=== PATIENT | male | born 1960 | race Caucasian/White ===

== ENCOUNTER 2019-07-02 16:17 | Outpatient (CLI) | payer MEDICARE, SELFPAY ==
[2019-07-02 18:15] LABS: TSH 30.75 uIU/mL (0.36-3.74)
== END 2019-07-02 16:37 ==
PROVIDERS: PCP General Practice; Visit Provider Radiology Radiation Oncology
DX: C06.9 Malignant neoplasm of mouth, unspecified (principal); Z92.3 Personal history of irradiation
CPT/HCPCS: 36415; 84443

== ENCOUNTER 2019-09-21 02:07 | Outpatient (CLI) | payer MEDICARE, SELFPAY ==
[2019-09-21 11:12] LABS: FREE T4 0.81 ng/dL (0.76-1.46)
== END 2019-09-21 02:27 ==
PROVIDERS: PCP Nurse Practitioner; Visit Provider Nurse Practitioner
DX: R94.6 Abnormal results of thyroid function studies (principal); R79.89 Other specified abnormal findings of blood chemistry
CPT/HCPCS: 36415; 84439; 84443

== ENCOUNTER 2019-10-24 03:03 | Outpatient (CLI) | payer MEDICARE, SELFPAY ==
[2019-10-24 16:54] LABS: TSH (W/Ref FT4) 24.95 uIU/mL (0.36-3.74)
[2019-10-24 17:11] LABS: FREE T4 0.75 ng/dL (0.76-1.46)
== END 2019-10-24 03:23 ==
PROVIDERS: PCP Nurse Practitioner; Visit Provider Nurse Practitioner
DX: I10 Essential (primary) hypertension (principal); R79.89 Other specified abnormal findings of blood chemistry
CPT/HCPCS: 36415; 84439; 84443

== ENCOUNTER 2019-12-31 02:00 | Outpatient (CLI) | payer MEDICARE, SELFPAY ==
[2019-12-31 11:16] LABS: FREE T4 1.06 ng/dL (0.76-1.46)
== END 2019-12-31 02:20 ==
PROVIDERS: PCP Nurse Practitioner; Visit Provider Nurse Practitioner
DX: E03.9 Hypothyroidism, unspecified (principal); I10 Essential (primary) hypertension
CPT/HCPCS: 36415; 84439; 84443

== ENCOUNTER 2020-02-29 02:20 | Outpatient (CLI) | payer MEDICARE, SELFPAY ==
[2020-02-29 11:39] LABS: TSH (W/Ref FT4) 5.87 uIU/mL (0.36-3.74)
[2020-02-29 11:55] LABS: FREE T4 1.14 ng/dL (0.76-1.46)
== END 2020-02-29 02:40 ==
PROVIDERS: PCP Nurse Practitioner; Visit Provider Nurse Practitioner
DX: E03.9 Hypothyroidism, unspecified (principal)
CPT/HCPCS: 36415; 84439; 84443

== ENCOUNTER 2020-07-01 09:44 | Outpatient (REF) | payer MEDICARE, SELFPAY ==
[2020-07-01 15:19] LABS: Abs Immature Grans 0.03 10^3/uL (0.0-0.06); Absolute Basophil Count 0.05 10^3/uL (0.0-0.2); Absolute Eosinophil Count 0.08 10^3/uL (0.0-0.7); Absolute Lymphocyte Count 1.15 10^3/uL (1.2-3.4); Absolute Monocyte Count 0.78 10^3/uL (0.1-0.8); Absolute Neutrophil Count 6.44 10^3/uL (1.2-6.7); Basophils % 0.6; Eosinophils % 0.9; HCT 44.3 % (40.0-50.0); HGB 15.7 g/dL (13.5-17.5); Immature Grans % 0.4; Lymphocytes % 13.5; MCH 35.9 pg (27.0-33.0); MCHC 35.4 % (32.0-36.0); MCV 101.4 fL (80-95); MPV 9.8 fL (8.0-11.0); Monocytes % 9.1; Neutrophils % 75.5; Nucleated RBC 0 %; Platelet Count 227 10^3/uL (130-400); RBC 4.37 10^6/uL (4.36-5.78); RDW 11.7 % (11.8-14.1); RDW-SD 43.9 fL; WBC 8.53 10^3/uL (4.4-10.8)
[2020-07-01 15:40] LABS: ALT 42 U/L (16-63); AST 60 U/L (15-37); Albumin 3.7 g/dL (3.4-5.0); Alkaline Phosphatase 101 U/L (46-116); Anion Gap 13.8 mmol/L (3-11); BUN 4 mg/dL (7-18); Bilirubin, Total 0.5 mg/dL (0.2-1.0); CO2 22.2 mmol/L (21.0-32.0); CREATININE 0.7 mg/dL (0.70-1.30); Calcium 8.9 mg/dL (8.5-10.1); Chloride 94 mmol/L (98-107); Glucose 102 mg/dL (74-106); Potassium 3.9 mmol/L (3.5-5.1); Sodium 130 mmol/L (136-145)
[2020-07-01 16:19] LABS: FREE T4 1.14 ng/dL (0.76-1.46)
== END 2020-07-01 09:45 | disposition home or self-care (01) ==
LOC: LBN 09:44
PROVIDERS: PCP Nurse Practitioner; Visit Provider Nurse Practitioner
DX: I10 Essential (primary) hypertension (principal); E03.9 Hypothyroidism, unspecified; C04.9 Malignant neoplasm of floor of mouth, unspecified; F17.200 Nicotine dependence, unspecified, uncomplicated
CPT/HCPCS: 80053; 84439; 84443; 85025

== ENCOUNTER 2020-07-28 09:28 | Outpatient (CLI) | payer MEDICARE, SELFPAY ==
--- NOTE | 2020-07-28 09:15 | RT.EKG_ITS ---
APPROVED REPORT Exam: Resting ECG Patient Location: O HR:92 bpm ECG Measurements Heart Rate [address] 162 P 73 QRSd 88 QRS 45 QT 345 T 53 QTc 427 Conclusion Sinus rhythm...normal P axis, V-rate 60- 99
== END 2020-07-28 09:29 | disposition home or self-care (01) ==
LOC: DI.KIM 09:28
PROVIDERS: PCP Nurse Practitioner; Visit Provider Nurse Practitioner
DX: Z01.818 Encounter for other preprocedural examination (principal)
CPT/HCPCS: 93010

== ENCOUNTER 2020-10-20 11:19 | Emergency (ER) | payer MEDICARE, SELFPAY ==
[2020-10-20 11:23] VITALS: BP 121/104; PULSE 102; RESP 14; TEMP 36.9; O2SAT 96
[2020-10-20 11:25] VITALS: O2SAT 99
--- NOTE | 2020-10-20 11:45 | DI.RAD_ITS ---
Exam(s) XR CHEST 2V PA LATERAL EXAM: XR CHEST 2V PA LATERAL CLINICAL HISTORY: s/p fall, recent trach and G tube, r/o acute dz. TECHNIQUE: 2D digital imaging was performed. COMPARISON: CR CHEST 2 VIEWS PA,LAT from 03/22/2013 FINDINGS: Heart size is upper normal. The mediastinum is not widened. Lungs are clear. No obvious infiltrates nor pleural effusions. On the lateral view there is a nodular density seen posteriorly which is in the superior segment lowe r lobe region. However, this probably corresponds to osteophytes on the right side at midthoracic sp ine level. Less like large lung nodule at this level. There are no pleural effusions Tracheostomy tube noted. IMPRESSION: Findings as above which are probably prominent osteophytes. If clinically indicated follow-up chest CT scan can be performed. DATA REPOSITORY: RADIATION DOSE DELIVERED:
--- NOTE | 2020-10-20 11:45 | DI.CT_ITS ---
Exam(s) CT HEAD CERV SPINE FACIAL WO EXAM: CT HEAD CERV SPINE FACIAL WO CLINICAL HISTORY: s/p fall w/ head injury, L eyebrow laceration. TECHNIQUE: Imaging Protocol: Axial computed tomography images with coronal and sagittal reformatted images were created and reviewed COMPARISON: CT NECK WITH CONTRAST from 08/24/2016 FINDINGS: CT BRAIN: There are no skull fractures nor fluid in the visualized paranasal sinuses. There is no evidence of intracranial hemorrhage, mass effect, or shift of midline structures. There are no extra-axial fluid collections. The ventricles are not enlarged or shifted and there is no blo od within the ventricular system nor within the basal cisterns. There is some periventricular hypodensity consistent with chronic small vessel white matter ischemic changes. CT MAXILLOFACIAL BONES: There is no evidence of facial fractures nor fluid in the visualized paranasal sinuses. there is no evidence of orbital blowout fracture. There has been none resection of a large part of the left side of the mandible. There is a history o f apparent tongue cancer. Soft tissue density and streaking is most probably related to post surgica l reconstruction and radiation change. CT CERVICAL SPINE: There is no evidence of fracture nor listhesis. There is multilevel chronic degenerative disc diseas e. Partial fusions C6-7 levels. No prominent prevertebral soft tissue swelling. No significant pre vertebral soft tissue swelling. No facet malalignment evident. No significant osseous lesions evident. Tracheostomy tube in satisfactory position. Scarring noted in the visualized right lung apex. IMPRESSION: No acute intracranial findings on this noninfused CT scan of the brain. No evidence of facial nor orbital blowout fractures. No evidence of cervical spine fracture, malalignment, nor acute compromise of the cervical spinal can al. Post radical surgical findings including partial resection of the left side of the mandible and subj acent soft tissue postop of post radiation changes RADIATION DOSE DELIVERED: 1,924.75mGy.cm Total DLP DATA REPOSITORY: All CT scans at this facility are submitted to the National Radiology Data Registry (NRDR) Dose Index Registry (DIR) with the [employer] ([employer]). RADIATION OPTIMIZATION: All CT scans at this facility use at least one of these dose optimization te chniques: automated exposure control; mA and/or kV adjustment per patient size (includes targeted exa ms where dose is matched to clinical indication); or iterative reconstruction.
--- NOTE | 2020-10-20 11:45 | RT.EKG_ITS ---
APPROVED REPORT Exam: Resting ECG Reason for Exam: fatigue, dizziness Patient Location: E HR:100 bpm ECG Measurements Heart Rate 100 AXIS NC 194 P 64 QRSd 92 QRS 29 QT 348 T 55 QTc 448 Conclusion Sinus tachycardia...rate> 99 I have reviewed and interpreted ECG and agree with software generated interpretation.
[2020-10-20 11:49] VITALS: BP 119/82; PULSE 106; PULSE 98; RESP 26
[2020-10-20 11:50] VITALS: PULSE 99; RESP 14
--- NOTE | 2020-10-20 12:03 | W.ED.GENAD ---
Discharge Plan Disposition Patient Disposition: HOME Condition: Stable Discharge Details Clinical Impression: Closed head injury without loss of consciousness, Facial laceration, Alcohol intoxication, Gastrostomy tube in place Primary Care Provider: Maisha Deleon ED Provider: Alyssa Casey Home Meds and New Rx's Prescriptions: Continued oxycodone 5 mg/5 mL solution 5 mg PO BID MDD 10mg PRN (Reason: pain, mouth cancer) Qty: 140 RF: 0 famotidine 20 mg tablet 20 mg feeding tube BID Qty: 60 RF: 3 (DME) [place]te Swab See Rx Instructions .ROUTE .MEDSUPPLY Qty: 500 RF: 6 folic acid 400 mcg tablet 0.4 mg PO DAILY RF: 0 vitamin E 200 unit capsule 400 unit PO DAILY RF: 0 docusate sodium 50 mg/5 mL liquid 100 mg feeding tube BID PRN (Reason: constipation) Qty: 473 RF: 3 chlorhexidine gluconate [Peridex] 0.12 % mouthwash 15 ml mucous membrane TID RF: 0 ibuprofen 600 mg tablet 600 mg feeding tube Q6H PRNRF: 0 mirtazapine 7.5 mg tablet 7.5 mg feeding tube QHS RF: 0 levothyroxine 50 mcg tablet 50 mcg feeding tube DAILY RF: 0 food supplemt, lactose-reduced Liquid See Rx Instructions feeding tube .COMPLEX RF: 0 multivitamin Tablet 1 tab feeding tube DAILY RF: 0 thiamine HCl (vitamin B1) 100 mg tablet 100 mg feeding tube DAILY RF: 0 vitamin E (dl, acetate) 400 unit capsule 400 unit feeding tube DAILY RF: 0 gabapentin 300 mg/6 mL (6 mL) solution 400 mg feeding tube TID RF: 0 Discharge Instructions Instructions: Head Injury (ED), Alcohol Intoxication (ED), Facial Laceration (ED) Additional Instructions: Drink plenty of fluids and get plenty of rest. Alternate tylenol and motrin as needed and directed for pain. Return to the emergency department in 5 days for suture removal. It is not advised to use to your gastrostomy tube in your stomach for alcohol consumption. Follow-up with the ear, nose and throat and gastroenterology doctors at [facility] for re-evaluation in the next 1-2 weeks. 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 Patient appears nontoxic. There was large amount of blood noted to his face on arrival which was easily removed revealing only a left lateral eyebrow laceration. He has a large area of chronic left mandible and neck edema s/p oral squamous cell carcinoma resection and reconstruction. There is no pulsatile hematoma and he is hemodynamically stable. Tracheostomy and G-tube noted in place. He denies any history of syncope but does admit to alcohol use yesterday. Pt states he is using his G tube for alcohol consumption. Considering patient's history, will check screening labs including alcohol and urinalysis. Will obtain CT head, cervical spine and facial bones in addition to chest x-ray. History and presentation does not appear consistent with CVA or PE. Will give bolus IV fluids, IV Tylenol and close eyebrow laceration. EKG notes a rate of 100, sinus, no STEMI, nondiagnostic. Labs and imaging reviewed and unremarkable other than an alcohol level of 334. CT's reviewed and negative for acute findings. Discussed with [facility]NT who note that the left-sided neck swelling and soft tissue changes are chronic. They were advised that patient is using his G-tube for alcohol consumption. Patient advised to return to the ED in 5 to 7 days for suture removal. Has an appointment with [facility]NT next week. Medical Records Medical records reviewed: Yes I reviewed the patient's medical records. Imaging Data Radiologic Study: Radiologist's impression: ?CT HEAD CERV SPINE ? FACIAL WO CLINICAL HISTORY: ? s/p fall w/ head injury, L eyebrow laceration. ? TECHNIQUE:? Imaging Protocol: Axial computed tomography images with coronal and sagittal reformatted images were created and reviewed COMPARISON:? CT NECK WITH CONTRAST from 08/24/2016 FINDINGS: CT BRAIN: There are no skull fractures nor fluid in the visualized paranasal sinuses. There is no evidence of intracranial hemorrhage, mass effect, or shift of midline structures.? There are no extra-axial fluid collections.? The ventricles are not enlarged or shifted and there is no blood within the ventricular system nor within the basal cisterns. There is some periventricular hypodensity consistent with chronic small vessel white matter ischemic changes. CT MAXILLOFACIAL BONES: There is no evidence of facial fractures nor fluid in the visualized paranasal sinuses.? there is no evidence of orbital blowout fracture. There has been none resection of a large part of the left side of the mandible.? There is a history of apparent tongue cancer.? Soft tissue density and streaking is most probably related to post surgical reconstruction and radiation change. CT CERVICAL SPINE: There is no evidence of fracture nor listhesis.? There is multilevel chronic degenerative disc disease.? Partial fusions C6-7 levels.? No prominent prevertebral soft tissue swelling.? No significant prevertebral soft tissue swelling.? No facet malalignment evident. No significant osseous lesions evident. Tracheostomy tube in satisfactory position.? Scarring noted in the visualized right lung apex. IMPRESSION: No acute intracranial findings on this noninfused CT scan of the brain. No evidence of facial nor orbital blowout fractures. No evidence of cervical spine fracture, malalignment, nor acute compromise of the cervical spinal canal. Post radical surgical findings including partial resection of the? left side of the mandible and subjacent soft tissue postop of post radiation changes. XR CHEST 2V PA ? LATERAL CLINICAL HISTORY: ? s/p fall, recent trach and G tube, r/o acute dz. ? TECHNIQUE:? 2D digital imaging was performed. COMPARISON:? CR CHEST 2 VIEWS PA,LAT from 03/22/2013 FINDINGS: Heart size is upper normal.? The mediastinum is not widened. Lungs are clear.? No obvious infiltrates nor pleural effusions. On the lateral view there is a nodular density seen posteriorly which is in the superior segment lower lobe region.? However, this probably corresponds to osteophytes on the right side at midthoracic spine level.? Less like large lung nodule at this level.? There are no pleural effusions Tracheostomy tube noted. IMPRESSION: Findings as above which are probably prominent osteophytes. If clinically indicated follow-up chest CT scan can be performed. Lab Data Lab results reviewed: Yes I reviewed the patient's lab results. Labs: Laboratory Tests Range/Units 10/20/20 10/20/20 10/20/20 11:40 11:40 11:40 WBC (4.4-10.8) 10^3/uL 5.21 RBC (4.36-5.78) 10^6/uL 4.63 Hgb (13.5-17.5) g/dL 14.8 Hct (40.0-50.0) % 42.3 MCV (80-95) fL 91.4 MCH (27.0-33.0) pg 32.0 MCHC (32.0-36.0) % 35.0 RDW (11.8-14.1) % 13.2 Plt Count (130-400) 10^3/uL 208 MPV (8.0-11.0) fL 8.9 Immature Gran % 0.4 Neutrophils % 57.4 Lymphocytes % 31.7 Monocytes % 8.4 Eosinophils % 1.7 Basophils % 0.4 Nucleated RBC % % 0 Absolute Neutrophils (1.2-6.7) 10^3/uL 2.99 Absolute Lymphocytes (1.2-3.4) 10^3/uL 1.65 Absolute Monocytes (0.1-0.8) 10^3/uL 0.44 Absolute Eosinophils (0.0-0.7) 10^3/uL 0.09 Absolute Basophils (0.0-0.2) 10^3/uL 0.02 PT (9.3-11.0) sec 9.7 INR (0.9-1.1) 1.0 APTT (21.0-27.5) sec 25.6 Sodium (136-145) mmol/L 135 L Potassium (3.5-5.1) mmol/L 4.1 Chloride (98-107) mmol/L 94 L Carbon Dioxide (21.0-32.0) mmol/L 30.7 Anion Gap (3-11) mmol/L 10.3 BUN (7-18) mg/dL 5 L Creatinine (0.70-1.30) mg/dL 0.7 Estimated GFR/1.73 m2 (mL/min/1.73m2) >= 60.00 Glucose (74-106) mg/dL 106 Calcium (8.5-10.1) mg/dL 8.6 Magnesium (1.8-2.4) mg/dL 2.1 Total Bilirubin (0.2-1.0) mg/dL 0.2 AST (15-37) U/L 40 H ALT (16-63) U/L 29 Alkaline Phosphatase (46-116) U/L 97 Troponin I (<0.06) ng/mL < 0.05 Total Protein (6.4-8.2) g/dL 7.9 Albumin (3.4-5.0) g/dL 3.8 Urine Color (Yellow) Urine Clarity (Clear) Urine pH (5-8) Ur Specific [place] (1.005-1.025) Urine Protein (Negative) mg/dL Urine Ketones (Negative) mg/dL Urine Blood (Negative) Urine Nitrite (Negative) Urine Bilirubin (Negative) Urine Urobilinogen (Up TO 0.2) EU/dL Ur Leukocyte Esterase (Negative) Urine RBC (0-2) HPF Urine WBC (0-5) HPF Ur Epithelial Cells (Negative) HPF Urine Crystals (Negative) HPF Urine Bacteria (Negative) HPF Urine Mucus (Negative) Ur Culture Indicated? Urine Glucose (Negative) mg/dL Ethyl Alcohol (<3) mg/dL 334.1 Range/Units 10/20/20 13:25 WBC (4.4-10.8) 10^3/uL RBC (4.36-5.78) 10^6/uL Hgb (13.5-17.5) g/dL Hct (40.0-50.0) % MCV (80-95) fL MCH (27.0-33.0) pg MCHC (32.0-36.0) % RDW (11.8-14.1) % Plt Count (130-400) 10^3/uL MPV (8.0-11.0) fL Immature Gran % Neutrophils % Lymphocytes % Monocytes % Eosinophils % Basophils % Nucleated RBC % % Absolute Neutrophils (1.2-6.7) 10^3/uL Absolute Lymphocytes (1.2-3.4) 10^3/uL Absolute Monocytes (0.1-0.8) 10^3/uL Absolute Eosinophils (0.0-0.7) 10^3/uL Absolute Basophils (0.0-0.2) 10^3/uL PT (9.3-11.0) sec INR (0.9-1.1) APTT (21.0-27.5) sec Sodium (136-145) mmol/L Potassium (3.5-5.1) mmol/L Chloride (98-107) mmol/L Carbon Dioxide (21.0-32.0) mmol/L Anion Gap (3-11) mmol/L BUN (7-18) mg/dL Creatinine (0.70-1.30) mg/dL Estimated GFR/1.73 m2 (mL/min/1.73m2) Glucose (74-106) mg/dL Calcium (8.5-10.1) mg/dL Magnesium (1.8-2.4) mg/dL Total Bilirubin (0.2-1.0) mg/dL AST (15-37) U/L ALT (16-63) U/L Alkaline Phosphatase (46-116) U/L Troponin I (<0.06) ng/mL Total Protein (6.4-8.2) g/dL Albumin (3.4-5.0) g/dL Urine Color (Yellow) Yellow Urine Clarity (Clear) Clear Urine pH (5-8) 7.0 Ur Specific [place] (1.005-1.025) 1.010 Urine Protein (Negative) mg/dL Negative Urine Ketones (Negative) mg/dL Negative Urine Blood (Negative) Trace-intact H Urine Nitrite (Negative) Negative Urine Bilirubin (Negative) Negative Urine Urobilinogen (Up TO 0.2) EU/dL 0.2 Ur Leukocyte Esterase (Negative) Negative Urine RBC (0-2) HPF 0-2 Urine WBC (0-5) HPF 0-2 Ur Epithelial Cells (Negative) HPF Negative Urine Crystals (Negative) HPF Negative Urine Bacteria (Negative) HPF Negative Urine Mucus (Negative) Negative Ur Culture Indicated? No Urine Glucose (Negative) mg/dL Negative Ethyl Alcohol (<3) mg/dL ECG Data Attestation: I personally reviewed and interpreted this ECG (s) as follows: Interpretation: Rate of 100, sinus, no acute ST elevation or depression. MA 194. QTc 448. HPI General Mode of arrival: ambulatory. Date/Time Provider Initiated Documentation: 10/20/20 11:22. Limitations to Documentation: no limitations. Information obtained by: patient. 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 Patient states he was feeling tired at home today and fell striking the left side of his head on the ground. He denies any dizziness, chest pain, shortness of breath prior to the fall and denies any LOC, vomiting after the fall. He states he had 4 beers yesterday but denies any alcohol use today. Related Data Home Medications Medication Instructions Recorded Confirmed folic acid 400 mcg tablet 0.4 mg PO DAILY 08/06/19 10/20/20 vitamin E 200 unit capsule 400 unit PO DAILY cap 08/06/19 10/20/20 swab #500 ea 07/28/20 09/25/20 chlorhexidine gluconate 0.12 % 15 ml MUCOUS MEMBRANE TID ml 09/01/20 10/20/20 mouthwash docusate sodium 50 mg/5 mL oral 100 mg FEEDING TUBE BID PRN #473 ml 09/01/20 10/20/20 liquid food supplemt, lactose-reduced See Rx Instructions FEEDING TUBE 09/01/20 10/20/20 .COMPLEX ibuprofen 600 mg tablet 600 mg FEEDING TUBE Q6H PRN 09/01/20 10/20/20 levothyroxine 50 mcg tablet 50 mcg FEEDING TUBE DAILY 09/01/20 10/20/20 mirtazapine 7.5 mg tablet 7.5 mg FEEDING TUBE QHS 09/01/20 10/20/20 multivitamin 1 tab FEEDING TUBE DAILY 09/01/20 10/20/20 thiamine HCl (vitamin B1) 100 mg 100 mg FEEDING TUBE DAILY 09/01/20 10/20/20 tablet vitamin E (dl, acetate) 400 unit 400 unit FEEDING TUBE DAILY 09/01/20 10/20/20 capsule gabapentin 300 mg/6 mL (6 mL) oral 400 mg FEEDING TUBE TID ml 09/10/20 10/20/20 solution famotidine 20 mg tablet 20 mg FEEDING TUBE BID #60 tab 09/25/20 10/20/20 oxycodone 5 mg/5 mL oral solution 5 mg PO BID PRN #140 ml MDD 10mg 09/25/20 10/20/20 Previous Rx's Medication Instructions Recorded swab #500 ea 07/28/20 docusate sodium 50 mg/5 mL oral 100 mg FEEDING TUBE BID PRN #473 ml 09/01/20 liquid famotidine 20 mg tablet 20 mg FEEDING TUBE BID #60 tab 09/25/20 oxycodone 5 mg/5 mL oral solution 5 mg PO BID PRN #140 ml MDD 10mg 09/25/20 Allergies Allergy/AdvReac Type Severity Reaction Status Date / Time No Known Allergies Allergy Verified 10/20/20 11:36 General Stated Complaint: Laceration CHRIST: 3 Review of Systems All systems reviewed & are unremarkable except as noted in HPI and below Constitutional Constitutional: Reports as per HPI, Denies chills, Reports fatigue and Denies fever(s) Eyes Eyes: Denies blurry vision ENT Ears, Nose, Mouth, and Throat: Denies dizziness, Denies sore throat and Denies throat swelling Cardiovascular Cardiovascular: Denies chest pain and Denies dyspnea Respiratory Respiratory: Denies cough and Denies dyspnea Gastrointestinal Gastrointestinal: Denies abdominal pain, Denies diarrhea and Denies vomiting Genitourinary Genitourinary: Denies hematuria and Denies dysuria Musculoskeletal Musculoskeletal: Denies back pain and Denies numbness Integumentary/Breasts Skin/Breast: Denies lesions and Denies rash Neurologic Neurologic: Denies dizziness, Denies localized weakness and Denies numbness Endocrine Endocrine: Reports fatigue Allergic/Immunologic Allergic/Immunologic: Denies throat swelling [facility] Medical History (Updated 10/20/20 @ 14:11 by Alyssa Casey DO) Anxiety Aspiration pneumonia Caries COPD (chronic obstructive pulmonary disease) Cough with hemoptysis Dysphagia, oral phase Floor of mouth squamous cell carcinoma (06/26/20) Hypertension Hypothyroidism Mouth cancer Oral pain Recurrent squamous cell carcinoma Tobacco use disorder >25 pack years Surgical History (Updated 09/03/20 @ 16:41 by Flora Og RN) S/P glossectomy (10/24/13) w/ resection of floor of mouth, w/ suprahyoid neck dissection. cervical lymphadenectomy, tracheostomy, excision benign thyroid lesion, exploration carotid artery S/P reconstruction procedure (08/18/20) Pediculed pec flap, L hemiglossectomy and mandibulectomy ([facility]) S/P tooth extraction (~2013) Status post glossectomy (08/11/20) w/ multiple other procedures Family History (Updated 11/05/19 @ 16:13 by Flora Og RN) Mother Hypertension Hyperlipidemia Breast cancer Asthma Father Asthma Brother Hyperlipidemia Social History Smoking/Tobacco Use Status: Current every day Tobacco: How many years used: 29 Smoking risk assessment performed?: Yes Alcohol Intake: current Alcohol Intake frequency: 3 or more drinks per day Alcohol type: beer Details: 6 beer a day Drug use: Rarely Substance use type: marijuana Details: No IV Drug Use Adopted: No Caregiver/Support person: No Foster care: No Household members: none Housing: house Number of Children: 1 Communication Needs: Corrective Lenses Education Level: high school Do you need help understanding health information?: Often Sexually active: No Do you think of yourself as: straight/heterosexual Current gender identity: male What type of physical activity do you participate in: none Special leeroy needs: No Seatbelt use: always Do you feel safe at home: Yes Do you feel safe in your relationship?: Yes Exam Const General: cooperative and ill appearing chronically Orientation: alert, awake and oriented x3 HENMT Head: normal to inspection Ears: hearing grossly normal bilaterally, external ears normal and TM's normal bilaterally General nose exam: external nose normal Face images: 1. Large well-healed surgical scar and skin grafting noted to the left side of the jaw and neck. There is a question of erosion at the left corner of the mouth without signs of cellulitis or active bleeding. 2. 2 cm straight laceration noted to lateral aspect of eyebrow. Mild oozing. Teeth and gingiva: edentulous Eyes General: appearance normal, both eyes and all related structures Eyelids: eyelids normal Pupils: PERRL EOM: EOM intact bilaterally Neck Neck: tracheostomy present Lymphatic: no lymphadenopathy noted Neck images: 1. Chronic abrasion noted left and posterior to the tracheostomy, appears chronic due to irritation from tracheostomy. No signs of cellulitis. Chest Chest: normal inspection of the chest, normal palpation of entire chest wall, no crepitus and no tenderness Resp Effort & Inspection: normal respiratory effort and able to speak in complete sentences Auscultation: clear to auscultation bilaterally Cardio Rate: regular rate Rhythm: regular rhythm GI Inspection: normal to inspection Palpation: soft, not firm, no guarding, no hepatosplenomegaly, no masses and nontender Auscultation: normal bowel sounds Back/Spine/Pelvis Back: no CVA tenderness Cervical Spine: No cervical spinal tenderness Thoracic/Lumbar Spine: No thoracic spinal tenderness and No lumbar spinal tenderness Pelvis: no pain with anterior-posterior compression Skin General skin exam: no rashes or lesions noted Neuro General: patient alert, patient awake, moves all extremities, no meningeal signs and no focal motor deficits Cognition: normal cognition Speech: abnormal speech slurred (Due to oral cancer/surgery, edentulous, tracheostomy) Motor: muscle tone normal throughout Sensory Exam: no sensory deficits noted Extrem General: normal to inspection, full ROM and capillary refill normal Other: No evidence of trauma to bilateral upper or lower extremities. Normal range of motion of bilateral shoulders, elbows, wrists, hips, knees, ankles. No orthopedic deformities noted. Psych Appearance: grossly normal Mental Status: mental status grossly normal Affect: normal affect Thought Process: normal Course Vital Signs Vital signs: Vital Signs Temperature 98.4 F 10/20/20 11:23 Pulse 102 H 10/20/20 11:23 Respiratory Rate 14 10/20/20 11:23 Blood Pressure 121/104 H 10/20/20 11:23 Pulse Oximetry 96 10/20/20 11:23 Temperature 98.4 F 10/20/20 11:23 Temperature Source Skin 10/20/20 11:23 Pulse 102 H 10/20/20 11:23 Respiratory Rate 14 10/20/20 11:23 Respiratory Effort Non-Labored 10/20/20 11:38 Blood Pressure 121/104 H 10/20/20 11:23 Blood Pressure Position Supine 10/20/20 11:23 Pulse Oximetry 96 10/20/20 11:23 Oxygen Delivery Method Room Air 10/20/20 11:23 Oxygen Flow Rate 0 10/20/20 11:23 Pain Level 5 10/20/20 11:23 Procedures Laceration Laceration 1: Site: face Side (If applicable): left Size (cm): 2 Description: linear (w/ V shaped flap on medial aspect) Depth: simple, single layer Local Anesthetic: with Epi Amount of anesthesia used (mL): 5 Pre-repair: wound explored, irrigated extensively and deep structures intact Skin layer closed with: other (prolene) Size (cm): 6-0 Number of sutures: 5 Technique: simple, interrupted
[2020-10-20 12:06] LABS: Abs Immature Grans 0.02 10^3/uL (0.0-0.06); Absolute Basophil Count 0.02 10^3/uL (0.0-0.2); Absolute Eosinophil Count 0.09 10^3/uL (0.0-0.7); Absolute Lymphocyte Count 1.65 10^3/uL (1.2-3.4); Absolute Monocyte Count 0.44 10^3/uL (0.1-0.8); Absolute Neutrophil Count 2.99 10^3/uL (1.2-6.7); Basophils % 0.4; Eosinophils % 1.7; HCT 42.3 % (40.0-50.0); HGB 14.8 g/dL (13.5-17.5); Immature Grans % 0.4; Lymphocytes % 31.7; MCV 91.4 fL (80-95); MPV 8.9 fL (8.0-11.0); Monocytes % 8.4; Neutrophils % 57.4; Nucleated RBC 0 %; Platelet Count 208 10^3/uL (130-400); RBC 4.63 10^6/uL (4.36-5.78); RDW 13.2 % (11.8-14.1); RDW-SD 44.2 fL; WBC 5.21 10^3/uL (4.4-10.8)
[2020-10-20 12:12] LABS: PTT Activated 25.6 sec (21.0-27.5); Prothrombin Time 9.7 sec (9.3-11.0)
[2020-10-20 12:15] LABS: ALT 29 U/L (16-63); AST 40 U/L (15-37); Albumin 3.8 g/dL (3.4-5.0); Alkaline Phosphatase 97 U/L (46-116); Anion Gap 10.3 mmol/L (3-11); BUN 5 mg/dL (7-18); Bilirubin, Total 0.2 mg/dL (0.2-1.0); CO2 30.7 mmol/L (21.0-32.0); CREATININE 0.7 mg/dL (0.70-1.30); Calcium 8.6 mg/dL (8.5-10.1); Chloride 94 mmol/L (98-107); ETHANOL BLOOD 334.1 mg/dL (<3); Glucose 106 mg/dL (74-106); Magnesium 2.1 mg/dL (1.8-2.4); Potassium 4.1 mmol/L (3.5-5.1); Sodium 135 mmol/L (136-145); Total Protein 7.9 g/dL (6.4-8.2); Troponin I < 0.05 ng/mL (<0.06)
[2020-10-20] MEDS: Normal Saline 1,000 ML 1000 ML IV (13:18)
[2020-10-20] MEDS: ACETAMINOPHEN 1,000 MG/100 ML BTL 400 MG IVPB (13:19)
[2020-10-20 13:44] LABS: Bilirubin Negative (Negative); Blood Trace-intact (Negative); Clarity Clear (Clear); Glucose Negative (Negative); Ketones Negative (Negative); Leukocyte Esterase Negative (Negative); Nitrite Negative (Negative); Urobilinogen 0.2 EU/dL (Up TO 0.2)
[2020-10-20 14:01] VITALS: O2SAT 97
[2020-10-20 14:02] VITALS: BP 140/103; PULSE 99; O2SAT 97
[2020-10-20 14:04] LABS: Bacteria Negative HPF (Negative); Crystals Negative HPF (Negative); Epithelial Cells Negative HPF (Negative); Mucus Negative (Negative); RBC 0-2 HPF (0-2); WBC 0-2 HPF (0-5)
[2020-10-20 14:05] LABS: C & S Indicated? No
== END 2020-10-20 15:06 | disposition home or self-care (01) ==
PROVIDERS: Emergency Provider Physician Assistant; PCP Nurse Practitioner
DX: S01.112A Laceration without foreign body of left eyelid and periocular area, initial encounter (principal); W18.39XA Other fall on same level, initial encounter; Z93.1 Gastrostomy status; F10.129 Alcohol abuse with intoxication, unspecified
CPT/HCPCS: 12011; 36415; 80053; 93005; 96361; 96365; 99284; 70450; 70486; 71046; 72125; 80320; 81003; 81015; 83735; 84484; 85025; 85610; 85730; 93010; J0131

== ENCOUNTER 2020-11-02 08:20 | Inpatient (IN) | payer OTHER, SELFPAY ==
[2020-11-02] VITALS (122 sets, daily range): BP systolic 83–202; BP diastolic 58–173; PULSE 85–157; RESP 15–34; TEMP 36–36.7; O2SAT 89–98
--- NOTE | 2020-11-02 08:45 | DI.CT_ITS ---
Exam(s) CT HEAD CERVICAL SPINE WO EXAM: CT HEAD CERVICAL SPINE WO COMPARISON: CT CT HEAD CERV SPINE FACIAL WO from 10/20/2020 FINDINGS: CT examination of the cervical spine was performed without contrast administration. Severe degenerative changes of the cervical spine noted. Tracheostomy tube noted. Multiple vascular clips in the cervical region bilaterally consistent with reported prior surgical procedures. There is no evidence of acute cervical spine fracture or dislocation. Noncontrast cranial CT was performed. Ventricular system is normal in appearance. No evidence of acute intracranial hemorrhage, mass effect, or midline shift. No calvarial fracture. The orbital and temporal bone structures appear intact. Visualized mastoid air cells and paranasal sinuses appear clear. IMPRESSION: No evidence of acute cervical spine injury. No evidence of acute intracranial injury. RADIATION DOSE DELIVERED: 1,493.1mGy.cm Total DLP 1,493.1mGy.cm Total DLP DATA REPOSITORY: All CT scans at this facility are submitted to the National Radiology Data Registry (NRDR) Dose Index Registry (DIR) with the [employer] (ACR). RADIATION OPTIMIZATION: All CT scans at this facility use at least one of these dose optimization te chniques: automated exposure control; mA and/or kV adjustment per patient size (includes targeted exa ms where dose is matched to clinical indication); or iterative reconstruction.
--- NOTE | 2020-11-02 08:45 | RT.EKG_ITS ---
APPROVED REPORT Exam: Resting ECG Reason for Exam: fall, unclear mechanism Patient Location: E HR:117 bpm ECG Measurements Heart Rate 117 AXIS MN 160 P 67 QRSd 86 QRS 13 QT 334 T 59 QTc 467 Conclusion Sinus tachycardia...rate> 99. No STEMI. I have reviewed and interpreted ECG and agree with software generated interpretation.
--- NOTE | 2020-11-02 08:47 | ED.GENADUL_ITS ---
Discharge Plan Disposition Patient Disposition: [facility] INPATIENT Condition: Poor Discharge Details Chief Complaint: Trauma Clinical Impression: Scalp laceration, Gastrostomy tube in place, Hyponatremia, Acute hypokalemia, Alcohol abuse Admit Date/Time: 11/02/20 11:41 Admit Provider: Tanvir Griffith Attending Provider: Tanvir Griffith Primary Care Provider: Maisha Deleon ED Provider: Jerilyn Mooney Discharge Instructions Activity:: Activity as Tolerated Equipment/Supplies:: No Equipment Needed Diet:: enteral feedings w/ Nutren 1.5 one can 5x/day, along w/ 240 mL water 5x/d Discharge Orders Discharge Orders: Discharge Order (Routine); Ordered 11/05/20 Ordered By: Tanvir Griffith Discharge Data Discharge Date/Time-TO BE ENTERED AT DEPARTURE: 11/02/20 14:01 Medical Decision Making Patient is a 60-year-old male brought in via EMS after unwitnessed fall. Patient endorses having alcohol both last night as well as this morning. Fell while intoxicated striking the back of his head. EMS noted significant laceration to the posterior scalp. No other objective evidence of trauma was noted. Patient denies pain elsewhere. Past medical history significant for G-tube, oral carcinoma with tracheostomy, hypothyroidism, hypertension, COPD. On exam, patient is alert. Communication is difficult secondary to tracheostomy and limited verbal abilities. However, patient will write. He is able to answer yes no questions and is understandable and one-word answers. Unclear mechanism of fall. Unclear time of fall. Unclear if he lost consciousness. Patient has significant laceration to the posterior aspect of his head that is actively bleeding. Wound is approximately 6 cm in length. Does have hematoma under the. No palpable fracture or pain elsewhere with exam of the head. Patient has crackles noted in the right lung. I am concerned for potential aspiration, I do not know his complete anatomy. He denies any pain to palpation of the cervical, thoracic or lumbar spine. No pain with compression of his chest wall. Abdomen is benign, G-tube appears to be in place. No pain on palpation about his extremities, he is moving all extremities. Attention initially turned to laceration at this does appear to be significantly bleeding. I discussed this with the patient. We discussed risk/benefits as well as expected procedural steps. Patient nods in agreement to have this completed. Area was cleansed and anesthetized with lidocaine with epinephrine. Dominique then applied. Pressure dressing was applied as well but bleeding did s eem to be controlled with closure of the wound. Will nugent scan the patient is very unclear about his mechanisms of injury or potential other underlying injuries. Patient not endorsing any pain at this time. Spoke with patient's [id number]. She [place] and check on patient regularly. He also helps to bring patient to appointments. [place], home [phone], cell [phone]. She is concerned that the patient has started wanting to cancel all of his regular appointments. She states that he has been drinking regularly for approximately 30 years and has gone to rehab without success. No known seizures from withdrawal. States that he did have home health but that he kicked them out. Labs reviewed. No leukocytosis. Patient slightly anemic with hemoglobin of 12.9, this is down from 14.8 dated 10/20/2020. Patient sodium is critically low at 115. Is not exhibiting any symptoms of severe hyponatremia. Likely, this is all associated with the large amount of beer he has been consuming. Potassium low at 2.9, chloride 79. We will begin potassium supplementation. Mag is 1.7, will give 1 g of mag. Alcohol is 24. When he was here recently it was 334. Patient is beginning to appear more tremulous and tachycardic, concerned for withdrawal symptoms. No PMH of known DT or seizure. We will begin the patient on phenobarbital. Patient will require admission for hyponatremia. Discussed this plan with the patient who is in agreement. #5 simple interuppted stitches from previous visit were easily removed by myself. Wound appears to be healing well with no evidence of infection. Imaging reviewed by radiologist: FINDINGS: Limitations: None. Tubes, catheters and devices: Centered tracheostomy tube. Trachea: Normal. Bronchial tree: Normal. Lungs: Right apical pleuroparenchymal scarring, limited peribronchial thickening and volume loss. Minimal scarring in the anteroinferior right middle lobe. Pleural spaces: Normal. Heart: Normal. Coronary arteries: Multivessel calcification. Aorta: The aorta has normal caliber. Lymph nodes: No enlarged or otherwise suspicious lymph nodes. Bones/joints: Healed nondisplaced posterolateral left 8th and 9th rib fractures. No acute fracture. Soft tissues: Normal. No contusions. Other findings: Mild thoracic aortosclerosis. IMPRESSION: 1. No acute injury or other acute disease in the chest. 2. Incidental findings include coronary artery disease, right lung scarring and old healed left rib fractures. FINDINGS: Limitations: None. Tubes, catheters and devices: Balloon tip percutaneous gastrostomy tube. Liver: Probable diffuse fatty liver. Gallbladder and bile ducts: Multiple gallstones. Pancreas: Normal. Spleen: Normal. Adrenal glands: Normal. Kidneys and ureters: Normal. Stomach and bowel: Normal. Appendix: Normal. Intraperitoneal space: No ascites, pneumoperitoneum or peritoneal lesion. Vasculature: Mild atherosclerosis of the abdominal aorta and branch vessels. The vessels have normal caliber and there are no occlusions, dissection or suspicious stenosis. Lymph nodes: None enlarged or otherwise suspicious. Urinary bladder: Normal. Reproductive: Normal prostate and seminal vesicles. Bones/joints: No acute fracture or suspicious osseous lesion. Soft tissues: Similar small bilateral fat containing inguinal hernias. IMPRESSION: 1. No acute injury or other acute disease in the abdomen and pelvis. 2. Incidental findings include cholelithiasis and probable fatty liver. FINDINGS: Brain: As before, there is no evidence of acute intracranial hemorrhage or acute territorial infarct. Moderate diffuse involutional changes and mild to moderate white matter hypodensity suggest small vessel disease are again noted. Cerebral ventricles: No ventriculomegaly. Paranasal sinuses: Minimal paranasal sinus disease. Mastoid air cells: Mastoids are well aerated. Bones/joints: No acutely displaced fractured Soft tissues: Scalp hematoma posteriorly on the right is small in size with overlying skin dominique IMPRESSION: 1. No acute intracranial hemorrhage. 2. No acute fracture. 3. Small scalp hematoma on the right. FINDINGS: Tubes, catheters and devices: Tracheostomy tube in the field of view. Vertebrae: The the moderate to severe multilevel degenerative changes are present with minimal scoliosis but no evidence of acute fracture line, high-grade compression deformity, or worrisome malalignment. Epidural space: No epidural fluid. Disc spaces: Multilevel mild to moderate central stenosis and multilevel foraminal encroachment. Soft tissues: Unremarkable. Prevertebral Space: No prevertebral soft tissue swelling. Esophagus: Patulous esophagus. Lymph nodes: No confluent lymphadenopathy Vasculature: Carotid vascular calcifications can be followed with ultrasound. Lungs: Apical pleural thickening in the lungs. Other findings: Motion artifact. IMPRESSION: Degenerative changes without acute fracture. Consulted with Dr. Adamson who agrees to admission for hyponatremia, hyp okalemia, hypochloremia, hypomagnesemia and trauma. Reviewed notes from [facility]. Patient was last seen by the plastic surgery office on 10/16/2020. They note the patient had surgical intervention on 08/11/2020 at which time he underwent oral cancer resection reconstruction with pedicled pectoralis flap. Subsequently had surgical intervention again on 08/18/2020 for I&D of hematoma at donor site. HPI General Mode of arrival: EMS . Date/Time Provider Initiated Documentation: 11/02/20 08:34 . Limitations to Documentation: physical limitation (difficult to understand, will write answers) . Information obtained by: patient, family (sister in law), EMS and RN notes reviewed . History of Present Illness 60 year old M presents to the emergency department with the chief complaint of unwitnessed fall, scalp laceration, described as moderate, Quality is described as other (denies pain currently, still bleeding), and is localized to the head. Patient started experiencing this unknown and it has been constant. No relieving factors improve symptom(s), No exacerbating factors reported . Patient notes no other symptoms.. Patient did receive the following treatments prior to arrival, none Related Data Home Medications Medication Instructions Recorded Confirmed folic acid 400 mcg tablet 0.4 mg PO DAILY 08/06/19 11/02/20 vitamin E 200 unit capsule 400 unit PO DAILY cap 08/06/19 11/02/20 swab #500 ea 07/28/20 11/02/20 chlorhexidine gluconate 0.12 % 15 ml MUCOUS MEMBRANE TID ml 09/01/20 11/02/20 mouthwash docusate sodium 50 mg/5 mL oral 100 mg FEEDING TUBE BID PRN #473 ml 09/01/20 11/02/20 liquid food supplemt, lactose-reduced See Rx Instructions FEEDING TUBE 09/01/20 11/02/20 .COMPLEX ibuprofen 600 mg tablet 600 mg FEEDING TUBE Q6H PRN 09/01/20 11/02/20 levothyroxine 50 mcg tablet 50 mcg FEEDING TUBE DAILY 09/01/20 11/02/20 mirtazapine 7.5 mg tablet 7.5 mg FEEDING TUBE QHS 09/01/20 11/02/20 multivitamin 1 tab FEEDING TUBE DAILY 09/01/20 11/02/20 thiamine HCl (vitamin B1) 100 mg 100 mg FEEDING TUBE DAILY 09/01/20 11/02/20 tablet vitamin E (dl, acetate) 400 unit 400 unit FEEDING TUBE DAILY 09/01/20 11/02/20 capsule gabapentin 300 mg/6 mL (6 mL) oral 400 mg FEEDING TUBE TID ml 09/10/20 11/02/20 solution famotidine 20 mg tablet 20 mg FEEDING TUBE BID #60 tab 09/25/20 11/02/20 oxycodone 5 mg/5 mL oral solution 5 mg PO BID PRN #140 ml MDD 10mg 09/25/20 11/02/20 levofloxacin 750 mg PO Q24H 14 Days #420 ml 11/05/20 Previous Rx's Medication Instructions Recorded swab #500 ea 07/28/20 docusate sodium 50 mg/5 mL oral 100 mg FEEDING TUBE BID PRN #473 ml 09/01/20 liquid famotidine 20 mg tablet 20 mg FEEDING TUBE BID #60 tab 09/25/20 oxycodone 5 mg/5 mL oral solution 5 mg PO BID PRN #140 ml MDD 10mg 09/25/20 levofloxacin 750 mg PO Q24H 14 Days #420 ml 11/05/20 Allergies Allergy/AdvReac Type Severity Reaction Status Date / Time No Known Allergies Allergy Verified 11/02/20 08:32 General Stated Complaint: Trauma CHRIST: 3 Review of Systems Narrative: Limited secondary to communication barrier [facility] Medical History Anxiety Aspiration pneumonia Caries COPD (chronic obstructive pulmonary disease) Cough with hemoptysis Dysphagia, oral phase 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 cervical lymphadenectomy, tracheostomy, excision benign thyroid lesion, exploration carotid artery S/P reconstruction procedure (08/18/20) Pediculed pec flap, L hemiglossectomy and mandibulectomy ([facility]) S/P tooth extraction (~2013) Status post glossectomy (08/11/20) w/ multiple other procedures Family History Mother Hypertension Hyperlipidemia Breast cancer Asthma Father Asthma Brother Hyperlipidemia Social History Smoking/Tobacco Use Status: Current every day Tobacco: How many years used: 29 Smoking risk assessment performed?: Yes Alcohol Intake: current Alcohol Intake frequency: 3 or more drinks per day Alcohol type: beer Details: 6 beer a day Drug use: Rarely Substance use type: marijuana Details: No IV Drug Use Adopted: No Caregiver/Support person: No Foster care: No Household members: none Housing: house Number of Children: 1 Communication Needs: Corrective Lenses Education Level: high school Do you need help understanding health information?: Often Sexually active: No Do you think of yourself as: straight/heterosexual Current gender identity: male What type of physical activity do you participate in: none Special leeroy needs: No Seatbelt use: always Do you feel safe at home: Yes Do you feel safe in your relationship?: Yes Exam Const General: cooperative, comfortable, no acute distress, well developed, No well groomed, anxious and ill appearing chronically Nutritional Appearance: average body habitus and well nourished Orientation: alert, awake and oriented x3 HENMT Head: normal to inspection, no palpable skull fracture, normocephalic, signs of trauma, no Churchill's sign and laceration Head images: 1. Ears: hearing grossly normal bilaterally, external ears normal and TM's normal bilaterally General nose exam: external nose normal Eyes General: appearance normal, both eyes and all related structures Visual Mota: normal visual mota by confrontation Alignment and Position: alignment normal Periorbital: periorbital findings normal Eyelids: eyelids normal Conjunctivae: conjunctivae normal Pupils: PERRL EOM: EOM intact bilaterally Neck Neck: full ROM and no lymphadenopathy Neck images: 1. Area of mass, chronic. No evidence of trauma Chest Chest: normal inspection of the chest, normal palpation of entire chest wall, no crepitus and no localized rib tenderness Resp Effort & Inspection: normal respiratory effort, able to speak in complete sentences and no respiratory distress Auscultation: no rales, rhonchi right lower and no wheezes Cardio Rate: regular rate Rhythm: regular rhythm Heart Sounds: S1 normal and S2 normal GI Inspection: normal to inspection, no abdominal wall ecchymosis, no edema, non- distended and other (G-tube appears to be in place) Palpation: soft, no hepatosplenomegaly, not firm, no guarding, no pulsatile masses, not rigid and nontender Auscultation: normal bowel sounds Back/Spine/Pelvis Back: no CVA tenderness Cervical Spine: normal cervical lordosis and cervical ROM normal Thoracic/Lumbar Spine: thoracic and lumbar spine normal to inspection, thoraco- lumbar ROM normal, No thoraco-lumbar ROM limited, No thoraco-lumbar spasm and No thoracic spinal tenderness Pelvis: no pain with anterior-posterior compression and no pain with lateral compression Skin Trauma: laceration (scalp) Neuro General: patient alert, patient awake, patient oriented x3, gait normal, tone normal and moves all extremities Cranial Nerves: CN's II-XI intact bilaterally Cognition: normal cognition (writing answers) Speech: speech abnormal (unable to assess) Motor: muscle tone normal throughout and strength 5/5 throughout Sensory Exam: no sensory deficits noted (no saddle paresthesias) Extrem General: normal to inspection, full ROM, capillary refill normal, no pedal edema and no calf tenderness Psych Appearance: disheveled Mental Status: mental status grossly normal Speech and Movement: speech and movement normal Course Vital Signs Vital signs: Vital Signs Temperature 36.7 C 11/02/20 08:27 Pulse 108 H 11/02/20 08:27 Respiratory Rate 20 11/02/20 08:27 Blood Pressure 116/90 11/02/20 08:27 Pulse Oximetry 96 11/02/20 08:27 Temperature 36.7 C 11/02/20 08:27 Temperature Source Skin 11/02/20 08:27 Pulse 108 H 11/02/20 08:27 Respiratory Rate 20 11/02/20 08:27 Blood Pressure 116/90 11/02/20 08:27 Blood Pressure Position Sitting 11/02/20 08:27 Pulse Oximetry 96 11/02/20 08:27 Oxygen Delivery Method Room Air 11/02/20 08:27 Oxygen Flow Rate 0 11/02/20 08:27 Procedures Laceration Laceration 1: Site: scalp Size (cm): 6 Description: linear Depth: simple, single layer Local Anesthetic: Lidocaine 1% and with Epi Amount of anesthesia used (mL): 8 Pre-repair: wound explored, irrigated extensively and deep structures intact Skin layer closed with: other (dominique) Number of sutures: 6
--- NOTE | 2020-11-02 09:12 | RESPIRATORY ---
Area around trach cleaned and trach tie changed. Suctioning offered and declined by patient.
[2020-11-02 10:01] LABS: Bilirubin Negative (Negative); Blood Negative (Negative); Clarity Clear (Clear); Glucose Negative (Negative); Ketones 15 mg/dL (Negative); Leukocyte Esterase Trace (Negative); Nitrite Negative (Negative); Urobilinogen 0.2 EU/dL (Up TO 0.2)
[2020-11-02 10:02] LABS: Abs Immature Grans 0.07 10^3/uL (0.0-0.06); Absolute Basophil Count 0.02 10^3/uL (0.0-0.2); Absolute Eosinophil Count 0.01 10^3/uL (0.0-0.7); Absolute Lymphocyte Count 0.45 10^3/uL (1.2-3.4); Absolute Monocyte Count 0.55 10^3/uL (0.1-0.8); Absolute Neutrophil Count 7.11 10^3/uL (1.2-6.7); Basophils % 0.2; Eosinophils % 0.1; HCT 35.7 % (40.0-50.0); HGB 12.9 g/dL (13.5-17.5); Immature Grans % 0.9; Lymphocytes % 5.5; MCH 31.9 pg (27.0-33.0); MCHC 36.1 % (32.0-36.0); MCV 88.4 fL (80-95); MPV 9.6 fL (8.0-11.0); Monocytes % 6.7; Neutrophils % 86.6; Nucleated RBC 0 %; RBC 4.04 10^6/uL (4.36-5.78); RDW 13.3 % (11.8-14.1); RDW-SD 43.3 fL; WBC 8.21 10^3/uL (4.4-10.8)
[2020-11-02] MEDS: Normal Saline - Diluent 50 ML VIAL IV (10:02)
[2020-11-02] MEDS: Lactated Ringers 1,000 ML 1000 ML IV (10:07)
--- NOTE | 2020-11-02 10:07 | NUR.NOTE ---
Nursing Note: pt states he has been taking his medications but unsure what they are- medication reconciliation completed using PCP list at last visit note 09/25/20
[2020-11-02 10:11] LABS: Bacteria Few HPF (Negative); Casts Negative LPF (Negative); Crystals Negative HPF (Negative); Epithelial Cells Rare HPF (Negative); Mucus Negative (Negative); RBC 0-2 HPF (0-2)
[2020-11-02 10:12] LABS: C & S Indicated? Yes
[2020-11-02 10:15] LABS: ETHANOL BLOOD 24.4 mg/dL (<3)
[2020-11-02 10:16] LABS: Platelet Count 137 10^3/uL (130-400)
[2020-11-02 10:21] LABS: ALT 36 U/L (16-63); AST 58 U/L (15-37); Albumin 3.3 g/dL (3.4-5.0); Alkaline Phosphatase 117 U/L (46-116); Anion Gap 10.8 mmol/L (3-11); BUN 5 mg/dL (7-18); Bilirubin, Total 0.9 mg/dL (0.2-1.0); CO2 25.2 mmol/L (21.0-32.0); CREATININE 0.6 mg/dL (0.70-1.30); Calcium 8.4 mg/dL (8.5-10.1); Chloride 79 mmol/L (98-107); Glucose 123 mg/dL (74-106); Magnesium 1.7 mg/dL (1.8-2.4); Total Protein 7.1 g/dL (6.4-8.2)
[2020-11-02 10:23] LABS: *AMPHETAMINES SCREEN URINE Negative (Negative); *BARBITURATES SCREEN URINE Negative (Negative); *BENZODIAZEPINES SCREEN URINE Negative (Negative); Cannabinoids THC Negative (Negative); Cocaine Screen,Urine Negative (Negative); METHADONE URINE SCREEN Negative (Negative); OPIATES URINE SCREEN Negative (Negative); Tricyclic Antidepressants Negative (Negative)
[2020-11-02 10:24] LABS: Troponin I < 0.05 ng/mL (<0.06)
[2020-11-02 10:26] LABS: Potassium 2.9 mmol/L (3.5-5.1); Sodium 115 mmol/L (136-145)
--- NOTE | 2020-11-02 10:46 | DI.CT_ITS ---
Exam(s) CT CHEST/ABD/PEL W EXAM: CT CHEST/ABD/PEL W TECHNIQUE: CT examination of the chest, abdomen, and pelvis was performed with bolus infusion of 100 cc of Omnipaque 350. COMPARISON: No exams were available for comparison FINDINGS: Thoracotomy tube and PEG tube noted in position. There is no evidence of a thoracic vascular injury. The lungs are predominantly clear with presumed right apical pulmonary scarring.. Coronary artery calcification noted. No pneumothorax or pleural effusion. No mediastinal hematoma. N o adenopathy in the chest. Tracheobronchial tree appears intact. There is mild hepatic steatosis. No focal hepatic lesion seen. Cholelithiasis noted. No biliary di latation. Pancreas is unremarkable. Spleen appears normal. Adrenals and kidneys are unremarkable. No evidence of urinary tract injury or obstruction. No abdominal or pelvic vascular injury seen. No abdominal or pelvic adenopathy. No significant abdomi nal wall hernia or hematoma. No evidence of bowel injury. Appendix is normal. No fracture identified in the region surveyed. IMPRESSION: No evidence of acute injury of the chest, abdomen, or pelvis. Thoracotomy tube in PEG tube noted in position. Cholelithiasis and coronary artery calcification noted along with mild hepatic steatosis. RADIATION DOSE DELIVERED: 1,412.4mGy.cm Total DLP 1,412.4mGy.cm Total DLP DATA REPOSITORY: All CT scans at this facility are submitted to the National Radiology Data Registry (NRDR) Dose Index Registry (DIR) with the [employer] (ACR). RADIATION OPTIMIZATION: All CT scans at this facility use at least one of these dose optimization te chniques: automated exposure control; mA and/or kV adjustment per patient size (includes targeted exa ms where dose is matched to clinical indication); or iterative reconstruction.
[2020-11-02] MEDS: Omnipaque 350 MG/ML 100 ML BTL IJ (10:47)
[2020-11-02] MEDS: POTASSIUM CHLORIDE 20 MEQ/100 ML BAG 50 MEQ IVPB (10:52)
--- NOTE | 2020-11-02 11:25 | DI.VRAD_ITS ---
PROCEDURE INFORMATION: Exam: CT Head Without Contrast Exam date and time: 11/02/2020 8:47 AM Age: 60 years old Clinical indication: Injury or trauma; Blunt trauma (contusions or hematomas) and concussion/head injury; Consciousness not specified; Blunt trauma and concussion/head injury; Injury details: Unwitnessed fall/etoh; Patient HX: PT has uncontrollable shakes - unable to hold still TECHNIQUE: Imaging protocol: Computed tomography of the head without contrast. Radiation optimization: All CT scans at this facility use at least one of these dose optimization techniques: automated exposure control; mA and/or kV adjustment per patient size (includes targeted exams where dose is matched to clinical indication); or iterative reconstruction. COMPARISON: CT HEAD CERV SPINE FACIAL WO 10/20/2020 12:10 PM FINDINGS: Brain: As before, there is no evidence of acute intracranial hemorrhage or acute territorial infarct. Moderate diffuse involutional changes and mild to moderate white matter hypodensity suggest small vessel disease are again noted. Cerebral ventricles: No ventriculomegaly. Paranasal sinuses: Minimal paranasal sinus disease. Mastoid air cells: Mastoids are well aerated. Bones/joints: No acutely displaced fractured Soft tissues: Scalp hematoma posteriorly on the right is small in size with overlying skin sloane IMPRESSION: 1. No acute intracranial hemorrhage. 2. No acute fracture. 3. Small scalp hematoma on the right. PROCEDURE INFORMATION: Exam: CT Cervical Spine Without Contrast Exam date and time: 11/02/2020 8:47 AM Age: 60 years old Clinical indication: Injury or trauma; Blunt trauma (contusions or hematomas) and concussion/head injury; Consciousness not specified; Blunt trauma and concussion/head injury; Injury details: Unwitnessed fall/etoh; Patient HX: PT has uncontrollable shakes - unable to hold still TECHNIQUE: Imaging protocol: Computed tomography images of the cervical spine without contrast. Radiation optimization: All CT scans at this facility use at least one of these dose optimization techniques: automated exposure control; mA and/or kV adjustment per patient size (includes targeted exams where dose is matched to clinical indication); or iterative reconstruction. COMPARISON: CT HEAD CERV SPINE FACIAL WO 10/20/2020 12:10 PM FINDINGS: Tubes, catheters and devices: Tracheostomy tube in the field of view. Vertebrae: The the moderate to severe multilevel degenerative changes are present with minimal scoliosis but no evidence of acute fracture line, high-grade compression deformity, or worrisome malalignment. Epidural space: No epidural fluid. Disc spaces: Multilevel mild to moderate central stenosis and multilevel foraminal encroachment. Soft tissues: Unremarkable. Prevertebral Space: No prevertebral soft tissue swelling. Esophagus: Patulous esophagus. Lymph nodes: No confluent lymphadenopathy Vasculature: Carotid vascular calcifications can be followed with ultrasound. Lungs: Apical pleural thickening in the lungs. Other findings: Motion artifact. IMPRESSION: Degenerative changes without acute fracture. Dictated and Authenticated by: Alan Chou MD. Ordering:LUIS Jean-Baptiste MD
--- NOTE | 2020-11-02 11:32 | DI.VRAD_ITS ---
PROCEDURE INFORMATION: Exam: CT Chest With Contrast; Diagnostic Exam date and time: 11/02/2020 8:47 AM Age: 60 years old Clinical indication: Injury or trauma; Generalized; Blunt trauma (contusions or hematomas); Injury details: Unwitnessed fall/ ETOH TECHNIQUE: Imaging protocol: Diagnostic computed tomography of the chest with contrast. Radiation optimization: All CT scans at this facility use at least one of these dose optimization techniques: automated exposure control; mA and/or kV adjustment per patient size (includes targeted exams where dose is matched to clinical indication); or iterative reconstruction. Contrast material: OMNI 350; Contrast volume: 100 ml; Contrast route: INTRAVENOUS (IV); COMPARISON: No relevant prior studies available. FINDINGS: Limitations: None. Tubes, catheters and devices: Centered tracheostomy tube. Trachea: Normal. Bronchial tree: Normal. Lungs: Right apical pleuroparenchymal scarring, limited peribronchial thickening and volume loss. Minimal scarring in the anteroinferior right middle lobe. Pleural spaces: Normal. Heart: Normal. Coronary arteries: Multivessel calcification. Aorta: The aorta has normal caliber. Lymph nodes: No enlarged or otherwise suspicious lymph nodes. Bones/joints: Healed nondisplaced posterolateral left 8th and 9th rib fractures. No acute fracture. Soft tissues: Normal. No contusions. Other findings: Mild thoracic aortosclerosis. IMPRESSION: 1. No acute injury or other acute disease in the chest. 2. Incidental findings include coronary artery disease, right lung scarring and old healed left rib fractures. PROCEDURE INFORMATION: Exam: CT Abdomen And Pelvis With Contrast Exam date and time: 11/02/2020 8:47 AM Age: 60 years old Clinical indication: Injury or trauma; Generalized; Blunt trauma (contusions or hematomas); Injury details: Unwitnessed fall/ ETOH TECHNIQUE: Imaging protocol: Computed tomography of the abdomen and pelvis with contrast. Contrast material: OMNI 350; Contrast volume: 100 ml; Contrast route: INTRAVENOUS (IV); COMPARISON: No relevant prior studies available. FINDINGS: Limitations: None. Tubes, catheters and devices: Balloon tip percutaneous gastrostomy tube. Liver: Probable diffuse fatty liver. Gallbladder and bile ducts: Multiple gallstones. Pancreas: Normal. Spleen: Normal. Adrenal glands: Normal. Kidneys and ureters: Normal. Stomach and bowel: Normal. Appendix: Normal. Intraperitoneal space: No ascites, pneumoperitoneum or peritoneal lesion. Vasculature: Mild atherosclerosis of the abdominal aorta and branch vessels. The vessels have normal caliber and there are no occlusions, dissection or suspicious stenosis. Lymph nodes: None enlarged or otherwise suspicious. Urinary bladder: Normal. Reproductive: Normal prostate and seminal vesicles. Bones/joints: No acute fracture or suspicious osseous lesion. Soft tissues: Similar small bilateral fat containing inguinal hernias. IMPRESSION: 1. No acute injury or other acute disease in the abdomen and pelvis. 2. Incidental findings include cholelithiasis and probable fatty liver. Dictated and Authenticated by: Joaquin Lr MD. Ordering:LUIS Jean-Baptiste MD
[2020-11-02] MEDS: MAGNESIUM SULFATE 1 GM/100 ML BAG IVPB (11:35)
[2020-11-02 12:05] LABS: Source Nasal/Nares
[2020-11-02 12:24] LABS: Troponin I < 0.05 ng/mL (<0.06)
--- NOTE | 2020-11-02 13:09 | NUR.NOTE ---
contact numbers [facility] [phone], [phone].Nursing Note:
[2020-11-02] MEDS: Thiamine 100 MG TAB PO (13:52)
[2020-11-02] MEDS: Potassium Chloride Liquid 20 MEQ PKT 40 MEQ PO (13:52)
[2020-11-02 14:15] LABS: COVID-19 PCR Negative (Negative)
--- NOTE | 2020-11-02 15:33 | W.PM.HP.N ---
Date of service: 11/02/20 Time of Service: 15:33 Assessment and Plan Assessment and plan (1) Alcohol withdrawal seizure: Status: Acute Assessment and plan: begin CIWA scoring and medicate w/ phenobarbital as appropriate. goal is to keep him at a RASS of 0 to -1 or CIWA under 8. Limit his total phenobarbital to no more than 25 mg/kg or total of 2000 mg cumulative. he received 380 mg in the ER but this was given over a 3 hour duration. Phenobarbital should be given over a short time frame in order to get him to therapeutic levels more quickly. I will order banana bag and replace his magnesium and potassium level. He will receive iv fluids (LR) to correct his hyponatremia caused by his alcohol and lack of fluids. he will get a nutrition consult tomorrow to recommend his tube feedings (some of his hyponatremia and hypokalemia is also probably d/t poor enteral nutrition in addition to his chronic alcoholism. Qualifiers: Complication of substance-induced condition: uncomplicated Qualified Code(s): F10.230 - Alcohol dependence with withdrawal, uncomplicated; R56.9 - Unspecified convulsions (2) Gastrostomy tube in place: Status: Chronic Assessment and plan: I will ask for nutritional consult in the am to recommend enteral feedings. (3) Closed head injury with loss of consciousness of unknown duration: Status: Acute Assessment and plan: unclear as to whether or not this was an alcoholic black out spell or a seizure. CT of head was negative for any acute intracranial injury. He sustained a scalp laceration and hematoma. Wound was closed while in the ER. will get EEG tomorrow, but not begin any AED's but rather treat him for alcohol withdrawal w/ phenobarbital. CT of chest showed no pneumonia however, if he has a fever overnight I would be suspicious for aspiration pneumonia. I will put him on scheduled aerosolized bronchodilators and incentive spirometry and acapella. (4) Scalp laceration: Status: Acute Assessment and plan: wound closed in the ER w/ sloane. If he did not get a tetanus shot then he should get a TdaP. We reviewed his records and KIRSTEN documented he had his TdaP was given 11/06/2019. (5) Acute hyponatremia: Status: Acute Assessment and plan: secondary to chronic alcohol use (beer) and poor nutritional intake. Will give LR and repeat his BMP this evening. No need for hypertonic saline as he is cognitively intact and not showing any seizures although we can not exclude the possibility that he had a seizure at home leading to his closed head injury. (6) Hypokalemia: Status: Acute Assessment and plan: replace w/ enteral and iv potassium; repeat levels this evening. History of Present Illness History of Present Illness Chief Complaint: s/p unwitnessed fall @ home while drinking ETOH Narrative: 60 yr old male who lives alone and has PMH of oropharyngeal cancer status post glossectomy with resection floor of mouth with suprahyoid neck dissection and cervical lymphadenectomy and tracheostomy and PEG tube (Original surgery October 25, 2013 with recurrence of his squamous cell carcinoma requiring mandibulectomy and tracheostomy PEG tube August 18, 2020) who has alcoholism and had an unwitnessed fall at home sustaining a laceration to his posterior occiput. Patient's [id number] called EMS. SMITHA Dickinson called his ycbkqa-nj-eav, Alex Griffin, home [phone], cell [phone]. She is concerned that the patient has started wanting to cancel all of his regular appointments. She states that he has been drinking regularly for approximately 30 years and has gone to rehab without success. No known seizures from withdrawal. States that he did have home health but that he kicked him out. When EMS came to evaluate him they found 14 30 packs of empty beer strewn about his home. patient apparently has been drinking yesterday and this morning. IKER on arrival was only 24. On arrival he was found to have a 6 cm laceration over his posterior scalp which was closed in the ER. Patient states that his last drink was this morning and included 5 beers. Imaging included a noncontrast CT scan of his head and cervical spine noted no acute cervical spine injury and no acute intracranial injury. His severe DJD spine. CT of the head does show small scalp hematoma on the right. CT of the chest was performed with IV contrast and demonstrated pleural-parenchymal scarring in the right apex with limited peribronchial thickening and volume loss and minimal scarring in the anterior inferior right middle lobe. Heart was normal in size he has multivessel coronary calcification. No aortic aneurysm. He has a healed nondisplaced posterior lateral left eighth and ninth rib fracture. Laboratory studies include a CBC that showed normal white cell count 8200. Borderline anemia with a hemoglobin 12.9 g and hematocrit of 35.7% with a normal MCV of 88.4. Platelets are normal at 137,000. Chemistry panel was remarkable for hyponatremia serum sodium 115 a potassium of 2.9 and a chloride of 79. BUN was normal at 5 and creatinine is normal at 0.6. Magnesium is low at 1.7. Mild increase in his AST at 58 and alkaline phosphatase of 117. Troponin I levels were less than 0.05x2 sets. Patient is being admitted to the intensive care unit for treatment of alcohol induced hyponatremia and hypokalemia along with treatment for what is felt to be acute alcohol withdrawal and possible alcohol withdrawal seizure. Review of Systems Constitutional Constitutional: Reports chills, Reports fatigue, Denies fever(s), Reports frequent falls, Reports poor appetite and Reports weakness ENT Ears, Nose, Mouth, and Throat: Reports as per HPI Cardiovascular Cardiovascular: Denies chest pain and Reports dyspnea on exertion Respiratory Respiratory: Reports cough, Denies hemoptysis, Reports excessive phlegm production and Reports dyspnea on exertion Gastrointestinal Gastrointestinal: Denies abdominal pain, Reports diarrhea, Denies nausea and Denies vomiting Genitourinary Genitourinary: Reports system reviewed and no additional complaints, except as documented Musculoskeletal Musculoskeletal: Reports system reviewed and no additional complaints, except as documented Integumentary/Breasts Skin/Breast: Reports system reviewed and no additional complaints, except as documented Neurologic Neurologic: Reports system reviewed and no additional complaints, except as documented, Reports frequent falls and Reports weakness Endocrine Endocrine: Reports system reviewed and no additional complaints, except as documented and Reports fatigue Hematologic/Lymphatic Hematologic/Lymphatic: Reports system reviewed and no additional complaints, except as documented [facility] Medical History Anxiety Aspiration pneumonia Caries COPD (chronic obstructive pulmonary disease) Cough with hemoptysis Dysphagia, oral phase 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 cervical lymphadenectomy, tracheostomy, excision benign thyroid lesion, exploration carotid artery S/P reconstruction procedure (08/18/20) Pediculed pec flap, L hemiglossectomy and mandibulectomy ([facility]) S/P tooth extraction (~2013) Status post glossectomy (08/11/20) w/ multiple other procedures Family History Mother Hypertension Hyperlipidemia Breast cancer Asthma Father Asthma Brother Hyperlipidemia Social History Smoking/Tobacco Use Status: Current every day Tobacco: How many years used: 29 Smoking risk assessment performed?: Yes Alcohol Intake: current Alcohol Intake frequency: 3 or more drinks per day Alcohol type: beer Details: 6 beer a day Drug use: Rarely Substance use type: marijuana Details: No IV Drug Use Adopted: No Caregiver/Support person: No Foster care: No Household members: none Housing: house Number of Children: 1 Communication Needs: Corrective Lenses Education Level: high school Do you need help understanding health information?: Often Sexually active: No Do you think of yourself as: straight/heterosexual Current gender identity: male What type of physical activity do you participate in: none Special leeroy needs: No Seatbelt use: always Do you feel safe at home: Yes Do you feel safe in your relationship?: Yes Meds Allergies and Home Medications Allergies Allergy/AdvReac Type Severity Reaction Status Date / Time No Known Allergies Allergy Verified 11/02/20 08:32 Home Medications Medication Instructions Recorded Confirmed Type folic acid 400 mcg tablet 0.4 mg PO DAILY 08/06/19 11/02/20 History vitamin E 200 unit capsule 400 unit PO DAILY cap 08/06/19 11/02/20 History swab #500 ea 07/28/20 11/02/20 Rx chlorhexidine gluconate 0.12 % 15 ml MUCOUS MEMBRANE TID ml 09/01/20 11/02/20 History mouthwash docusate sodium 50 mg/5 mL oral 100 mg FEEDING TUBE BID PRN #473 ml 09/01/20 11/02/20 Rx liquid food supplemt, lactose-reduced See Rx Instructions FEEDING TUBE 09/01/20 11/02/20 History .COMPLEX ibuprofen 600 mg tablet 600 mg FEEDING TUBE Q6H PRN 09/01/20 11/02/20 History levothyroxine 50 mcg tablet 50 mcg FEEDING TUBE DAILY 09/01/20 11/02/20 History mirtazapine 7.5 mg tablet 7.5 mg FEEDING TUBE QHS 09/01/20 11/02/20 History multivitamin 1 tab FEEDING TUBE DAILY 09/01/20 11/02/20 History thiamine HCl (vitamin B1) 100 mg 100 mg FEEDING TUBE DAILY 09/01/20 11/02/20 History tablet vitamin E (dl, acetate) 400 unit 400 unit FEEDING TUBE DAILY 09/01/20 11/02/20 History capsule gabapentin 300 mg/6 mL (6 mL) oral 400 mg FEEDING TUBE TID ml 09/10/20 11/02/20 History solution famotidine 20 mg tablet 20 mg FEEDING TUBE BID #60 tab 09/25/20 11/02/20 Rx oxycodone 5 mg/5 mL oral solution 5 mg PO BID PRN #140 ml MDD 10mg 09/25/20 11/02/20 Rx Exam Narrative Exam Narrative: Middle-age white male who appears to be disheveled seems to be tremulous and is moderately tachycardic. He is alert and responsive and able to mouth words and communicate through whiteboard. Insert tremulous skin is mildly diaphoretic he is not lethargic appearance to his face. HEENT is remarkable for edentulous oropharynx with evidence of a hemiglossectomy tongue is no exudate palate and tongue. He has soft tissue swelling along the left side of his neck feels like fluid-filled cavity possibly postoperative hygroma. Scalp w/ semicircular laceration over right occipital scalp w/ closure w/ sloane. no longer bleeding. Lungs with coarse rhonchi at the left lung base with some scattered diffuse bilateral expiratory wheezes Heart is tachycardic but regular with no appreciable murmur rub Abdomen soft nondistended normal bowel sounds he has a PEG tube in place in the left upper quadrant Lower extremities without peripheral cyanosis or edema. He has normal pedal pulses. He has a bruise on his left buttock. No pain w/ internal or external rotation of his hips. Results Imaging Abdomen CT scan report/results: report reviewed CT scan - chest: report reviewed CT scan - pelvis: report reviewed Labs Result diagrams: 11/02/20 09:49 11/02/20 16:07 Labs: Laboratory Results - last 24 hr 11/02/20 11/02/20 11/02/20 09:48 09:48 09:49 WBC RBC Hgb Hct MCV MCH MCHC RDW Plt Count MPV Immature Gran % Neutrophils % Lymphocytes % Monocytes % Eosinophils % Basophils % Nucleated RBC % Absolute Neutrophils Absolute Lymphocytes Absolute Monocytes Absolute Eosinophils Absolute Basophils Sodium 115 L* Potassium 2.9 L Chloride 79 L Carbon Dioxide 25.2 Anion Gap 10.8 BUN 5 L Creatinine 0.6 L Estimated GFR/1.73 m2 >= 60.00 Glucose 123 H Calcium 8.4 L Magnesium 1.7 L Total Bilirubin 0.9 AST 58 H ALT 36 Alkaline Phosphatase 117 H Troponin I < 0.05 Total Protein 7.1 Albumin 3.3 L Urine Color Yellow Urine Clarity Clear Urine pH 7.0 Ur Specific [place] 1.020 Urine Protein 100 H Urine Ketones 15 H Urine Blood Negative Urine Nitrite Negative Urine Bilirubin Negative Urine Urobilinogen 0.2 Ur Leukocyte Esterase Trace H Urine RBC 0-2 Urine WBC 3-5 Ur Epithelial Cells Rare Urine Crystals Negative Urine Bacteria Few Urine Casts Negative Urine Mucus Negative Ur Culture Indicated? Yes Urine Glucose Negative Urine Opiates Screen Negative Urine Methadone Screen Negative Ur Barbiturates Screen Negative Ur Tricyclics Screen Negative Ur Amphetamines Screen Negative U Benzodiazepines Scrn Negative Urine Cocaine Screen Negative Ur THC Screen Negative Ethyl Alcohol COVID-19 Source SARS-CoV-2 (PCR) 11/02/20 11/02/20 11/02/20 09:49 09:49 11:50 WBC 8.21 RBC 4.04 L Hgb 12.9 L Hct 35.7 L MCV 88.4 MCH 31.9 MCHC 36.1 H RDW 13.3 Plt Count 137 MPV 9.6 Immature Gran % 0.9 Neutrophils % 86.6 Lymphocytes % 5.5 Monocytes % 6.7 Eosinophils % 0.1 Basophils % 0.2 Nucleated RBC % 0 Absolute Neutrophils 7.11 H Absolute Lymphocytes 0.45 L Absolute Monocytes 0.55 Absolute Eosinophils 0.01 Absolute Basophils 0.02 Sodium Potassium Chloride Carbon Dioxide Anion Gap BUN Creatinine Estimated GFR/1.73 m2 Glucose Calcium Magnesium Total Bilirubin AST ALT Alkaline Phosphatase Troponin I < 0.05 Total Protein Albumin Urine Color Urine Clarity Urine pH Ur Specific [place] Urine Protein Urine Ketones Urine Blood Urine Nitrite Urine Bilirubin Urine Urobilinogen Ur Leukocyte Esterase Urine RBC Urine WBC Ur Epithelial Cells Urine Crystals Urine Bacteria Urine Casts Urine Mucus Ur Culture Indicated? Urine Glucose Urine Opiates Screen Urine Methadone Screen Ur Barbiturates Screen Ur Tricyclics Screen Ur Amphetamines Screen U Benzodiazepines Scrn Urine Cocaine Screen Ur THC Screen Ethyl Alcohol 24.4 COVID-19 Source SARS-CoV-2 (PCR) 11/02/20 11:53 WBC RBC Hgb Hct MCV MCH MCHC RDW Plt Count MPV Immature Gran % Neutrophils % Lymphocytes % Monocytes % Eosinophils % Basophils % Nucleated RBC % Absolute Neutrophils Absolute Lymphocytes Absolute Monocytes Absolute Eosinophils Absolute Basophils Sodium Potassium Chloride Carbon Dioxide Anion Gap BUN Creatinine Estimated GFR/1.73 m2 Glucose Calcium Magnesium Total Bilirubin AST ALT Alkaline Phosphatase Troponin I Total Protein Albumin Urine Color Urine Clarity Urine pH Ur Specific [place] Urine Protein Urine Ketones Urine Blood Urine Nitrite Urine Bilirubin Urine Urobilinogen Ur Leukocyte Esterase Urine RBC Urine WBC Ur Epithelial Cells Urine Crystals Urine Bacteria Urine Casts Urine Mucus Ur Culture Indicated? Urine Glucose Urine Opiates Screen Urine Methadone Screen Ur Barbiturates Screen Ur Tricyclics Screen Ur Amphetamines Screen U Benzodiazepines Scrn Urine Cocaine Screen Ur THC Screen Ethyl Alcohol COVID-19 Source Nasal/nares SARS-CoV-2 (PCR) Negative Last Vital Signs Temp 36.7 C 11/02/20 08:27 Pulse 117 H 11/02/20 13:45 Resp 27 H 11/02/20 13:50 BP 125/80 11/02/20 13:45 Pulse Ox 94 11/02/20 13:50 COVID-19 Screening Have you, or household traveled for leisure in last 14 days?: No Had IN PERSON contact w/suspected or confirmed C-19 person: No
[2020-11-02 16:32] LABS: Anion Gap 6.2 mmol/L (3-11); BUN 5 mg/dL (7-18); CO2 26.8 mmol/L (21.0-32.0); CREATININE 0.6 mg/dL (0.70-1.30); Calcium 8.2 mg/dL (8.5-10.1); Chloride 85 mmol/L (98-107); Glucose 113 mg/dL (74-106); Magnesium 2.1 mg/dL (1.8-2.4)
[2020-11-02] MEDS: PHENobarbital 130 MG/ML VIAL 260 MG IVP (16:38)
[2020-11-02] MEDS: Normal Saline Flush 10 ML SYR IVP ×2 (16:38→17:09)
[2020-11-02 16:43] LABS: Sodium 118 mmol/L (136-145)
[2020-11-02 16:44] LABS: PHOSPHORUS 2.5 mg/dL (2.6-4.7)
[2020-11-02] MEDS: Pantoprazole 40 MG VIAL IVP (17:08)
[2020-11-02] MEDS: MAGNESIUM SULFATE 8.12 MEQ, MULTIVITAMIN 10 ML, THIAMINE 100 MG, FOLIC ACID 1 MG in Nor... 168.867 MG IV (17:35)
--- NOTE | 2020-11-02 19:45 | RESPIRATORY ---
Rt called to Pt's room for trach care. Pt trach tie appeared to be saturated in blood as well as dried blood around trach site, however noticeably minimal secretions in trach. Trach tie was replaced and area around cleaned with sterile water. Pt initially denied suctioning, but later requested it. Small amount of thick yellow secretions suctioned. Pt's [id number]-[id number] requested, by RT, to bring Pt's trach supplies as well as spare trach. Pt later admitted to ICU where Pt was once again cleaned and suctioned. Yellow secretions no longer observed, instead clear sputum was suctioned. Airway alert sign placed at [facility] and spare trach supplies placed in clear plastic bag in Pt's room.
[2020-11-02 20:48] LABS: Anion Gap 5.9 mmol/L (3-11); BUN 5 mg/dL (7-18); CO2 28.1 mmol/L (21.0-32.0); CREATININE 0.6 mg/dL (0.70-1.30); Chloride 88 mmol/L (98-107); Glucose 105 mg/dL (74-106); Potassium 3.3 mmol/L (3.5-5.1)
[2020-11-02 20:53] LABS: Sodium 122 mmol/L (136-145)
[2020-11-02] MEDS: Enoxaparin 40 MG/0.4 ML SYR SC (21:42)
[2020-11-02] MEDS: PHENobarbital 130 MG/ML VIAL IVP (21:57)
[2020-11-02] MEDS: ACETAMINOPHEN 1,000 MG/100 ML BTL 400 MG IVPB (23:38)
[2020-11-03] VITALS (37 sets, daily range): BP systolic 92–158; BP diastolic 74–126; PULSE 82–117; RESP 14–27; TEMP 36.3–36.8; O2SAT 93–98
[2020-11-03] MEDS: PHENobarbital 130 MG/ML VIAL IVP ×8 (01:54→15:21)
[2020-11-03] MEDS: Normal Saline Flush 10 ML SYR IVP ×3 (04:18→08:07)
[2020-11-03 07:11] LABS: Abs Immature Grans 0.02 10^3/uL (0.0-0.06); Absolute Basophil Count 0.02 10^3/uL (0.0-0.2); Absolute Eosinophil Count 0.05 10^3/uL (0.0-0.7); Absolute Lymphocyte Count 0.48 10^3/uL (1.2-3.4); Absolute Neutrophil Count 3.75 10^3/uL (1.2-6.7); Basophils % 0.4; Eosinophils % 1.1; HCT 30.6 % (40.0-50.0); HGB 10.8 g/dL (13.5-17.5); Immature Grans % 0.4; Lymphocytes % 10.2; MCH 32.4 pg (27.0-33.0); MCHC 35.3 % (32.0-36.0); MCV 91.9 fL (80-95); MPV 10.4 fL (8.0-11.0); Monocytes % 8.5; Neutrophils % 79.4; Nucleated RBC 0 %; RBC 3.33 10^6/uL (4.36-5.78); RDW 13.8 % (11.8-14.1); RDW-SD 46.7 fL; WBC 4.72 10^3/uL (4.4-10.8)
[2020-11-03 07:16] LABS: PHOSPHORUS 2.8 mg/dL (2.6-4.7)
[2020-11-03 07:18] LABS: ALT 29 U/L (16-63); AST 42 U/L (15-37); Albumin 2.8 g/dL (3.4-5.0); Alkaline Phosphatase 85 U/L (46-116); Anion Gap 4.8 mmol/L (3-11); BUN 4 mg/dL (7-18); Bilirubin, Total 0.9 mg/dL (0.2-1.0); CO2 31.2 mmol/L (21.0-32.0); CREATININE 0.6 mg/dL (0.70-1.30); Chloride 92 mmol/L (98-107); Glucose 110 mg/dL (74-106); Magnesium 2.4 mg/dL (1.8-2.4); Potassium 3.3 mmol/L (3.5-5.1); Sodium 128 mmol/L (136-145)
[2020-11-03 07:24] LABS: Diff Comment Diff Reviewed; Platelet Count 121 10^3/uL (130-400)
[2020-11-03 07:25] LABS: Hypochromasia 2+; Polychromasia Present
[2020-11-03] MEDS: ACETAMINOPHEN 1,000 MG/100 ML BTL 400 MG IVPB ×2 (08:07→17:16)
[2020-11-03] MEDS: Potassium Chloride Liquid 20 MEQ PKT UD ×4 (09:22→20:12)
--- NOTE | 2020-11-03 10:39 | INITIAL_ITS ---
- If Service Date Differs Date of service: 11/03/20 Time of Service: 10:39 Care Management Initial Assess REASON FOR HOSPITALIZATION:: alcohol withdrawal seizures PAST MEDICAL HISTORY/PAST SURGICAL HISTORY:: Medical History . Anxiety. Aspiration pneumonia. Caries. COPD (chronic obstructive pulmonary disease). Cough with hemoptysis. Dysphagia, oral phase. 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 Hypertension. Hypothyroidism. Mouth cancer. Oral pain. Recurrent squamous cell carcinoma. Tobacco use disorder. >25 pack years. Surgical History . S/P glossectomy (10/24/13). w/ resection of floor of mouth, w/ suprahyoid neck dissection. cervical lymphadenectomy, tracheostomy, excision benign thyroid lesion, exploration carotid artery. S/P reconstruction procedure (08/18/20). Pediculed pec flap, L hemiglossectomy and mandibulectomy ([facility]). S/P tooth extraction (~2013). Status post glossectomy (08/11/20). w/ multiple other procedures PREVIOUS FUNCTIONAL STATUS/SOCIAL/FAMILY SUPPORTS:: Chito lives alone in an apartment in [facility]. He has a brother Peewee who lives locally and he and his are very supportive. Chito also names a childhood friend, Juvenal, as a strong support. 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 He communicated by writing on a whiteboard. he denies having any services at home. CURRENT FUNCTIONAL STATUS:: Chito was sitting up in bed when CM met with him. He was agreeable to meeting with CM and answered questions the best he could. Chito indicated that he has friends and family for support but was unable to give many life details. He did say that he does not have any children then indicated that he had one, so it is unclear.When asked if he wanted help to stop drinking, he evaded the question. ADVANCE DIRECTIVES:: On file. Alan KENNEDY Has patient been provided with info about the portal/API?: Yes Did the patient sign up for the portal?: No CODE STATUS:: Full Code INSURANCE COVERAGE / FINANCIAL ISSUES:: Medicare. [facility] PRIMARY CARE PHYSICIAN:: Maisha Adrienne POTENTIAL DISCHARGE NEEDS:: Substance abuse treatment, follow up with PCP and plan of care PATIENT/FAMILY EDUCATION NEEDS:: Review of discharge instructions, medications, follow up plan, limitations, Ask Me Three TRANSPORTATION:: via private vehicle with friend/family PLAN:: Chito would likely benefit from rehab prior to returning home but may not be agreeable. If he does go home, then a horse riding coach or instructor and home health referral might be appropriate. He will follow up with his community providers and plan of care. Cm will continue to support Chito and his discharge planning needs.
--- NOTE | 2020-11-03 12:01 | PDOC.EEG ---
Neurology EEG EEG: [facility] Department of Neurology INPATIENT EEG REPORT Date of Recordin11/03/20 Interpreting Physician: Dr. Monserrat Hogan Reason for study: Mr. Santiago is a 60 year-old man with known ETOH abuse admitted s/p unwitnessed fall with laceration found to have significant hyponatremia. ?ETOH withdrawal seizure. He was given phenobarbital prior to EEG. Current Medications: Current Medications Albuterol/Ipratropium (Albuterol/Ipratropium 3 Ml Upd Vial) 3 ml UPD Q4H PRN PRN Enoxaparin Sodium (Enoxaparin 40 Mg/0.4 Ml Syr) 40 mg SC Q24H [facility] Last Admin: 11/02/20 21:42 Dose: 40 mg Documented by: Sodium Chloride (Saline 500ml Bag) 500 mls @ 0 mls/hr IV PRN PRN Potassium Cl/Dextrose/Lact Ringer's (Kcl 20meq/D5lr) 1,000 mls @ 125 mls/hr IV INFUSION [facility] Last Admin: 11/03/20 06:07 Dose: 125 mls/hr Documented by: Acetaminophen (Ofirmev) 1,000 mg in 100 mls @ 400 mls/hr IVPB Q8H PRN PRN Last Infusion: 11/03/20 09:22 Dose: Infused Documented by: IV Miscellaneous Supplies (Iv Access) 1 each IV DIRECTED [facility] Pantoprazole Sodium (Pantoprazole 40 Mg Vial) 40 mg IVP Q24H [facility] Last Admin: 11/02/20 17:08 Dose: 40 mg Documented by: Phenobarbital Sodium (Phenobarbital 130 Mg/Ml Vial) 130 - 260 mg IVP Q30 MIN PRN PRN PRN Reason: Alcohol Withdrawal Last Admin: 11/03/20 10:13 Dose: 260 mg Documented by: Potassium Chloride (Potassium Chloride Liquid 20 Meq Pkt) 20 meq UD QID [facility] Last Admin: 11/03/20 09:22 Dose: 20 meq Documented by: Sodium Chloride (Normal Saline Flush 10 Ml Syr) 0 ml IVP PRN PRN Last Admin: 11/03/20 08:07 Dose: 60 ml Documented by: METHODS: A 21 channel digitized electroencephalogram was performed in the [facility] Med/Surg Floor or ICU. The 10/20 international system of electrode placement was used and bipolar and referential electrode montages were recorded. In addition to EEG the patient was monitored for EKG and lateral/vertical eye movements. Activation procedures of photic stimulation and hyperventilation were performed if applicable. Video was used during activation procedures and during events where applicable. The duration of the recording was 30 minutes. DESCRIPTION OF EEG: The patient's EEG was a fairly continuos pattern of low-voltage generalized delta slowing with noted intermittent alpha activity at the vertex (patient noted to have stitches at Cz). With stimulation, there was addition of muscle activity, but no obvious change to the background rhythm. Activating Procedures: Photic stimulation was performed which produced no posterior driving response. Hyperventilation was not performed. EKG: EKG revealed normal sinus rhythm. INTERPRETATION: This EEG is abnormal due to continuous, low-amplitude, generalized slowing with minimal variation. PRIOR EEG: none CLINICAL CORRELATION: The background slowing is suggestive of a moderate to severe diffuse cerebral encephalopathy of broad differential including toxic-metabolic etiology. This may be due to the phenobarbital that patient received prior to EEG study. No focal regions of cerebral dysfunction or epileptiform activity was present. Clinical correlation is advised. Monserrat Hogan MD
--- NOTE | 2020-11-03 12:39 | RESPIRATORY ---
RT spoke with patient today about possibly using heated high flow system for humidification to help thin and clear secretions. Pt stated that he is not interested in that at this time. Will continue to offer periodically and monitor secretion thickness and patient's ability to adequately clear secretions himself.
--- NOTE | 2020-11-03 12:42 | NS.NUTBLAN_ITS ---
Date of service: 11/03/20 Time of Service: 12:43 Nutritional Consult ASSESSMENT: 60 year old male s/p oropharyngeal cancer, s/p glossectomy. PMH: dyphagia with PEG TUBE, trachetomy. Admitted with ETOH withdrawl, hyponatremia, s/p fall at home with closed head injury, was pouring beer into G tube with long standing hx of ETOH abuse. BMI stable and appropriate. Attempted to met with Chito today to find out what tube feeding he was using at home, frequency of tube feeding. Chito unable to answer questions at this time. Appears well nourished. Estimated Needs: 1596-7562 kcal, 80-95 g protein, 5723-5405 ml fluid. NUTRITIONAL DIAGNOSIS: Dysphagia, reliant on enteral feeding for 100% nutrient/fluid needs INTERVENTION: Recommend Jevity 1.5 41 cc/hour + flush 200 ml q 6 hours- providi ng a total of 1500 kcal, 60 g protein, 1520 ml fluid continue MVI, thiamin, folic acid for repletion MONITORING AND EVALUATION: residuals per protocol, CBC daily Time Spent in Nutritional Counseling and Treatment: 10 min
[2020-11-03 14:27] LABS: Anion Gap 4.1 mmol/L (3-11); BUN 4 mg/dL (7-18); CO2 30.9 mmol/L (21.0-32.0); CREATININE 0.6 mg/dL (0.70-1.30); Calcium 8.1 mg/dL (8.5-10.1); Chloride 94 mmol/L (98-107); Glucose 105 mg/dL (74-106); Potassium 3.7 mmol/L (3.5-5.1); Sodium 129 mmol/L (136-145)
[2020-11-03] MEDS: Pantoprazole 40 MG VIAL IVP (15:21)
--- NOTE | 2020-11-03 15:22 | PGE_ITS ---
Date of Service Date of service: 11/03/20 Time of Service: 15:22 Assessment and Plan Assessment and plan (1) Alcohol withdrawal seizure: Status: Acute Assessment and plan: presumed seizure as the cause for his blackout spells at home however this may have just been intoxication leading to him passing out. He has had no arrhythmias since admission. remains in NSR. No seizures since admission. He has received total of 1944 mg of phenobarbital. Calculated maximal recommended dose is 2000 mg cumulative (this is equivalent to 25 mg/kg). at this point his phenobarbital level should be therapeutic which will be protective from seizures as well as severe withdrawal symptoms. I do not feel that giving him benzodiazepines for anxiety would be good. His CIWA score does not accu rately reflect his withdrawal symptoms. RASS scoring is a better way to monitor his activity/agitation. Qualifiers: Complication of substance-induced condition: uncomplicated Qualified Code(s): F10.230 - Alcohol dependence with withdrawal, uncomplicated; R56.9 - Unspecified convulsions (2) Gastrostomy tube in place: Status: Chronic Assessment and plan: nutritional consult appreciated. Will start Jevity 1.5 w/ supplemental water as recommended. When tolerating then can decrease or dc iv fluids (3) Closed head injury with loss of consciousness of unknown duration: Status: Acute Assessment and plan: unclear as to whether or not this was an alcoholic black out spell or a seizure. CT of head was negative for any acute intracranial injury. He sustained a scalp laceration and hematoma. Wound was closed while in the ER. will get EEG tomorrow, but not begin any AED's but rather treat him for alcohol withdrawal w/ phenobarbital. CT of chest showed no pneumonia however, if he has a fever overnight I would be suspicious for aspiration pneumonia. I will put him on scheduled aerosolized bronchodilators and incentive spirometry and acapella. (4) Scalp laceration: Status: Acute Assessment and plan: wound closed in the ER w/ sloane. If he did not get a tetanus shot then he should get a TdaP. We reviewed his records and KIRSTEN documented he had his TdaP was given 11/06/2019. (5) Acute hyponatremia: Status: Acute Assessment and plan: secondary to chronic alcohol use (beer) and poor nutritional intake. improving. cont. iv fluids for now (6) Hypokalemia: Status: Acute Assessment and plan: repleted. cont. enteral and iv potassium. recheck levels in a.m. (7) Discharge planning issues: Status: Acute Assessment and plan: patient would benefit from P.T. and may need SNF placement as he has not been taking care of himself. I will ask CM to look into this however, I doubt that he will agree to even short term placement. Subjective Subjective Interval history since last seen: Patient is alert and oriented to place and date. He is restless which is causing him to score higher on the CIWA (up to 11 today) whereas his RASS has been 0 to 1. He has maxed out on his allowed doses of phenobarbital at 2000 mg. He has indicated to his nurse that he wants her to give me all the drugs you can. At this point I think that his risks for severe delirium tremens are low and that he does not need more sedating drugs. he is already unsteady when he gets out of bed. As for his hypokalemia and hyponatremia this is also improving. I will start him back on enteral feedings this evening but overlap his iv fluids. If tolerating enteral feedings then dc iv fluids in the a.m. Exam Narrative Exam Narrative: Elderly white male, sitting up in bed; alert and oriented; not diaphoretic No tremors Lungs w/ course breath sounds bilaterally Heart regular rate and rhythm Abdomen: soft, nontender; g-tube w/out edema or erythema Objective Last Vital Signs Temp 36.5 C 11/03/20 12:13 Pulse 95 H 11/03/20 12:07 Resp 22 11/03/20 13:00 BP 114/75 11/03/20 12:07 Pulse Ox 97 11/03/20 13:00 Laboratory Results - last 24 hr 11/02/20 11/02/20 11/02/20 16:07 16:07 20:05 WBC RBC Hgb Hct MCV MCH MCHC RDW Plt Count MPV Immature Gran % Neutrophils % Lymphocytes % Monocytes % Eosinophils % Basophils % Nucleated RBC % Absolute Neutrophils Absolute Lymphocytes Absolute Monocytes Absolute Eosinophils Absolute Basophils RBC Morphology Polychromasia Hypochromasia Sodium 118 L* 122 L* Potassium 4.0 D 3.3 L Chloride 85 L 88 L Carbon Dioxide 26.8 28.1 Anion Gap 6.2 5.9 BUN 5 L 5 L Creatinine 0.6 L 0.6 L Estimated GFR/1.73 m2 >= 60.00 >= 60.00 Glucose 113 H 105 Calcium 8.2 L 8.0 L Phosphorus 2.5 L Magnesium 2.1 Total Bilirubin AST ALT Alkaline Phosphatase Total Protein Albumin 11/03/20 11/03/20 11/03/20 06:10 06:10 06:10 WBC 4.72 D RBC 3.33 L Hgb 10.8 L D Hct 30.6 L MCV 91.9 D MCH 32.4 MCHC 35.3 RDW 13.8 Plt Count 121 L MPV 10.4 Immature Gran % 0.4 Neutrophils % 79.4 Lymphocytes % 10.2 Monocytes % 8.5 Eosinophils % 1.1 Basophils % 0.4 Nucleated RBC % 0 Absolute Neutrophils 3.75 Absolute Lymphocytes 0.48 L Absolute Monocytes 0.40 Absolute Eosinophils 0.05 Absolute Basophils 0.02 RBC Morphology See below Polychromasia Present Hypochromasia 2+ Sodium 128 L Potassium 3.3 L Chloride 92 L Carbon Dioxide 31.2 Anion Gap 4.8 BUN 4 L Creatinine 0.6 L Estimated GFR/1.73 m2 >= 60.00 Glucose 110 H Calcium 8.0 L Phosphorus 2.8 Magnesium 2.4 Total Bilirubin 0.9 AST 42 H ALT 29 Alkaline Phosphatase 85 Total Protein 6.0 L Albumin 2.8 L 11/03/20 14:10 WBC RBC Hgb Hct MCV MCH MCHC RDW Plt Count MPV Immature Gran % Neutrophils % Lymphocytes % Monocytes % Eosinophils % Basophils % Nucleated RBC % Absolute Neutrophils Absolute Lymphocytes Absolute Monocytes Absolute Eosinophils Absolute Basophils RBC Morphology Polychromasia Hypochromasia Sodium 129 L Potassium 3.7 Chloride 94 L Carbon Dioxide 30.9 Anion Gap 4.1 BUN 4 L Creatinine 0.6 L Estimated GFR/1.73 m2 >= 60.00 Glucose 105 Calcium 8.1 L Phosphorus Magnesium Total Bilirubin AST ALT Alkaline Phosphatase Total Protein Albumin
[2020-11-03] MEDS: Folic Acid 1 MG TAB UD (16:29)
[2020-11-03] MEDS: Thiamine 100 MG TAB UD (16:31)
--- NOTE | 2020-11-03 16:37 | CHAPLAIN ---
I met Erika few months ago when I helped him complete his advance directive before his surgery at [facility]. When I asked if his sister in law or brother have been in touch he indicated, so-so. He wrote that he would like visitors, so I'll continue to visit.
[2020-11-03] MEDS: Enoxaparin 40 MG/0.4 ML SYR SC (22:00)
[2020-11-04] VITALS (22 sets, daily range): BP systolic 104–148; BP diastolic 66–99; PULSE 75–103; RESP 15–28; TEMP 36–36.5; O2SAT 97–100
[2020-11-04 06:10] LABS: Abs Immature Grans 0.01 10^3/uL (0.0-0.06); Absolute Basophil Count 0.04 10^3/uL (0.0-0.2); Absolute Eosinophil Count 0.15 10^3/uL (0.0-0.7); Absolute Lymphocyte Count 0.69 10^3/uL (1.2-3.4); Absolute Monocyte Count 0.55 10^3/uL (0.1-0.8); Absolute Neutrophil Count 3.86 10^3/uL (1.2-6.7); Basophils % 0.8; Eosinophils % 2.8; HCT 34.5 % (40.0-50.0); HGB 11.7 g/dL (13.5-17.5); Immature Grans % 0.2; MCH 32.4 pg (27.0-33.0); MCHC 33.9 % (32.0-36.0); MPV 9.7 fL (8.0-11.0); Monocytes % 10.4; Neutrophils % 72.8; Nucleated RBC 0 %; Platelet Count 142 10^3/uL (130-400); RBC 3.61 10^6/uL (4.36-5.78); RDW 14.4 % (11.8-14.1); RDW-SD 50.4 fL
[2020-11-04 06:12] LABS: MCV 95.6 fL (80-95)
[2020-11-04 06:21] LABS: Anion Gap 7.4 mmol/L (3-11); BUN 5 mg/dL (7-18); CO2 28.6 mmol/L (21.0-32.0); CREATININE 0.7 mg/dL (0.70-1.30); Chloride 95 mmol/L (98-107); Glucose 80 mg/dL (74-106); Magnesium 2.2 mg/dL (1.8-2.4); Potassium 4.4 mmol/L (3.5-5.1); Sodium 131 mmol/L (136-145)
[2020-11-04] MEDS: ACETAMINOPHEN 1,000 MG/100 ML BTL 400 MG IVPB (08:55)
[2020-11-04] MEDS: Potassium Chloride Liquid 20 MEQ PKT UD (08:56)
[2020-11-04] MEDS: Thiamine 100 MG TAB UD (08:56)
[2020-11-04] MEDS: Folic Acid 1 MG TAB UD (08:56)
[2020-11-04] MEDS: Normal Saline 500 ML IV (09:17)
--- NOTE | 2020-11-04 09:23 | CMPROGNOTE_ITS ---
- If Service Date Differs Date of service: 11/04/20 Time of Service: 09:23 Care Management Progress Note S/O: Chito was sitting up in bed when CM met with him. He was agreeable to meeting with CM and answered questions in writing. Chito was informed that he would likely be ready for discharge tomorrow. He has an order to transfer out to Med-Surg if a bed is available. CM raised the possibility of gong to a SNF for short term rehab with Chito. He was not enthusiastic about that plan but was a bi t more open to home health. PT has recommended Pt. Chito's [id number] Alia called CM this afternoon asking what the discharge plan would be. She and her Peewee have ongoing concerns about Chito and his drinking. It sounds as though Chito has been drinking most of his adult life and has gone to rehab twice for it. Each time he started drinking again about a week after discharge. CM noted that Chito appears depressed but Alia stated that's just Chito's pity green party, saying that he is like that at baseline. Chito does have one son but they are not close, only communicating a few times a year. Alia and Thanh were told that Chito will likely be discharged tomorrow and that home health will be ordered. Alia indicated that Chito has fired them before and she anticipates that he will not allow services for long. A: Chito is a 60 year old man admitted on with Hyponatremia and hypokalemia and ETOH abuse P:Chito would likely benefit from rehab prior to returning home but may not be agreeable. If he does go home, then referrals to a middle school sports coach and home health will be made. He will follow up with his community providers and plan of care. CM will continue to support Chito and his discharge planning needs.
--- NOTE | 2020-11-04 09:35 | PT.INIE ---
Date of service: 11/04/20 Time of Service: 10:27 PT Notes Visit Reasons: hyprantremia, hypokalemia, ETOH abuse, fall Physical Therapy Inpatient Initial Evaluation Date: 11/05/2020 Referring Doctor: Tanvir Adamson MD PT Orders: PT CONSULT: Safety consult for D/C Precautions: Fall. Standard. Activity as tolerated. Patient Profile/Admitting Diagnosis: Chito is a 60-year-old male with oropharyngeal cancer and is status post vasectomy with resection of the floor of the mouth, suprahyoid neck dissection, cervical lymph node adenectomy, tracheostomy, and placement back in 2013 as well as squamous cell carcinoma and is status post mandibulectomy and tracheostomy on 08/18/2020 who presented to the ED on 11/02/2020 due to an unwitnessed fall related to EtOH abuse which resulted to him hitting the back of his head and to sustaining a laceration on the posterior aspect of his scalp. Patient is diagnosed with EtOH withdrawal and closed head injury with loss of consciousness but with negative head CT, Methergine, acute hyponatremia, and hypokalemia. Chest of CT is negative for pneumonia. PMHX: Medical History Anxiety Aspiration pneumonia Caries COPD (chronic obstructive pulmonary disease) Cough with hemoptysis Dysphagia, oral phase Floor of mouth squamous cell carcinoma (06/26/20) Hypertension Hypothyroidism Mouth cancer Oral pain Recurrent squamous cell carcinoma Tobacco use disorder >25 pack years Surgical History S/P glossectomy (10/24/13) Has had w/ resection of floor of mouth, w/ suprahyoid neck dissection. cervical lymphadenectomy, tracheostomy, excision benign thyroid lesion, exploration carotid artery S/P reconstruction procedure (08/18/20) Pediculed pec flap, L hemiglossectomy and mandibulectomy ([facility]) S/P tooth extraction (~2013) Status post glossectomy (08/11/20) Has had w/ multiple other procedures Social History/Home Situation: Patient lives alone in a private home with 4 steps to enter with a post to grab onto. He has been independent with PEG tube feeding since July 2020. Does not use any ambulatory device for all mobility ADL performance Equipment Owned/DME: None Subjective: Agreeable to PT consult. Reports pain in the back of his head and on the left lateral lower ribs which he hit when he fell. Objective: General Observation: Telemetry monitoring in place. Mitchell catheter in place. PEG tube in situ. IV access in right UE. Mental Status: Alert and oriented as to person, place, time, and purpose. Able to pay attention, focus, and respond appropriately. Pain: 4-5/10 in the back of the back of the head and the L lateral lower rib Vital Signs: WNL as closely monitored ROM: Right Upper Extremity: Shoulder Flexion WFL. Shoulder abduction WFL. Shoulder ER/IR WFL. Elbow flexion WFL. Forearm pronation/supination WFL. Wrist flexion WFL. Opening and closing of hand WFL. Left Upper Extremity: Shoulder Flexion WFL. Shoulder abduction WFL. Shoulder ER/IR WFL. Elbow flexion WFL. Forearm pronation/supination WFL. Wrist flexion WFL. Opening and closing of hand WFL. Right Lower Extremity: Hip flexion WFL. Hip abduction WFL. Hip ER/IR WFL. Knee flexion WFL. Knee extension. Ankle dorsiflexion/eversion WFL. Ankle plantarflexion/inversion WFL. Left Lower Extremity: Hip flexion WFL. Hip abduction WFL. Hip ER/IR WFL. Knee flexion WFL. Knee extension. Ankle dorsiflexion WFL. Ankle plantarflexion WFL. Strength: Right Upper Extremity: Shoulder flexors 4-/5. Shoulder abductors 4-/5. Shoulder ER 4-/5. Shoulder IR 5/5. Forearm pronators 4-/5. Forearm supinators 4-/5. Elbow flexors 4-/5. Elbow extensors 4-/5. Erosion Control Specialist strong. Left Upper Extremity: Shoulder flexors 4-/5. Shoulder abductors 4-/5. Shoulder ER 4-/5. Shoulder IR 5/5. Forearm pronators 4-/5. Forearm supinators 4-/5. Elbow flexors 4-/5. Elbow extensors 4-/5. Erosion Control Specialist strong. Right Lower Extremity: Hip flexors 4/5. Hip abductors 4/5. Hip external rotators 4/5. Hip internal rotators 4/5. Knee flexors 4/5. Knee extensors 4/5. Ankle dorsiflexors/evertors 4/5. Ankle plantarflexors/invertors 4/5. Left Lower Extremity: Hip flexors 4/5. Hip abductors 4/5. Hip external rotators 4/5. Hip internal rotators 4/5. Knee flexors 4/5. Knee extensors 4/5. Ankle dorsiflexors/evertors 4/5. Ankle plantarflexors/invertors 4/5. Bed Mobility/Transfers: Supine to sit standby assist with HOB flat Sit to stand contact-guard assist Stand to sit contact-guard assist Bed to chair contact-guard assist Gait: Distance of 250 feet requiring minimal assist with minimal verbal cues for walker management. Wide ANISA. Decreased step length. Balance: Static Sitting: Normal Dynamic Sitting: Normal Static Standing: Fair Dynamic Standing: Fair Special Tests: Mobility Limitations Standardized Measure [facility] AM-PAC 6 clicks Basic Mobility Inpatient Short Form: Raw Score: 20 CMS Score: 36 % deficit 4-Stage Balance Test: Failed all 4 positions indicating risk for falls without use of AD at this time. Informed Consent/Education: Patient was nstructed in purpose of PT consult and plan of care. Agreeable to proceed with established PT POC to achieve personal goals. Assessment: Chito demonstrates functional mobility decline requiring the use of a front wheel walker for mobility ADL performance. Posterior balance reactions impaired. Patient may benefit from senior care facility placement for continued skilled physical therapy services in order to progress mobility level, strength, and balance in preparation for a safe discharge to home. Patient presents with clinical signs and symptoms consistent with current/admitting diagnoses that have resulted to mobility limitations, gait instability, generalized weakness, and impairment of motor control as demonstrated by the following impairment level findings: 1. Decreased strength to B LE major muscle groups 2. Impaired dynamic standing balance 3. Impaired activity tolerance 4. Unsafe gait pattern Impairments are contributing to the following functional limitations: 1. Increased dependence with transfers 2. Inability to safely ambulate without assistive device and physical assistance 3. Increase completion time for mobility ADL performance 4. Increased fall risk 5. Inability to negotiate steps alone safely 6. Inability to return to prior living environment at this time Patient is assessed as a [id number] moderate complexity based on the following: History: 60 [id number] with past medical history as indicated above Examination: Demonstrable impairment in strength, balance, and mobility level with underlying impairments and functional limitations as exhibited above as well as deficit score of 36% utilizing the [facility] Mobility Inpatient Short Form Presentation: Evolving Decision Makin moderate complexity Goals: Goals X1 week 1. Supine-Sit independent 2. Sit-Supine independent 3. Sit-Stand independent 4. Stand-Sit independent 5. Bed-Chair independent 6. Chair-Bed independent 7. Independent gait on level surface with use of no assistive device for at least 500 feet without report of pain nor dyspnea 8. Independent stair negotiation while holding onto 1 rail for at least 5 steps without report of pain nor dyspnea 9. Independent with home exercise program 10. Good static and dynamic standing balance/tolerance Plan of Care/Treatment Plan: 1-2x/day, 7 days/week x 1 week. Plan of care has been reviewed with the DOPER OPERATOR providing the service under Physical Therapy direction. Initiate Physical Therapy intervention for pain management as needed, strengthening, bed mobility, transfers, gait, stairs, balance training, and use of assistive device. DISCHARGE RECOMMENDATIONS: Patient will benefit from senior care facility placement for continued skilled physical therapy services in order to progress mobility level, strength, and balance in preparation for a safe discharge to home. TREATMENT CODE/TIME: 25425 x 20 minutes, 53207 x 20 minutes beginning at 9:35 AM. Thank you for the opportunity to participate in the care of this patient. Leah Palencia PT, DPT, CLT [facility] [place], [place]
--- NOTE | 2020-11-04 13:03 | NUR.NOTE ---
PT wrote to this that he had lost the cap for his trach. This REAL ESTATE SALES SUPERVISOR and a respiratory therapist searched room. At a later time as I was helping PT do AM care and this REAL ESTATE SALES SUPERVISOR decided to check the trash and I did locate the PTs cap. It was washed with soap and water and rubbing alcohol to ensure that it was clean. Nursing Note:
--- NOTE | 2020-11-04 13:09 | NUR.NOTE ---
PT refused kerry care. RN notified. Nursing Note:
[2020-11-04] MEDS: levoFLOXacin 500 MG, levoFLOXacin 250 MG 750 MG UD (13:13)
--- NOTE | 2020-11-04 13:50 | PGE_ITS ---
Date of Service Date of service: 11/04/20 Time of Service: 13:50 Assessment and Plan Assessment and plan (1) Alcohol withdrawal seizure: Status: Acute Assessment and plan: patient had been having blackout spells. unclear whether d/t alcohol intoxication or whether or not he has been having alcohol withdrawal seizure. No seizures since admitted so this is a presumed dx. Never theless, he has received adequate phenobarbital. Qualifiers: Complication of substance-induced condition: uncomplicated Qualified Code(s): F10.230 - Alcohol dependence with withdrawal, uncomplicated; R56.9 - Unspecified convulsions (2) Gastrostomy tube in place: Status: Chronic Assessment and plan: nutritional consult appreciated. Will start Jevity 1.5 w/ supplemental water as recommended. When tolerating then can decrease or dc iv fluids (3) Closed head injury with loss of consciousness of unknown duration: Status: Acute Assessment and plan: unclear as to whether or not this was an alcoholic black out spell or a seizure. CT of head was negative for any acute intracranial injury. He sustained a scalp laceration and hematoma. Wound was closed while in the ER. will get EEG tomorrow, but not begin any AED's but rather treat him for alcohol withdrawal w/ phenobarbital. CT of chest showed no pneumonia however, if he has a fever overnight I would be suspicious for aspiration pneumonia. I will put him on scheduled aerosolized bronchodilators and incentive spirometry and acapella. (4) Scalp laceration: Status: Acute Assessment and plan: wound closed in the ER w/ sloane. If he did not get a tetanus shot then he should get a TdaP. We reviewed his records and KIRSTEN documented he had his TdaP was given 11/06/2019. (5) Acute hyponatremia: Status: Resolved Assessment and plan: secondary to chronic alcohol use (beer) and poor nutritional intake. improving. cont. iv fluids for now (6) Hypokalemia: Status: Resolved Assessment and plan: repleted. cont. enteral supplementation. reduced to once per day (7) Discharge planning issues: Status: Acute Assessment and plan: patient working w/ P.T. they feel that he would benefit from either SNF or home heatlh w/ P.T. I spoke w/ Glenna from and she spoke w/ the patient. He is open to having HH w/ nursing and P.T. and O.T. We will plan for discharge tomorrow Subjective Subjective Interval history since last seen: Patient is alert/oriented; he seems depressed. He wrote messages to me indicating that he is depressed over no longer being able to eat since his oral pharyngeal surgery for cancer. He drinks beer to get a buzz and pours his beer into his g-tube. he is ambivalent about going to a SNF but is willing to talk w/ CM about this. Hopefully he will accept a SNF or at least home health serives w/ P.T. and O.T. and nursing. He is no longer demonstrating symptoms of acute alcohol withdrawal and no longer needs CIWA scoring. he is having productive cough of greenish mucous from his tracheostomy. he is afebrile. lungs w/ some course wheezes. Exam Narrative Exam Narrative: Patient is alert and oriented. No distress. Sitting up in bed watching TV. Lungs w/ some coarse breath sounds and end expiratory wheezes heart: RRR, no murmur or rub Abdomen: soft, nontender, not distended, normal bowel sounds Objective Last Vital Signs Temp 36.3 C L 11/04/20 13:00 Pulse 92 H 11/04/20 10:22 Resp 25 H 11/04/20 10:22 BP 124/85 11/04/20 10:22 Pulse Ox 99 11/04/20 09:37 Laboratory Results - last 24 hr 11/03/20 11/04/20 11/04/20 14:10 05:55 05:55 WBC 5.30 RBC 3.61 L Hgb 11.7 L Hct 34.5 L MCV 95.6 H D MCH 32.4 MCHC 33.9 RDW 14.4 H Plt Count 142 MPV 9.7 Immature Gran % 0.2 Neutrophils % 72.8 Lymphocytes % 13.0 Monocytes % 10.4 Eosinophils % 2.8 Basophils % 0.8 Nucleated RBC % 0 Absolute Neutrophils 3.86 Absolute Lymphocytes 0.69 L Absolute Monocytes 0.55 Absolute Eosinophils 0.15 Absolute Basophils 0.04 Sodium 129 L 131 L Potassium 3.7 4.4 Chloride 94 L 95 L Carbon Dioxide 30.9 28.6 Anion Gap 4.1 7.4 BUN 4 L 5 L Creatinine 0.6 L 0.7 Estimated GFR/1.73 m2 >= 60.00 >= 60.00 Glucose 105 80 Calcium 8.1 L 9.0 Magnesium 2.2
[2020-11-04] MEDS: Enoxaparin 40 MG/0.4 ML SYR SC (22:14)
[2020-11-04] MEDS: Normal Saline Flush 10 ML SYR IVP (22:14)
[2020-11-04] MEDS: Acetaminophen Solution 650 MG/20.3 ML CUP UD (22:15)
[2020-11-05 03:41] VITALS: BP 126/82; PULSE 82; RESP 18; TEMP 36.5; O2SAT 98
[2020-11-05 07:37] VITALS: BP 108/77; PULSE 91; RESP 20; TEMP 36.2; O2SAT 97
[2020-11-05] MEDS: Pantoprazole 40 MG TABCR UD (07:48)
[2020-11-05] MEDS: Acetaminophen Solution 650 MG/20.3 ML CUP UD (07:48)
[2020-11-05] MEDS: Potassium Chloride Liquid 20 MEQ PKT UD (07:48)
[2020-11-05] MEDS: Thiamine 100 MG TAB UD (07:49)
[2020-11-05] MEDS: Folic Acid 1 MG TAB UD (07:49)
[2020-11-05] MEDS: levoFLOXacin 500 MG, levoFLOXacin 250 MG 750 MG UD (07:49)
--- NOTE | 2020-11-05 09:20 | PDOC.CMPRO ---
- If Service Date Differs Date of service: 11/05/20 Time of Service: 09:20 Care Management Progress Note S/O: Chito was sitting up in bed when CM met with him. A: Chito is a 60 year old man admitted on with Hyponatremia and hypokalemia and ETOH abuse P:Chito would likely benefit from rehab prior to returning home but may not be agreeable. If he does go home, then referrals to a chief engineer drilling and recovery and home health will be made. He will follow up with his community providers and plan of care. CM will continue to support Chito and his discharge planning needs. cc:
--- NOTE | 2020-11-05 10:08 | DSE_ITS ---
Date of service: 11/05/20 Time of Service: 10:09 DS: Diagnosis Discharge Diagnosis (1) Alcohol withdrawal seizure: Status: Acute (2) Gastrostomy tube in place: Status: Chronic (3) Closed head injury with loss of consciousness of unknown duration: Status: Acute (4) Scalp laceration: Status: Acute (5) Acute hyponatremia: Status: Resolved (6) Hypokalemia: Status: Resolved (7) Discharge planning issues: Status: Acute Discharge Plan Disposition Patient Disposition: HOME W/HOME HEALTH SERVICE Condition: Improving Discharge Details Reason For Visit: hyponatremia, hypokalemia, ETOH abuse, fall Admit Date/Time: 11/02/20 11:41 Admit Provider: Tanvir Griffith Attending Provider: Tanvir Griffith Primary Care Provider: Maisha Deleon Hospital Course Hospital Course: 60-year-old white male who lives alone and has PMH of oropharyngeal cancer status post glossectomy with resection floor of mouth with suprahyoid neck dissection and cervical lymphadenectomy and tracheostomy and PEG tube (Original surgery October 25, 2013 with recurrence of his squamous cell carcinoma requiring mandibulectomy and tracheostomy PEG tube August 18, 2020) who has alcoholism and had an unwitnessed fall at home sustaining a laceration to his posterior occiput. Patient's [id number] called EMS. SMITHA Dickinson called his [id number], Alex Griffin, home [phone], cell [phone]. She is concerned that the patient has started wanting to cancel all of his regular appointments. She states that he has been drinking regularly for approximately 30 years and has gone to rehab without success. No known seizures from withdrawal. States that he did have home health but that he kicked him out. When EMS came to evaluate him they found 14 30 packs of empty beer strewn about his home. patient apparently has been drinking yesterday and this morning. IKER on arrival was only 24. On arrival he was found to have a 6 cm laceration over his posterior scalp which was closed in the ER. Patient states that his last drink was this morning and included 5 beers. Imaging included a noncontrast CT scan of his head and cervical spine noted no acute cervical spine injury and no acute intracranial injury. His severe DJD spine. CT of the head does show small scalp hematoma on the right. CT of the chest was performed with IV contrast and demonstrated pleural-parenchymal scarring in the right apex with limited peribronchial thickening and volume loss and minimal scarring in the anterior inferior right middle lobe. Heart was normal in size he has multivessel coronary calcification. No aortic aneurysm. He has a healed nondisplaced posterior lateral left eighth and ninth rib fracture. Laboratory studies include a CBC that showed normal white cell count 8200. Borderline anemia with a hemoglobin 12.9 g and hematocrit of 35.7% with a normal MCV of 88.4. Platelets are normal at 137,000. Chemistry panel was remarkable for hyponatremia serum sodium 115 a potassium of 2.9 and a chloride of 79. BUN was normal at 5 and creatinine is normal at 0.6. Magnesium is low at 1.7. Mild increase in his AST at 58 and alkaline phosphatase of 117. Troponin I levels were less than 0.05x2 sets. Patient is being admitted to the intensive care unit for treatment of alcohol induced hyponatremia and hypokalemia along with treatment for what is felt to be acute alcohol withdrawal and possible alcohol withdrawal seizure. Patient was given a partial loading dose of phenobarbital in the emergency room including 384 mg and this was supposed to have been given over 20 to 30 minutes but actually was given over 3 hours. After admission to the intensive care unit he was given an additional dose of 260 mg of phenobarbital IV push. We will continue to monitor his CIWA scale as well as his RASS scale. He had further escalations in his withdrawal symptoms on November 04, 2019 1 in the morning with as high as 17 on CIWA scale. Continue to receive as needed phenobarbital and doses of 130 to 260 mg at a time. We set a cumulative limit of 2000 mg of phenobarbital which is based on a cumulative dose of 25 mg/kg. He had reached his maximal cumulative dose on November 03, 2020 in the afternoon. At that point phenobarbital was discontinued. Throughout the rest the day on November 03, 2020 his CIWA scores remain low at 3-5. And on November 04, 2020 we discontinued further CIWA monitoring. He was transferred to the medical/surgical floor on November 04, 2020. That morning he was noted to have coughing up purulent green sputum and he was started on Levaquin 750 mg daily. Her/bronchodilator treatments were ordered. Patient never required supplemental oxygen and had no hypoxemia and no symptoms of dyspnea. Physical therapy was obtained to work with his gait and strength and ambulation as the patient showed generalized weakness and gait instability. Referral to a SNF was offered but patient declined and case management set him up for home health including nursing and physical therapy to come into the home and work with the patient. Nutritional consult was obtained during his hospitalization regarding recommendations of his enteral feedings. Please see Estela Malhotra's note for details. He recommended Jevity 1.5 kcal/cc at a rate of 41 cc/h along with flushes of 200 mL of water every 6 hours which provided a total of 1500 kcal and 60 g of protein and 1520 mL of fluid. Was also put on MVI and thiamine folic acid. Patient's hypokalemia was treated with IV and oral supplementation. His hyponatremia corrected with IV fluids as well as resumption of enteral feedings and cessation of his alcohol intake. At the time of discharge patient was alert and oriented and answering questions appropriately. We communicated through the use of a white board which he wrote on. He is declining any referral to a SNF at this time. He is excepting of home health and home PT. Sputum culture was taken on 11/04 from his tracheostomy and was found to have Pseudomonas aeruginosa. Patient will be sent home on a 14 day course of Levaquin 750 mg daily per G tube Home Meds and New Rx's Prescriptions: New levofloxacin 250 mg/10 mL solution 750 mg PO Q24H 14 Days Qty: 420 RF: 0 Continued oxycodone 5 mg/5 mL solution 5 mg PO BID MDD 10mg PRN (Reason: pain, mouth cancer) Qty: 140 RF: 0 famotidine 20 mg tablet 20 mg feeding tube BID Qty: 60 RF: 3 (DME) Toothette Swab See Rx Instructions .ROUTE .MEDSUPPLY Qty: 500 RF: 6 folic acid 400 mcg tablet 0.4 mg PO DAILY RF: 0 vitamin E 200 unit capsule 400 unit PO DAILY RF: 0 docusate sodium 50 mg/5 mL liquid 100 mg feeding tube BID PRN (Reason: constipation) Qty: 473 RF: 3 chlorhexidine gluconate [Peridex] 0.12 % mouthwash 15 ml mucous membrane TID RF: 0 ibuprofen 600 mg tablet 600 mg feeding tube Q6H PRNRF: 0 mirtazapine 7.5 mg tablet 7.5 mg feeding tube QHS RF: 0 levothyroxine 50 mcg tablet 50 mcg feeding tube DAILY RF: 0 food supplemt, lactose-reduced Liquid See Rx Instructions feeding tube .COMPLEX RF: 0 multivitamin Tablet 1 tab feeding tube DAILY RF: 0 thiamine HCl (vitamin B1) 100 mg tablet 100 mg feeding tube DAILY RF: 0 vitamin E (dl, acetate) 400 unit capsule 400 unit feeding tube DAILY RF: 0 gabapentin 300 mg/6 mL (6 mL) solution 400 mg feeding tube TID RF: 0 Discharge Instructions Instructions: Acute Bronchitis (GEN), Alcohol Intoxication (DC), Alcohol Dep endence (GEN) Activity:: Activity as Tolerated Equipment/Supplies:: No Equipment Needed Diet:: enteral feedings w/ Nutren 1.5 one can 5x/day, along w/ 240 mL water 5x/d Discharge Orders Other Ambulatory Orders: Basic Metabolic Panel (Routine) Timeframe: 1 Week Facility: [facility] - Location: Laboratory Outpatient Ordered By: Tanvir Griffith DS: Summary Time Spent with Patient providing and/or coordinating discharge services: Less than 30 minutes Status at Discharge Functional status at discharge: uses cane/walker Overall status at discharge: patient is progressing back to baseline Mental Status: mental status grossly normal Speech and Movement: speech and movement normal Mood: congruent mood Affect: normal affect Exam Psych Mental Status: mental status grossly normal Speech and Movement: speech and movement normal Mood: congruent mood Affect: normal affect DS: Data Vitals/I&O Vitals and I&O: Vital Signs Temperature 36.2 C L 11/05/20 07:37 Temperature Source Tympanic 11/05/20 07:37 Pulse 91 H 11/05/20 07:37 Pulse Rhythm Regular 11/05/20 02:50 Pulse 82 11/04/20 20:00 Respiratory Rate 20 11/05/20 07:37 Respiratory Effort 11/05/20 02:50 Respiratory Depth Normal 11/05/20 02:50 Respiratory Pattern Normal 11/05/20 02:50 Blood Pressure 108/77 11/05/20 07:37 Blood Pressure Mean 106 11/04/20 20:16 Blood Pressure Position Supine 11/04/20 09:20 Pulse Oximetry 97 11/05/20 07:37 Oxygen Delivery Method Room Air 11/05/20 07:37 Oxygen Flow Rate 0 11/05/20 07:37 Pain Level 7 11/05/20 07:48 Intake & Output 11/04/20 11/04/20 11/05/20 11:59 23:59 11:59 Intake Total 1497 / 1657 160 / 1657 Output Total 725 / 1700 975 / 1700 100 / 100 Balance 772 / -43 -815 / -43 -100 / -100 Weight 75.9 kg Intake: IV 1000 / 1000 Other 60 / 60 Intake, Tube Feeding Amount 497 / 597 100 / 597 Output: Urine 725 / 1700 975 / 1700 100 / 100 Other: Urine Color Yellow Yellow Yellow Urine Appearance Clear Clear Clear Urine Odor Normal Normal Normal Comment Patient voids in urinal PRN. Stool Size Small Stool Characteristics Liquid Voiding Methods Urinal Urinal Urinal Diaper Incontinent Data Completed and Pending Labs on day of discharge: 11/04/20 12:25 Sputum Sputum Culture - Pending Preliminary micro results at discharge 11/04/20 12:25 Sputum Culture - Pending Sputum PFSH Medical History Anxiety Aspiration pneumonia Caries COPD (chronic obstructive pulmonary disease) Cough with hemoptysis Dysphagia, oral phase 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 cervical lymphadenectomy, tracheostomy, excision benign thyroid lesion, exploration ca rotid artery S/P reconstruction procedure (08/18/20) Pediculed pec flap, L hemiglossectomy and mandibulectomy ([place]) S/P tooth extraction (~2013) Status post glossectomy (08/11/20) w/ multiple other procedures Family History Mother Hypertension Hyperlipidemia Breast cancer Asthma Father Asthma Brother Hyperlipidemia Social History Smoking/Tobacco Use Status: Current every day Tobacco: How many years used: 29 Smoking risk assessment performed?: Yes Alcohol Intake: current Alcohol Intake frequency: 3 or more drinks per day Alcohol type: beer Details: 6 beer a day Drug use: Rarely Substance use type: marijuana Details: No IV Drug Use Adopted: No Caregiver/Support person: No Foster care: No Household members: none Housing: house Number of Children: 1 Communication Needs: Corrective Lenses Education Level: high school Do you need help understanding health information?: Often Sexually active: No Do you think of yourself as: straight/heterosexual Current gender identity: male What type of physical activity do you participate in: none Special leeroy needs: No Seatbelt use: always Do you feel safe at home: Yes Do you feel safe in your relationship?: Yes
--- NOTE | 2020-11-05 10:09 | PDOC.HHF2F_ITS ---
Home Health Certification Home Health Certification: 1. Encounter Date and Reason I certify that Chito Santiago was seen by Tanvir Griffith on 11/05/20 and that I had a [id number] encounter with this patient that meets the physician face to face encounter requirements. 2. Clinical Findings Supporting Skilled Need and Homebound Status I certify that home health services are medically necessary, include either intermittent prison and/or physical/speech therapy, and that this patie nt is homebound in that absences from the home require considerable and taxing effort and are infrequent or of short duration, or are attributable to the need to receive medical care. [X] (a) Attached documentation from encounter provides clinical findings supporting skilled need and homebound status (including what assistance patient requires to leave the home). The encounter with the patient was in whole, or in part, for the following medical condition, which is the primary reason for home health care: hyponatremia, hypokalemia, ETOH abuse, fall Senior Care: visiting nurse to evaluate his nutritional status and compliance w/ his meds and to deputy general counsel him on his alcoholism; monitor his weight and nutrition Physical Therapy: P.T. to evaluate and treat for generalized weakness d/t malnutrition and alcoholism Speech Therapy: Homebound: generalized weakness and ambulatory dyfunction d/t his alcoholism increases his risks of falls and injury making him homebound 3. Certification and Authentication I certify that I composed the above information based on my clinical judgement relating to this patient's medical condition and, if applicable, clinical findings communicated to me by the NPP or inpatient physician who performed the Home Health Referral. All further orders will be obtained through __Maisha Deleon NP (Community Based Physician - PCP)
--- NOTE | 2020-11-05 12:05 | PDOC.CMDIS ---
- If Service Date Differs Date of service: 11/05/20 Time of Service: 12:05 LACE Index Scoring Tool - Questions: Length of Stay (in days): 3 Acuity (Admit via E.D.?): Yes Comorbidities: Chronic Pulmonary Disease, Metastatic Solid Tumor E.D. Visits: 2 - Answers: Total Score: 13 Risk of Readmission: High Risk Care Management Discharge Reason for Hospitalization: alcohol withdrawal seizures Discharge Plan: Chito will be discharged home with new home health PT and RN. He will follow up with his community providers and plan of care and transport with his brother Peewee. Patient/Family Education Needs: Review of discharge instructions, medications, follow up plan, limitations, Ask Me Three Services Needed at Discharge: Home Health Care Services
--- NOTE | 2020-11-05 13:00 | CHAPLAIN ---
Chito expects to be discharged today. He agreed to have PT and nursing services from Home Health. He wrote that he is looking forward to getting around and moving more. He feels he's gotten weaker while he's been here. I gave him a prayer shawl to take with him.
--- NOTE | 2020-11-07 13:21 | PT.INDS ---
Date of service: 11/07/20 Time of Service: 13:21 PT Notes Visit Reasons: hyponatremia, hypokalemia, ETOH abuse, fall Physical Therapy Inpatient Discharge Summary Date: 11/07/2020 Dates of service: 11/04/2020 through 11/05/2020 This is a clinical summary of care provided for the duration of dates listed above. No charge was made in the completion of this documentation. Referring Doctor: Tanvir Adamson MD PT Orders: PT CONSULT: Safety consult for D/C Precautions: Fall. Standard. Activity as tolerated. Patient Profile/Admitting Diagnosis: Chito is a 60-year-old male with oropharyngeal cancer and is status post vasectomy with resection of the floor of the mouth, suprahyoid neck dissection, cervical lymph node adenectomy, tracheostomy, and placement back in 2013 as well as squamous cell carcinoma and is status post mandibulectomy and tracheostomy on 08/18/2020 who presented to the ED on 11/02/2020 due to an unwitnessed fall related to EtOH abuse which resulted to him hitting the back of his head and to sustaining a laceration on the posterior aspect of his scalp. Patient is diagnosed with EtOH withdrawal and closed head injury with loss of consciousness but with negative head CT, Methergine, acute hyponatremia, and hypokalemia. Chest of CT is negative for pneumonia. PMHX: Medical History Anxiety Aspiration pneumonia Caries COPD (chronic obstructive pulmonary disease) Cough with hemoptysis Dysphagia, oral phase Floor of mouth squamous cell carcinoma (06/26/20) Hypertension Hypothyroidism Mouth cancer Oral pain Recurrent squamous cell carcinoma Tobacco use disorder >25 pack years Surgical History S/P glossectomy (10/24/13) Has had w/ resection of floor of mouth, w/ suprahyoid neck dissection. cervical lymphadenectomy, tracheostomy, excision benign thyroid lesion, exploration carotid artery S/P reconstruction procedure (08/18/20) Pediculed pec flap, L hemiglossectomy and mandibulectomy ([place]) S/P tooth extraction (~2013) Status post glossectomy (08/11/20) Has had w/ multiple other procedures Social History/Home Situation: Patient lives alone in a private home with 4 steps to enter with a post to grab onto. He has been independent with PEG tube feeding since July 2020. Does not use any ambulatory device for all mobility ADL performance Equipment Owned/DME: None Subjective: NT. See most recent SENIOR QUALITY METHODS SPECIALIST notes. Objective: General Observation: NT. See most recent SENIOR QUALITY METHODS SPECIALIST notes. Pain: NT. See most recent SENIOR QUALITY METHODS SPECIALIST notes. Vital Signs: NT. See most recent SENIOR QUALITY METHODS SPECIALIST notes. ROM: Right Upper Extremity: Shoulder Flexion WFL. Shoulder abduction WFL. Shoulder ER/IR WFL. Elbow flexion WFL. Forearm pronation/supination WFL. Wrist flexion WFL. Opening and closing of hand WFL. Left Upper Extremity: Shoulder Flexion WFL. Shoulder abduction WFL. Shoulder ER/IR WFL. Elbow flexion WFL. Forearm pronation/supination WFL. Wrist flexion WFL. Opening and closing of hand WFL. Right Lower Extremity: Hip flexion WFL. Hip abduction WFL. Hip ER/IR WFL. Knee flexion WFL. Knee extension. Ankle dorsiflexion/eversion WFL. Ankle plantarflexion/inversion WFL. Left Lower Extremity: Hip flexion WFL. Hip abduction WFL. Hip ER/IR WFL. Knee flexion WFL. Knee extension. Ankle dorsiflexion WFL. Ankle plantarflexion WFL. Strength: Right Upper Extremity: Shoulder flexors 4-/5. Shoulder abductors 4-/5. Shoulder ER 4-/5. Shoulder IR 5/5. Forearm pronators 4-/5. Forearm supinators 4-/5. Elbow flexors 4-/5. Elbow extensors 4-/5. Cold Type Composing Machine Operator strong. Left Upper Extremity: Shoulder flexors 4-/5. Shoulder abductors 4-/5. Shoulder ER 4-/5. Shoulder IR 5/5. Forearm pronators 4-/5. Forearm supinators 4-/5. Elbow flexors 4-/5. Elbow extensors 4-/5. Cold Type Composing Machine Operator strong. Right Lower Extremity: Hip flexors 4/5. Hip abductors 4/5. Hip external rotators 4/5. Hip internal rotators 4/5. Knee flexors 4/5. Knee extensors 4/5. Ankle dorsiflexors/evertors 4/5. Ankle plantarflexors/invertors 4/5. Left Lower Extremity: Hip flexors 4/5. Hip abductors 4/5. Hip external rotators 4/5. Hip internal rotators 4/5. Knee flexors 4/5. Knee extensors 4/5. Ankle dorsiflexors/evertors 4/5. Ankle plantarflexors/invertors 4/5. Bed Mobility/Transfers: Supine to sit independent Sit to stand independent Stand to sit independent Bed to chair independent Gait: Distance of 250 feet requiring minimal assist with minimal verbal cues for walker management. Wide ANISA. Decreased step length. Balance: Static Sitting: Normal Dynamic Sitting: Normal Static Standing: Fair Dynamic Standing: Fair Assessment: Tongue demonstrates functional mobility improvement as evidenced by mobility level above and goal status below during this episode of care . Goals: Goals X1 week 1. Supine-Sit independent MET 2. Sit-Supine independent MET 3. Sit-Stand independent MET 4. Stand-Sit independent MET 5. Bed-Chair independent MET 6. Chair-Bed independent MET 7. Independent gait on level surface with use of no assistive device for at least 500 feet without report of pain nor dyspnea 8. Independent stair negotiation while holding onto 1 rail for at least 5 steps without report of pain nor dyspnea NOT MET 9. Independent with home exercise program NOT MET 10. Good static and dynamic standing balance/tolerance NOT MET DISCHARGE RECOMMENDATIONS: Patient will benefit from home health PT services in order to progress mobility level using least restrictive assistive ambulatory device, assess home safety, identify additional equipment needs, and establish a functional maintenance program that will increase ability of patient to remain at home. TREATMENT CODE/TIME: ME Thank you for the opportunity to participate in the care of this patient. Leah Palencia PT, DPT, CLT [facility] [place], [place]
== END 2020-11-05 13:39 | disposition home health service (06) | DRG 897 ==
LOC: ER 08:29 → ICU 14:05 → MS 11-04 20:30
PROVIDERS: Admitting Provider Internal Medicine; Emergency Provider Physician Assistant; PCP Nurse Practitioner; Visit Provider Internal Medicine
DX: F10.239 Alcohol dependence with withdrawal, unspecified (principal); S06.899A Other specified intracranial injury with loss of consciousness of unspecified duration, initial encounter; E87.1 Hypo-osmolality and hyponatremia; R56.9 Unspecified convulsions; E87.6 Hypokalemia; Z93.1 Gastrostomy status; S01.01XA Laceration without foreign body of scalp, initial encounter; W19.XXXA Unspecified fall, initial encounter; Z85.818 Personal history of malignant neoplasm of other sites of lip, oral cavity, and pharynx; F41.9 Anxiety disorder, unspecified; K02.9 Dental caries, unspecified; J44.9 Chronic obstructive pulmonary disease, unspecified; I10 Essential (primary) hypertension; E03.9 Hypothyroidism, unspecified; F17.210 Nicotine dependence, cigarettes, uncomplicated; Z93.0 Tracheostomy status
CPT/HCPCS: 12002; 36415; 74177; 80048; 80053; 80307; 87077; 87635; 93005; 95819; 95822; 96361; 96365; 96366; 96367; 96368; 97162; 97530; 99285; J1650; 70450; 71260; 72125; 80320; 81003; 81015; 83735; 84100; 84484; 85025; 87070; 87086; 87186; 87205; 93010; 99222; 99232; 99238; J0131; J2560; J3475; J3480; J3490

== ENCOUNTER 2020-11-14 09:52 | Inpatient (IN) | payer OTHER, SELFPAY ==
[2020-11-14] VITALS (38 sets, daily range): BP systolic 73–148; BP diastolic 59–98; PULSE 99–139; RESP 8–21; TEMP 36.6–36.9; O2SAT 85–99
--- NOTE | 2020-11-14 10:15 | DI.CT_ITS ---
Exam(s) CT ABDOMEN PELVIS W EXAM: CT ABDOMEN PELVIS W CLINICAL HISTORY: abdominal pain right TECHNIQUE: Imaging Protocol: Axial computed tomography images with coronal and sagittal reformatted images were created and reviewed CONTRAST MATERIAL: Intravenous: Omnipaque 350 Contrast volume:100 mL Oral: No COMPARISON: CT CT CHEST/ABD/PEL W from 11/02/2020 FINDINGS: The examination is limited due to patient motion artifact. ABDOMEN: Lung Bases: Normal where visualized. Liver: There is diffuse decreased attenuation of the liver consistent with fatty infiltration. No ev idence of a laceration. No measurable mass. Portal, Superior Mesenteric, and Splenic Veins: Unremarkable. Gallbladder and Biliary Tract: Cholelithiasis. No biliary ductal dilatation Pancreas: Normal density, no abnormal calcifications or inflammatory process. Spleen: Normal. No evidence of a laceration. Adrenals: No masses seen. Kidneys: Normal size, contour and axis. No radiodense stones or obstructive uropathy. No masses seen. Abdominal Aorta: Abdominal portion non-dilated. Moderate atherosclerosis. Bowel: No obstruction or bowel wall thickening. No evidence of appendicitis. The PEG tube is in good position. Peritoneal Cavity: No ascites, collection or mesenteric inflammatory response. No free air. Lymph Nodes: Within normal limits. Bones: Old left rib fractures are seen. There is a subacute healing left 12th rib fracture. Soft Tissues: There are bilateral fat containing inguinal hernia. PELVIS: Bladder: Symmetric distention, no gross wall thickening. Reproductive Organs: Unremarkable as visualized. Lymph Nodes: Within normal limits. Bones: Multilevel degenerative changes are seen in the lumbar spine resulting in central spinal canal and neural foraminal stenosis. IMPRESSION: 1. No acute abdominal or pelvic process. 2. Results of this exam have been verbally communicated with provider. RADIATION DOSE DELIVERED: 857.26mGy.cm Total DLP DATA REPOSITORY: All CT scans at this facility are submitted to the National Radiology Data Registry (NRDR) Dose Index Registry (DIR) with the [employer] (A[employer]). RADIATION OPTIMIZATION: All CT scans at this facility use at least one of these dose optimization te chniques: automated exposure control; mA and/or kV adjustment per patient size (includes targeted exa ms where dose is matched to clinical indication); or iterative reconstruction.
--- NOTE | 2020-11-14 10:15 | DI.CT_ITS ---
Exam(s) CT HEAD WO EXAM: CT HEAD WO CLINICAL HISTORY: brusing left frontal, altered. TECHNIQUE: Imaging Protocol: Axial computed tomography images with coronal and sagittal reformatted images were created and reviewed COMPARISON: CT CT HEAD CERVICAL SPINE WO from 11/02/2020 FINDINGS: The examination is limited due to patient motion artifact. Ventricles and Extra axial spaces: Normal in size and morphology for the patient's age. Hemorrhage: None. Cerebral parenchyma: There are areas of decreased attenuation in the white matter most consistent wit h chronic microvascular ischemic disease. No acute territorial infarct. Midline shift: None. Brainstem/Cerebellum: Normal. Calvarium: Normal. Visualized Paranasal sinuses/Mastoids: Clear. Soft Tissues: There is a subcutaneous hematoma along the posterior scalp with skin sloane present. IMPRESSION: 1. No acute intracranial process. 2. Results of this exam have been verbally communicated with provider. RADIATION DOSE DELIVERED: 842.7mGy.cm Total DLP DATA REPOSITORY: All CT scans at this facility are submitted to the National Radiology Data Registry (NRDR) Dose Index Registry (DIR) with the [employer] (ACR). RADIATION OPTIMIZATION: All CT scans at this facility use at least one of these dose optimization te chniques: automated exposure control; mA and/or kV adjustment per patient size (includes targeted exa ms where dose is matched to clinical indication); or iterative reconstruction.
[2020-11-14] MEDS: THIAMINE 100 MG in Normal Saline 100 ML 200 MG IVPB (10:31)
[2020-11-14] MEDS: Lactated Ringers 1,000 ML 150 ML IV ×2 (10:32→18:29)
[2020-11-14 10:34] LABS: Abs Immature Grans 0.04 10^3/uL (0.0-0.06); Absolute Basophil Count 0.09 10^3/uL (0.0-0.2); Absolute Eosinophil Count 0.08 10^3/uL (0.0-0.7); Absolute Lymphocyte Count 1.06 10^3/uL (1.2-3.4); Absolute Neutrophil Count 5.35 10^3/uL (1.2-6.7); Basophils % 1.3; Eosinophils % 1.1; HCT 41.3 % (40.0-50.0); HGB 14.4 g/dL (13.5-17.5); Immature Grans % 0.6; Lymphocytes % 14.9; MCH 32.4 pg (27.0-33.0); MCHC 34.9 % (32.0-36.0); MCV 92.8 fL (80-95); MPV 8.4 fL (8.0-11.0); Neutrophils % 75.1; Nucleated RBC 0 %; RBC 4.45 10^6/uL (4.36-5.78); RDW 14.3 % (11.8-14.1); RDW-SD 49.1 fL; WBC 7.12 10^3/uL (4.4-10.8)
[2020-11-14 10:37] LABS: Platelet Count 437 10^3/uL (130-400)
[2020-11-14 10:58] LABS: ALT 54 U/L (16-63); AST 95 U/L (15-37); Albumin 3.5 g/dL (3.4-5.0); Alkaline Phosphatase 130 U/L (46-116); Anion Gap 12.7 mmol/L (3-11); BUN 5 mg/dL (7-18); Bilirubin, Total 0.4 mg/dL (0.2-1.0); CO2 33.3 mmol/L (21.0-32.0); CREATININE 0.7 mg/dL (0.70-1.30); Calcium 8.6 mg/dL (8.5-10.1); Chloride 83 mmol/L (98-107); Glucose 120 mg/dL (74-106); Magnesium 2.3 mg/dL (1.8-2.4); Potassium 3.6 mmol/L (3.5-5.1); Sodium 129 mmol/L (136-145); Total Protein 7.7 g/dL (6.4-8.2)
[2020-11-14 11:00] LABS: ETHANOL BLOOD 386.3 mg/dL (<3); Troponin I < 0.05 ng/mL (<0.06)
[2020-11-14] MEDS: Omnipaque 350 MG/ML 100 ML BTL IJ (11:36)
--- NOTE | 2020-11-14 11:45 | DI.US_ITS ---
Exam(s) US ABDOMEN LIMITED EXAM: US ABDOMEN LIMITED CLINICAL HISTORY: gallstone on CT, right sided abd pain TECHNIQUE: Ultrasound abdomen performed using standard protocol. COMPARISON: No exams were available for comparison FINDINGS: PANCREAS: Normal where visualized. LIVER: Normal. Hepatopedal flow in the Portal Vein. The liver measures 15.7 cm in length. GALLBLADDER: Cholelithiasis. No evidence of wall thickening. No pericholecystic fluid identified. BILIARY SYSTEM: Common bile duct measures < 7 mm. No intrahepatic biliary ductal dilation. SOTO'S SIGN: Negative. Right kidney: Normal in size. No evidence of renal calculi. No evidence of hydronephrosis. No renal mass or cyst identified. ASCITES: None seen. IMPRESSION: 1. Cholelithiasis. No evidence to suggest acute cholecystitis. 2. Fatty liver. DATA REPOSITORY:
[2020-11-14 12:18] LABS: Bilirubin Negative (Negative); Blood Negative (Negative); Clarity Clear (Clear); Glucose Negative (Negative); Ketones 15 mg/dL (Negative); Leukocyte Esterase Negative (Negative); Nitrite Negative (Negative); Urobilinogen 0.2 EU/dL (Up TO 0.2)
[2020-11-14 12:20] LABS: Lipase 337 U/L (73-393)
[2020-11-14 12:25] LABS: Bacteria Rare HPF (Negative); C & S Indicated? No; Casts Negative LPF (Negative); Crystals Negative HPF (Negative); Epithelial Cells Rare HPF (Negative); Mucus Trace (Negative); RBC 0-2 HPF (0-2); WBC 0-2 HPF (0-5)
--- NOTE | 2020-11-14 12:42 | W.ED.GENAD ---
Discharge Plan Disposition Patient Disposition: [facility] INPATIENT Discharge Details Clinical Impression: Adult failure to thrive, Alcohol abuse, Abdominal pain Admit Date/Time: 11/14/20 12:50 Admit Provider: Alan Broussard Attending Provider: Alan Broussard Primary Care Provider: Maisha Deleon ED Provider: Avni Hutchins Discharge Data Discharge Date/Time-TO BE ENTERED AT DEPARTURE: 11/14/20 15:08 Medical Decision Making 60-year-old male with multiple medical problems including squamous cell carcinoma of the floor of the mouth, status post tracheostomy, COPD, alcohol abuse, recent admission for alcohol withdrawal and fall, here today with concern from family that he is failing to thrive at home, not eating, injecting beer into his gastric tube, not ambulating and remaining immobile in a chair. Concern for electrolyte abnormality given malnutrition. He does have hyponatremia. Considered UTI. UA unremarkable. Given signs of head trauma with altered mental status and unclear history, considered acute intracranial traumatic hemorrhage. CT of the head was interpreted by radiology as negative. Concern for acute intra-abdominal surgical process. CT of the abdomen pelvis was interpreted by radiology as no acute process. I did note gallstones on CT and given right-sided abdominal pain and mild elevation of LFTs, considered acute cholecystitis. Right upper quadrant ultrasound was interpreted by radiology as cholelithiasis, negative for acute cholecystitis. Given failing to thrive at home, I do believe the patient would benefit from placement in senior care, will admit for failure to thrive and abdominal pain. Scalp wound that was repaired on prior visit has intact staple. Wound healing and suture removal not yet indicated. Wound should be reassessed for potential staple removal in a couple days. HPI General Mode of arrival: EMS. Date/Time Provider Initiated Documentation: 11/14/20 09:54. Limitations to Documentation: altered mental status. Information obtained by: patient, family and EMS. HPI Narrative: History review of systems limited secondary to altered mental status. 60-year-old male presents with chief complaint of abdominal pain. Patient notes pain in his right abdomen. Unclear as to how long pain is been present. No associated nausea or vomiting. Pain is moderate. No known modifiers. Currently patient has been sitting in his recliner at home for the past 5 days. He has not moved from the recliner. Home health has come out intermittently and found him sitting in a pool of urine. He was found by family to have piles of beer cans around his recliner having injected them into his gastric tube. Family is concerned that he is not eating and failing to thrive at home. Related Data Home Medications Medication Instructions Recorded Confirmed folic acid 400 mcg tablet 0.4 mg PO DAILY 08/06/19 11/14/20 vitamin E 200 unit capsule 400 unit PO DAILY cap 08/06/19 11/14/20 swab #500 ea 07/28/20 11/14/20 chlorhexidine gluconate 0.12 % 15 ml MUCOUS MEMBRANE TID ml 09/01/20 11/14/20 mouthwash docusate sodium 50 mg/5 mL oral 100 mg FEEDING TUBE BID PRN #473 ml 09/01/20 11/14/20 liquid food supplemt, lactose-reduced See Rx Instructions FEEDING TUBE 09/01/20 11/14/20 .COMPLEX ibuprofen 600 mg tablet 600 mg FEEDING TUBE Q6H PRN 09/01/20 11/14/20 levothyroxine 50 mcg tablet 50 mcg FEEDING TUBE DAILY 09/01/20 11/14/20 multivitamin 1 tab FEEDING TUBE DAILY 09/01/20 11/14/20 thiamine HCl (vitamin B1) 100 mg 100 mg FEEDING TUBE DAILY 09/01/20 11/14/20 tablet vitamin E (dl, acetate) 400 unit 400 unit FEEDING TUBE DAILY 09/01/20 11/14/20 capsule gabapentin 300 mg/6 mL (6 mL) oral 400 mg FEEDING TUBE TID ml 09/10/20 11/14/20 solution famotidine 20 mg tablet 20 mg FEEDING TUBE BID #60 tab 09/25/20 11/14/20 levofloxacin 750 mg PO Q24H 14 Days #420 ml 11/05/20 11/14/20 Previous Rx's Medication Instructions Recorded swab #500 ea 07/28/20 docusate sodium 50 mg/5 mL oral 100 mg FEEDING TUBE BID PRN #473 ml 09/01/20 liquid famotidine 20 mg tablet 20 mg FEEDING TUBE BID #60 tab 09/25/20 levofloxacin 750 mg PO Q24H 14 Days #420 ml 11/05/20 Allergies Allergy/AdvReac Type Severity Reaction Status Date / Time No Known Allergies Allergy Verified 11/02/20 08:32 General Stated Complaint: Abd Prob CHRIST: 3 Review of Systems Unobtainable due to mental status [facility] Medical History Anxiety Aspiration pneumonia Caries COPD (chronic obstructive pulmonary disease) Cough with hemoptysis Dysphagia, oral phase 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 cervical lymphadenectomy, tracheostomy, excision benign thyroid lesion, exploration carotid artery S/P reconstruction procedure (08/18/20) Pediculed pec flap, L hemiglossectomy and mandibulectomy ([place]) S/P tooth extraction (~2013) Status post glossectomy (08/11/20) w/ multiple other procedures Family History Mother Hypertension Hyperlipidemia Breast cancer Asthma Father Asthma Brother Hyperlipidemia Social History Smoking/Tobacco Use Status: Current every day Tobacco: How many years used: 29 Smoking risk assessment performed?: Yes Alcohol Intake: current Alcohol Intake frequency: 3 or more drinks per day Alcohol type: beer Details: 6 beer a day Drug use: Rarely Substance use type: marijuana Details: No IV Drug Use Adopted: No Caregiver/Support person: No Foster care: No Household members: none Housing: house Number of Children: 1 Communication Needs: Corrective Lenses Education Level: high school Do you need help understanding health information?: Often Sexually active: No Do you think of yourself as: straight/heterosexual Current gender identity: male What type of physical activity do you participate in: none Special leeroy needs: No Seatbelt use: always Do you feel safe at home: Yes Do you feel safe in your relationship?: Yes Exam Const General: cooperative Nutritional Appearance: malnourished Orientation: alert and awake HENKY Head: periorbital ecchymosis (left) Mouth: moist mucous membranes Eyes Conjunctivae: normal conjunctivae Sclera: normal sclerae Neck Neck: trachea midline and supple Other: Left neck enlarged, trach present Resp Auscultation: clear to auscultation bilaterally, no rales, no rhonchi and no wheezes Cardio Jugular venous pressure: no JVD Rate: regular rate and not tachycardic Rhythm: regular rhythm GI Palpation: soft, not firm, no guarding, no masses, not rigid and tender in the RLQ and in the RUQ; with no rebound tenderness Skin General skin exam: ecchymosis (Bruises in various stages of healing on extremities) Other: Skin irritation and breakdown buttocks; sloane intact posterior scalp with healing wound. Neuro General: patient alert, patient awake, oriented Patient Orientation: Person, Place and Confused and moves all extremities Speech: abnormal speech (Trach) Extrem General: no edema Psych Appearance: disheveled Attitude: cooperative Course Vital Signs Vital signs: Vital Signs Temperature 36.9 C 11/14/20 10:13 Pulse 108 H 11/14/20 10:13 Respiratory Rate 19 11/14/20 10:13 Blood Pressure 100/82 11/14/20 10:13 Pulse Oximetry 96 11/14/20 10:13 Temperature 36.9 C 11/14/20 10:13 Temperature Source Temporal Artery Scan 11/14/20 10:13 Pulse 99 H 11/14/20 10:30 Pulse 101 H 11/14/20 10:30 Respiratory Rate 15 11/14/20 10:30 Respiratory Effort 11/14/20 11:06 Blood Pressure 108/86 11/14/20 10:30 Blood Pressure Mean 89 11/14/20 10:30 Blood Pressure Position Sitting 11/14/20 10:13 Pulse Oximetry 95 11/14/20 10:30 Oxygen Delivery Method Room Air 11/14/20 10:13 Oxygen Flow Rate 0 11/14/20 10:13 Pain Level 3 11/14/20 10:13 Comment 11/14/20 10:13 Lab/Test Results Lab/Test Results: Laboratory Tests Range/Units 11/14/20 11/14/20 11/14/20 10:20 10:20 11:57 WBC (4.4-10.8) 10^3/uL 7.12 RBC (4.36-5.78) 10^6/uL 4.45 Hgb (13.5-17.5) g/dL 14.4 Hct (40.0-50.0) % 41.3 MCV (80-95) fL 92.8 MCH (27.0-33.0) pg 32.4 MCHC (32.0-36.0) % 34.9 RDW (11.8-14.1) % 14.3 H Plt Count (130-400) 10^3/uL 437 H D MPV (8.0-11.0) fL 8.4 Immature Gran % 0.6 Neutrophils % 75.1 Lymphocytes % 14.9 Monocytes % 7.0 Eosinophils % 1.1 Basophils % 1.3 Nucleated RBC % % 0 Absolute Neutrophils (1.2-6.7) 10^3/uL 5.35 Absolute Lymphocytes (1.2-3.4) 10^3/uL 1.06 L Absolute Monocytes (0.1-0.8) 10^3/uL 0.50 Absolute Eosinophils (0.0-0.7) 10^3/uL 0.08 Absolute Basophils (0.0-0.2) 10^3/uL 0.09 Sodium (136-145) mmol/L 129 L Potassium (3.5-5.1) mmol/L 3.6 Chloride (98-107) mmol/L 83 L Carbon Dioxide (21.0-32.0) mmol/L 33.3 H Anion Gap (3-11) mmol/L 12.7 H BUN (7-18) mg/dL 5 L Creatinine (0.70-1.30) mg/dL 0.7 Estimated GFR/1.73 m2 (mL/min/1.73m2) >= 60.00 Glucose (74-106) mg/dL 120 H Calcium (8.5-10.1) mg/dL 8.6 Magnesium (1.8-2.4) mg/dL 2.3 Total Bilirubin (0.2-1.0) mg/dL 0.4 AST (15-37) U/L 95 H ALT (16-63) U/L 54 Alkaline Phosphatase (46-116) U/L 130 H Troponin I (<0.06) ng/mL < 0.05 Total Protein (6.4-8.2) g/dL 7.7 Albumin (3.4-5.0) g/dL 3.5 Lipase (73-393) U/L 337 Urine Color (Yellow) Yellow Urine Clarity (Clear) Clear Urine pH (5-8) 6.0 Ur Specific [place] (1.005-1.025) 1.010 Urine Protein (Negative) mg/dL Trace H Urine Ketones (Negative) mg/dL 15 H Urine Blood (Negative) Negative Urine Nitrite (Negative) Negative Urine Bilirubin (Negative) Negative Urine Urobilinogen (Up TO 0.2) EU/dL 0.2 Ur Leukocyte Esterase (Negative) Negative Urine RBC (0-2) HPF 0-2 Urine WBC (0-5) HPF 0-2 Ur Epithelial Cells (Negative) HPF Rare Urine Crystals (Negative) HPF Negative Urine Bacteria (Negative) HPF Rare Urine Casts (Negative) LPF Negative Urine Mucus (Negative) Trace Ur Culture Indicated? No Urine Glucose (Negative) mg/dL Negative Ethyl Alcohol (<3) mg/dL 386.3
[2020-11-14 13:16] LABS: Source Nasal/Nares
--- NOTE | 2020-11-14 13:22 | RESPIRATORY ---
Pt has a shiley uncuffed 7 trach and is currently on 2L nc. Trach care was done, with new pads and trach ties in place. Dried green sputum cleaned from outside of stoma. Pt has a strong cough and is able to clear his secretions w/o sx needed.
[2020-11-14 15:24] LABS: COVID-19 PCR Negative (Negative)
--- NOTE | 2020-11-14 15:55 | HPE_ITS ---
Date of service: 11/14/20 Time of Service: 15:55 Assessment and Plan Assessment and plan (1) Hyponatremia: Status: Acute Assessment and plan: Acute on chronic. Secondary to excessive alcohol intake. Cont enteral feeding and free water via G-tube. Monitor (2) Alcohol abuse: Status: Chronic Assessment and plan: FTT and falls d/t Etoh. RASS monitoring with phenobarbital prn. EEG during last admission showed generalized slowing but no seizure focus. There was a question of seizures vs blackouts. (3) Discharge planning issues: Status: Acute Assessment and plan: Unsafe home environment d/t his Etoh use. He has a daughter that is involved in his care. Care Management will be involved. (4) Closed head injury with loss of consciousness of unknown duration: Status: Acute Assessment and plan: scalp laceration with sloane in place. CT head w/o acute findings. (5) Gastrostomy tube in place: Status: Chronic Assessment and plan: Resume enteral feeds (6) Hypothyroidism: Status: Chronic Assessment and plan: Cont replacement tx. (7) Abdominal pain: Status: Acute Assessment and plan: Diffuse. Alcohol related gastritis? Pantoprazole 40mg IV QHS CT abd/pelvis and abd US w/o acute findings other than cholelithiasis / no cholecystitis. History of Present Illness History of Present Illness Chief Complaint: Intoxication and abdominal pain. N arrative: This is a 60 yo male with a h/o alcohol abuse, 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 He was hospitalized at [facility] on 11/02/20 - 11/05/2020 for alcohol withdrawal, closed head injury from fall. He was seen by home health and c/o abd pain. He reported to them that he was instilling beer via his G-tube. This was also noted at time of the previous admission to [facility]. He also c/o abd pain and appeared to not be thriving well at home. Cases of empty beer containers l ittering the home. In the ED his Na was 120, K 3.6. Covid negative. CT abd/pelvis w/o acute findings. CT head w/o acute findings. Abd US with cholelithiasis but no evidence of acute cholecystitis. Scalp sloane that were placed during last admission were in place. He was admitted for FTT at home / safety concerns and alcohol withdrawal. He denied emesis, cough/sputum, F/C. Review of Systems All systems reviewed & are unremarkable except as noted in HPI and below PFSH Medical History Anxiety Aspiration pneumonia Caries COPD (chronic obstructive pulmonary disease) Cough with hemoptysis Dysphagia, oral phase 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 cervical lymphadenectomy, tracheostomy, excision benign thyroid lesion, exploration carotid artery S/P reconstruction procedure (08/18/20) Pediculed pec flap, L hemiglossectomy and mandibulectomy ([place]) S/P tooth extraction (~2013) Status post glossectomy (08/11/20) w/ multiple other procedures Family History Mother Hypertension Hyperlipidemia Breast cancer Asthma Father Asthma Brother Hyperlipidemia Social History Smoking/Tobacco Use Status: Current every day Tobacco: How many years used: 29 Smoking risk assessment performed?: Yes Alcohol Intake: current Alcohol Intake frequency: 3 or more drinks per day Alcohol type: beer Details: 6 beer a day Drug use: Rarely Substance use type: marijuana Details: No IV Drug Use Adopted: No Caregiver/Support person: No Foster care: No Household members: none Housing: house Number of Children: 1 Communication Needs: Corrective Lenses Education Level: high school Do you need help understanding health information?: Often Sexually active: No Do you think of yourself as: straight/heterosexual Current gender identity: male What type of physical activity do you participate in: none Special leeroy needs: No Seatbelt use: always Do you feel safe at home: Yes Do you feel safe in your relationship?: Yes Meds Allergies and Home Medications Allergies Allergy/AdvReac Type Severity Reaction Status Date / Time No Known Allergies Allergy Verified 11/02/20 08:32 Home Medications Medication Instructions Recorded Confirmed Type folic acid 400 mcg tablet 0.4 mg PO DAILY 08/06/19 11/14/20 History vitamin E 200 unit capsule 400 unit PO DAILY cap 08/06/19 11/14/20 History swab #500 ea 07/28/20 11/14/20 Rx chlorhexidine gluconate 0.12 % 15 ml MUCOUS MEMBRANE TID ml 09/01/20 11/14/20 History mouthwash docusate sodium 50 mg/5 mL oral 100 mg FEEDING TUBE BID PRN #473 ml 09/01/20 11/14/20 Rx liquid food supplemt, lactose-reduced See Rx Instructions FEEDING TUBE 09/01/20 11/14/20 History .COMPLEX ibuprofen 600 mg tablet 600 mg FEEDING TUBE Q6H PRN 09/01/20 11/14/20 History levothyroxine 50 mcg tablet 50 mcg FEEDING TUBE DAILY 09/01/20 11/14/20 History multivitamin 1 tab FEEDING TUBE DAILY 09/01/20 11/14/20 History thiamine HCl (vitamin B1) 100 mg 100 mg FEEDING TUBE DAILY 09/01/20 11/14/20 History tablet vitamin E (dl, acetate) 400 unit 400 unit FEEDING TUBE DAILY 09/01/20 11/14/20 History capsule gabapentin 300 mg/6 mL (6 mL) oral 400 mg FEEDING TUBE TID ml 09/10/20 11/14/20 History solution famotidine 20 mg tablet 20 mg FEEDING TUBE BID #60 tab 09/25/20 11/14/20 Rx levofloxacin 750 mg PO Q24H 14 Days #420 ml 11/05/20 11/14/20 Rx Exam Const General: cooperative and no acute distress Nutritional Appearance: average body habitus Orientation: awake, oriented to person and oriented to place [facility] Head: laceration (R occipital;sloane) Eyes Sclera: sclerae normal Pupils: PERRL Neck Neck: other (trach tube in position) Resp Effort & Inspection: normal respiratory effort Auscultation: clear to auscultation bilaterally Cardio Rate: regular rate Rhythm: regular rhythm Heart Sounds: S1 normal and S2 normal GI Palpation: soft and tender (mild diffuse) Auscultation: normal bowel sounds Skin General skin exam: no rashes or lesions noted Extrem General: no pedal edema and no calf tenderness Results Labs Result diagrams: 11/14/20 10:20 11/14/20 10:20 Labs: Laboratory Results - last 24 hr 11/14/20 11/14/20 11/14/20 10:20 10:20 11:57 WBC 7.12 RBC 4.45 Hgb 14.4 Hct 41.3 MCV 92.8 MCH 32.4 MCHC 34.9 RDW 14.3 H Plt Count 437 H D MPV 8.4 Immature Gran % 0.6 Neutrophils % 75.1 Lymphocytes % 14.9 Monocytes % 7.0 Eosinophils % 1.1 Basophils % 1.3 Nucleated RBC % 0 Absolute Neutrophils 5.35 Absolute Lymphocytes 1.06 L Absolute Monocytes 0.50 Absolute Eosinophils 0.08 Absolute Basophils 0.09 Sodium 129 L Potassium 3.6 Chloride 83 L Carbon Dioxide 33.3 H Anion Gap 12.7 H BUN 5 L Creatinine 0.7 Estimated GFR/1.73 m2 >= 60.00 Glucose 120 H Calcium 8.6 Magnesium 2.3 Total Bilirubin 0.4 AST 95 H ALT 54 Alkaline Phosphatase 130 H Troponin I < 0.05 Total Protein 7.7 Albumin 3.5 Lipase 337 Urine Color Yellow Urine Clarity Clear Urine pH 6.0 Ur Specific [place] 1.010 Urine Protein Trace H Urine Ketones 15 H Urine Blood Negative Urine Nitrite Negative Urine Bilirubin Negative Urine Urobilinogen 0.2 Ur Leukocyte Esterase Negative Urine RBC 0-2 Urine WBC 0-2 Ur Epithelial Cells Rare Urine Crystals Negative Urine Bacteria Rare Urine Casts Negative Urine Mucus Trace Ur Culture Indicated? No Urine Glucose Negative Ethyl Alcohol 386.3 COVID-19 Source SARS-CoV-2 (PCR) 11/14/20 13:11 WBC RBC Hgb Hct MCV MCH MCHC RDW Plt Count MPV Immature Gran % Neutrophils % Lymphocytes % Monocytes % Eosinophils % Basophils % Nucleated RBC % Absolute Neutrophils Absolute Lymphocytes Absolute Monocytes Absolute Eosinophils Absolute Basophils Sodium Potassium Chloride Carbon Dioxide Anion Gap BUN Creatinine Estimated GFR/1.73 m2 Glucose Calcium Magnesium Total Bilirubin AST ALT Alkaline Phosphatase Troponin I Total Protein Albumin Lipase Urine Color Urine Clarity Urine pH Ur Specific [place] Urine Protein Urine Ketones Urine Blood Urine Nitrite Urine Bilirubin Urine Urobilinogen Ur Leukocyte Esterase Urine RBC Urine WBC Ur Epithelial Cells Urine Crystals Urine Bacteria Urine Casts Urine Mucus Ur Culture Indicated? Urine Glucose Ethyl Alcohol COVID-19 Source Nasal/nares SARS-CoV-2 (PCR) Negative Last Vital Signs Temp 36.9 C 11/14/20 10:13 Pulse 106 H 11/14/20 14:35 Resp 16 11/14/20 14:35 BP 148/98 H 11/14/20 14:35 Pulse Ox 98 11/14/20 14:35
[2020-11-14] MEDS: oxyCODONE 5 MG/5 ML CUP JT (17:04)
[2020-11-14] MEDS: Famotidine 20 MG TAB UD (21:23)
[2020-11-14] MEDS: Mirtazapine 15 MG TAB 7.5 MG UD (21:23)
[2020-11-14] MEDS: Pantoprazole 40 MG VIAL IVP (22:36)
[2020-11-14] MEDS: Acetaminophen Solution 650 MG/20.3 ML CUP 500 MG UD (22:41)
[2020-11-15] VITALS (54 sets, daily range): BP systolic 78–133; BP diastolic 62–100; PULSE 79–120; RESP 10–22; TEMP 35.9–37.5; O2SAT 87–100
[2020-11-15] MEDS: Lactated Ringers 1,000 ML 150 ML IV ×3 (01:04→18:27)
[2020-11-15] MEDS: Levothyroxine 50 MCG TAB UD (06:41)
[2020-11-15] MEDS: oxyCODONE 5 MG/5 ML CUP JT ×3 (06:42→15:55)
--- NOTE | 2020-11-15 08:26 | W.PM.PROGNOT ---
Date of Service Date of service: 11/15/20 Time of Service: 14:07 Assessment and Plan Assessment and plan (1) Closed head injury with loss of consciousness of unknown duration: Status: Acute Assessment and plan: Stable mental status. Continue monitoring. S/p scalp laceration with sloane. (2) Abdominal pain: Status: Acute Assessment and plan: Agree that this is likely due to gastritis. Continue pepcid and protonix. Add carafate. Imaging negative for cholecystitis. (3) Abdominal wall cellulitis: Status: Acute Assessment and plan: C/w wound care. Start cefazolin. Antifungals. (4) Alcohol abuse: Status: Chronic Assessment and plan: Continue prn phenobarbital (not requiring today so far) with RASS monitoring. EEG during last admission negative for seizures. Ok to transfer out of ICU. (5) Hyponatremia: Status: Acute Assessment and plan: Acute on chronic, likely due to beer potomania. Improved. [facility]. (6) Adult failure to thrive: Status: Acute Assessment and plan: C/s palliative care, PT. Will likely need SNF. (7) Gastrostomy tube in place: Status: Chronic Assessment and plan: Continue enteral feeds (8) Hypothyroidism: Status: Chronic Assessment and plan: Check TSH. Continue levothyroxine. (9) DVT prophylaxis: Status: Acute Assessment and plan: TEDs/SCDs (H/H dropped earlier today, and though stable, we are ruling out GI bleeding). (10) Discharge planning issues: Status: Acute Assessment and plan: Unsafe to retrun to his home environment. WIll likely require SNF. Subjective Subjective Interval history since last seen: The patient states he is feeling a little bit better. He denies dizziness, chest pain, shortness of breath, nausea. Continues to report generalized discomfort. His abdominal pain is a little better and he cannot show me definitively where it is. Nursing brought up concerns re skin tear L buttocks and breakdown to skin on the abdomen as well - Run off from PEG?. Copious mucus from trach. UOP 250 ccs. W/d - CIWAs 0. Mental status appropriate throughout. SBPs in the 90s -patient is asymptomatic. Exam Narrative Exam Narrative: General: Pleasant middle-aged male who appears comfortable, A&Ox3, mild tremor in RUE noted HEENT: L neck mass, s/p trach, dry MM Heart: RRR, no m/r/g Lungs: rhonchi/rales which clear with cough Abdomen: soft, +gastrostomy tube, R lower abdomen with erythema and skin breakdown, with what looks like possible purulent drainage Extremities: no edema BLE's Objective Last Vital Signs Temp 37.5 C 11/15/20 08:15 Pulse 102 H 11/15/20 08:15 Resp 16 11/15/20 08:15 BP 89/63 L 11/15/20 08:15 Pulse Ox 95 11/15/20 08:15 Laboratory Results - last 24 hr 11/14/20 11/14/20 11/14/20 10:20 10:20 11:57 WBC 7.12 RBC 4.45 Hgb 14.4 Hct 41.3 MCV 92.8 MCH 32.4 MCHC 34.9 RDW 14.3 H Plt Count 437 H D MPV 8.4 Immature Gran % 0.6 Neutrophils % 75.1 Lymphocytes % 14.9 Monocytes % 7.0 Eosinophils % 1.1 Basophils % 1.3 Nucleated RBC % 0 Absolute Neutrophils 5.35 Absolute Lymphocytes 1.06 L Absolute Monocytes 0.50 Absolute Eosinophils 0.08 Absolute Basophils 0.09 Sodium 129 L Potassium 3.6 Chloride 83 L Carbon Dioxide 33.3 H Anion Gap 12.7 H BUN 5 L Creatinine 0.7 Estimated GFR/1.73 m2 >= 60.00 Glucose 120 H Calcium 8.6 Magnesium 2.3 Total Bilirubin 0.4 AST 95 H ALT 54 Alkaline Phosphatase 130 H Troponin I < 0.05 Total Protein 7.7 Albumin 3.5 Lipase 337 Urine Color Yellow Urine Clarity Clear Urine pH 6.0 Ur Specific [place] 1.010 Urine Protein Trace H Urine Ketones 15 H Urine Blood Negative Urine Nitrite Negative Urine Bilirubin Negative Urine Urobilinogen 0.2 Ur Leukocyte Esterase Negative Urine RBC 0-2 Urine WBC 0-2 Ur Epithelial Cells Rare Urine Crystals Negative Urine Bacteria Rare Urine Casts Negative Urine Mucus Trace Ur Culture Indicated? No Urine Glucose Negative Ethyl Alcohol 386.3 COVID-19 Source SARS-CoV-2 (PCR) 11/14/20 13:11 WBC RBC Hgb Hct MCV MCH MCHC RDW Plt Count MPV Immature Gran % Neutrophils % Lymphocytes % Monocytes % Eosinophils % Basophils % Nucleated RBC % Absolute Neutrophils Absolute Lymphocytes Absolute Monocytes Absolute Eosinophils Absolute Basophils Sodium Potassium Chloride Carbon Dioxide Anion Gap BUN Creatinine Estimated GFR/1.73 m2 Glucose Calcium Magnesium Total Bilirubin AST ALT Alkaline Phosphatase Troponin I Total Protein Albumin Lipase Urine Color Urine Clarity Urine pH Ur Specific [place] Urine Protein Urine Ketones Urine Blood Urine Nitrite Urine Bilirubin Urine Urobilinogen Ur Leukocyte Esterase Urine RBC Urine WBC Ur Epithelial Cells Urine Crystals Urine Bacteria Urine Casts Urine Mucus Ur Culture Indicated? Urine Glucose Ethyl Alcohol COVID-19 Source Nasal/nares SARS-CoV-2 (PCR) Negative
[2020-11-15 08:51] LABS: Abs Immature Grans 0.02 10^3/uL (0.0-0.06); Absolute Basophil Count 0.04 10^3/uL (0.0-0.2); Absolute Eosinophil Count 0.03 10^3/uL (0.0-0.7); Absolute Lymphocyte Count 0.39 10^3/uL (1.2-3.4); Absolute Monocyte Count 0.38 10^3/uL (0.1-0.8); Absolute Neutrophil Count 4.96 10^3/uL (1.2-6.7); Basophils % 0.7; Eosinophils % 0.5; HCT 33.2 % (40.0-50.0); Immature Grans % 0.3; Lymphocytes % 6.7; MCH 32.7 pg (27.0-33.0); MCHC 34.6 % (32.0-36.0); MCV 94.3 fL (80-95); MPV 8.6 fL (8.0-11.0); Monocytes % 6.5; Neutrophils % 85.3; Nucleated RBC 0 %; RBC 3.52 10^6/uL (4.36-5.78); RDW-SD 51.8 fL; WBC 5.82 10^3/uL (4.4-10.8)
[2020-11-15 08:54] LABS: HGB 11.5 g/dL (13.5-17.5); Platelet Count 299 10^3/uL (130-400)
[2020-11-15 09:06] LABS: Anion Gap 5.6 mmol/L (3-11); BUN 10 mg/dL (7-18); CO2 35.4 mmol/L (21.0-32.0); CREATININE 0.8 mg/dL (0.70-1.30); Calcium 8.7 mg/dL (8.5-10.1); Chloride 91 mmol/L (98-107); Glucose 151 mg/dL (74-106); Magnesium 2.3 mg/dL (1.8-2.4); Potassium 3.1 mmol/L (3.5-5.1); Sodium 132 mmol/L (136-145)
--- NOTE | 2020-11-15 09:33 | NUR.NOTE ---
RN calls patient's [id number] to have her bring in special access syringes for patient's Pegg tube. [id number] thinks patient needs usp placement.Nursing Note:
[2020-11-15] MEDS: Folic Acid 1 MG TAB UD (10:03)
[2020-11-15] MEDS: Famotidine 20 MG TAB UD ×2 (10:03→20:59)
[2020-11-15] MEDS: Thiamine 100 MG TAB UD (10:04)
[2020-11-15] MEDS: Multivitamin TAB 1 TAB UD (10:04)
[2020-11-15] MEDS: Acetaminophen Solution 650 MG/20.3 ML CUP 500 MG UD ×3 (10:05→20:44)
--- NOTE | 2020-11-15 10:22 | INITIAL_ITS ---
- If Service Date Differs Date of service: 11/15/20 Time of Service: 10:22 Care Management Initial Assess REASON FOR HOSPITALIZATION:: alcohol intoxication PAST MEDICAL HISTORY/PAST SURGICAL HISTORY:: Medical History . Anxiety. Aspiration pneumonia. Caries. COPD (chronic obstructive pulmonary disease). Cough with hemoptysis. Dysphagia, oral phase. 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 Hypertension. Hypothyroidism. Mouth cancer. Oral pain. Recurrent squamous cell carcinoma. Tobacco use disorder. >25 pack years. Surgical History . S/P glossectomy (10/24/13). w/ resection of floor of mouth, w/ suprahyoid neck dissection. cervical lymphadenectomy, tracheostomy, excision benign thyroid lesion, exploration carotid artery. S/P reconstruction procedure (08/18/20). Pediculed pec flap, L hemiglossectomy and mandibulectomy ([facility]). S/P tooth extraction (~2013). Status post glossectomy (08/11/20). w/ multiple other procedures PREVIOUS FUNCTIONAL STATUS/SOCIAL/FAMILY SUPPORTS:: Chito lives alone in an apartment in [place] [facility]. He has a brother Peewee who lives locally and he and his are very supportive. Chito also names a childhood friend, Juvenal, as a strong support. 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 He communicated by writing on a whiteboard. He was recently discharged with new RN and PT. CURRENT FUNCTIONAL STATUS:: Chito was sitting up in bed when CM met with him. He mostly communicated by nodding to yes/no questions, but also wrote on a white board. He stated that he is agreeable to go to short term rehab, if he has to, although it is not his first choice. He stated that he needs to be able to walk before going home. PT has been consulted, and is recommending SNF. CM will continue to follow. ADVANCE DIRECTIVES:: On file. Alan KENNEDY Has patient been provided with info about the portal/API?: Yes Did the patient sign up for the portal?: No CODE STATUS:: Full Code INSURANCE COVERAGE / FINANCIAL ISSUES:: [facility]/ [facility] CURRENT HOME/COMMUNITY SERVICES/EQUIPMENT:: Currently has [facility] RN, PT from previous hospital discharge. PRIMARY CARE PHYSICIAN:: Maisha Deleon POTENTIAL DISCHARGE NEEDS:: Substance use treatment, follow up with PCP and plan of care PATIENT/FAMILY EDUCATION NEEDS:: Review of discharge instructions, medications, follow up plan, limitations, Ask Me Three ANTICIPATED BARRIERS TO DISCHARGE:: SNF may be recommended, pt was not agreeable on previous admission. TRANSPORTATION:: Via private vehicle by family. PLAN:: Chito would likely benefit from rehab prior to returning home but may not be agreeable. If he does go home, then a acid recovery operator will be connected to him, as well as a resumption of home health services. He will follow up with his community providers and plan of care. Cm will continue to support Chito and his discharge planning needs. Readmission - Within the Past 30 Days Yes or No: Y - Date of First Admission Date of 1st Admission: 11/02/20 - Date of this Admission Date of Admission: 11/14/20 This admission was: Through ED - Office Visit Since 1st Admission Have you seen your PCP in the office since discharge?: No Had an appointment Been Scheduled?: No Describe barriers for scheduling or getting an appointment: per chart, he has regular follow up appointments with his PCP. - I. Interview patient and/or Family Difficulty reaching your doctor or getting an office appt?: No Have you had trouble purchasing/ or taking medication?: No Have you had trouble with getting meals at home?: No Did you feel ready for discharge when you left the last time: Yes Were services received that you thought were set up on disch: Yes What services were received?: [facility] RN, PT - ED visits How many ED visits in the past 12 months: 3
[2020-11-15] MEDS: POTASSIUM CHLORIDE 20 MEQ/100 ML BAG 50 MEQ IVPB ×2 (10:35→12:18)
--- NOTE | 2020-11-15 11:11 | IN_ITS ---
Date of service: 11/15/20 Time of Service: 09:45 PT Notes Visit Reasons: alcohol intoxication Inpatient Physical Therapy Evaluation Date: 11/15/20 Referring Doctor: Alan Broussard PT Orders: PT CONSULT: Evaluate and Treat Precautions: Standard Patient Profile/Admitting Diagnosis: Orders received for this 60-year-old male. Patient was recently discharged from the hospital to independent living at home with the help of home health services. In that time it was found the patient was not moving very far from his recliner. He had also been consuming a large quantity of alcohol. Patient has been admitted for further services due to failure to thrive at home. PMHX: Medical History Anxiety Aspiration pneumonia Caries COPD (chronic obstructive pulmonary disease) Cough with hemoptysis Dysphagia, oral phase 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 cervical lymphadenectomy, tracheostomy, excision benign thyroid lesion, exploration carotid artery S/P reconstruction procedure (08/18/20) Pediculed pec flap, L hemiglossectomy and mandibulectomy ([place]) S/P tooth extraction (~2013) Status post glossectomy (08/11/20) w/ multiple other procedures Social History/Home Situation: Patient lives at home alone Equipment Owned/DME: Front wheel walker Subjective: Patient writes on a pad that he is in pain Objective: Patient lying in bed with HOB to 30degrees, All medical lines in place Mental Status: Alert and Oriented to person, place, time Pain: High ROM: Right Upper Extremity: WFL Left Upper Extremity: WFL Right Lower Extremity: WFL Left Lower Extremity: WFL Strength: Right Upper Extremity: Globally 4+/5 Left Upper Extremity: Globally 4+/5 Right Lower Extremity: Globally 4+/5 Left Lower Extremity: Globally 4+/5 Bed Mobility/Transfers: Patient refusing out of bed transfer at the moment due to high pain Gait: Not available due to pain Balance: Static Sitting: Good Dynamic Sitting: Fair Static Standing:NA Dynamic Standing: NA Special Tests: Mobility Limitations Standardized Measure [facility] AM-PAC 6 clicks Basic Mobility Inpatient Short Form: Raw Score: 11 Standardized Score: 33.86 CMS Score: 64.91 CMS Modifier: Therapeutic exercise engaged: Heel pumps Short arc quads Hip flexion in supine Hip abduction and hip adduction isometrics Shoulder flexion Shoulder retraction and rows Informed Consent/Education: Patient instructed in purpose of PT consult and plan of care. ASSESSMENT: Patient is a 60-year-old male with a history of poor physical health as of recently Admitted with acute alcohol intoxication and failure to thrive at home Patient presents with the following impairment level findings: Ambulatory intolerance, assistance needed with all transfers, decreased strength, high pain Pt will benefit from skilled therapy intervention in order to remedy their functional limitations and restore patient to a more appropriate and stable functional level. Impairments are contributing to the following functional limitations: AMPAC score 64.9% Patient is assessed as a high complexity initial evaluation 74784 based on the following: History: see above Examination: see above Presentation: Unstable Decision Making: High due to an pack of 64.9% Goals: Goals X1 week 1. Supine-Sit Superivsion 2. Sit-Supine Supervision 3. Sit-Stand Supervision with FWW 4. Stand-Sit Supervision with FWW 5. Bed-Chair Supervision 6. Gait Supervision with FWW up to 20 feet for in room ambulation Plan of Care/Treatment Plan: 1-2x/day, 7 days/week x 1 week. Plan of care has been reviewed with the [employer] RAILS DEVELOPER providing the service under Physical Therapy direction. Initiate Physical Therapy intervention for strengthening, bed mobility, transfers, gait, stairs, balance training, use of assistive device. DISCHARGE RECOMMENDATIONS: TO Detention Facility TREATMENT CODE/TIME: High complexity initial evaluation 13215 15 minutes of direct care 94 Fab Herron DPT
--- NOTE | 2020-11-15 11:49 | NUR.NOTE ---
media analytics manager sees patient.
--- NOTE | 2020-11-15 11:50 | NUR.NOTE ---
Patient's sister=in-law delivered Shiley trach cannulas. Patient changes his cannula out and has far less secretions as a result. Correct syring for delivery of medications thru [facility] is delivered earlier and used much to patient's delight. Nursing Note:
[2020-11-15 12:19] LABS: HCT 32.7 % (40.0-50.0); HGB 11.2 g/dL (13.5-17.5)
[2020-11-15] MEDS: Sucralfate 1 GM TAB UD ×2 (14:44→20:59)
[2020-11-15] MEDS: Lactated Ringers 1,000 ML 1000 ML IV (15:53)
[2020-11-15] MEDS: ceFAZolin 1 GM/50 ML BAG IVPB (16:10)
--- NOTE | 2020-11-15 19:06 | WOUNDCONS ---
- If Service Date Differs Date of service: 11/15/20 Time of Service: 18:30 Wound Initial Evaluation Narrative: Consulted for r abd wound and buttocks wound. Pt declines assessment of buttocks wound at this time, witnessed by Chito GRIMALDO as well as this nurse. For the Right lower abd wound, patient does not know how it happened. The patient has a peg tube which has a tube which moves around the abdomen, so there is a chance that the wound originated from mechanical irritation. There is resolving redness in the abd crease which could be resolving fungal issue. At this time, the wound is comprised of two open areas, the right area measuring 0.5 cmx 0.4 cm x 0.1 cm, the left area measures 3 cm x 1.5 cm x 0.1 cm. Surrounding these open areas is an area which is bright red measuring 10.5 cm x 3 cm. This area is very tender to touch and when cleansed it has slight bloody drainage. Due to the question of origin, I cleansed the area with debrisoft to patient tolerance, leaving some areas of slough due to pain with cleansing. Area cleansed with anasept cleanser, it dwelled for two minutes, then the area was pat dry and mepilex applied to help protect the area from mechanical irritation. - Wound Right Lower Abdomen Wound Type: Full Thickness Wound Bed Greatest Portion: Yellow (Slough) Wound Bed Lesser Portion: Dusky Red Wound Length: 3 cm Wound Width: 1.5 cm Wound Depth: 0.1 cm Wound Drainage Amount: Minimal Wound Drainage Description: Serous Wound Debridement Method: Mechanical Wound Debridement Result: Healthy Tissue Revealed, Pt Unable to Tolerate, Yellow Sloughing Remains Wound Debridement Amount of Tissue Removed: Minimal - Pain Pain Level: 7 Pain Scale Used: Eldridge-Jimenez Faces Pain Duration/Frequency: With Palpation - Treatment/Dressing Change Cleanse With: Anasept Dressing Types: Mepilex w/Border - Recomendation Recomendation:: Recommend for right lower abd- Cleanse with anasept, let dwell 2 minutes, pat dry. Apply mepilex with border. Change q 3 days and PRN. Monitor for increasing redness. Physcian/Nurse Practioner Notified: Yes (Dr. Dumas)
[2020-11-15] MEDS: Pantoprazole 40 MG VIAL IVP (21:47)
[2020-11-15] MEDS: Mirtazapine 15 MG TAB 7.5 MG UD (21:47)
[2020-11-16] VITALS (19 sets, daily range): BP systolic 87–142; BP diastolic 66–104; PULSE 80–128; RESP 15–24; TEMP 37.1–37.6; O2SAT 84–98
[2020-11-16] MEDS: Acetaminophen Solution 650 MG/20.3 ML CUP 500 MG UD ×5 (00:08→20:40)
[2020-11-16] MEDS: ceFAZolin 1 GM/50 ML BAG IVPB ×4 (00:08→23:23)
[2020-11-16] MEDS: Lactated Ringers 1,000 ML 150 ML IV ×2 (01:29→07:48)
[2020-11-16] MEDS: Sucralfate 1 GM TAB UD ×4 (02:29→20:41)
[2020-11-16] MEDS: oxyCODONE 5 MG/5 ML CUP JT ×4 (04:38→23:24)
[2020-11-16] MEDS: Levothyroxine 50 MCG TAB UD (05:44)
[2020-11-16 07:33] LABS: Abs Immature Grans 0.02 10^3/uL (0.0-0.06); Absolute Basophil Count 0.04 10^3/uL (0.0-0.2); Absolute Eosinophil Count 0.14 10^3/uL (0.0-0.7); Absolute Lymphocyte Count 0.49 10^3/uL (1.2-3.4); Absolute Monocyte Count 0.29 10^3/uL (0.1-0.8); Absolute Neutrophil Count 3.04 10^3/uL (1.2-6.7); Eosinophils % 3.5; HCT 34.9 % (40.0-50.0); HGB 11.6 g/dL (13.5-17.5); Immature Grans % 0.5; Lymphocytes % 12.2; MCH 32.4 pg (27.0-33.0); MCHC 33.2 % (32.0-36.0); MPV 9.1 fL (8.0-11.0); Monocytes % 7.2; Neutrophils % 75.6; Nucleated RBC 0 %; Platelet Count 268 10^3/uL (130-400); RBC 3.58 10^6/uL (4.36-5.78); RDW-SD 54.3 fL
[2020-11-16 07:46] LABS: MCV 97.5 fL (80-95); WBC 4.02 10^3/uL (4.4-10.8)
[2020-11-16] MEDS: Folic Acid 1 MG TAB UD (07:48)
[2020-11-16] MEDS: Thiamine 100 MG TAB UD (07:48)
[2020-11-16] MEDS: Multivitamin TAB 1 TAB UD (07:48)
[2020-11-16] MEDS: Famotidine 20 MG TAB UD ×2 (07:48→20:41)
[2020-11-16 08:10] LABS: Iron 40 ug/dL (65-175); Total Iron Binding Capacity 191 ug/dL (250-450); Transferrin Sat 21 % (20-55)
[2020-11-16 08:12] LABS: Ferritin 512 ng/mL (26-388); Folate 17.1 ng/mL (8.6-20.0); Magnesium 1.9 mg/dL (1.8-2.4); Vitamin B12 408 pg/mL (193-986)
--- NOTE | 2020-11-16 08:46 | W.PM.PROGNOT ---
Date of Service Date of service: 11/16/20 Time of Service: 14:43 Assessment and Plan Assessment and plan (1) Abdominal wall cellulitis: Status: Acute Assessment and plan: Continue wound care, cefazolin, clotrimazole. pain control. May require surgical intervention if no improvement. (2) Closed head injury with loss of consciousness of unknown duration: Status: Acute Assessment and plan: Stable mental status. Continue monitoring. S/p scalp laceration with sloane. (3) Abdominal pain: Status: Acute Assessment and plan: Agree that this is likely due to gastritis although superficial wound pain is contributing. Continue pepcid and protonix as well as carafate. Imaging negative for cholecystitis. (4) Alcohol abuse: Status: Chronic Assessment and plan: Continue prn phenobarbital (not requiring today) with RASS monitoring. EEG during last admission negative for seizures. (5) Hyponatremia: Status: Acute Assessment and plan: Acute on chronic, likely due to beer potomania. Improved. d/c IVF. (6) Adult failure to thrive: Status: Acute Assessment and plan: C/s palliative care, PT. Will likely need SNF. (7) Gastrostomy tube in place: Status: Chronic Assessment and plan: Continue enteral feeds (8) Hypothyroidism: Status: Chronic Assessment and plan: High TSH. Increase levothyroxine. (9) B12 deficiency: Status: Acute Assessment and plan: Replete. (10) DVT prophylaxis: Status: Acute Assessment and plan: TEDs/SCDs (11) Discharge planning issues: Status: Acute Assessment and plan: Unsafe to return to his home environment. Will likely require SNF. Subjective Subjective Interval history since last seen: C/o abdominal pain around the abdominal wall wound - this is helped with oxycodone, which he is happy that we had increased. Denies dizziness, chest pain, nausea. States shortness of breath is at baseline. L foot/LLE swelling noted by nursing. Bruised all over from his falls at home. HR up to 120s with any activity/coughing. On room air. Trach with secretions - suctioning himself. CIWA zeros. Exam Narrative Exam Narrative: General: Pleasant middle-aged male who appears comfortable, A&Ox3, no tremor, and looks better overall HEENT: L neck mass, s/p trach, MMM Heart: RRR, no m/r/g Lungs: coarse breath sounds B, sounds better than yesterday Abdomen: soft, +gastrostomy tube, R lower abdomen wound dressed - c/d/i Extremities: no edema BLE's Objective Last Vital Signs Temp 36.6 C 11/15/20 20:00 Pulse 93 H 11/16/20 04:00 Resp 19 11/16/20 04:01 BP 132/87 11/16/20 04:00 Pulse Ox 96 11/16/20 04:01 Laboratory Results - last 24 hr 11/15/20 11/15/20 11/15/20 08:34 08:34 12:10 WBC 5.82 RBC 3.52 L Hgb 11.5 L D 11.2 L Hct 33.2 L 32.7 L MCV 94.3 MCH 32.7 MCHC 34.6 RDW 15.0 H Plt Count 299 D MPV 8.6 Immature Gran % 0.3 Neutrophils % 85.3 Lymphocytes % 6.7 Monocytes % 6.5 Eosinophils % 0.5 Basophils % 0.7 Nucleated RBC % 0 Absolute Neutrophils 4.96 Absolute Lymphocytes 0.39 L Absolute Monocytes 0.38 Absolute Eosinophils 0.03 Absolute Basophils 0.04 Sodium 132 L Potassium 3.1 L Chloride 91 L Carbon Dioxide 35.4 H Anion Gap 5.6 BUN 10 Creatinine 0.8 Estimated GFR/1.73 m2 >= 60.00 Glucose 151 H Calcium 8.7 Magnesium 2.3 Iron TIBC Transferrin % Sat Ferritin Vitamin B12 Folate 11/16/20 11/16/20 11/16/20 06:15 06:15 06:15 WBC 4.02 L D RBC 3.58 L Hgb 11.6 L Hct 34.9 L MCV 97.5 H D MCH 32.4 MCHC 33.2 RDW 15.0 H Plt Count 268 MPV 9.1 Immature Gran % 0.5 Neutrophils % 75.6 Lymphocytes % 12.2 Monocytes % 7.2 Eosinophils % 3.5 Basophils % 1.0 Nucleated RBC % 0 Absolute Neutrophils 3.04 Absolute Lymphocytes 0.49 L Absolute Monocytes 0.29 Absolute Eosinophils 0.14 Absolute Basophils 0.04 Sodium Potassium Chloride Carbon Dioxide Anion Gap BUN Creatinine Estimated GFR/1.73 m2 Glucose Calcium Magnesium 1.9 Iron 40 L TIBC 191 L Transferrin % Sat 21 Ferritin 512 H Vitamin B12 408 Folate 17.1
[2020-11-16 08:47] LABS: BUN 5 mg/dL (7-18); CREATININE 0.7 mg/dL (0.70-1.30); Calcium 8.7 mg/dL (8.5-10.1); Chloride 99 mmol/L (98-107); Glucose 121 mg/dL (74-106); Potassium 3.6 mmol/L (3.5-5.1); Sodium 136 mmol/L (136-145); TSH 33.21 uIU/mL (0.36-3.74)
[2020-11-16] MEDS: Cyanocobalamin 500 MCG TAB 1000 MCG PO (09:59)
--- NOTE | 2020-11-16 10:47 | PDOC.CMPRO ---
- If Service Date Differs Date of service: 11/16/20 Time of Service: 10:47 Care Management Progress Note S/O: Chito was transferred to [facility] today. He was being transferred when CM attempted to meet with him. Per report, he remains on IV abx for abdominal wall cellulitis. He had a wound care consult yesterday. His wound may require surgical intervention if there is no improvement. He will likely require SNF placement prior to returning home. CM will discuss options with him and send referrals, if he is agreeable. CM will continue to follow. A: Chito is a 60 year old male admitted to [facility] on 11/14/20 with alcohol intoxication. P: Chito would likely benefit from rehab prior to returning home but may not be agreeable. If he does go home, then a women's lacrosse coach will be connected to him, as well as a resumption of home health services. He will follow up with his community providers and plan of care. Cm will continue to support Chito and his discharge planning needs.
--- NOTE | 2020-11-16 11:12 | PT.INTREAT ---
PT Notes Visit Reasons: alcohol intoxication 11/16/2020 SUBJECTIVE: Complains of pain in his abdomen, discomfort in buttock where wound is located. He notes being fearful of falling. OBJECTIVE: TRANSFERS Supine to sit: SBA Sit to supin: Min A for LE's and scooting Sit to stand: CGA Stand to sit: CGA GAIT Device: FWW Weight bearing: Full Assist: CGA Distance: 2 steps forward and back Deviation; Stood x 10' for dressing changes and bed change; pt performs weight shifts THEREX: Light seated LE strengthening. See flow sheet. ASSESSMENT: Pt able to weight bear without increase in pain in the L foot. He is very fearful of falling. Pt will benefit from continue Pt services to progress to short distance gait training and strengthening. PLAN: Continue current POC. Treatment time: 25' [id number] Ashley Riley PTA
[2020-11-16] MEDS: Normal Saline Flush 10 ML SYR IVP ×2 (20:40→23:23)
[2020-11-16] MEDS: Pantoprazole 40 MG VIAL IVP (23:23)
[2020-11-16] MEDS: Mirtazapine 15 MG TAB 7.5 MG UD (23:24)
--- NOTE | 2020-11-17 | DI.US_ITS ---
Exam(s) US LOWER EXTREMITY VENOUS LT EXAM: US LOWER EXTREMITY VENOUS LT CLINICAL HISTORY: edema TECHNIQUE: Grayscale, color, and doppler imaging of the deep venous system of the left lower extremi ty was performed. COMPARISON: US US ABDOMEN LIMITED from 11/14/2020 FINDINGS: There is no evidence of intraluminal thrombus and there is normal compression and augmentation demons trated within the common femoral vein, femoral vein, and popliteal vein. In the ipsilateral calf the interrogated veins also exhibit normal compression/ augmentation properti es. The ipsilateral saphenofemoral junction is patent. IMPRESSION: 1. No evidence of DVT in the left lower extremity. 2. DATA REPOSITORY:
[2020-11-17] MEDS: Sucralfate 1 GM TAB UD ×4 (01:55→20:30)
[2020-11-17] MEDS: Acetaminophen Solution 650 MG/20.3 ML CUP 500 MG UD ×6 (01:55→22:27)
[2020-11-17 04:05] VITALS: BP 138/81; PULSE 81; RESP 20; TEMP 36.9; O2SAT 97
[2020-11-17] MEDS: Levothyroxine 75 MCG TAB UD (05:54)
[2020-11-17] MEDS: oxyCODONE 5 MG/5 ML CUP JT ×3 (05:54→18:27)
[2020-11-17] MEDS: Normal Saline Flush 10 ML SYR IVP ×3 (05:55→22:27)
[2020-11-17 06:57] LABS: Abs Immature Grans 0.02 10^3/uL (0.0-0.06); Absolute Basophil Count 0.06 10^3/uL (0.0-0.2); Absolute Eosinophil Count 0.22 10^3/uL (0.0-0.7); Absolute Lymphocyte Count 0.63 10^3/uL (1.2-3.4); Absolute Monocyte Count 0.36 10^3/uL (0.1-0.8); Absolute Neutrophil Count 2.44 10^3/uL (1.2-6.7); Basophils % 1.6; Eosinophils % 5.9; HCT 36.8 % (40.0-50.0); HGB 12.1 g/dL (13.5-17.5); Immature Grans % 0.5; Lymphocytes % 16.9; MCHC 32.9 % (32.0-36.0); MCV 100.3 fL (80-95); MPV 8.9 fL (8.0-11.0); Monocytes % 9.7; Neutrophils % 65.4; Nucleated RBC 0 %; Platelet Count 236 10^3/uL (130-400); RBC 3.67 10^6/uL (4.36-5.78); RDW 14.8 % (11.8-14.1); RDW-SD 55.6 fL; WBC 3.73 10^3/uL (4.4-10.8)
[2020-11-17 07:09] LABS: Anion Gap 6.8 mmol/L (3-11); BUN 5 mg/dL (7-18); CO2 29.2 mmol/L (21.0-32.0); CREATININE 0.8 mg/dL (0.70-1.30); Calcium 8.7 mg/dL (8.5-10.1); Chloride 99 mmol/L (98-107); Glucose 95 mg/dL (74-106); Magnesium 1.9 mg/dL (1.8-2.4); Potassium 3.5 mmol/L (3.5-5.1); Sodium 135 mmol/L (136-145)
[2020-11-17 07:27] VITALS: BP 114/77; PULSE 83; RESP 19; TEMP 36.2; O2SAT 97
[2020-11-17] MEDS: Cyanocobalamin 500 MCG TAB 1000 MCG PO (08:49)
[2020-11-17] MEDS: Famotidine 20 MG TAB UD ×2 (08:49→20:30)
[2020-11-17] MEDS: Multivitamin TAB 1 TAB UD (08:49)
[2020-11-17] MEDS: Folic Acid 1 MG TAB UD (08:49)
[2020-11-17] MEDS: Thiamine 100 MG TAB UD (08:50)
[2020-11-17] MEDS: ceFAZolin 1 GM/50 ML BAG IVPB ×2 (08:50→15:53)
--- NOTE | 2020-11-17 10:13 | PT.INTREAT ---
Date of service: 11/17/20 Time of Service: 09:40 PT Notes Visit Reasons: alcohol intoxication Inpatient Physical Therapy Treatment Note [facility] Date: 11/17/2020 PRECAUTIONS: Fall SUBJECTIVE: Chito reports that he is feeling better today, although he continues to have pain in his LRQ. He does not want to sit up in the chair and would like to lay in bed today. He reports that he is considering going to SNF for further rehab prior to returning to home. OBJECTIVE: PAIN: Patient c/o pain in LRQ with ther ex and transfers BED MOBILITY/TRANSFERS Supine-sit: S with HOB at 30 degrees Sit-supine: S with HOB at 30 degrees Sit-stand: SBA in a.m.; S in p.m. Stand-sit: SBA in a.m.; S in p.m. GAIT Assistive Device: FWW Weight bearing: Full Assist: SBA Distance: 150' in a.m.; 200' + 300' in p.m. Deviation: Appropriate gait and pacing THEREX: Patient was instructed in a long-sitting LE strengthening program, as per flow sheet. STAIRS: Up/down 3x4 and 2x6 using B rail and a step-to pattern with SBA TOILETING: Patient toileted independently ASSESSMENT: Patient tolerated session without complaint. He was able to tolerate a progression in gait distance with FWW support with SBA demonstrating steady gait and pacing. PLAN: Continue with global strengthening and gait training TREATMENT CODE/TIME: Session 1: 25 minutes; 31608 x2 (09:40) Session 2: 15 minutes; 82142 (14:30)
[2020-11-17 11:07] VITALS: BP 121/86; PULSE 86; RESP 19; TEMP 36.5; O2SAT 98
--- NOTE | 2020-11-17 12:41 | CMPROGNOTE_ITS ---
- If Service Date Differs Date of service: 11/17/20 Time of Service: 12:41 Care Management Progress Note S/O: Chito was sitting up in his bed when CM met with him. He reported that he is agreeable to going to a SNF, as he feels he needs to get stronger before going home. He would prefer to go to [facility], as it is close to home. CM sent a referral for review. CM called Peewee, his brother, and updated him on the plan. CM also asked Peewee to bring in items requested by Chito, including sweatpants, ramsey shirts, underwear, and a pair of slippers. CM explained to Chito that he would first need to be accepted at the facility, and then he would be transported, likely by wheel chair van, coordinated by CM. He stated that he would be happy to remain at [facility] for a few more days to work with PT. CM reported that as soon as he is accepted, and is medically cleared, he would be transitioned to the rehab facility. Chito was pleasant and engaged in conversation. CM will continue to follow. A: Chito is a 60 year old male admitted to [facility] on 11/14/20 with alcohol intoxication. P: Chito would likely benefit from rehab prior to returning home but may not be agreeable. If he does go home, then a tin recovery worker will be connected to him, as well as a resumption of home health services. He will follow up with his community providers and plan of care. Cm will continue to support Chito and his discharge planning needs.
--- NOTE | 2020-11-17 14:37 | PHA.REVIEW ---
Pharmacy Admission Review - Admission Clinical Review (Last Reviewed 11/14/20 @ 18:27 by Avni Hutchins MD) B12 deficiency (Acute) DVT prophylaxis (Acute) Abdominal wall cellulitis (Acute) Adult failure to thrive (Acute) Abdominal pain (Acute) Abdominal pain (Acute) Hyponatremia (Acute) Discharge planning issues (Acute) Closed head injury with loss of consciousness of unknown duration (Acute) No Known Allergies Allergy (Verified 11/02/20 08:32) Resuscitation Status Full Code Height 5 ft 10 in Weight 73.2 kg - Renal Dosing Renal Dosing: BUN 5 mg/dL (7-18) L 11/17/20 06:33 Creatinine 0.8 mg/dL (0.70-1.30) 11/17/20 06:33 Medications needing adjustments: Reviewed List of meds needing interventions: eCrCl 101 ml/min - Anticoagulation Anticoagulation: Hgb 12.1 g/dL (13.5-17.5) L 11/17/20 06:33 Hct 36.8 % (40.0-50.0) L 11/17/20 06:33 Plt Count 236 10^3/uL (130-400) 11/17/20 06:33 Creatinine 0.8 mg/dL (0.70-1.30) 11/17/20 06:33 DVT Prohphylaxis: N/A (non-chemo px only) - Opiate Usage Evaluate Pain Scale/Pains Meds: Reviewed Scheduled Bowel Reg ordered if on Opiates?: No (prn/prn) - Relevant Labs Sodium 135 mmol/L (136-145) L 11/17/20 06:33 Potassium 3.5 mmol/L (3.5-5.1) 11/17/20 06:33 Chloride 99 mmol/L (98-107) 11/17/20 06:33 Magnesium 1.9 mg/dL (1.8-2.4) 11/17/20 06:33 Electrolytes, C-Reactive P, ESR: Reviewed - DM Control DM Control: Glucose 95 mg/dL (74-106) 11/17/20 06:33 Insulin Dosing: N/A - Heart Failure/OR Heart Failure/OR: Troponin I < 0.05 ng/mL (<0.06) 11/14/20 10:20 EF%, CANDE's, B-Blockers, Diuretics: Reviewed - BP Control BP Control: Blood Pressure 121/86 Blood Pressure 114/77 Blood Pressure 138/81 If elevated: Reviewed - Qtc Review If Elevated: N/A - IV to PO Switch IV Medications: Reviewed - Home Meds Home Med List reviewed: Reviewed Relevent Home Meds Not ordered & why?: vitamin e (don't have a formulation here that can be given via gtube), chlorhexidine mouthwashl; mirtazepine is active although it appears it was dc'd from home med list by RN in the ED, oxycodone also dc'd from home med list but has been filling regularly since 09/26/20 - Current meds Current Medication Order Review: Intervened (made clotrimazole paste martha per md as it wasn't being used by nursing per, adjusted 2 orders to reflect admin via g-tube) - Comments Comments/Follow Ups: continue to monitor BMP, pain control, wound care, BMs (opiate use)
--- NOTE | 2020-11-17 14:38 | CHAPLAIN ---
I know Chito from a home visit, and a previous admission. He said he he's doing ok today, and making small improvements. According to Care Management notes he said he would consider a rehab if he was unable to walk. When he was discharged, about two weeks ago he was walking. A palliative care consult request has been made. I will continue to visit.
--- NOTE | 2020-11-17 14:42 | W.NUTCONSULT ---
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 PMH: dyphagia with PEG TUBE, trachetomy. Admitted with ETOH withdrawl, hyponatremia abdominal wall cellulitis. Hx of pouring beer into G tube with long standing hx of ETOH abuse. BMI stable and appropriate. Estimated Needs: 2512-8864 kcal, 80-95 g protein, 7131-1569 ml fluid. NUTRITIONAL DIAGNOSIS: Dysphagia, reliant on enteral feeding for 100% nutrient/fluid needs INTERVENTION: Recommend Jevity 1.5 41 cc/hour + flush 200 ml q 6 hours- providing a total of 1500 kcal, 60 g protein, 1520 ml fluid continue MVI, thiamin, folic acid for repletion MONITORING AND EVALUATION: residuals per protocol, CBC daily Time Spent in Nutritional Counseling and Treatment: 0
[2020-11-17 15:18] VITALS: BP 110/82; PULSE 99; RESP 19; TEMP 36.9; O2SAT 98
--- NOTE | 2020-11-17 15:48 | W.PM.PROGNOT ---
Date of Service Date of service: 11/17/20 Time of Service: 15:48 Assessment and Plan Assessment and plan (1) Abdominal wall cellulitis: Status: Acute Assessment and plan: Continue wound care, cefazolin, clotrimazole. pain control. On discharge, would need to complete keflex. (2) Closed head injury with loss of consciousness of unknown duration: Status: Acute Assessment and plan: Stable mental status. Continue monitoring. S/p scalp laceration with sloane. (3) Abdominal pain: Status: Acute Assessment and plan: Agree that this is likely due to gastritis although superficial wound pain is contributing. Continue pepcid and protonix as well as carafate. Imaging negative for cholecystitis. (4) Alcohol abuse: Status: Chronic Assessment and plan: Continue prn phenobarbital (not requiring today) with RASS monitoring. EEG during last admission negative for seizures. (5) Hyponatremia: Status: Acute Assessment and plan: Acute on chronic, likely due to beer potomania. Improved. However, is starting to get dehydrated clinically - will increase free water slightly. (6) Adult failure to thrive: Status: Acute Assessment and plan: C/s palliative care, PT. Will likely need SNF. (7) Gastrostomy tube in place: Status: Chronic Assessment and plan: Continue enteral feeds. Add liquid protein and zinc. (8) Hypothyroidism: Status: Chronic Assessment and plan: High TSH. Increase levothyroxine. (9) B12 deficiency: Status: Acute Assessment and plan: Replete. (10) DVT prophylaxis: Status: Acute Assessment and plan: TEDs/SCDs (11) Discharge planning issues: Status: Acute Assessment and plan: Full code Will likely require SNF. Subjective Subjective Interval history since last seen: Abdominal pain is about the same - around the wound. Denies dizziness, chest pain. States shortness of breath is the same. Denies n/v. Requests protein supplementation to help build strength in his legs because they are weak. Worked with physical therapy: ambulated 150 feet with FWW. He is considering subacute rehab. Exam Narrative Exam Narrative: General: Pleasant middle-aged male who looks overall better, A&Ox3, no tremor, skin tenting HEENT: L neck mass, s/p trach, MMM Heart: RRR, no m/r/g Lungs: CTAB Abdomen: soft, +gastrostomy tube, R lower abdomen wound dressed - c/d/i Extremities: no edema BLE's Objective Last Vital Signs Temp 36.5 C 11/17/20 11:07 Pulse 86 11/17/20 11:07 Resp 19 11/17/20 11:07 BP 121/86 11/17/20 11:07 Pulse Ox 98 11/17/20 11:07 Laboratory Results - last 24 hr 11/17/20 11/17/20 06:33 06:33 WBC 3.73 L RBC 3.67 L Hgb 12.1 L Hct 36.8 L MCV 100.3 H MCH 33.0 MCHC 32.9 RDW 14.8 H Plt Count 236 MPV 8.9 Immature Gran % 0.5 Neutrophils % 65.4 Lymphocytes % 16.9 Monocytes % 9.7 Eosinophils % 5.9 Basophils % 1.6 Nucleated RBC % 0 Absolute Neutrophils 2.44 Absolute Lymphocytes 0.63 L Absolute Monocytes 0.36 Absolute Eosinophils 0.22 Absolute Basophils 0.06 Sodium 135 L Potassium 3.5 Chloride 99 Carbon Dioxide 29.2 Anion Gap 6.8 BUN 5 L Creatinine 0.8 Estimated GFR/1.73 m2 >= 60.00 Glucose 95 Calcium 8.7 Magnesium 1.9
[2020-11-17 19:39] VITALS: BP 100/74; PULSE 81; RESP 20; TEMP 36.5; O2SAT 98
[2020-11-17] MEDS: Protein Nutritional Supplement 16 GM 1 OUNCE PACKET JT (20:31)
[2020-11-17] MEDS: Pantoprazole 40 MG VIAL IVP (22:26)
[2020-11-17] MEDS: Mirtazapine 15 MG TAB 7.5 MG UD (22:27)
[2020-11-17 23:30] VITALS: BP 104/73; PULSE 76; RESP 18; TEMP 36.2; O2SAT 97
[2020-11-18] MEDS: oxyCODONE 5 MG/5 ML CUP JT ×4 (01:38→20:27)
[2020-11-18] MEDS: Sucralfate 1 GM TAB UD ×4 (01:38→20:27)
[2020-11-18] MEDS: Normal Saline Flush 10 ML SYR IVP ×3 (01:38→23:06)
[2020-11-18] MEDS: ceFAZolin 1 GM/50 ML BAG IVPB ×3 (01:39→15:23)
[2020-11-18] MEDS: Normal Saline 500 ML 30 ML IV (01:40)
[2020-11-18] MEDS: Acetaminophen Solution 650 MG/20.3 ML CUP 500 MG UD ×2 (06:29→12:11)
[2020-11-18] MEDS: Levothyroxine 75 MCG TAB UD (06:29)
[2020-11-18 07:04] LABS: Abs Immature Grans 0.02 10^3/uL (0.0-0.06); Absolute Basophil Count 0.04 10^3/uL (0.0-0.2); Absolute Eosinophil Count 0.16 10^3/uL (0.0-0.7); Absolute Lymphocyte Count 0.75 10^3/uL (1.2-3.4); Absolute Monocyte Count 0.48 10^3/uL (0.1-0.8); Absolute Neutrophil Count 3.09 10^3/uL (1.2-6.7); Basophils % 0.9; Eosinophils % 3.5; HCT 37.6 % (40.0-50.0); HGB 12.5 g/dL (13.5-17.5); Immature Grans % 0.4; Lymphocytes % 16.5; MCH 32.9 pg (27.0-33.0); MCHC 33.2 % (32.0-36.0); MCV 98.9 fL (80-95); MPV 9.4 fL (8.0-11.0); Monocytes % 10.6; Neutrophils % 68.1; Nucleated RBC 0 %; Platelet Count 214 10^3/uL (130-400); RDW 14.9 % (11.8-14.1); RDW-SD 54.3 fL; WBC 4.54 10^3/uL (4.4-10.8)
[2020-11-18 07:18] LABS: Anion Gap 6.6 mmol/L (3-11); BUN 9 mg/dL (7-18); CO2 29.4 mmol/L (21.0-32.0); CREATININE 0.7 mg/dL (0.70-1.30); Calcium 8.6 mg/dL (8.5-10.1); Chloride 100 mmol/L (98-107); Glucose 102 mg/dL (74-106); Potassium 3.8 mmol/L (3.5-5.1); Sodium 136 mmol/L (136-145)
[2020-11-18 07:20] VITALS: BP 138/95; PULSE 97; RESP 19; TEMP 36.4; O2SAT 99
[2020-11-18] MEDS: Protein Nutritional Supplement 16 GM 1 OUNCE PACKET JT ×2 (09:06→20:26)
[2020-11-18] MEDS: Cyanocobalamin 500 MCG TAB 1000 MCG UD (09:07)
[2020-11-18] MEDS: Famotidine 20 MG TAB UD ×2 (09:07→20:27)
[2020-11-18] MEDS: Folic Acid 1 MG TAB UD (09:07)
[2020-11-18] MEDS: Zinc Sulfate 220 MG TAB UD (09:07)
[2020-11-18] MEDS: Multivitamin TAB 1 TAB UD (09:07)
[2020-11-18] MEDS: Thiamine 100 MG TAB UD (09:07)
--- NOTE | 2020-11-18 10:30 | CMPROGNOTE_ITS ---
- If Service Date Differs Date of service: 11/18/20 Time of Service: 10:30 Care Management Progress Note S/O: Chito was sitting up in his bed when CM met with him. He was agreeable to conversation and engaged with CM, known to him from previous admissions. Chito had agreed to go to [facility] for short term rehab before returning home, but did not receive a bed offer. The barrier was identified as his requirement for tracheostomy care. [facility] did not feel they had the recourses to safely came for him at this time. In discussion with Chito, he indicated that he would really prefer to work with PT for another day or two and then discharge home with a resumption of services. A: Chito is a 60 year old male admitted to [facility] on 11/14/20 with alcohol intoxication. P: Chito would likely benefit from rehab prior to returning home but may not be offered a bed due to the presence of his tracheostome. Cm contacted several located within [facility] SNFs who indicated they would be unable to accept a patient with his care needs at this time. If Chito continues to do well with PT, he will likely be safe to return home. If he does go home, then a agile scrum coach will be connected to him, as well as a resumption of home health services. He will follow up with his community providers and plan of care. Cm will continue to support Chito and his discharge planning needs.
[2020-11-18 11:20] VITALS: BP 139/88; PULSE 98; RESP 20; TEMP 36.4; O2SAT 99
--- NOTE | 2020-11-18 11:42 | PTTR_ITS ---
Date of service: 11/18/20 Time of Service: 09:15 PT Notes Visit Reasons: alcohol intoxication Inpatient Physical Therapy Treatment Note [facility] Date: 11/18/2020 PRECAUTIONS: Fall SUBJECTIVE: Chito reports that he is feeling better today. He reports that he is willing to transfer to SNF when medically ready for further rehab prior to returning to home. OBJECTIVE: PAIN: No c/o pain BED MOBILITY/TRANSFERS Supine-sit: S with HOB at 30 degrees Sit-supine: S with HOB at 30 degrees Sit-stand: S Stand-sit: S GAIT Assistive Device: FWW in a.m.; No AD in p.m. Weight bearing: Full Assist: S with FWW; SBA-S without AD Distance: 600' in a.m.; ~800' in p.m. Deviation: Standing rest x1 due to feelings of weakness in B LE, SOB in a.m.; minimal SOB in p.m. THEREX: Patient was instructed in a seated LE strengthening program, as per flow sheet. He demonstrates increased SOB, requiring rests between exercises. He was instructed in a seated and standing LE strengthening program in p.m., as per flow sheet. He also performs functional [id number] exercise. TOILETING: Patient toileted independently utilizing handheld urinal in a seated position in both a.m. and p.m. ASSESSMENT: Patient tolerated session with complaint of SOB with ther ex completion as well as with gait training. He also c/o feelings of B LE weakness with gait training, requiring standing rest. He was able to tolerate a progression in gait distance without assistive device support and SBA- supervision demonstrating steady gait and pacing. PLAN: Continue with global strengthening and gait training with least restrictive device for continued progression toward baseline level of function. TREATMENT CODE/TIME: Session 1: 30 minutes; [id number], [id number] (09:15) Session 2: 35 minutes; [id number], [id number] (15:00)
--- NOTE | 2020-11-18 13:06 | W.PM.PROGNOT ---
Date of Service Date of service: 11/18/20 Time of Service: 13:06 Assessment and Plan Assessment and plan (1) Abdominal wall cellulitis: Status: Acute Assessment and plan: Continue wound care, cefazolin, clotrimazole. pain control. On discharge, would need to complete keflex. (2) Closed head injury with loss of consciousness of unknown duration: Status: Acute Assessment and plan: Stable mental status. Continue monitoring. S/p scalp laceration with sloane. (3) Abdominal pain: Status: Acute Assessment and plan: Agree that this is likely due to gastritis although superficial wound pain is contributing. Continue pepcid and protonix as well as carafate. Imaging negative for cholecystitis. (4) Alcohol abuse: Status: Chronic Assessment and plan: Continue prn phenobarbital (not requiring today) with RASS monitoring. EEG during last admission negative for seizures. (5) Hyponatremia: Status: Acute Assessment and plan: Acute on chronic, likely due to beer potomania. Improved. However, is starting to get dehydrated clinically - will increase free water slightly. (6) Adult failure to thrive: Status: Acute Assessment and plan: C/s palliative care, PT. Will likely need SNF. (7) Gastrostomy tube in place: Status: Chronic Assessment and plan: Continue enteral feeds. Add liquid protein and zinc. (8) Hypothyroidism: Status: Chronic Assessment and plan: High TSH. Increase levothyroxine. (9) B12 deficiency: Status: Acute Assessment and plan: Replete. (10) DVT prophylaxis: Status: Acute Assessment and plan: TEDs/SCDs (11) Discharge planning issues: Status: Acute Assessment and plan: Full code was declined at [facility] for SNF d/t trach discussed with Dr Dumas Subjective Subjective Patient reports: no new complaints, feels better and afebrile; denies shortness of breath Exam Narrative Exam Narrative: General: chronically ill appearing, older than stated age, A&Ox3 HEENT: L neck mass, trach intact, MMM Heart: RRR, well perfused Lungs: respirations even and unlabored Abdomen: soft, intact gastrostomy tube, R lower abdomen wound dressed, no surrounding erythema. Extremities: no edema BLE's, moves all extremities Objective Last Vital Signs Temp 36.4 C L 11/18/20 07:20 Pulse 97 H 11/18/20 07:20 Resp 19 11/18/20 07:20 BP 138/95 H 11/18/20 07:20 Pulse Ox 99 11/18/20 07:20 Laboratory Results - last 24 hr 11/18/20 11/18/20 06:30 06:30 WBC 4.54 RBC 3.80 L Hgb 12.5 L Hct 37.6 L MCV 98.9 H MCH 32.9 MCHC 33.2 RDW 14.9 H Plt Count 214 MPV 9.4 Immature Gran % 0.4 Neutrophils % 68.1 Lymphocytes % 16.5 Monocytes % 10.6 Eosinophils % 3.5 Basophils % 0.9 Nucleated RBC % 0 Absolute Neutrophils 3.09 Absolute Lymphocytes 0.75 L Absolute Monocytes 0.48 Absolute Eosinophils 0.16 Absolute Basophils 0.04 Sodium 136 Potassium 3.8 Chloride 100 Carbon Dioxide 29.4 Anion Gap 6.6 BUN 9 Creatinine 0.7 Estimated GFR/1.73 m2 >= 60.00 Glucose 102 Calcium 8.6 Magnesium 2.0
[2020-11-18] MEDS: Acetaminophen Solution 650 MG/20.3 ML CUP 1000 MG UD (20:27)
[2020-11-18] MEDS: Pantoprazole 40 MG VIAL IVP (23:06)
[2020-11-18] MEDS: Mirtazapine 15 MG TAB 7.5 MG UD (23:07)
[2020-11-18 23:14] VITALS: BP 104/78; PULSE 85; RESP 18; TEMP 36.3; O2SAT 94
[2020-11-19] MEDS: ceFAZolin 1 GM/50 ML BAG IVPB ×2 (00:30→08:19)
[2020-11-19] MEDS: oxyCODONE 5 MG/5 ML CUP JT ×6 (00:31→20:15)
[2020-11-19] MEDS: Normal Saline 500 ML 30 ML IV (00:31)
[2020-11-19] MEDS: Normal Saline Flush 10 ML SYR IVP ×3 (00:31→15:43)
[2020-11-19] MEDS: Sucralfate 1 GM TAB UD ×4 (02:22→19:48)
[2020-11-19 03:21] VITALS: BP 125/90; PULSE 80; RESP 18; TEMP 36.8; O2SAT 98
[2020-11-19] MEDS: Levothyroxine 75 MCG TAB UD (06:28)
[2020-11-19 07:46] VITALS: BP 151/97; PULSE 90; RESP 19; TEMP 36.4; O2SAT 97
[2020-11-19] MEDS: Folic Acid 1 MG TAB UD (08:22)
[2020-11-19] MEDS: Famotidine 20 MG TAB UD ×2 (08:22→19:48)
[2020-11-19] MEDS: Thiamine 100 MG TAB UD (08:22)
[2020-11-19] MEDS: Zinc Sulfate 220 MG TAB UD (08:22)
[2020-11-19] MEDS: Multivitamin TAB 1 TAB UD (08:22)
[2020-11-19] MEDS: Protein Nutritional Supplement 16 GM 1 OUNCE PACKET JT ×2 (08:22→19:49)
[2020-11-19] MEDS: Cyanocobalamin 500 MCG TAB 1000 MCG UD (08:23)
[2020-11-19] MEDS: Acetaminophen Solution 650 MG/20.3 ML CUP 1000 MG UD ×3 (08:28→19:49)
[2020-11-19 09:22] LABS: Prealbumin 17 mg/dL (20-40)
--- NOTE | 2020-11-19 09:43 | OT.INIE ---
Occupational Therapy Notes Inpatient Occupational Therapy Evaluation Date: 11/19/20 Referring Doctor:Tammy Ramsey NP PATIENT PROFILE/ADMITTING DIAGNOSIS: Pt is a 60 year old male who was admitted through the ED with the following dx of abdominal wall cellulitis, failure to thrive, alcohol abuse, abdominal pain, hyponatremia, acute hypokalemia, scal laceration, alcohol widthdrawal, facial laceration, gastrostomy tube in place, carcinoma of oral cavity, recurrent squamous cell carcinoma. Patient was recently discharged from the hospital to independent living at home with services. He had been consuming a large quantity of alcohol. Patient has been admitted for further services due to failure to thrive at home. Past Medical History: Medical History Anxiety Aspiration pneumonia Caries COPD (chronic obstructive pulmonary disease) Cough with hemoptysis Dysphagia, oral phase 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 cervical lymphadenectomy, tracheostomy, excision benign thyroid lesion, exploration carotid artery S/P reconstruction procedure (08/18/20) Pediculed pec flap, L hemiglossectomy and mandibulectomy ([place]) S/P tooth extraction (~2013) Status post glossectomy (08/11/20) w/ multiple other procedures Social History/Home Situation: pt lives at home alone. Equipment owned/DME: Unable to assess SUBJECTIVE: Pt was sitting in bed when OT arrived. He states that he was agreeable to session but does not feel that he will need services but is willing to answer questions. OBJECTIVE: General Observation: Pleasant and writes his responses on a white board. Mental Status: A&Ox3 Pain: no c/o pain ROM: RUE AROM WFL L UE AROM WFL STRENGTH: RUE 4-/5 throughout LUE 4-/5 throughout FUNCTIONAL MOBILITY/ADLS: *Pt refuses all performance of his ADL/IADL routines, as he states that he only would like to work with Physical Therapy. He is agreeable to assessment of his ROM which is WNL however he refuses performance and further tx stating he just wants to get strong. EATING N/A for pt BALANCE: Static sitting Normal Dynamic Sitting Normal SPECIAL TESTS: Daily Activity Limitations Standardized Measure [facility] AM PAC ?6 clicks? Daily Activity Inpatient Short Form: Raw score: 18 INFORMED CONSENT/EDUCATION: Pt instructed in purpose of OT Consult and plan of care. ASSESSMENT: Patient is a 60-year-old male referred to occupational therapy services with diagnosis of abdominal wall cellulitis, failure to thrive, alcohol abuse, abdominal pain, hyponatremia, acute hypokalemia, scal laceration, alcohol widthdrawal, facial laceration, gastrostomy tube in place, carcinoma of oral cavity, recurrent squamous cell carcinoma. Patient presents with clinical signs and symptoms consistent with dx, as demonstrated by the following impairment level findings/ functional limitations: Pt demonstrates increased fatigue and decreased strength, OT was not accurately able to assess his ADLs as he denied performance reporting that he would like to only work with PT for strengthening because he wants to go home. Pt denies the need for further services. Patient is assessed as a Low 57757 complexity based on the following: History: see above Examination: see functional activities as noted above Presentation: evolving Decision Making: low complexity GOALS N/A- Pt was seen for OT consult only. PLAN OF CARE/TREATMENT PLAN: Discharge from skilled OT services, pt denies the need for further services at this time. DISCHARGE RECOMMENDATIONS SNF when medically cleared per MD. TREATMENT TIME/MINUTES/CODES 11793, 10 minutes (08:10) Iris Alvarado OTR/L [facility]
--- NOTE | 2020-11-19 10:01 | PGE_ITS ---
Date of Service Date of service: 11/19/20 Time of Service: 10:02 Assessment and Plan Assessment and plan (1) Abdominal wall cellulitis: Status: Acute Assessment and plan: Continue wound care, cefazolin day 5 , clotrimazole. pain control. Will downstep to keflex to complete a 10 day course. (2) Closed head injury with loss of consciousness of unknown duration: Status: Resolved Assessment and plan: Stable mental status. S/p scalp laceration with sloane to be removed today. (3) Abdominal pain: Status: Acute Assessment and plan: likely due to gastritis although superficial wound pain is contributing. Continue pepcid and protonix as well as carafate. Imaging negative for cholecystitis. (4) Alcohol abuse: Status: Chronic Assessment and plan: no withdrawal symptoms. continue MVI, folic acid and thiamine EEG during last admission negative for seizures. (5) Hyponatremia: Status: Resolved Assessment and plan: Acute on chronic, likely due to beer potomania. resolved. (6) Adult failure to thrive: Status: Acute Assessment and plan: palliative care and PT following. declined at [facility] d/t [facility]. plan to go home with resumption of services when medically stable. (7) Gastrostomy tube in place: Status: Chronic Assessment and plan: Continue enteral feeds, liquid protein and zinc. add ensure at request (8) Hypothyroidism: Status: Chronic Assessment and plan: High TSH. Increase levothyroxine. recheck TSH in 6 weeks. (9) B12 deficiency: Status: Acute Assessment and plan: Replete. (10) DVT prophylaxis: Status: Acute Assessment and plan: TEDs/SCDs (11) Discharge planning issues: Status: Acute Assessment and plan: Full code was declined at [facility] for SNF d/t [facility] plan to go home with resumption of services when medically stable. anticipate discharge tomorrow. case management following discussed with Dr Dumas Subjective Subjective Patient reports: no new complaints, feels better, voiding w/o difficulty, bowel movement and afebrile Interval history since last seen: working with PT and slowly progressing. no fevers and hemodynamically stable. feeling hungry today, asking for ensure. Exam Narrative Exam Narrative: General: chronically ill appearing, older than stated age, A&Ox3 HEENT: L neck mass, trach intact, MMM Heart: RRR, well perfused Lungs: respirations even and unlabored Abdomen: soft, intact gastrostomy tube, R lower abdomen wound dressed, no surrounding erythema. Extremities: no edema BLE's, moves all extremities Objective Last Vital Signs Temp 36.4 C L 11/19/20 07:46 Pulse 90 11/19/20 07:46 Resp 19 11/19/20 07:46 BP 151/97 H 11/19/20 07:46 Pulse Ox 97 11/19/20 07:46
[2020-11-19 11:54] VITALS: BP 143/96; PULSE 87; RESP 22; TEMP 36.1
--- NOTE | 2020-11-19 12:42 | PTTR_ITS ---
Date of service: 11/19/20 Time of Service: 10:50 PT Notes Visit Reasons: alcohol intoxication Inpatient Physical Therapy Treatment Note [facility] Date: 11/19/2020 PRECAUTIONS: Fall SUBJECTIVE: Chito reports that his legs are feeling sore today. He wants to continue to work hard on getting stronger so he can return home safely. OBJECTIVE: PAIN: No c/o pain BED MOBILITY/TRANSFERS Supine-sit: I Sit-supine: I Sit-stand: I Stand-sit: I GAIT Assistive Device: FWW No AD in a.m.; No AD in p.m. Weight bearing: Full Assist: S with FWW and without AD Distance: 200' with FWW ~1000' without AD in a.m.; ~600' in p.m. Deviation: Minimal path deviation without AD in both a.m. and p.m.; LOB x2 with self-recovery with R turn in p.m. THEREX: Patient was instructed in a resisted standing UE and LE strengthening program, as per flow sheet. He requires cueing for proper exercise performance. He utilizes 2# dumbbells and 2.5# ankle weights. He also performs functional [id number] exercise without UE support. Patient completes standing exercises without FWW support and with SBA. He was also instructed in several dynamic balance activities, including lateral walking, high knee marches, backward walking, walking with cervical flexion/extension, and walking with cervical rotation with CGA for safety. STAIRS: Up/down 3x4 and 2x6 using B rails and a step-over pattern independently ASSESSMENT: Patient tolerated session with complaint of B LE soreness. He was able to tolerate a progression in gait distance without assistive device support and supervision demonstrating minimal path deviation and LOB x2 with self- recovery. He was able to tolerate a progression in his ther ex program, tolerating the addition of weights and additional exercises. PLAN: Continue with global strengthening and gait training with least restrictive device for continued progression toward baseline level of function. TREATMENT CODE/TIME: Session 1: 30 minutes; 51065 x2 (10:50) Session 2: 40 minutes; [id number], 86593 x2 (13:45)
[2020-11-19 15:15] VITALS: BP 123/88; PULSE 88; RESP 21; TEMP 36.9; O2SAT 98
--- NOTE | 2020-11-19 17:32 | CMPROGNOTE_ITS ---
- If Service Date Differs Date of service: 11/19/20 Time of Service: 17:32 Care Management Progress Note S/O: CM met with Chito today while he was sitting up in bed. CM discussed his discharge plan, which has changed to him returning home with a resumption of services. He is agreeable to this plan. He would like his brother to be informed of his discharge once he is ready, so he does not have to wait for a long period of time on day of discharge. CM will call Peewee to discuss this change of plan with him. CM will continue to follow. A: Chito is a 60 year old male admitted to [facility] on 11/14/20 with alcohol intoxication. P: Chito would likely benefit from rehab prior to returning home but may not be offered a bed due to the presence of his tracheostome. Cm contacted several [facility] SNFs who indicated they would be unable to accept a patient with his care needs at this time. If Chito continues to do well with PT, he will likely be safe to return home. If he does go home, then a disaster recovery manager will be connected to him, as well as a resumption of home health services. He will follow up with his community providers and plan of care. Cm will continue to support Chito and his discharge planning needs.
--- NOTE | 2020-11-19 17:34 | RESPIRATORY ---
Discussed with Pt about home supply needs for trach equipment. Pt stated that he only needed inner cannulas. RT called Pt's DME [facility] and requested inner cannulas be sent to Pt. [facility] agreed to send 60 inner cannulas.
[2020-11-19] MEDS: Cephalexin 250 MG/5 ML 100 ML BTL 500 MG JT (18:30)
[2020-11-19 19:44] VITALS: BP 127/90; PULSE 82; RESP 18; TEMP 36.5; O2SAT 98
[2020-11-19] MEDS: Mirtazapine 15 MG TAB 7.5 MG UD (22:35)
[2020-11-19 23:09] VITALS: BP 115/78; PULSE 70; RESP 18; TEMP 36.2; O2SAT 100
[2020-11-20] MEDS: oxyCODONE 5 MG/5 ML CUP JT ×5 (01:48→19:30)
[2020-11-20] MEDS: Sucralfate 1 GM TAB UD ×4 (01:48→19:30)
[2020-11-20] MEDS: Cephalexin 250 MG/5 ML 100 ML BTL 500 MG JT ×3 (01:49→17:59)
[2020-11-20 03:17] VITALS: BP 108/73; PULSE 75; RESP 17; TEMP 36.3; O2SAT 99
[2020-11-20] MEDS: Levothyroxine 75 MCG TAB UD (06:32)
[2020-11-20] MEDS: Acetaminophen Solution 650 MG/20.3 ML CUP 1000 MG UD ×3 (07:37→19:31)
[2020-11-20] MEDS: Protein Nutritional Supplement 16 GM 1 OUNCE PACKET JT ×2 (08:50→19:32)
[2020-11-20] MEDS: Zinc Sulfate 220 MG TAB UD (08:51)
[2020-11-20] MEDS: Thiamine 100 MG TAB UD (08:51)
[2020-11-20] MEDS: Famotidine 20 MG TAB UD ×2 (08:51→19:30)
[2020-11-20] MEDS: Multivitamin TAB 1 TAB UD (08:51)
[2020-11-20] MEDS: Cyanocobalamin 500 MCG TAB 1000 MCG UD (08:51)
[2020-11-20] MEDS: Folic Acid 1 MG TAB UD (08:51)
[2020-11-20 09:16] VITALS: BP 147/96; PULSE 87; RESP 16; TEMP 36.4; O2SAT 98
--- NOTE | 2020-11-20 09:54 | PGE_ITS ---
Date of Service Date of service: 11/20/20 Time of Service: 09:54 Assessment and Plan Assessment and plan (1) Abdominal wall cellulitis: Status: Acute Assessment and plan: Continue wound care, clotrimazole. pain control. downstepped to keflex to complete a 10 day course. (2) Closed head injury with loss of consciousness of unknown duration: Status: Resolved Assessment and plan: Stable mental status. S/p scalp laceration with sloane healed, sloane removed yesterday (3) Abdominal pain: Status: Acute Assessment and plan: likely due to gastritis although superficial wound pain is contributing. Continue pepcid and protonix as well as carafate. Imaging negative for cholecystitis. (4) Alcohol abuse: Status: Chronic Assessment and plan: no withdrawal symptoms. continue MVI, folic acid and thiamine EEG during last admission negative for seizures. (5) Hyponatremia: Status: Resolved Assessment and plan: Acute on chronic, likely due to beer potomania. resolved. (6) Adult failure to thrive: Status: Acute Assessment and plan: palliative care and PT following. declined at [facility] d/t [facility]. plan to go home with resumption of services when medically stable. (7) Gastrostomy tube in place: Status: Chronic Assessment and plan: Continue enteral feeds, liquid protein and zinc. add ensure at request (8) Hypothyroidism: Status: Chronic Assessment and plan: High TSH. Increase levothyroxine. recheck TSH in 6 weeks. (9) B12 deficiency: Status: Acute Assessment and plan: Replete. (10) DVT prophylaxis: Status: Acute Assessment and plan: TEDs/SCDs (11) Discharge planning issues: Status: Acute Assessment and plan: Full code was declined at [facility] for SNF d/t [facility] plan to go home with resumption of services when medically stable. anticipate discharge tomorrow. case management following discussed with Dr Dumas Subjective Subjective Patient reports: no new complaints and afebrile Interval history since last seen: working with PT, progressing well. Exam Narrative Exam Narrative: General: chronically ill appearing, older than stated age, A&Ox3 HEENT: L neck mass, trach intact, MMM Heart: RRR, well perfused Lungs: respirations even and unlabored Abdomen: soft, intact gastrostomy tube, R lower abdomen wound dressed, no surrounding erythema. Extremities: no edema BLE's, moves all extremities Objective Last Vital Signs Temp 36.4 C L 11/20/20 09:16 Pulse 87 11/20/20 09:16 Resp 16 11/20/20 09:16 BP 147/96 H 11/20/20 09:16 Pulse Ox 98 11/20/20 09:16 Laboratory Results - last 24 hr 11/18/20 06:30 Prealbumin 17 L
--- NOTE | 2020-11-20 10:37 | NUR.NOTE ---
compound cream given late per patient request. He did not want the cream applied until after he worked with PT.Nursing Note:
--- NOTE | 2020-11-20 10:41 | PT.INTREAT ---
Date of service: 11/20/20 Time of Service: 10:05 PT Notes Visit Reasons: alcohol intoxication Inpatient Physical Therapy Treatment Note [facility] Date: 11/20/2020 PRECAUTIONS: Fall SUBJECTIVE: Chito requests to just walk this morning, as he feels sore after completing his ther ex program yesterday. OBJECTIVE: PAIN: No c/o pain BED MOBILITY/TRANSFERS Sit-stand: I Stand-sit: I GAIT Assistive Device: No AD Weight bearing: Full Assist: S Distance: 800' Deviation: None THEREX: Hold per patient request. ASSESSMENT: Patient tolerated session with complaint of global soreness. He demonstrates steady gait and pacing without deviation without use of assistive device. Patient appears to be functioning at or beyond baseline level of function. PLAN: Continue with global strengthening. TREATMENT CODE/TIME: 15 minutes; [id number] (10:05)
--- NOTE | 2020-11-20 11:29 | CMPROGNOTE_ITS ---
- If Service Date Differs Date of service: 11/20/20 Time of Service: 11:29 Care Management Progress Note S/O: Chito was sitting up in bed when CM met with him. He was pleasant and engaged in conversation. He reported that he has been working very hard with PT, and is doing well. Per PT, he is walking better than his baseline, and they are very happy with his progress. CM called Peewee, his brother, to update him on Chito's discharge plan, at Chito's request. Peewee will transport Chito home via private vehicle, which CM will coordinate. CM called to inform them of his possible discharge on 11/21/20. [facility] has requested that Chito sign an addendum to his admission paperwork which outlines an agreement for Chito to provide a safe environment for the home care team. CM will facilitate this and send it back to [facility] prior to discharge. CM discussed sobriety and resources today, which he declined. He stated that he plans to cut way down on drinking. CM will continue to follow. A: Chito is a 60 year old male admitted to [facility] on 11/14/20 with alcohol intoxication. P: Chito would likely benefit from rehab prior to returning home but may not be offered a bed due to the presence of his tracheostome. Cm contacted several area SNFs who indicated they would be unable to accept a patient with his care needs at this time. If Chito continues to do well with PT, he will likely be safe to return home. If he does go home, then a oil recovery unit operator will be connected to him, as well as a resumption of home health services. He will follow up with his community providers and plan of care. Cm will continue to support Chito and his discharge planning needs.
[2020-11-20 11:38] VITALS: BP 119/80; PULSE 83; RESP 18; TEMP 36.9; O2SAT 97
--- NOTE | 2020-11-20 12:33 | W.NUTRFU ---
Date of service: 11/20/20 Time of Service: 12:33 Nutritional Follow up NOTE: Chito is tolerating tube feeding and flushes, labs wnl. Prealbumin 17- indicating low visceral protein stores and poor nutritional status. Meds: remeron, folic acid, MVI, thiamine. Continues to be NPO. Reports following tube feeding at home per prescription: Nutren 10 oz 5 times daily = 50 onces providing total of 2250 kcal, 107 g protein, 1080 ml fluid. Reports adding benaprotein 5 scoops daily- unsure of this product. Estimated Needs: 2241 kcal (BEE x 1.4), 92 g protein (1.3 g/kg) and 2130 ml fluid (30 ml/kg). At discharge recommend following as eneral feeding/flushes: Nutren 10 ounces 5 x daily= 1500 ml flush 250 ml q 6 hours discontinue protein supplement- not needed at current weight Time Spent in Nutritional Counseling and Treatment: 30 min
--- NOTE | 2020-11-20 13:29 | PT.INDS ---
Date of service: 11/20/20 Time of Service: 13:00 PT Notes Visit Reasons: alcohol intoxication Date: 11/20/20 Treatment Dates: 11/15/20 - 11/20/20 Referring Doctor: Alan Broussard PT Orders: PT CONSULT: Evaluate and Treat Precautions: Standard Patient Profile/Admitting Diagnosis: Patient is a 60-year-old male admitted 11/14/20. At time of admission, he had been recently discharged from the hospital to independent living at home with the help of home health services. In that time it was found the patient was not moving very far from his recliner. He had also been consuming a large quantity of alcohol. Patient has been admitted for further services due to failure to thrive at home. During his acute care stay, he has participated in 10 sessions of skilled PT intervention over the course of 6 days. PMHX: Medical History Anxiety Aspiration pneumonia Caries COPD (chronic obstructive pulmonary disease) Cough with hemoptysis Dysphagia, oral phase 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 cervical lymphadenectomy, tracheostomy, excision benign thyroid lesion, exploration carotid artery S/P reconstruction procedure (08/18/20) Pediculed pec flap, L hemiglossectomy and mandibulectomy ([place]) S/P tooth extraction (~2013) Status post glossectomy (08/11/20) w/ multiple other procedures Social History/Home Situation: Patient lives at home alone Equipment Owned/DME: Front wheel walker Subjective: Patient communicates primarily in writing and signing. He relays that he is sore from the strengthening exercises yesterday. He feels very steady on his feet, and is anxious to walk. He looks forward to returning home. Objective: Patient lying in bed with HOB to 30degrees, feeding tube in place. No additional lines. Mental Status: Alert and Oriented to person, place, time ROM: Right Upper Extremity: WFL Left Upper Extremity: WFL Right Lower Extremity: WFL Left Lower Extremity: WFL Strength: Right Upper Extremity: Globally 4+/5 Left Upper Extremity: Globally 4+/5 Right Lower Extremity: Globally 4+/5 Left Lower Extremity: Globally 4+/5 Bed Mobility/Transfers: supine-sit: independent sit-supine: independent sit-stand: independent stand-sit: independent Gait: Patient ambulates 1000' without assistive device. He has minor ataxia and path deviation, although no losses of balance. Stairs: Patient manages therapeutic stairs independently, ascending and descending 6 step x 2 and 4 step x 3 without UE support. Balance: Static Sitting: normal Dynamic Sitting: good Static Standing: good Dynamic Standing: good Special Tests: Mobility Limitations Standardized Measure [facility] AM-PAC 6 clicks Basic Mobility Inpatient Short Form: Raw Score: 24 CMS Score: 0% impairment Informed Consent/Education: Patient instructed in purpose of PT consult and plan of care. ASSESSMENT: Milagro has participated in 10 sessions of skilled PT intervention over the past 7 days. He is demonstrating significant improvements in mobility and safety. Patient is safe to return to independent living once medically stable. Will benefit from home health PT to address gait and balance impairments to maximize safety and reduce fall risk. Goals: Goals X1 week 1. Supine-Sit Superivsion (MET) 2. Sit-Supine Supervision (MET) 3. Sit-Stand Supervision with FWW (MET) 4. Stand-Sit Supervision with FWW (MET) 5. Bed-Chair Supervision (MET) 6. Gait Supervision with FWW up to 20 feet for in room ambulation (MET) Plan of Care/Treatment Plan: Discharge from PT in acute care setting DISCHARGE RECOMMENDATIONS: Home, with home health PT TREATMENT CODE/TIME: 1:00?130 ([id number]) Emi Ding, PT, DPT [facility]
[2020-11-20 16:22] VITALS: BP 118/82; PULSE 78; RESP 18; TEMP 36.5; O2SAT 98
[2020-11-20 19:30] VITALS: BP 135/93; PULSE 79; RESP 19; TEMP 36.1; O2SAT 98
[2020-11-20] MEDS: Mirtazapine 15 MG TAB 7.5 MG UD (21:28)
[2020-11-20 23:14] VITALS: BP 110/78; PULSE 74; RESP 18; TEMP 35; O2SAT 98
[2020-11-21] MEDS: Sucralfate 1 GM TAB UD ×2 (02:07→08:13)
[2020-11-21] MEDS: oxyCODONE 5 MG/5 ML CUP JT ×3 (02:07→10:41)
[2020-11-21] MEDS: Cephalexin 250 MG/5 ML 100 ML BTL 500 MG JT ×2 (02:07→10:42)
[2020-11-21 03:29] VITALS: BP 135/90; PULSE 75; RESP 18; TEMP 36.2; O2SAT 96
[2020-11-21] MEDS: Levothyroxine 75 MCG TAB UD (06:26)
[2020-11-21 07:33] VITALS: BP 138/93; PULSE 85; RESP 17; TEMP 36.4; O2SAT 98
[2020-11-21] MEDS: Acetaminophen Solution 650 MG/20.3 ML CUP 1000 MG UD (08:12)
[2020-11-21] MEDS: Protein Nutritional Supplement 16 GM 1 OUNCE PACKET JT (08:12)
[2020-11-21] MEDS: Famotidine 20 MG TAB UD (08:13)
[2020-11-21] MEDS: Cyanocobalamin 500 MCG TAB 1000 MCG UD (08:13)
[2020-11-21] MEDS: Zinc Sulfate 220 MG TAB UD (08:13)
[2020-11-21] MEDS: Multivitamin TAB 1 TAB UD (08:14)
[2020-11-21] MEDS: Thiamine 100 MG TAB UD (08:14)
[2020-11-21] MEDS: Folic Acid 1 MG TAB UD (08:14)
[2020-11-21 11:37] VITALS: BP 130/76; PULSE 102; RESP 20; TEMP 36.6; O2SAT 98
--- NOTE | 2020-11-21 11:52 | W.PM.DS.N ---
Date of service: 11/21/20 Time of Service: 11:55 DS: Diagnosis Discharge Diagnosis (1) Abdominal wall cellulitis: Status: Acute (2) Closed head injury with loss of consciousness of unknown duration: Status: Resolved (3) Abdominal pain: Status: Acute (4) Alcohol abuse: Status: Chronic (5) Hyponatremia: Status: Resolved (6) Adult failure to thrive: Status: Acute (7) Gastrostomy tube in place: Status: Chronic (8) Hypothyroidism: Status: Chronic (9) B12 deficiency: Status: Acute Discharge Plan Disposition Patient Disposition: HOME W/HOME HEALTH SERVICE Condition: Stable Discharge Details Reason For Visit: alcohol intoxication Admit Date/Time: 11/14/20 12:50 Admit Provider: Alan Broussard Attending Provider: Alan Broussard Primary Care Provider: Maisha Deleon Hospital Course Hospital Course: This is a 60 yo male with a history of alcohol abuse, 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 He was hospitalized at [facility] on 11/02/20 - 11/05/2020 for alcohol withdrawal, closed head injury from fall. He was seen by [facility] and was complaining of abdominal pain. He reported to them that he was instilling beer via his G-tube. This was also noted at time of the previous admission to [facility]. He also appeared to not be thriving well at home. Cases of empty beer containers littering the home. In the ED his Na was 120, K 3.6. Covid negative. CT abd/pelvis with no acute findings. CT head negative. Abd US with cholelithiasis but no evidence of acute cholecystitis. Scalp sloane that were placed during last admission were in place. He was admitted for failure to thrive at home / safety concerns and alcohol withdrawal. while on med/surg his hospital course was complicated by abdominal wall cellulitis, which responded to cefazolin. he was downstepped to keflex and continues to improve. He was ordered a topical compound cream which will be dispensed at discharge for home use. he was working with physical therapy and gaining significantly here. referrals were placed to [facility] and rehab but d/t his trach he was declined. He remained here and continued to improve to the point he was deemed safe for discharge to home with resumption of home health services. he will be given 5 more daily of keflex to complete his course. His sloane were removed and his laceration healed. he has been hemodynamically stable, tolerating his tube feedings well. discharge discussed with DR Dumas Home Meds and New Rx's Prescriptions: New sucralfate 1 gram Tablet 1 g UD Q6H Qty: 120 RF: 0 zinc oxide 20 % Ointment 60 g topical TID Qty: 0 RF: 0 cephalexin 250 mg/5 mL Suspension For Reconstitution 500 mg J-tube Q8H Qty: 150 RF: 0 clotrimazole 1 % Cream 60 g topical TID Qty: 0 RF: 0 zinc sulfate [Zinc-220] 50 mg zinc (220 mg) Capsule 220 mg UD DAILY Qty: 30 RF: 0 vits A and D-white pet-lanolin Ointment 60 g topical TID Qty: 0 RF: 0 Continued famotidine 20 mg tablet 20 mg feeding tube BID Qty: 60 RF: 3 (DME) [place] Swab See Rx Instructions .ROUTE .MEDSUPPLY Qty: 500 RF: 6 folic acid 400 mcg tablet 0.4 mg PO DAILY RF: 0 docusate sodium 50 mg/5 mL liquid 100 mg feeding tube BID PRN (Reason: constipation) Qty: 473 RF: 3 chlorhexidine gluconate [Peridex] 0.12 % mouthwash 15 ml mucous membrane TID RF: 0 ibuprofen 600 mg tablet 600 mg feeding tube Q6H PRNRF: 0 levothyroxine 50 mcg tablet 50 mcg feeding tube DAILY RF: 0 food supplemt, lactose-reduced Liquid See Rx Instructions feeding tube .COMPLEX RF: 0 multivitamin Tablet 1 tab feeding tube DAILY RF: 0 thiamine HCl (vitamin B1) 100 mg tablet 100 mg feeding tube DAILY RF: 0 vitamin E (dl, acetate) 400 unit capsule 400 unit feeding tube DAILY RF: 0 gabapentin 300 mg/6 mL (6 mL) solution 400 mg feeding tube TID RF: 0 Discontinued levofloxacin 250 mg/10 mL solution 750 mg PO Q24H 14 Days Qty: 420 RF: 0 Discharge Instructions Instructions: Gastritis (DC), Cellulitis (DC) Additional Instructions: use topical cream mixture to affected areas three times daily as directed. it is a combination of zinc oxide, vit A&D and clotrimazole. We have sent you home with the remainder of the jar that was assigned to you while hospitalized. do not use alcohol at all. you will have resumption of home health services. Stand Alone Forms: Nursing Discharge Form Referrals: Maisha Deleon NP [Primary Care Provider] - 12/10/20 10:00 am Activity:: Activity as Tolerated Equipment/Supplies:: No Equipment Needed Diet:: tube feedings as directed Discharge Orders Discharge Orders: Discharge Order (Routine); Ordered 11/21/20 Ordered By: Fernanda Gill Discharge Data Discharge Date/Time-TO BE ENTERED AT DEPARTURE: 11/21/20 12:56 DS: Summary Time Spent with Patient providing and/or coordinating discharge services: Greater than 30 minutes Status at Discharge Functional status at discharge: independent ambulation Overall status at discharge: patient is back to baseline Mental Status: mental status grossly normal Speech and Movement: slurred speech (difficult to understand speech) Mood: congruent mood Affect: normal affect Exam Psych Mental Status: mental status grossly normal Speech and Movement: slurred speech (difficult to understand speech) Mood: congruent mood Affect: normal affect DS: Data Vitals/I&O Vitals and I&O: Vital Signs Temperature 36.6 C 11/21/20 11:37 Temperature Source Tympanic 11/21/20 11:37 Pulse 102 H 11/21/20 11:37 Pulse Rhythm Regular 11/21/20 01:43 Pulse 103 H 11/16/20 14:01 Respiratory Rate 20 11/21/20 11:37 Respiratory Effort Non-Labored 11/21/20 01:43 Respiratory Depth Normal 11/21/20 01:43 Respiratory Pattern Normal 11/21/20 01:43 Blood Pressure 130/76 11/21/20 11:37 Blood Pressure Mean 96 11/16/20 14:01 Blood Pressure Position Supine 11/16/20 08:15 Pulse Oximetry 98 11/21/20 11:37 Oxygen Delivery Method Room Air 11/21/20 11:37 Oxygen Flow Rate 0 11/21/20 11:37 Pain Level 6 11/21/20 11:41 Comment 11/14/20 10:13 Intake & Output 11/20/20 11/20/20 11/21/20 11:59 23:59 11:59 Intake Total 60 / 60 Output Total 900 / 1400 500 / 1400 800 / 800 Balance -840 / -1340 -500 / -1340 -800 / -800 Weight 72.7 kg Intake: Intake, Tube Feeding Amount 60 / 60 Output: Urine 800 / 1300 500 / 1300 800 / 800 Stool 100 / 100 Other: Urine Color Yellow Yellow Straw Urine Appearance Clear Clear Clear Urine Odor Normal Normal Normal Stool Characteristics Soft Liquid Voiding Methods Urinal Urinal Urinal [facility] Medical History Anxiety Aspiration pneumonia Caries COPD (chronic obstructive pulmonary disease) Cough with hemoptysis Dysphagia, oral phase 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 cervical lymphadenectomy, tracheostomy, excision benign thyroid lesion, exploration carotid artery S/P reconstruction procedure (08/18/20) Pediculed pec flap, L hemiglossectomy and mandibulectomy ([place]) S/P tooth extraction (~2013) Status post glossectomy (08/11/20) w/ multiple other procedures Family History Mother Hypertension Hyperlipidemia Breast cancer Asthma Father Asthma Brother Hyperlipidemia Social History Smoking/Tobacco Use Status: Current every day Tobacco: How many years used: 29 Smoking risk assessment performed?: Yes Alcohol Intake: current Alcohol Intake frequency: 3 or more drinks per day Alcohol type: beer Details: 6 beer a day Drug use: Rarely Substance use type: marijuana Details: No IV Drug Use Adopted: No Caregiver/Support person: No Foster care: No Household members: none Housing: house Number of Children: 1 Communication Needs: Corrective Lenses Education Level: high school Do you need help understanding health information?: Often Sexually active: No Do you think of yourself as: straight/heterosexual Current gender identity: male What type of physical activity do you participate in: none Special leeroy needs: No Seatbelt use: always Do you feel safe at home: Yes Do you feel safe in your relationship?: Yes
--- NOTE | 2020-11-21 14:14 | CMDISCH_ITS ---
- If Service Date Differs Date of service: 11/21/20 Time of Service: 14:14 LACE Index Scoring Tool - Questions: Length of Stay (in days): 7 - 13 Acuity (Admit via E.D.?): Yes Comorbidities: Chronic Pulmonary Disease, Any Tumor E.D. Visits: 3 - Answers: Total Score: 16 Risk of Readmission: High Risk Care Management Discharge Reason for Hospitalization: alcohol intoxication Discharge Plan: Chito will return home today with a resumption of RN and PT. His brother will drive him home via private vehicle, and will help him pickle maker his prescriptions on the way home. CM called the pharmacy, and was informed that the total copay will be $106.18. He will follow up with his PCP and discharge plan of care. He was happy to be going home, and PT reports that he was doing better than his baseline prior to discharge. Patient/Family Education Needs: Review discharge instructions regarding activity levels, medications, and alcohol cessation, discussion of self care needs including ask me three.
== END 2020-11-21 12:56 | disposition home health service (06) | DRG 897 ==
LOC: ER 14:31 → ICU 18:35 → MS 11-16 16:07
PROVIDERS: Internal Medicine; Admitting Provider Family Medicine; Emergency Provider Student in an Organized Health Care Education/Training Program; PCP Nurse Practitioner; Visit Provider Family Medicine
DX: F10.10 Alcohol abuse, uncomplicated (principal); E87.1 Hypo-osmolality and hyponatremia; S06.9X9A Unspecified intracranial injury with loss of consciousness of unspecified duration, initial encounter; L03.311 Cellulitis of abdominal wall; R62.7 Adult failure to thrive; F10.139 Alcohol abuse with withdrawal, unspecified; R29.6 Repeated falls; E03.9 Hypothyroidism, unspecified; Z93.1 Gastrostomy status; J44.9 Chronic obstructive pulmonary disease, unspecified; Z20.822 Contact with and (suspected) exposure to COVID-19; F41.9 Anxiety disorder, unspecified; Z85.818 Personal history of malignant neoplasm of other sites of lip, oral cavity, and pharynx; I10 Essential (primary) hypertension; F17.210 Nicotine dependence, cigarettes, uncomplicated; Z68.23 Body mass index [BMI] 23.0-23.9, adult; K29.70 Gastritis, unspecified, without bleeding; K80.20 Calculus of gallbladder without cholecystitis without obstruction; E53.8 Deficiency of other specified B group vitamins; S30.92XA Unspecified superficial injury of abdominal wall, initial encounter; Z93.0 Tracheostomy status; E87.6 Hypokalemia; Y90.8 Blood alcohol level of 240 mg/100 ml or more; S01.01XA Laceration without foreign body of scalp, initial encounter
CPT/HCPCS: 36415; 80048; 80053; 83690; 87635; 96361; 96365; 97110; 97163; 97165; 97530; 99285; 70450; 74177; 76705; 80320; 81003; 81015; 82607; 82728; 82746; 83540; 83550; 83735; 84134; 84443; 84484; 85014; 85018; 85025; 93971; 99223; 99232; 99233; 99239; J0690; J3480; J3490

== ENCOUNTER 2020-11-25 18:13 | Inpatient (IN) | payer OTHER, SELFPAY ==
[2020-11-25] VITALS (19 sets, daily range): BP systolic 95–148; BP diastolic 81–125; PULSE 95–118; RESP 14–26; TEMP 36.6–37.8; O2SAT 91–98
--- NOTE | 2020-11-25 18:01 | ED.GENADUL_ITS ---
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 Upon arrival to the ED, EMS noted that patient's brother and [id number] are frustrated with continuing to help patient. He lives alone and is unable to care for himself. He is significantly disheveled on arrival, his G-tube is leaking brown fluid around his abdomen and groin site, he has feces all over his groin and both legs. His lower abdomen/b/l groin appears c/w cellulits but no signs of necrotizing fasciitis. He has mucus and yellow discharge around his trach but no significant cellulitis. It was reported that he has drank 60 beers to his G-tube over the last few days. Patient was discharged from here 4 days ago for abdominal wall cellulitis and adult failure to thrive. Patient is unable to care for himself at home and will need admission and placement. Patient is aware of these concerns and is agreeable for admission and placement. Case was discussed with care management. It is advised that palliative care be involved and even consider discussion with pt and family regarding supervisor intermediates goals of care. Case discussed with hospitalist who accepts patient for admission. Review of discharge summary from 4 days ago notes that patient was treated with cephalosporins for his abdominal wall cellulitis. Unclear if this is significantly worse than what it has been, but he also has sacral erythema and a stage II ulcer. Exam not consistent with necrotizing fasciitis. Will start clindamycin IV. Discussion with staff notes that patient has experienced alco hol withdrawal during recent admissions. He currently is hemodynamically stable and demonstrates no signs of acute alcohol withdrawal. We will start normal saline at 125 cc/hr, initiate banana bag and Ativan as needed for withdrawal symptoms. Screening labs obtained on arrival notes a white blood cell count of 9. Lactate 3.3. Sodium 117. Potassium 2.6. Creatinine 0.8. Will replete potassium. Chest x-ray negative for acute disease or fracture. Foot x-ray notes first distal phalanx chip fracture, no other acute findings. Patient did not report any pain in this area. Medical Records Medical records reviewed: Yes I reviewed the patient's medical records. Imaging Data Radiologic Study: Radiologist's impression: XR Chest Exam date and time: 11/25/2020 7:14 PM Age: 60 years old Clinical indication: Other: L anterior chest ecchymoses, R/O acute disease/fx TECHNIQUE: Imaging protocol: XR of the chest. Views: 2 views. Total images: 2 COMPARISON: CT CHEST/ABD/PEL W 11/02/2020 10:23 FINDINGS: Tubes, catheters and devices: Tracheostomy tube is unchanged in position. Lungs: Unremarkable. No consolidation. Pleural spaces: Unremarkable. No pleural effusion. No pneumothorax. Heart/Mediastinum: Unremarkable. No cardiomegaly. Bones/joints: Unremarkable. IMPRESSION: No acute cardiopulmonary abnormality. XR Left Foot Exam date and time: 11/25/2020 7:14 PM Age: 60 years old Clinical indication: Pain; Left; Patient HX: L foot ecchymoses, R/O FX TECHNIQUE: Imaging protocol: XR Left foot. Views: 3 or more views. Total images: 3 COMPARISON: US LOWER EXTREMITY VENOUS LT 17/11/2020 08:28 FINDINGS: Bones/joints: There is a minimally displaced chip fracture of the lateral aspect of the base of the 1st distal phalanx. Soft tissues: Normal. IMPRESSION: First distal phalanx chip fracture, minimally displaced. Lab Data Lab results reviewed: Yes I reviewed the patient's lab results. Labs: 11/25/20 19:05 Blood Blood Culture - Pending HPI General Mode of arrival: ambulatory . Date/Time Provider Initiated Documentation: 11/25/20 18:18 . Limitations to Documentation: no limitations . Information obtained by: patient . HPI Narrative: Patient is a 60-year-old male who presents the ED with a complaint of oropharyngeal carcinoma with history of resection and reconstruction in July 2020, with tracheostomy and G-tube with a history of chronic alcohol abuse through his G-tube presents per EMS for rash to his groin. EMS stated that patient requested EMS be called when his brother and ayzios-bu-zef arrived to check on him today and became concerned about the red rash to his abdomen and groin. Patient states it has been there for several weeks. Patient reported to EMS that he has drank 60 beers through the G-tube in the last few days. Related Data Home Medications Medication Instructions Recorded Confirmed folic acid 400 mcg tablet 0.4 mg PO DAILY 08/06/19 11/14/20 swab #500 ea 07/28/20 11/14/20 chlorhexidine gluconate 0.12 % 15 ml MUCOUS MEMBRANE TID ml 09/01/20 11/14/20 mouthwash docusate sodium 50 mg/5 mL oral 100 mg FEEDING TUBE BID PRN #473 ml 09/01/20 11/14/20 liquid food supplemt, lactose-reduced See Rx Instructions FEEDING TUBE 09/01/20 11/14/20 .COMPLEX ibuprofen 600 mg tablet 600 mg FEEDING TUBE Q6H PRN 09/01/20 11/14/20 levothyroxine 50 mcg tablet 50 mcg FEEDING TUBE DAILY 09/01/20 11/14/20 multivitamin 1 tab FEEDING TUBE DAILY 09/01/20 11/14/20 thiamine HCl (vitamin B1) 100 mg 100 mg FEEDING TUBE DAILY 09/01/20 11/14/20 tablet vitamin E (dl, acetate) 400 unit 400 unit FEEDING TUBE DAILY 09/01/20 11/14/20 capsule gabapentin 300 mg/6 mL (6 mL) oral 400 mg FEEDING TUBE TID ml 09/10/20 11/14/20 solution famotidine 20 mg tablet 20 mg FEEDING TUBE BID #60 tab 09/25/20 11/14/20 cephalexin 500 mg J-TUBE Q8H #150 ml 11/21/20 clotrimazole 60 g TOPICAL TID #0 g 11/21/20 sucralfate 1 g UD Q6H #120 tab 11/21/20 vits A and D-white pet-lanolin 60 g TOPICAL TID #0 g 11/21/20 zinc oxide 60 g TOPICAL TID #0 g 11/21/20 zinc sulfate [Zinc-220] 220 mg UD DAILY #30 cap 11/21/20 Previous Rx's Medication Instructions Recorded swab #500 ea 07/28/20 docusate sodium 50 mg/5 mL oral 100 mg FEEDING TUBE BID PRN #473 ml 09/01/20 liquid famotidine 20 mg tablet 20 mg FEEDING TUBE BID #60 tab 09/25/20 cephalexin 500 mg J-TUBE Q8H #150 ml 11/21/20 clotrimazole 60 g TOPICAL TID #0 g 11/21/20 sucralfate 1 g UD Q6H #120 tab 11/21/20 vits A and D-white pet-lanolin 60 g TOPICAL TID #0 g 11/21/20 zinc oxide 60 g TOPICAL TID #0 g 11/21/20 zinc sulfate [Zinc-220] 220 mg UD DAILY #30 cap 11/21/20 Allergies Allergy/AdvReac Type Severity Reaction Status Date / Time No Known Allergies Allergy Verified 11/02/20 08:32 General CHRIST: 3 Review of Systems All systems reviewed & are unremarkable except as noted in HPI and below Constitutional Constitutional: Reports as per HPI, Denies chills and Denies fever(s) Eyes Eyes: Denies blurry vision ENT Ears, Nose, Mouth, and Throat: Denies dizziness, Denies sore throat and Denies throat swelling Cardiovascular Cardiovascular: Denies chest pain and Denies dyspnea Respiratory Respiratory: Denies cough and Denies dyspnea Gastrointestinal Gastrointestinal: Denies abdominal pain, Denies diarrhea and Denies vomiting Genitourinary Genitourinary: Denies hematuria and Denies dysuria Musculoskeletal Musculoskeletal: Denies back pain and Denies numbness Integumentary/Breasts Skin/Breast: Reports lesions and Reports rash Neurologic Neurologic: Denies dizziness, Denies localized weakness and Denies numbness Allergic/Immunologic Allergic/Immunologic: Denies throat swelling [facility] Medical History Anxiety Aspiration pneumonia Caries COPD (chronic obstructive pulmonary disease) Cough with hemoptysis Dysphagia, oral phase 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 cervical lymphadenectomy, tracheostomy, excision benign thyroid lesion, exploration carotid artery S/P reconstruction procedure (08/18/20) Pediculed pec flap, L hemiglossectomy and mandibulectomy ([place]) S/P tooth extraction (~2013) Status post glossectomy (08/11/20) w/ multiple other procedures Family History Mother Hypertension Hyperlipidemia Breast cancer Asthma Father Asthma Brother Hyperlipidemia Social History Smoking/Tobacco Use Status: Current every day Tobacco: How many years used: 29 Smoking risk assessment performed?: Yes Alcohol Intake: current Alcohol Intake frequency: 3 or more drinks per day A lcohol type: beer Details: 6 beer a day Drug use: Rarely Substance use type: marijuana Details: No IV Drug Use Adopted: No Caregiver/Support person: No Foster care: No Household members: none Housing: house Number of Children: 1 Communication Needs: Corrective Lenses Education Level: high school Do you need help understanding health information?: Often Sexually active: No Do you think of yourself as: straight/heterosexual Current gender identity: male What type of physical activity do you participate in: none Special leeroy needs: No Seatbelt use: always Do you feel safe at home: Yes Do you feel safe in your relationship?: Yes Exam Const General: cooperative, no acute distress, disheveled and ill appearing chronically Orientation: alert and awake HENMT Head: normal to inspection Ears: hearing grossly normal bilaterally Eyes General: appearance normal, both eyes and all related structures Pupils: PERRL EOM: EOM intact bilaterally Neck Neck: tracheostomy present (with surrounding mild erythema, yellowish drainage on gauze) and No submandibular swelling Neck images: 1. Deformity to left jaw consistent with resection. Chronic rounded mass to left lateral neck consistent with previous oropharyngeal resection/reconstruction, unchanged from previous. Chest Chest: normal inspection of the chest and no tenderness Chest/axillae images: 1. Minimally tender purple ecchymoses with surrounding yellow ecchymoses. No crepitus or step off. Resp Effort & Inspection: normal respiratory effort Auscultation: clear to auscultation bilaterally Cardio Rate: regular rate Rhythm: regular rhythm GI Inspection: normal to inspection and other (G tube present with brown fluid in tubing) Palpation: soft, not firm, not rigid and nontender Male genitals images: 1. Hot to touch, tender, erythematous, edematous steaking and papules. No discrete abscess noted located on lower abdomen, b/l groin, penis, and b/l upper thighs. No purple discoloration or spongelike tissure or crepitus. No penile discharge. Back/Spine/Pelvis Pelvis: no pain with anterior-posterior compression Back/spine/pelvis image: 1. Warm to touch, erythematous streaking and papules. 2. 1x1cm stage II ulcer. Neuro General: patient alert, patient awake and patient oriented x3 Cognition: normal cognition Motor: muscle tone normal throughout Sensory Exam: no sensory deficits noted Extrem Ankle/foot/toe images: 1. Edema L lateral foot, ecchymoses proximal lateral foot near proximal 5th metatarsal. L DP/PT pulses intact. No deformity. Psych Mental Status: mental status grossly normal Affect: normal affect
--- NOTE | 2020-11-25 19:00 | DI.RAD_ITS ---
Exam(s) XR CHEST 2V PA LATERAL EXAM: XR CHEST 2V PA LATERAL CLINICAL HISTORY: L anterior chest ecchymoses, r/o acute disease/fx. TECHNIQUE: 2D digital imaging was performed. COMPARISON: CR XR CHEST 2V PA LATERAL from 10/20/2020 FINDINGS: Heart size is normal. The mediastinum is not widened. Tracheostomy tube again noted. No infiltrates nor pleural effusions. No pulmonary edema. IMPRESSION: No acute pulmonary findings. DATA REPOSITORY: RADIATION DOSE DELIVERED:
--- NOTE | 2020-11-25 19:00 | DI.RAD_ITS ---
Exam(s) XR FOOT LT COMPLETE EXAM: XR FOOT LT COMPLETE CLINICAL HISTORY: L foot ecchymoses, r/o fx. TECHNIQUE: 2D digital imaging was performed. COMPARISON: No exams were available for comparison FINDINGS: There is no fracture or diastasis at the Lisfranc joint. There is soft tissue swelling over the meta tarsals. No metatarsal fractures identified. Small typical exostoses is noted off the proximal medi al aspect of the distal phalanx of the great toe, common finding at this location. On the opposite s belen of the base of the distal phalanx there is slight irregularity of the cortex which possibly an av ulsion injury. Correlation with site of tenderness is recommended. There is no radiopaque foreign body. IMPRESSION: DATA REPOSITORY: RADIATION DOSE DELIVERED:
[2020-11-25 19:36] LABS: Abs Immature Grans 0.03 10^3/uL (0.0-0.06); Absolute Lymphocyte Count 0.27 10^3/uL (1.2-3.4); Absolute Monocyte Count 0.69 10^3/uL (0.1-0.8); Absolute Neutrophil Count 8.23 10^3/uL (1.2-6.7); HCT 33.1 % (40.0-50.0); HGB 11.8 g/dL (13.5-17.5); Immature Grans % 0.3; Lymphocytes % 2.9; MCH 32.1 pg (27.0-33.0); MCHC 35.6 % (32.0-36.0); MCV 89.9 fL (80-95); MPV 9.4 fL (8.0-11.0); Monocytes % 7.5; Neutrophils % 89.3; Nucleated RBC 0 %; Platelet Count 300 10^3/uL (130-400); RBC 3.68 10^6/uL (4.36-5.78); RDW-SD 42.7 fL; WBC 9.22 10^3/uL (4.4-10.8)
[2020-11-25 19:42] LABS: Lactate 3.3 mmol/L (0.6-1.4)
[2020-11-25 19:49] LABS: ALT 25 U/L (16-63); AST 50 U/L (15-37); Albumin 3.1 g/dL (3.4-5.0); Alkaline Phosphatase 118 U/L (46-116); Anion Gap 8.6 mmol/L (3-11); BUN 5 mg/dL (7-18); Bilirubin, Total 0.7 mg/dL (0.2-1.0); CO2 33.4 mmol/L (21.0-32.0); CREATININE 0.8 mg/dL (0.70-1.30); Calcium 8.4 mg/dL (8.5-10.1); Chloride 75 mmol/L (98-107); Glucose 98 mg/dL (74-106); Total Protein 7.6 g/dL (6.4-8.2)
[2020-11-25 19:54] LABS: Potassium 2.6 mmol/L (3.5-5.1); Sodium 117 mmol/L (136-145)
[2020-11-25] MEDS: CLINDAMYCIN 900 MG/50 ML BAG 50 MG IVPB (20:00)
[2020-11-25] MEDS: MAGNESIUM SULFATE 8.12 MEQ, MULTIVITAMIN 10 ML, THIAMINE 100 MG, FOLIC ACID 1 MG in Nor... 168.867 MG IV (20:01)
[2020-11-25] MEDS: Potassium Chloride 20 MEQ TABCR 40 MEQ PO (20:17)
--- NOTE | 2020-11-25 20:25 | DI.VRAD_ITS ---
PROCEDURE INFORMATION: Exam: XR Left Foot Exam date and time: 11/25/2020 7:14 PM Age: 60 years old Clinical indication: Pain; Left; Patient HX: L foot ecchymoses, R/O FX TECHNIQUE: Imaging protocol: XR Left foot. Views: 3 or more views. Total images: 3 COMPARISON: US LOWER EXTREMITY VENOUS LT 17/11/2020 08:28 FINDINGS: Bones/joints: There is a minimally displaced chip fracture of the lateral aspect of the base of the 1st distal phalanx. Soft tissues: Normal. IMPRESSION: First distal phalanx chip fracture, minimally displaced. Dictated and Authenticated by: Harlan Love MD. Ordering:MARIEL Shah MD
--- NOTE | 2020-11-25 20:27 | DI.VRAD_ITS ---
PROCEDURE INFORMATION: Exam: XR Chest Exam date and time: 11/25/2020 7:14 PM Age: 60 years old Clinical indication: Other: L anterior chest ecchymoses, R/O acute disease/fx TECHNIQUE: Imaging protocol: XR of the chest. Views: 2 views. Total images: 2 COMPARISON: CT CHEST/ABD/PEL W 11/02/2020 10:23 FINDINGS: Tubes, catheters and devices: Tracheostomy tube is unchanged in position. Lungs: Unremarkable. No consolidation. Pleural spaces: Unremarkable. No pleural effusion. No pneumothorax. Heart/Mediastinum: Unremarkable. No cardiomegaly. Bones/joints: Unremarkable. IMPRESSION: No acute cardiopulmonary abnormality. Dictated and Authenticated by: Harlan Love MD. Ordering:MARIEL Shah MD
[2020-11-25] MEDS: Normal Saline 1,000 ML 125 ML IV (20:39)
[2020-11-25 20:49] LABS: ETHANOL BLOOD 4.6 mg/dL (<3)
[2020-11-25] MEDS: POTASSIUM CHLORIDE 20 MEQ/100 ML BAG 50 MEQ IVPB ×2 (20:56→22:48)
[2020-11-25 21:20] LABS: Source Nasal/Nares
--- NOTE | 2020-11-25 21:22 | HPE_ITS ---
Date of service: 11/25/20 Time of Service: 21:23 Assessment and Plan Assessment and plan (1) Adult failure to thrive: Status: Acute (2) Abdominal wall cellulitis: Status: Acute Assessment and plan: Blood cultures have been done and he has been given a dose of clindamycin. That will be continued in the hospital. (3) Alcohol abuse: Status: Chronic Assessment and plan: The last time he was in the hospital he had significant alcohol withdrawal. He will be placed in intensive care unit for monitoring as a MedSurg overflow. He will be watched for alcohol withdrawal. (4) Hyponatremia: Status: Resolved Assessment and plan: He will be started on intravenous normal saline. Sodium level will be rechecked in a few hours. We will try not to have his sodium level go up too fast. His sodium level be rechecked in the morning. (5) Acute hypokalemia: Status: Acute Assessment and plan: He has been given potassium in the emergency d epartment. This will be rechecked at 11 PM and in the morning. History of Present Illness History of Present Illness Chief Complaint: Rash and inability to care for self Narrative: This 60-year-old male was recently admitted to the hospital and discharged recently. He was admitted for alcohol abuse, alcohol withdrawl, hyponatremia and cellulitis. He improved during his hospital stay and was discharged on oral antibiotics and was to have follow-up with home health se rvices. He declined on recommendations for changing his home situation. Since he has been home he has been using alcohol through his G-tube and has drank excessively. He says he does not care about living any longer. A few months ago he had a tracheostomy and G-tube placed for oral cancer. He does live by himself. When he was brought in he was covered with stool. He says that his buttocks hurt. He said there has been no change in the swelling of his left neck. He says he does not want to be resuscitated if he has a cardiac or respiratory arrest. Review of Systems Constitutional Constitutional: Denies body ache(s), Denies chills, Denies fever(s), Denies frequent falls and Reports weakness ENT Ears, Nose, Mouth, and Throat: Denies dysphagia Cardiovascular Cardiovascular: Denies chest pain, Denies palpitations and Reports dyspnea Respiratory Respiratory: Reports cough and Reports dyspnea Gastrointestinal Gastrointestinal: Denies abdominal pain, Denies melena, Denies dysphagia, Denies nausea and Denies vomiting Genitourinary Genitourinary: Denies hematuria, Denies difficulty urinating and Denies urinary frequency Musculoskeletal Musculoskeletal: Denies joint swelling Integumentary/Breasts Skin/Breast: Reports erythema and Denies skin ulcer Neurologic Neurologic: Denies frequent falls and Reports weakness Endocrine Endocrine: Denies palpitations PFSH Medical History Anxiety Aspiration pneumonia Caries COPD (chronic obstructive pulmonary disease) Cough with hemoptysis Dysphagia, oral phase 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 cervical lymphadenectomy, tracheostomy, excision benign thyroid lesion, exploration carotid artery S/P reconstruction procedure (08/18/20) Pediculed pec flap, L hemiglossectomy and mandibulectomy ([place]) S/P tooth extraction (~2013) Status post glossectomy (08/11/20) w/ multiple other procedures Family History Mother Hypertension Hyperlipidemia Breast cancer Asthma Father Asthma Brother Hyperlipidemia Social History Smoking/Tobacco Use Status: Current every day Tobacco: How many years used: 29 Smoking risk assessment performed?: Yes Alcohol Intake: current Alcohol Intake frequency: 3 or more drinks per day Alcohol type: beer Details: 6 beer a day Drug use: Rarely Substance use type: marijuana Details: No IV Drug Use Adopted: No Caregiver/Support person: No Foster care: No Household members: none Housing: house Number of Children: 1 Communication Needs: Corrective Lenses Education Level: high school Do you need help understanding health information?: Often Sexually active: No Do you think of yourself as: straight/heterosexual Current gender identity: male What type of physical activity do you participate in: none Special leeroy needs: No Seatbelt use: always Do you feel safe at home: Yes Do you feel safe in your relationship?: Yes Meds Allergies and Home Medications Allergies Allergy/AdvReac Type Severity Reaction Status Date / Time No Known Allergies Allergy Verified 11/02/20 08:32 Home Medications Medication Instructions Recorded Confirmed Type folic acid 400 mcg tablet 0.4 mg PO DAILY 08/06/19 11/14/20 History swab #500 ea 07/28/20 11/14/20 Rx chlorhexidine gluconate 0.12 % 15 ml MUCOUS MEMBRANE TID ml 09/01/20 11/14/20 History mouthwash docusate sodium 50 mg/5 mL oral 100 mg FEEDING TUBE BID PRN #473 ml 09/01/20 11/14/20 Rx liquid food supplemt, lactose-reduced See Rx Instructions FEEDING TUBE 09/01/20 11/14/20 History .COMPLEX ibuprofen 600 mg tablet 600 mg FEEDING TUBE Q6H PRN 09/01/20 11/14/20 History levothyroxine 50 mcg tablet 50 mcg FEEDING TUBE DAILY 09/01/20 11/14/20 History multivitamin 1 tab FEEDING TUBE DAILY 09/01/20 11/14/20 History thiamine HCl (vitamin B1) 100 mg 100 mg FEEDING TUBE DAILY 09/01/20 11/14/20 History tablet vitamin E (dl, acetate) 400 unit 400 unit FEEDING TUBE DAILY 09/01/20 11/14/20 History capsule gabapentin 300 mg/6 mL (6 mL) oral 400 mg FEEDING TUBE TID ml 09/10/20 11/14/20 History solution famotidine 20 mg tablet 20 mg FEEDING TUBE BID #60 tab 09/25/20 11/14/20 Rx cephalexin 500 mg J-TUBE Q8H #150 ml 11/21/20 Rx clotrimazole 60 g TOPICAL TID #0 g 11/21/20 Rx sucralfate 1 g UD Q6H #120 tab 11/21/20 Rx vits A and D-white pet-lanolin 60 g TOPICAL TID #0 g 11/21/20 Rx zinc oxide 60 g TOPICAL TID #0 g 11/21/20 Rx zinc sulfate [Zinc-220] 220 mg UD DAILY #30 cap 11/21/20 Rx Exam Const General: not healthy appearing, no acute distress, disheveled, frail appearing, ill appearing and does not appear intoxicated Nutritional Appearance: cachectic and thin Orientation: awake, oriented to person and oriented to place [facility] Head: normal to inspection, normocephalic and atraumatic Ears: hearing grossly normal bilaterally Mouth: muffled voice and oral mucosa abnormal (dry) Neck Neck: not normal to visual inspection and no lymphadenopathy Other: On the left side of his neck there is a moderate amount of swelling that is not tender nor erythematous. It is not indurated. There are scars present from his previous recent surgery. Chest Chest: normal palpation of entire chest wall Other: He has ecchymosis of his left anterior upper chest. He said there is no recent change. Resp Effort & Inspection: normal respiratory effort Auscultation: no rales, no rhonchi and no wheezes Cardio Rate: regular rate Rhythm: regular rhythm Heart Sounds: no gallops, no murmurs and no rubs GI Inspection: normal to inspection, no abdominal wall ecchymosis and non-distended Palpation: soft and nontender Skin Rashes: rashes noted Other: He has an extensive cellulitis of his right lower abdominal wall, anterior thigh on the right with extension to the right buttocks. Dr. Casey examined his buttocks which showed a shallow 1 cm in diameter ulceration. Extrem General: capillary refill normal and no edema Results Labs Result diagrams: 11/25/20 19:15 11/25/20 19:15 Labs: Laboratory Results - last 24 hr 11/25/20 11/25/20 11/25/20 19:15 19:15 19:15 WBC 9.22 RBC 3.68 L Hgb 11.8 L Hct 33.1 L MCV 89.9 MCH 32.1 MCHC 35.6 RDW 13.0 Plt Count 300 MPV 9.4 Immature Gran % 0.3 Neutrophils % 89.3 Lymphocytes % 2.9 Monocytes % 7.5 Eosinophils % 0.0 Basophils % 0.0 Nucleated RBC % 0 Absolute Neutrophils 8.23 H Absolute Lymphocytes 0.27 L Absolute Monocytes 0.69 Absolute Eosinophils 0.00 Absolute Basophils 0.00 VBG Lactate 3.3 H* Sodium 117 L* Potassium 2.6 L* Chloride 75 L Carbon Dioxide 33.4 H Anion Gap 8.6 BUN 5 L Creatinine 0.8 Estimated GFR/1.73 m2 >= 60.00 Glucose 98 Calcium 8.4 L Total Bilirubin 0.7 AST 50 H ALT 25 Alkaline Phosphatase 118 H Total Protein 7.6 Albumin 3.1 L Ethyl Alcohol COVID-19 Source 11/25/20 11/25/20 19:15 21:15 WBC RBC Hgb Hct MCV MCH MCHC RDW Plt Count MPV Immature Gran % Neutrophils % Lymphocytes % Monocytes % Eosinophils % Basophils % Nucleated RBC % Absolute Neutrophils Absolute Lymphocytes Absolute Monocytes Absolute Eosinophils Absolute Basophils VBG Lactate Sodium Potassium Chloride Carbon Dioxide Anion Gap BUN Creatinine Estimated GFR/1.73 m2 Glucose Calcium Total Bilirubin AST ALT Alkaline Phosphatase Total Protein Albumin Ethyl Alcohol 4.6 COVID-19 Source Nasal/Nares Last Vital Signs Temp 36.6 C 11/25/20 18:07 Pulse 107 H 11/25/20 18:07 Resp 18 11/25/20 18:07 BP 105/82 11/25/20 20:58 Pulse Ox 95 11/25/20 18:07
[2020-11-25 23:06] LABS: Lactate 1.5 mmol/L (0.6-1.4)
[2020-11-25 23:17] LABS: Anion Gap 6.4 mmol/L (3-11); BUN 4 mg/dL (7-18); CO2 32.6 mmol/L (21.0-32.0); CREATININE 0.6 mg/dL (0.70-1.30); Calcium 7.9 mg/dL (8.5-10.1); Chloride 83 mmol/L (98-107); Glucose 91 mg/dL (74-106)
[2020-11-25 23:19] LABS: Sodium 122 mmol/L (136-145)
[2020-11-25 23:37] LABS: COVID-19 PCR Negative (Negative)
[2020-11-26] VITALS (192 sets, daily range): BP systolic 100–117; BP diastolic 63–88; PULSE 93–128; RESP 12–39; TEMP 37.2–37.5; O2SAT 90–98
[2020-11-26] MEDS: CLINDAMYCIN 600 MG/50 ML BAG 100 MG IVPB ×3 (01:52→14:37)
[2020-11-26] MEDS: Sucralfate 1 GM TAB UD ×4 (02:34→17:25)
[2020-11-26] MEDS: Levothyroxine 50 MCG TAB UD (06:10)
[2020-11-26 06:43] LABS: Abs Immature Grans 0.02 10^3/uL (0.0-0.06); Absolute Basophil Count 0.01 10^3/uL (0.0-0.2); Absolute Eosinophil Count 0.01 10^3/uL (0.0-0.7); Absolute Lymphocyte Count 0.34 10^3/uL (1.2-3.4); Absolute Monocyte Count 0.57 10^3/uL (0.1-0.8); Absolute Neutrophil Count 5.29 10^3/uL (1.2-6.7); Basophils % 0.2; Eosinophils % 0.2; HCT 32.1 % (40.0-50.0); HGB 11.3 g/dL (13.5-17.5); Immature Grans % 0.3; Lymphocytes % 5.4; MCH 32.2 pg (27.0-33.0); MCHC 35.2 % (32.0-36.0); MCV 91.5 fL (80-95); MPV 9.7 fL (8.0-11.0); Monocytes % 9.1; Neutrophils % 84.8; Nucleated RBC 0 %; Platelet Count 304 10^3/uL (130-400); RBC 3.51 10^6/uL (4.36-5.78); RDW 13.3 % (11.8-14.1); RDW-SD 44.9 fL; WBC 6.24 10^3/uL (4.4-10.8)
[2020-11-26 07:01] LABS: Anion Gap 7.9 mmol/L (3-11); BUN 5 mg/dL (7-18); CO2 31.1 mmol/L (21.0-32.0); CREATININE 0.7 mg/dL (0.70-1.30); Calcium 8.4 mg/dL (8.5-10.1); Chloride 90 mmol/L (98-107); Glucose 96 mg/dL (74-106); Magnesium 2.4 mg/dL (1.8-2.4); PHOSPHORUS 2.1 mg/dL (2.6-4.7); Potassium 3.6 mmol/L (3.5-5.1); Sodium 129 mmol/L (136-145)
[2020-11-26] MEDS: Zinc Sulfate 220 MG TAB UD (09:11)
[2020-11-26] MEDS: Multivitamin TAB 1 TAB UD (09:12)
[2020-11-26] MEDS: Famotidine 20 MG TAB UD ×2 (09:12→20:24)
[2020-11-26] MEDS: Gabapentin 400 MG CAP UD ×3 (09:12→20:24)
[2020-11-26] MEDS: Normal Saline Flush 10 ML SYR IVP ×2 (09:13→14:37)
[2020-11-26] MEDS: Enoxaparin 40 MG/0.4 ML SYR SC (09:13)
[2020-11-26] MEDS: Normal Saline 500 ML IV (09:16)
--- NOTE | 2020-11-26 10:28 | INITIAL_ITS ---
- If Service Date Differs Date of service: 11/26/20 Time of Service: 10:28 Care Management Initial Assess REASON FOR HOSPITALIZATION:: Abdominal wall cellulitis PAST MEDICAL HISTORY/PAST SURGICAL HISTORY:: Medical History. Anxiety. Aspiration pneumonia. Caries. COPD (chronic obstructive pulmonary disease). Cough with hemoptysis. Dysphagia, oral phase. 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 Hypertension. Hypothyroidism. Mouth cancer. Oral pain. Recurrent squamous cell carcinoma. Tobacco use disorder. >25 pack years. Surgical History. S/P glossectomy (10/24/13). w/ resection of floor of mouth, w/ suprahyoid neck dissection. cervical lymphadenectomy, tracheostomy, excision benign thyroid lesion, exploration carotid artery. S/P reconstruction procedure (08/18/20). Pediculed pec flap, L hemiglossectomy and mandibulectomy ([place]). S/P tooth extraction (~2013). Status post glossectomy (08/11/20). w/ multiple other procedures PREVIOUS FUNCTIONAL STATUS/SOCIAL/FAMILY SUPPORTS:: Chito lives alone in an apartment in [facility]. He has a brother Peewee who lives locally and he and his are very supportive. Chito also names a childhood friend, Juvenal, as a strong support. 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 He communicated by writing on a whiteboard. He was recently discharged with new RN and PT. CURRENT FUNCTIONAL STATUS:: Chito was sitting up in bed watching TV when CM met with him. He is in the ICU, but will likely move to the med/surge floor soon. He reported not doing very well at home. He stated that he did not cut down on his drinking as much as he said he would. He is now agreeable to meeting with a silver recovery operator during this admission. He also stated that he is agreeable to going to rehab for his strengthening/mobility, if the facility would accept him. CM reached out to admissions at [facility], who reported hesitancy, but willingness to reconsider. Per provider, Chito may only require a topical cream, as the rash that he has appears fungal, and not cellulitis. CM will continue to follow. ADVANCE DIRECTIVES:: On file. Alan KENNEDY Has patient been provided with info about the portal/API?: Yes Did the patient sign up for the portal?: No CODE STATUS:: DNR/DNI INSURANCE COVERAGE / FINANCIAL ISSUES:: [facility]/ [facility] CURRENT HOME/COMMUNITY SERVICES/EQUIPMENT:: Currently has HH RN, PT from previous hospital discharge. PRIMARY CARE PHYSICIAN:: Maisha Deleon POTENTIAL DISCHARGE NEEDS:: Substance use resources, follow up with PCP and plan of care PATIENT/FAMILY EDUCATION NEEDS:: Review of discharge instructions, medications, follow up plan, limitations, Ask Me Three ANTICIPATED BARRIERS TO DISCHARGE:: None identified TRANSPORTATION:: Via private vehicle by family. PLAN:: Anticipate Chito will return home when medically cleared. He may go to SNF for short term rehab, if the rehab facility reconsiders his admission. CM has reached out to admissions at [facility] to inquire about this. He will follow up with his PCP and discharge plan of care. CM will continue to follow. Readmission - Within the Past 30 Days Yes or No: Y - Date of First Admission Date of 1st Admission: 11/14/20 - Date of this Admission Date of Admission: 11/26/20 This admission was: Through ED - Office Visit Since 1st Admission Have you seen your PCP in the office since discharge?: No Had an appointment Been Scheduled?: Yes Date of Scheduled Appointment: 12/10/20 Describe barriers for scheduling or getting an appointment: Chito relies on his brother to transport him to appointments. - ED visits How many ED visits in the past 12 months: 4
[2020-11-26] MEDS: Nystatin POWDER 60 GM JAR TP ×2 (11:00→20:25)
[2020-11-26 12:08] LABS: Bilirubin Negative (Negative); Blood Negative (Negative); Clarity Clear (Clear); Glucose Negative (Negative); Ketones 80 mg/dL (Negative); Leukocyte Esterase Negative (Negative); Nitrite Negative (Negative); Specific Gravity 1.015 (1.005-1.025); pH 8.5 (5-8)
--- NOTE | 2020-11-26 12:28 | W.NUTCONSULT ---
Date of service: 11/26/20 Time of Service: 11:30 Nutritional Consult ASSESSMENT: 60 y/o M w/ hx ETOH, Dysphagia, oral thrush, hypokalemia, hyponatremia, FTT, Oral CA. On folic acid, thiamine, MVI, Zn, Vit C to help cover micro-nutrient needs. He is [id number]% IBW w/ BMI 20.7. Noted: NPO at this time on EN via G-Tube. Current formula order is Jevity 1.5 @30 ml increase 15 mlhr to goal w/ 200 ml H2O flush q6. Daily Nutritional needs based on IBW 72.7kg ( s/f 1.5 g pro kg) (30 ml fluids/kg) are: 1818 -2181 k/laureen, 109g/pro, 2181 ml fluids. NUTRITIONAL DIAGNOSIS: In adequate protein energy intake w/Adult FTT r/t dysphagia, oral thrush, hx oral CA, AEB: on EN, 87% IBW INTERVENTION: Recommend: Jevity 1.5 @ 30 ml/hr increase by 15 ml q4 to goal of 60 ml/[id number]. TV= 1440 ml/day. Flush 250 ml H2O q6. Provides 2160 k/laureen, 1094 ml H2O ( Total H2O w/ vfipacf=8132 ml) , and 92g/pro. Recommend: 30 ml lx pro supplement qd via g-tube. Spoke with ICU nursing to review intervention. MONITORING AND EVALUATION: Check for residuals >100ml, NVD Time Spent in Nutritional Counseling and Treatment: 0 minutes face to face
--- NOTE | 2020-11-26 14:25 | PGE_ITS ---
Date of Service Date of service: 11/26/20 Time of Service: 09:13 Assessment and Plan Assessment and plan (1) Adult failure to thrive: Status: Acute Assessment and plan: Lives alone and it has been reported by EMS that the conditions appear to be uninhabitable. He was covered in feces on arrival. Not safe to return to the current living situation. Care Management involved. Palliative consulted. (2) Abdominal wall cellulitis: Status: Acute Assessment and plan: Appears to be more of a candidiasis; nystatin powder initiated. (3) Alcohol abuse: Status: Chronic Assessment and plan: Uses G-tube to ingest alcohol. CIWA precautions. No scoring as of yet. (4) Hyponatremia: Status: Resolved Assessment and plan: Improved. RElated to alcohol intake. Monitor (5) Discharge planning issues: Status: Acute Assessment and plan: Care Management involved. He has been living alone in his brother's trailer. Living conditions are apparently poor. Palliative to eval. Subjective Subjective Patient reports: no new complaints and afebrile; denies nausea, vomiting and shortness of breath Exam Const General: cooperative and no acute distress Nutritional Appearance: thin Orientation: alert, oriented to person and oriented to place [place] Head: normocephalic and atraumatic Neck Neck: other (Trach tube in position. Large, flaccid fluid collection to left of trachea.) Resp Effort & Inspection: normal respiratory effort Auscultation: clear to auscultation bilaterally Cardio Rate: regular rate Rhythm: regular rhythm Heart Sounds: S1 normal, S2 normal and no murmurs GI Inspection: other (PEG in place.) Palpation: soft and nontender Skin Rashes: rashes noted Other: Large confluent erythematous rash of R lower abd/groin/thigh/buttock with satellite lesions. Extrem General: no pedal edema and no calf tenderness Objective Last Vital Signs Temp 37.2 C 11/26/20 08:54 Pulse 102 H 11/26/20 08:55 Resp 19 11/26/20 14:08 BP 104/78 11/26/20 08:55 Pulse Ox 94 11/26/20 08:55 Laboratory Results - last 24 hr 11/25/20 11/25/20 11/25/20 19:15 19:15 19:15 WBC 9.22 RBC 3.68 L Hgb 11.8 L Hct 33.1 L MCV 89.9 MCH 32.1 MCHC 35.6 RDW 13.0 Plt Count 300 MPV 9.4 Immature Gran % 0.3 Neutrophils % 89.3 Lymphocytes % 2.9 Monocytes % 7.5 Eosinophils % 0.0 Basophils % 0.0 Nucleated RBC % 0 Absolute Neutrophils 8.23 H Absolute Lymphocytes 0.27 L Absolute Monocytes 0.69 Absolute Eosinophils 0.00 Absolute Basophils 0.00 VBG Lactate 3.3 H* Sodium 117 L* Potassium 2.6 L* Chloride 75 L Carbon Dioxide 33.4 H Anion Gap 8.6 BUN 5 L Creatinine 0.8 Estimated GFR/1.73 m2 >= 60.00 Glucose 98 Calcium 8.4 L Phosphorus Magnesium Total Bilirubin 0.7 AST 50 H ALT 25 Alkaline Phosphatase 118 H Total Protein 7.6 Albumin 3.1 L Urine Color Urine Clarity Urine pH Ur Specific [place] Urine Protein Urine Ketones Urine Blood Urine Nitrite Urine Bilirubin Urine Urobilinogen Ur Leukocyte Esterase Urine Glucose Ethyl Alcohol COVID-19 Source SARS-CoV-2 (PCR) 11/25/20 11/25/20 11/25/20 19:15 21:15 22:45 WBC RBC Hgb Hct MCV MCH MCHC RDW Plt Count MPV Immature Gran % Neutrophils % Lymphocytes % Monocytes % Eosinophils % Basophils % Nucleated RBC % Absolute Neutrophils Absolute Lymphocytes Absolute Monocytes Absolute Eosinophils Absolute Basophils VBG Lactate Sodium 122 L* Potassium 3.0 L Chloride 83 L Carbon Dioxide 32.6 H Anion Gap 6.4 BUN 4 L Creatinine 0.6 L Estimated GFR/1.73 m2 >= 60.00 Glucose 91 Calcium 7.9 L Phosphorus Magnesium Total Bilirubin AST ALT Alkaline Phosphatase Total Protein Albumin Urine Color Urine Clarity Urine pH Ur Specific [place] Urine Protein Urine Ketones Urine Blood Urine Nitrite Urine Bilirubin Urine Urobilinogen Ur Leukocyte Esterase Urine Glucose Ethyl Alcohol 4.6 COVID-19 Source Nasal/Nares SARS-CoV-2 (PCR) Negative 11/25/20 11/26/20 11/26/20 22:45 06:15 06:15 WBC 6.24 D RBC 3.51 L Hgb 11.3 L Hct 32.1 L MCV 91.5 MCH 32.2 MCHC 35.2 RDW 13.3 Plt Count 304 MPV 9.7 Immature Gran % 0.3 Neutrophils % 84.8 Lymphocytes % 5.4 Monocytes % 9.1 Eosinophils % 0.2 Basophils % 0.2 Nucleated RBC % 0 Absolute Neutrophils 5.29 Absolute Lymphocytes 0.34 L Absolute Monocytes 0.57 Absolute Eosinophils 0.01 Absolute Basophils 0.01 VBG Lactate 1.5 H Sodium 129 L Potassium 3.6 Chloride 90 L Carbon Dioxide 31.1 Anion Gap 7.9 BUN 5 L Creatinine 0.7 Estimated GFR/1.73 m2 >= 60.00 Glucose 96 Calcium 8.4 L Phosphorus 2.1 L Magnesium 2.4 Total Bilirubin AST ALT Alkaline Phosphatase Total Protein Albumin Urine Color Urine Clarity Urine pH Ur Specific [place] Urine Protein Urine Ketones Urine Blood Urine Nitrite Urine Bilirubin Urine Urobilinogen Ur Leukocyte Esterase Urine Glucose Ethyl Alcohol COVID-19 Source SARS-CoV-2 (PCR) 11/26/20 11:00 WBC RBC Hgb Hct MCV MCH MCHC RDW Plt Count MPV Immature Gran % Neutrophils % Lymphocytes % Monocytes % Eosinophils % Basophils % Nucleated RBC % Absolute Neutrophils Absolute Lymphocytes Absolute Monocytes Absolute Eosinophils Absolute Basophils VBG Lactate Sodium Potassium Chloride Carbon Dioxide Anion Gap BUN Creatinine Estimated GFR/1.73 m2 Glucose Calcium Phosphorus Magnesium Total Bilirubin AST ALT Alkaline Phosphatase Total Protein Albumin Urine Color Yellow Urine Clarity Clear Urine pH 8.5 H Ur Specific [place] 1.015 Urine Protein Negative Urine Ketones 80 H Urine Blood Negative Urine Nitrite Negative Urine Bilirubin Negative Urine Urobilinogen 1.0 H Ur Leukocyte Esterase Negative Urine Glucose Negative Ethyl Alcohol COVID-19 Source SARS-CoV-2 (PCR)
[2020-11-26] MEDS: Protein Nutritional Supplement 16 GM 1 OUNCE PACKET JT (17:26)
[2020-11-26] MEDS: MULTIVITAMIN 10 ML, THIAMINE 100 MG, FOLIC ACID 1 MG in DEXTROSE 5%-0.45% SALINE 1,000 ML 42 ML IV (20:52)
[2020-11-27] VITALS (22 sets, daily range): BP systolic 98–127; BP diastolic 64–89; PULSE 85–104; RESP 14–32; TEMP 36.5–37.4; O2SAT 95–98
[2020-11-27] MEDS: Sucralfate 1 GM TAB UD ×4 (01:37→17:48)
[2020-11-27] MEDS: Levothyroxine 50 MCG TAB UD (07:19)
[2020-11-27] MEDS: Vitamin E 400 UNITS CAP UD (09:11)
[2020-11-27] MEDS: Zinc Sulfate 220 MG TAB UD (09:12)
[2020-11-27] MEDS: Protein Nutritional Supplement 16 GM 1 OUNCE PACKET JT ×3 (09:12→17:48)
[2020-11-27] MEDS: Nystatin POWDER 60 GM JAR TP ×2 (09:13→21:18)
[2020-11-27] MEDS: Multivitamin TAB 1 TAB UD (09:13)
[2020-11-27] MEDS: Famotidine 20 MG TAB UD ×2 (09:15→21:18)
[2020-11-27] MEDS: Gabapentin 400 MG CAP UD ×3 (09:15→21:18)
[2020-11-27] MEDS: Enoxaparin 40 MG/0.4 ML SYR SC (09:19)
[2020-11-27] MEDS: Ibuprofen 600 MG TAB UD ×2 (09:20→17:48)
--- NOTE | 2020-11-27 10:19 | W.PM.PROGNOT ---
Date of Service Date of service: 11/27/20 Time of Service: 10:22 Assessment and Plan Assessment and plan (1) Hyponatremia: Status: Acute Assessment and plan: Improving. Na in AM (2) Adult failure to thrive: Status: Acute Assessment and plan: He was not caring for himself at home. Ingesting alcohol per G-tube. Found with feces covering groin/legs. Cont G-tube feeds. Planning on placement; patient agreeable. (3) Candidiasis: Status: Acute Assessment and plan: Cont Nystatin poweder. Improving. I don't believe there is an active cellulitis of the abd. Antibiotic stopped (4) Alcohol abuse: Status: Chronic Assessment and plan: On CIWA precautions. Not scoring. (5) Hypertension: Status: Chronic Assessment and plan: Not on anti-hypertensives. BP controlled. (6) COPD (chronic obstructive pulmonary disease): Status: Chronic Assessment and plan: Not on any treatment. No exacerbation. PRN duonebs. 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 Has seroma of left neck. Subjective Subjective Patient reports: feels better, bowel movement and afebrile; denies nausea and vomiting Exam Const General: cooperative and no acute distress Nutritional Appearance: average body habitus Orientation: alert Neck Neck: other (trach in place) Other: Left of trach is a flaccid fluid collection w/o erythema or tenderness. Resp Effort & Inspection: normal respiratory effort Auscultation: clear to auscultation bilaterally Cardio Rate: tachycardic Rhythm: regular rhythm Heart Sounds: S1 normal and S2 normal GI Inspection: other (G-tube in place) Palpation: soft and nontender Skin Other: Diffuse erythema of abd, groins and left thigh. Areas of crusting. No purulent drainage. Penis with several very shallow areas of skin breakdown. Extrem General: no pedal edema and no calf tenderness Objective Last Vital Signs Temp 36.8 C 11/27/20 00:00 Pulse 99 H 11/27/20 07:38 Resp 22 11/27/20 07:38 BP 103/72 11/27/20 07:38 Pulse Ox 95 11/27/20 07:38 Laboratory Results - last 24 hr 11/26/20 11:00 Urine Color Yellow Urine Clarity Clear Urine pH 8.5 H Ur Specific [place] 1.015 Urine Protein Negative Urine Ketones 80 H Urine Blood Negative Urine Nitrite Negative Urine Bilirubin Negative Urine Urobilinogen 1.0 H Ur Leukocyte Esterase Negative Urine Glucose Negative
--- NOTE | 2020-11-27 10:19 | CMPROGNOTE_ITS ---
- If Service Date Differs Date of service: 11/27/20 Time of Service: 10:36 Care Management Progress Note S/O: Chito was sitting up in bed when CHARLY met with him. He reported that he was feeling better today, and believes that the rash is improving with the topical cream. CHARLY discussed his possible admission to [facility] with stephie Russ, who asked for an opportunity to meet with Chito prior to making a decision. CHARLY discussed this with the team, and it was decided that they should meet in the [facility], tomorrow at 11am. CHARLY informed his RN of this plan. CHARLY will continue to follow. A: Chito is a 60 year old male admitted to [facility] on 11/25/20 with cellulitis, failure to thrive. P: Anticipate Chito will return home when medically cleared. He may go to SNF for short term rehab, if the rehab facility reconsiders his admission. CHARLY has reached out to admissions at [facility] to inquire about this. He will follow up with his PCP and discharge plan of care. CM will continue to follow.
--- NOTE | 2020-11-27 10:39 | PHA.REVIEW ---
Pharmacy Admission Review - Admission Clinical Review (Last Reviewed 11/14/20 @ 18:27 by Avni Hutchins MD) Hyponatremia (Acute) Hypokalemia (Acute) Adult failure to thrive (Acute) Abdominal wall cellulitis (Acute) Acute hypokalemia (Acute) Discharge planning issues (Acute) No Known Allergies Allergy (Verified 11/02/20 08:32) Resuscitation Status DNR/DNI Height 5 ft 9 in Weight 71.1 kg - Renal Dosing Renal Dosing: BUN 5 mg/dL (7-18) L 11/26/20 06:15 Creatinine 0.7 mg/dL (0.70-1.30) 11/26/20 06:15 Medications needing adjustments: Reviewed - Anticoagulation Anticoagulation: Hgb 11.3 g/dL (13.5-17.5) L 11/26/20 06:15 Hct 32.1 % (40.0-50.0) L 11/26/20 06:15 Plt Count 304 10^3/uL (130-400) 11/26/20 06:15 Creatinine 0.7 mg/dL (0.70-1.30) 11/26/20 06:15 DVT Prohphylaxis: Reviewed Medications: Enoxaparin - Opiate Usage Evaluate Pain Scale/Pains Meds: N/A - Relevant Labs Sodium 129 mmol/L (136-145) L 11/26/20 06:15 Potassium 3.6 mmol/L (3.5-5.1) 11/26/20 06:15 Chloride 90 mmol/L (98-107) L 11/26/20 06:15 Phosphorus 2.1 mg/dL (2.6-4.7) L 11/26/20 06:15 Magnesium 2.4 mg/dL (1.8-2.4) 11/26/20 06:15 Electrolytes, C-Reactive P, ESR: Reviewed - DM Control DM Control: Glucose 96 mg/dL (74-106) 11/26/20 06:15 Insulin Dosing: N/A - Heart Failure/CO EF%, CANDE's, B-Blockers, Diuretics: N/A - BP Control BP Control: Blood Pressure 103/72 Blood Pressure 103/64 If elevated: Reviewed - Qtc Review If Elevated: N/A - IV to PO Switch IV Medications: N/A - Home Meds Home Med List reviewed: Reviewed Relevent Home Meds Not ordered & why?: all ordered except vitamin e (do not have liquid/oil dosage form here), all confirmed; of note up until 09/26 was filling oxycodone 5mg/5ml oral solution prn pain - Current meds Current Medication Order Review: Reviewed (IV clindamycin stopped, banana bag ordered -- today is day 2 will reassess need to continue tomorrow AM, all orders reflect admin via g-tube) - Comments Comments/Follow Ups: receive Na via fluids/banana bag; antibiotic stopped -- doesn't appear to be active cellulitis per md, nystatin powder ordered; CIWA protocol in place but not scoring yet
--- NOTE | 2020-11-27 13:40 | WOUNDCONS ---
- If Service Date Differs Date of service: 11/27/20 Time of Service: 09:30 Wound Initial Evaluation Narrative: Miscellaneous order placed to take pictures of patient's buttocks and abd/ thigh/ groin area to place in chart. Prior to taking pictures, areas were cleaned to patient tolerance. Pt declined further cleansing of one area on left gluteus where there is a scab d/t pain. Reviewed need to clean area to prevent further breakdown. Will attempt to cleanse further when allowed by patient. Area on buttocks diffuse redness with blanchable areas of purple on bilateral ischial tuberosities. RN in room and was explaining need to reposition off the area to patient. Areas on bilateral thighs and abd tender to touch as well, more diffuse dusky red. Area on right thigh extends from hip to groin and around to posterior aspect of thigh. Area on right abd measures approximately 5 cm x 16 cm x less than 0.1 cm. Area on left thigh measures approximately 10 cm x 20 cm x less than 0.1 cm. Areas of redness have order for nystatin powder and interdry at this time per Dr. Broussard. Pt in agreement with plan of care.
[2020-11-27] MEDS: MULTIVITAMIN 10 ML, THIAMINE 100 MG, FOLIC ACID 1 MG in DEXTROSE 5%-0.45% SALINE 1,000 ML 42 ML IV (21:19)
[2020-11-28] VITALS (10 sets, daily range): BP systolic 110–137; BP diastolic 64–95; PULSE 83–106; RESP 15–26; TEMP 36.4–36.7; O2SAT 97–99
[2020-11-28] MEDS: Ibuprofen 600 MG TAB UD ×4 (03:29→21:28)
[2020-11-28] MEDS: Levothyroxine 50 MCG TAB UD (05:56)
[2020-11-28] MEDS: Sucralfate 1 GM TAB UD ×5 (05:56→22:58)
[2020-11-28 06:41] LABS: Abs Immature Grans 0.04 10^3/uL (0.0-0.06); Absolute Basophil Count 0.06 10^3/uL (0.0-0.2); Absolute Eosinophil Count 0.32 10^3/uL (0.0-0.7); Absolute Lymphocyte Count 0.67 10^3/uL (1.2-3.4); Absolute Monocyte Count 0.56 10^3/uL (0.1-0.8); Absolute Neutrophil Count 5.42 10^3/uL (1.2-6.7); Basophils % 0.8; Eosinophils % 4.5; HCT 32.4 % (40.0-50.0); HGB 11.1 g/dL (13.5-17.5); Immature Grans % 0.6; Lymphocytes % 9.5; MCH 32.4 pg (27.0-33.0); MCHC 34.3 % (32.0-36.0); MCV 94.5 fL (80-95); MPV 9.5 fL (8.0-11.0); Monocytes % 7.9; Neutrophils % 76.7; Nucleated RBC 0 %; Platelet Count 346 10^3/uL (130-400); RBC 3.43 10^6/uL (4.36-5.78); RDW 13.4 % (11.8-14.1); RDW-SD 46.5 fL; WBC 7.07 10^3/uL (4.4-10.8)
[2020-11-28 06:42] LABS: Anion Gap 7.5 mmol/L (3-11); BUN 8 mg/dL (7-18); CO2 29.5 mmol/L (21.0-32.0); CREATININE 0.7 mg/dL (0.70-1.30); Calcium 8.9 mg/dL (8.5-10.1); Chloride 96 mmol/L (98-107); Glucose 118 mg/dL (74-106); Sodium 133 mmol/L (136-145)
[2020-11-28] MEDS: Vitamin E 400 UNITS CAP UD (09:30)
[2020-11-28] MEDS: Multivitamin TAB 1 TAB UD (09:30)
[2020-11-28] MEDS: POTASSIUM CHLORIDE 10 MEQ/100 ML BAG 100 MEQ IVPB (09:36)
[2020-11-28] MEDS: Enoxaparin 40 MG/0.4 ML SYR SC (09:40)
[2020-11-28] MEDS: Protein Nutritional Supplement 16 GM 1 OUNCE PACKET JT ×3 (09:40→17:31)
[2020-11-28] MEDS: Zinc Sulfate 220 MG TAB UD (09:41)
[2020-11-28] MEDS: Potassium Chloride Liquid 20 MEQ PKT 40 MEQ PO (09:41)
[2020-11-28] MEDS: Famotidine 20 MG TAB UD ×2 (09:41→19:45)
[2020-11-28] MEDS: Gabapentin 400 MG CAP UD ×3 (09:41→19:45)
[2020-11-28] MEDS: Nystatin POWDER 60 GM JAR TP ×2 (09:43→19:59)
--- NOTE | 2020-11-28 11:50 | W.PM.PROGNOT ---
Date of Service Date of service: 11/28/20 Time of Service: 11:59 Assessment and Plan Assessment and plan (1) Candidiasis: Status: Acute Assessment and plan: Improving. Cont Nystatin powder. Maintain dryness of affected areas. (2) Hyponatremia: Status: Acute Assessment and plan: Improved. Na 133. Related to alcohol abuse. (3) Adult failure to thrive: Status: Acute Assessment and plan: He was living in poor conditions and depressed. Since admission he has been feeling better. His mood has improved. He is motivated to transition to [facility]. Cont enteral feeding. (4) Alcohol abuse: Status: Chronic Assessment and plan: No withdrawal during this admission. Cont daily MVI, thiamine and folate. 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 It is capped. However, pt is s/p glossectomy and he relates that he could not spit his secretions. He would like to maintain the trach. (6) DVT prophylaxis: Status: Acute Assessment and plan: Lovenox 40 mg SC daily Subjective Subjective Patient reports: no new complaints and afebrile; denies nausea, vomiting and shortness of breath Exam Const General: cooperative and no acute distress Nutritional Appearance: average body habitus Orientation: alert and oriented x3 Neck Neck: tracheostomy present and other (flaccid fluid accumulation left of midline.) Resp Effort & Inspection: normal respiratory effort Auscultation: clear to auscultation bilaterally Cardio Rate: regular rate Rhythm: regular rhythm Heart Sounds: S1 normal and S2 normal GI Inspection: other (Feeding tube present) Palpation: soft and nontender Penis: swelling and ulceration (several shallow ulcerations.) Skin Rashes: other (Diffuse mildly erythematous macular rash;abd,groin,genitalia, R thigh.) Extrem General: no pedal edema and no calf tenderness Psych Mental Status: mental status grossly normal Affect: normal affect Objective Last Vital Signs Temp 36.4 C L 11/28/20 00:38 Pulse 87 11/28/20 00:38 Resp 17 11/28/20 00:38 BP 110/64 11/28/20 00:38 Pulse Ox 97 11/28/20 00:38 Laboratory Results - last 24 hr 11/28/20 11/28/20 11/28/20 06:18 06:18 06:18 WBC 7.07 RBC 3.43 L Hgb 11.1 L Hct 32.4 L MCV 94.5 MCH 32.4 MCHC 34.3 RDW 13.4 Plt Count 346 MPV 9.5 Immature Gran % 0.6 Neutrophils % 76.7 Lymphocytes % 9.5 Monocytes % 7.9 Eosinophils % 4.5 Basophils % 0.8 Nucleated RBC % 0 Absolute Neutrophils 5.42 Absolute Lymphocytes 0.67 L Absolute Monocytes 0.56 Absolute Eosinophils 0.32 Absolute Basophils 0.06 Sodium 133 L Potassium 3.0 L Chloride 96 L Carbon Dioxide 29.5 Anion Gap 7.5 BUN 8 Creatinine 0.7 Estimated GFR/1.73 m2 >= 60.00 Glucose 118 H Calcium 8.9 Phosphorus 4.0
--- NOTE | 2020-11-28 13:32 | PT.INIE ---
Date of service: 11/28/20 Time of Service: 13:32 PT Notes Visit Reasons: Abdominal Wall Cellulitis,Adult Failure to Thrive Physical Therapy Inpatient Initial Evaluation Date: 11/28/2020 Referring Doctor: Alan Broussard MD PT Orders: PT CONSULT: Eval/treat Precautions: Fall. Standard. Activity as tolerated. 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 PMHX: Medical History Anxiety Aspiration pneumonia Caries COPD (chronic obstructive pulmonary disease) Cough with hemoptysis Dysphagia, oral phase 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 cervical lymphadenectomy, tracheostomy, excision benign thyroid lesion, exploration carotid artery S/P reconstruction procedure (08/18/20) Pediculed pec flap, L hemiglossectomy and mandibulectomy ([place]) S/P tooth extraction (~2013) Status post glossectomy (08/11/20) General w/ multiple other procedures Social History/Home Situation: Patient lives alone in a private home with 4 steps to enter with a post to grab onto. He has been independent with PEG tube feeding since July 2020. Does not use any ambulatory device for all mobility ADL performance. Equipment Owned/DME: None Subjective: Agreeable to PT consult. Objective: General Observation: Telemetry monitoring in place. Mitchell catheter in place. PEG tube in situ. IV access in right UE. Mental Status: Alert and oriented as to person, place, time, and purpose. Able to pay attention, focus, and respond appropriately. Pain: None reported Vital Signs: WNL as closely monitored ROM: Right Upper Extremity: Shoulder Flexion WFL. Shoulder abduction WFL. Shoulder ER/IR WFL. Elbow flexion WFL. Forearm pronation/supination WFL. Wrist flexion WFL. Opening and closing of hand WFL. Left Upper Extremity: Shoulder Flexion WFL. Shoulder abduction WFL. Shoulder ER/IR WFL. Elbow flexion WFL. Forearm pronation/supination WFL. Wrist flexion WFL. Opening and closing of hand WFL. Right Lower Extremity: Hip flexion WFL. Hip abduction WFL. Hip ER/IR WFL. Knee flexion WFL. Knee extension. Ankle dorsiflexion/eversion WFL. Ankle plantarflexion/inversion WFL. Left Lower Extremity: Hip flexion WFL. Hip abduction WFL. Hip ER/IR WFL. Knee flexion WFL. Knee extension. Ankle dorsiflexion WFL. Ankle plantarflexion WFL. Strength: Right Upper Extremity: Shoulder flexors 4-/5. Shoulder abductors 4-/5. Shoulder ER 4-/5. Shoulder IR 5/5. Forearm pronators 4-/5. Forearm supinators 4-/5. Elbow flexors 4-/5. Elbow extensors 4-/5. [employer] strong. Left Upper Extremity: Shoulder flexors 4-/5. Shoulder abductors 4-/5. Shoulder ER 4-/5. Shoulder IR 5/5. Forearm pronators 4-/5. Forearm supinators 4-/5. Elbow flexors 4-/5. Elbow extensors 4-/5. [employer] strong. Right Lower Extremity: Hip flexors 4/5. Hip abductors 4/5. Hip external rotators 4/5. Hip internal rotators 4/5. Knee flexors 4/5. Knee extensors 4/5. Ankle dorsiflexors/evertors 4/5. Ankle plantarflexors/invertors 4/5. Left Lower Extremity: Hip flexors 4/5. Hip abductors 4/5. Hip external rotators 4/5. Hip internal rotators 4/5. Knee flexors 4/5. Knee extensors 4/5. Ankle dorsiflexors/evertors 4/5. Ankle plantarflexors/invertors 4/5. Bed Mobility/Transfers: Supine to sit independent Sit to stand independent Stand to sit independent Bed to chair independent Gait: Distance of 300 feet requiring no assistance and no assistive device. Wide ANISA. Decreased step length. Balance: Static Sitting: Normal Dynamic Sitting: Normal Static Standing: Normal Dynamic Standing: Good Special Tests: Mobility Limitations Standardized Measure [facility] AM-PAC 6 clicks Basic Mobility Inpatient Short Form: Raw Score: 24 CMS Score: 0 % deficit Informed Consent/Education: Patient agreeable to PT consult. Assessment: Patient may be need independent inside room and supervision for long distances without any assistive device. No skilled physical therapy services needed at this time. [place] is [place] 45721 moderate complexity based on the following: History: 60 [id number] with past medical history as indicated above Examination: Demonstrable impairment in strength, balance, and mobility level with underlying impairments and functional limitations as exhibited above as well as deficit score of 0% utilizing the [facility] Mobility Inpatient Short Form Presentation: Stable Decision Makin moderate complexity Goals: N/A. PT evaluation only. Plan of Care/Treatment Plan: N/A. PT evaluation only. DISCHARGE RECOMMENDATIONS: No skilled physical therapy services needed at this time. Nursing staff may continue with providing supervision assist for level surface ambulation for distance of up to 300 feet without an assistive device. TREATMENT CODE/TIME: 19799 x 26 minutes beginning at 13:32 PM. Thank you for the opportunity to participate in the care of this patient. Leah Palencia PT, DPT, CLT [facility] [place], [place]
--- NOTE | 2020-11-28 17:32 | CMPROGNOTE_ITS ---
- If Service Date Differs Date of service: 11/28/20 Time of Service: 17:32 Care Management Progress Note S/O: Chito was sitting up in bed when CM met with him. CM coordinated a visit with Petrona and Dixie from [facility] today, to reconsider him for admission. The meeting went well, and they have offered him a bed in their facility. He will transport on Tuesday, as they cannot accept an admission over the holiday weekend. Chito is happy and excited to spend some time working with PT/OT to gain strength and independence. CM called [facility], at Chito's request, and updated them on his plan, and asked for them to bring him a couple changes of clothes for rehab. They will drop some items off for him this weekend. CM will continue to follow. A: Chito is a 60 year old male admitted to [facility] on 11/25/20 with cellulitis, failure to thrive. P: Chito was offered a bed at [facility] on Tuesday. He will transport via facility w/c van, coordinated by CHARLY. He will follow up with his PCP and discharge plan of care. CM will continue to follow.
[2020-11-28] MEDS: Normal Saline Flush 10 ML SYR IVP (20:45)
[2020-11-29] VITALS (8 sets, daily range): BP systolic 121–125; BP diastolic 85–93; PULSE 91–97; RESP 20; TEMP 36.3–36.9; O2SAT 97–99
[2020-11-29] MEDS: Ibuprofen 600 MG TAB UD ×4 (03:59→22:07)
[2020-11-29] MEDS: Sucralfate 1 GM TAB UD ×3 (05:41→18:32)
[2020-11-29] MEDS: Levothyroxine 50 MCG TAB UD (05:41)
[2020-11-29 07:18] LABS: Anion Gap 7.8 mmol/L (3-11); BUN 8 mg/dL (7-18); CO2 28.2 mmol/L (21.0-32.0); CREATININE 0.7 mg/dL (0.70-1.30); Chloride 98 mmol/L (98-107); Glucose 108 mg/dL (74-106); Potassium 3.5 mmol/L (3.5-5.1); Sodium 134 mmol/L (136-145)
--- NOTE | 2020-11-29 07:33 | CMPROGNOTE_ITS ---
Care Management Progress Note S/O: Chito remains inpatient awaiting SNF stay at [facility] after the holiday weekend; likely Tuesday. CM will continue to follow. A: Chito is a 60 year old male admitted to [facility] on 11/25/20 with cellulitis, failure to thrive. P: Chito was offered a bed at [facility] on Tuesday, [facility] were updated on the plan, and asked to bring clothes for rehab. They will drop some items off for him this weekend. He will transport via facility w/c van, coordinated by CM. He will follow up with his PCP and discharge plan of care. CM will continue to follow.
[2020-11-29 07:44] LABS: Magnesium 1.8 mg/dL (1.8-2.4)
--- NOTE | 2020-11-29 08:21 | PGE_ITS ---
Date of Service Date of service: 11/29/20 Time of Service: 12:53 Assessment and Plan Assessment and plan (1) Adult failure to thrive: Status: Acute Assessment and plan: Plan for discharge to [facility]. Continue tube feeding, but consider changing formula to home formula (Nutren). Diarrhea (chronic) - may be tube feeding related. Currently on jevity continuous. Add banatrol. Checking C.Diff as was recently on abx. (2) Alcohol abuse: Status: Chronic Assessment and plan: No signs of w/d. Patient is motivated to remain sober. Continue MVI, thiamine and folate. (3) Candidiasis: Status: Acute Assessment and plan: Fungal dermatitis skin folds. Improving. Continue Nystatin powder. (4) Hyponatremia: Status: Acute Assessment and plan: [place] to be due to alcohol intoxication/beer potomania. Resolving. Continue to monitor. 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 Keep trach in place (patient cannot clear saliva otherwise). Was being considered for re-irradiation; however, I am not seeing notes about this since September 15. This is worth revisiting - the patient will need an outpatient appointment with ENT and possibly rad/onc. Palliative care consulted. Tube feeding via gastrostomy tube. (6) DVT prophylaxis: Status: Acute Assessment and plan: Lovenox 40 mg SC daily (7) Discharge planning issues: Status: Acute Assessment and plan: DNR/DNI Pallitive care consult Subjective Subjective Interval history since last seen: Denies dizziness, chest pain, endorses his chronic shortness of breath, denies n/v. Having diarrhea. States at home he is a tube feeding formula called nutren 5x/day. Here, he has been on continuous jevity. Afebrile. Not on abx. Exam Narrative Exam Narrative: General: pleasant middle-aged male, appears comfortable HEENT:trach, L neck mass, EOMI, MMM Heart: RRR, no m/r/g Lungs: CTAB Abdomen: soft, nontender, nondistended; RLQ wound completely healed; some erythema remains. Gastrostomy tube Extremities: no edema BLE's Objective Last Vital Signs Temp 36.4 C L 11/29/20 08:09 Pulse 92 H 11/29/20 03:50 Resp 20 11/29/20 03:50 BP 124/93 H 11/29/20 03:50 Pulse Ox 99 11/29/20 03:50 Laboratory Results - last 24 hr 11/29/20 11/29/20 06:30 06:30 Sodium 134 L Potassium 3.5 Chloride 98 Carbon Dioxide 28.2 Anion Gap 7.8 BUN 8 Creatinine 0.7 Estimated GFR/1.73 m2 >= 60.00 Glucose 108 H Calcium 9.0 Magnesium 1.8
[2020-11-29] MEDS: Gabapentin 400 MG CAP UD ×3 (08:41→19:37)
[2020-11-29] MEDS: Zinc Sulfate 220 MG TAB UD (08:41)
[2020-11-29] MEDS: Enoxaparin 40 MG/0.4 ML SYR SC (08:42)
[2020-11-29] MEDS: Thiamine 100 MG TAB UD (08:42)
[2020-11-29] MEDS: Multivitamin TAB 1 TAB UD (08:42)
[2020-11-29] MEDS: Protein Nutritional Supplement 16 GM 1 OUNCE PACKET JT ×3 (08:42→18:32)
[2020-11-29] MEDS: Vitamin E 400 UNITS CAP UD (08:42)
[2020-11-29] MEDS: Folic Acid 1 MG TAB UD (08:42)
[2020-11-29] MEDS: Famotidine 20 MG TAB UD ×2 (08:42→19:37)
[2020-11-29 09:41] LABS: Abs Immature Grans 0.05 10^3/uL (0.0-0.06); Absolute Basophil Count 0.07 10^3/uL (0.0-0.2); Absolute Eosinophil Count 0.28 10^3/uL (0.0-0.7); Absolute Lymphocyte Count 0.71 10^3/uL (1.2-3.4); Absolute Monocyte Count 0.56 10^3/uL (0.1-0.8); Absolute Neutrophil Count 5.96 10^3/uL (1.2-6.7); Basophils % 0.9; Eosinophils % 3.7; HCT 33.7 % (40.0-50.0); HGB 11.1 g/dL (13.5-17.5); Immature Grans % 0.7; Lymphocytes % 9.3; MCH 32.1 pg (27.0-33.0); MCHC 32.9 % (32.0-36.0); MCV 97.4 fL (80-95); MPV 9.6 fL (8.0-11.0); Monocytes % 7.3; Neutrophils % 78.1; Nucleated RBC 0 %; Platelet Count 396 10^3/uL (130-400); RBC 3.46 10^6/uL (4.36-5.78); RDW 13.6 % (11.8-14.1); RDW-SD 48.7 fL; WBC 7.63 10^3/uL (4.4-10.8)
[2020-11-29] MEDS: Nystatin POWDER 60 GM JAR TP ×2 (11:15→19:37)
[2020-11-29] MEDS: Loperamide 2 MG CAP UD ×2 (13:09→22:07)
--- NOTE | 2020-11-29 16:45 | WOUNDCONS ---
- If Service Date Differs Date of service: 11/29/20 Time of Service: 16:00 Wound Initial Evaluation Narrative: Consult placed to evaluate right abdominal wound. Wound seen and measured on 11/27/20. See consult on that date for photos. Area today looks less red and smaller in size with no open areas noted. Pt agrees with assessment of area. Discussed current treatment and wound condition with Dr. Dumas. - Wound Right abdomen Wound Type: Other (prior open wound site) Wound General Appearance: Open to air, Healing Well - Recomendation Recomendation:: Right abdominal wound- Continue current treatment as ordered Physcian/Nurse Practioner Notified: Yes (Dr. Dumas)
[2020-11-29 22:45] LABS: C Diff PCR Negative (Negative)
[2020-11-30] VITALS (10 sets, daily range): BP systolic 88–146; BP diastolic 57–103; PULSE 89–122; RESP 20; TEMP 36.7–37.4; O2SAT 97–99
[2020-11-30] MEDS: Sucralfate 1 GM TAB UD ×5 (01:13→23:04)
[2020-11-30] MEDS: Acetaminophen 325 MG TAB 650 MG PO ×4 (01:44→19:54)
[2020-11-30] MEDS: Ibuprofen 600 MG TAB UD ×4 (03:50→23:02)
[2020-11-30 05:29] LABS: Abs Immature Grans 0.04 10^3/uL (0.0-0.06); Absolute Basophil Count 0.08 10^3/uL (0.0-0.2); Absolute Eosinophil Count 0.38 10^3/uL (0.0-0.7); Absolute Lymphocyte Count 0.72 10^3/uL (1.2-3.4); Absolute Monocyte Count 0.89 10^3/uL (0.1-0.8); Absolute Neutrophil Count 6.65 10^3/uL (1.2-6.7); Basophils % 0.9; Eosinophils % 4.3; HCT 33.4 % (40.0-50.0); Immature Grans % 0.5; Lymphocytes % 8.2; MCH 32.4 pg (27.0-33.0); MCHC 32.9 % (32.0-36.0); MCV 98.2 fL (80-95); MPV 9.2 fL (8.0-11.0); Monocytes % 10.2; Neutrophils % 75.9; Nucleated RBC 0 %; Platelet Count 353 10^3/uL (130-400); RDW-SD 50.2 fL; WBC 8.76 10^3/uL (4.4-10.8)
[2020-11-30 05:40] LABS: Anion Gap 6.1 mmol/L (3-11); BUN 11 mg/dL (7-18); CO2 29.9 mmol/L (21.0-32.0); CREATININE 0.8 mg/dL (0.70-1.30); Calcium 8.9 mg/dL (8.5-10.1); Chloride 97 mmol/L (98-107); Glucose 97 mg/dL (74-106); Magnesium 1.9 mg/dL (1.8-2.4); Sodium 133 mmol/L (136-145)
[2020-11-30] MEDS: Levothyroxine 50 MCG TAB UD (06:46)
--- NOTE | 2020-11-30 08:23 | PGE_ITS ---
Date of Service Date of service: 11/30/20 Time of Service: 11:00 Assessment and Plan Assessment and plan (1) Adult failure to thrive: Status: Acute Assessment and plan: Plan for discharge to [facility]. Continue tube feeding with increased free water. Home formula is Nutren bolus feeds, which we do not have. Diarrhea (chronic) - may be tube feeding related. Currently on jevity continuous. Patient thinks that banatrol may have given him abdominal pain - d/c. C.diff negative. (2) Alcohol abuse: Status: Chronic Assessment and plan: No signs of w/d. Patient is motivated to remain sober. Continue MVI, thiamine and folate. (3) Candidiasis: Status: Acute Assessment and plan: Fungal dermatitis skin folds. Improving. Continue Nystatin powder. (4) Hyponatremia: Status: Acute Assessment and plan: [place] to be due to alcohol intoxication/beer potomania. Resolving. Continue to monitor. 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 Keep trach in place (patient cannot clear saliva otherwise). Was being considered for re-irradiation; however, I am not seeing notes about this since September 15. This is worth revisiting - the patient will need an outpatient appointment with ENT and possibly rad/onc. Palliative care consulted. Tube feeding via gastrostomy tube. (6) DVT prophylaxis: Status: Acute Assessment and plan: Lovenox 40 mg SC daily (7) Discharge planning issues: Status: Acute Assessment and plan: DNR/DNI Pallitive care consult Expected to go to health and rehab on discharge. Subjective Subjective Interval history since last seen: c/o lower abdominal pain. 11/06. No evidence of urinary retention. He does not want us to give him pain medicine or to change his TF formula. He wants to see if it will go away on its own. Denies n/v, dizziness, chest pain, shortness of breath. C.diff neg. Still having diarrhea. Got imodium. tylenol/ibuprofen do help a little. Exam Narrative Exam Narrative: General: pleasant middle-aged male, A&Ox3, appears somewhat uncomfortable HEENT:trach, L neck mass, EOMI, MMM Heart: RRR, no m/r/g Lungs: CTAB Abdomen: soft, tender in suprapubic area; RLQ wound completely healed; some erythema remains. Gastrostomy tube Extremities: no edema BLE's Objective Last Vital Signs Temp 36.7 C 11/30/20 07:41 Pulse 102 H 11/30/20 01:24 Resp 20 11/30/20 01:24 BP 106/80 11/30/20 01:24 Pulse Ox 97 11/30/20 01:24 Laboratory Results - last 24 hr 11/29/20 11/29/20 11/30/20 06:30 21:50 05:20 WBC 7.63 RBC 3.46 L Hgb 11.1 L Hct 33.7 L MCV 97.4 H MCH 32.1 MCHC 32.9 RDW 13.6 Plt Count 396 MPV 9.6 Immature Gran % 0.7 Neutrophils % 78.1 Lymphocytes % 9.3 Monocytes % 7.3 Eosinophils % 3.7 Basophils % 0.9 Nucleated RBC % 0 Absolute Neutrophils 5.96 Absolute Lymphocytes 0.71 L Absolute Monocytes 0.56 Absolute Eosinophils 0.28 Absolute Basophils 0.07 Sodium 133 L Potassium 4.0 Chloride 97 L Carbon Dioxide 29.9 Anion Gap 6.1 BUN 11 Creatinine 0.8 Estimated GFR/1.73 m2 >= 60.00 Glucose 97 Calcium 8.9 Magnesium 1.9 Stl C.difficile Tox PCR Negative 11/30/20 05:20 WBC 8.76 RBC 3.40 L Hgb 11.0 L Hct 33.4 L MCV 98.2 H MCH 32.4 MCHC 32.9 RDW 14.0 Plt Count 353 MPV 9.2 Immature Gran % 0.5 Neutrophils % 75.9 Lymphocytes % 8.2 Monocytes % 10.2 Eosinophils % 4.3 Basophils % 0.9 Nucleated RBC % 0 Absolute Neutrophils 6.65 Absolute Lymphocytes 0.72 L Absolute Monocytes 0.89 H Absolute Eosinophils 0.38 Absolute Basophils 0.08 Sodium Potassium Chloride Carbon Dioxide Anion Gap BUN Creatinine Estimated GFR/1.73 m2 Glucose Calcium Magnesium Stl C.difficile Tox PCR
[2020-11-30] MEDS: Enoxaparin 40 MG/0.4 ML SYR SC (08:48)
[2020-11-30] MEDS: Protein Nutritional Supplement 16 GM 1 OUNCE PACKET JT ×3 (08:48→17:57)
[2020-11-30] MEDS: Vitamin E 400 UNITS CAP UD (08:49)
[2020-11-30] MEDS: Multivitamin TAB 1 TAB UD (08:49)
[2020-11-30] MEDS: Zinc Sulfate 220 MG TAB UD (08:49)
[2020-11-30] MEDS: Folic Acid 1 MG TAB UD (08:49)
[2020-11-30] MEDS: Gabapentin 400 MG CAP UD ×3 (08:49→19:34)
[2020-11-30] MEDS: Famotidine 20 MG TAB UD (08:49)
[2020-11-30] MEDS: Thiamine 100 MG TAB UD (08:50)
[2020-11-30] MEDS: Nystatin POWDER 60 GM JAR TP ×2 (09:30→19:40)
--- NOTE | 2020-11-30 10:02 | CMPROGNOTE_ITS ---
- If Service Date Differs Date of service: 11/30/20 Time of Service: 10:02 Care Management Progress Note S/O: Chito was sitting up in bed when CM met with him. He was smiling and indicated that he is feeling well. Chito is awaiting SNF stay at [facility] after the holiday weekend; likely Tuesday. He indicated that he is happy that he is going and wants to get stronger. CM will continue to follow. A: Chito is a 60 year old male admitted to [facility] on 11/25/20 with cellulitis, failure to thrive. P: Chito was offered a bed at [facility] on Tuesday, [facility]we[facility] and Gaby were updated on the plan, and asked to bring clothes for rehab. They will drop some items off for him this weekend. He will transport via facility w/c van, coordinated by CM. He will follow up with his PCP and discharge plan of care. CM will continue to support Chito and his discharge planning needs. [email or web address]
[2020-11-30] MEDS: Mylanta Suspension 30 ML CUP JT (10:49)
[2020-11-30] MEDS: Normal Saline Flush 10 ML SYR IVP (15:59)
[2020-11-30] MEDS: Normal Saline 1,000 ML 100 ML IV ×2 (15:59→17:32)
[2020-11-30] MEDS: Normal Saline 1,000 ML 999 ML IV (16:30)
[2020-11-30 17:29] LABS: Abs Immature Grans 0.15 10^3/uL (0.0-0.06); Absolute Basophil Count 0.03 10^3/uL (0.0-0.2); Absolute Eosinophil Count 0.13 10^3/uL (0.0-0.7); Absolute Lymphocyte Count 0.58 10^3/uL (1.2-3.4); Absolute Monocyte Count 0.76 10^3/uL (0.1-0.8); Absolute Neutrophil Count 7.42 10^3/uL (1.2-6.7); Basophils % 0.3; Eosinophils % 1.4; HCT 30.2 % (40.0-50.0); HGB 10.1 g/dL (13.5-17.5); Immature Grans % 1.7; Lymphocytes % 6.4; MCH 32.4 pg (27.0-33.0); MCHC 33.4 % (32.0-36.0); MCV 96.8 fL (80-95); MPV 8.9 fL (8.0-11.0); Monocytes % 8.4; Neutrophils % 81.8; Nucleated RBC 0 %; Platelet Count 324 10^3/uL (130-400); RBC 3.12 10^6/uL (4.36-5.78); RDW 13.7 % (11.8-14.1); RDW-SD 48.9 fL; WBC 9.07 10^3/uL (4.4-10.8)
[2020-11-30 17:30] LABS: Lactate 0.8 mmol/L (0.6-1.4)
[2020-11-30 17:39] LABS: Anion Gap 7.5 mmol/L (3-11); BUN 14 mg/dL (7-18); CO2 25.5 mmol/L (21.0-32.0); CREATININE 0.7 mg/dL (0.70-1.30); Calcium 8.3 mg/dL (8.5-10.1); Chloride 99 mmol/L (98-107); Glucose 106 mg/dL (74-106); Potassium 3.9 mmol/L (3.5-5.1); Sodium 132 mmol/L (136-145)
[2020-11-30 17:45] LABS: ALT 17 U/L (16-63); AST 17 U/L (15-37); Albumin 2.5 g/dL (3.4-5.0); Alkaline Phosphatase 103 U/L (46-116); Bilirubin, Direct 0.1 mg/dL (0.0-0.2); Bilirubin, Total 0.4 mg/dL (0.2-1.0); Total Protein 6.2 g/dL (6.4-8.2)
--- NOTE | 2020-11-30 17:46 | DI.RAD_ITS ---
Exam(s) XR ABDOMEN FLAT PLATE EXAM: 2D digital imaging was performed. CLINICAL HISTORY: abdominal pain. COMPARISON: CT CT ABDOMEN PELVIS W from 11/14/[address] ABDOMEN PELVIS W from 11/14/2020 TECHNIQUE: Supine views of the abdomen performed. FINDINGS: BOWEL GAS PATTERN: Gas is seen scattered through small and large bowel without abnormal distension. No significant visible stool. CALCIFICATIONS: No radiopaque calcifications. OSSEOUS STRUCTURES: Normal for age. OTHER FINDINGS: Tubing over the midline abdomen. Vascular calcifications. IMPRESSION: 1. Nonobstructive bowel gas pattern. 2. No radiopaque calculi. DATA REPOSITORY: RADIATION DOSE DELIVERED:
--- NOTE | 2020-11-30 18:23 | DI.VRAD_ITS ---
PROCEDURE INFORMATION: Exam: XR Abdomen Exam date and time: 11/30/2020 4:26 PM Age: 60 years old Clinical indication: Abdominal pain; Generalized; Patient HX: Abd pain TECHNIQUE: Imaging protocol: XR of the abdomen. Views: Frontal supine view of the abdomen. 1 View. COMPARISON: CT ABDOMEN PELVIS W 11/14/2020 11:29 AM FINDINGS: Tubes, catheters and devices: A catheter is noted overlying the midline, which could also be external to the patient. Gastrointestinal tract: No bowel dilation seen seen. Bones/joints: Unremarkable. IMPRESSION: No acute findings. Dictated and Authenticated by: Claudine Gunderson MD. Ordering:ROD Rayo MD
[2020-12-01] MEDS: Normal Saline 1,000 ML 100 ML IV (04:04)
[2020-12-01] MEDS: Sucralfate 1 GM TAB UD ×3 (04:59→17:39)
[2020-12-01] MEDS: Ibuprofen 600 MG TAB UD ×3 (04:59→20:44)
[2020-12-01] MEDS: Levothyroxine 50 MCG TAB UD (05:00)
[2020-12-01] MEDS: Loperamide 2 MG CAP UD (05:00)
[2020-12-01 07:27] LABS: Abs Immature Grans 0.04 10^3/uL (0.0-0.06); Absolute Basophil Count 0.03 10^3/uL (0.0-0.2); Absolute Eosinophil Count 0.19 10^3/uL (0.0-0.7); Absolute Lymphocyte Count 0.69 10^3/uL (1.2-3.4); Absolute Monocyte Count 0.57 10^3/uL (0.1-0.8); Absolute Neutrophil Count 5.75 10^3/uL (1.2-6.7); Basophils % 0.4; Eosinophils % 2.6; HCT 32.8 % (40.0-50.0); HGB 10.5 g/dL (13.5-17.5); Immature Grans % 0.6; Lymphocytes % 9.5; MCH 31.9 pg (27.0-33.0); MCV 99.7 fL (80-95); MPV 9.5 fL (8.0-11.0); Monocytes % 7.8; Neutrophils % 79.1; Nucleated RBC 0 %; Platelet Count 372 10^3/uL (130-400); RBC 3.29 10^6/uL (4.36-5.78); RDW 13.9 % (11.8-14.1); RDW-SD 50.6 fL; WBC 7.27 10^3/uL (4.4-10.8)
[2020-12-01 07:43] LABS: Anion Gap 8.3 mmol/L (3-11); BUN 8 mg/dL (7-18); CO2 25.7 mmol/L (21.0-32.0); CREATININE 0.7 mg/dL (0.70-1.30); Calcium 8.4 mg/dL (8.5-10.1); Chloride 99 mmol/L (98-107); Glucose 124 mg/dL (74-106); Magnesium 1.9 mg/dL (1.8-2.4); Potassium 3.8 mmol/L (3.5-5.1); Sodium 133 mmol/L (136-145)
--- NOTE | 2020-12-01 08:22 | PGE_ITS ---
Date of Service Date of service: 12/01/20 Time of Service: 10:35 Assessment and Plan Assessment and plan (1) Adult failure to thrive: Status: Acute Assessment and plan: [facility]. Switch to home tube feeding formula (nutren 1.5 250 cc 5 x daily at 0600, 0900, 1200, 1500, 1800). Diarrhea (chronic) - may be tube feeding related. Has prn imodium. Patient thinks that banatrol may have given him abdominal pain, now d/c'ed. C.diff negative. (2) Alcohol abuse: Status: Chronic Assessment and plan: No signs of w/d. Patient is motivated to remain sober. D/c CIWA. Continue MVI, thiamine and folate. (3) Candidiasis: Status: Acute Assessment and plan: Fungal dermatitis skin folds. Improving. Continue Nystatin powder. Add zinc/clotrimazole/vitamin A&D cream (4) Hyponatremia: Status: Acute Assessment and plan: [place] to be due to alcohol intoxication/beer potomania. Monitor while adjusting free water in TF. 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 Keep trach in place (patient cannot clear s aliva otherwise). Was being considered for re-irradiation; however, I am not seeing notes about this since September 15. This is worth revisiting - the patient will need an outpatient appointment with ENT and possibly rad/onc. Palliative care consulted. Tube feeding via gastrostomy tube. (6) DVT prophylaxis: Status: Acute Assessment and plan: Lovenox 40 mg SC daily (7) Discharge planning issues: Status: Acute Assessment and plan: DNR/DNI Pallitive care consult Expected to go to [facility] tomorrow. Subjective Subjective Interval history since last seen: Continues to request pain meds for abdominal pain, which is now epigastric/around gastrostomy tube. Last BM was last night, liquid. Denies dizziness, chest pain, states his shortness of breath is his chronic. Denies n/v. Exam Narrative Exam Narrative: General: pleasant middle-aged male, A&Ox3, looks more comfortable than yesterday HEENT: trach, L neck mass, EOMI, MMM Heart: RRR, no m/r/g Lungs: CTAB Abdomen: soft, tender in epigastric area; RLQ wound completely healed; some erythema remains. Gastrostomy tube Extremities: no edema BLE's Objective Last Vital Signs Temp 36.9 C 11/30/20 19:49 Pulse 109 H 11/30/20 19:49 Resp 20 11/30/20 19:49 BP 101/76 11/30/20 19:49 Pulse Ox 99 11/30/20 19:49 Laboratory Results - last 24 hr 11/30/20 11/30/20 11/30/20 17:14 17:14 17:14 WBC 9.07 RBC 3.12 L Hgb 10.1 L Hct 30.2 L MCV 96.8 H MCH 32.4 MCHC 33.4 RDW 13.7 Plt Count 324 MPV 8.9 Immature Gran % 1.7 Neutrophils % 81.8 Lymphocytes % 6.4 Monocytes % 8.4 Eosinophils % 1.4 Basophils % 0.3 Nucleated RBC % 0 Absolute Neutrophils 7.42 H Absolute Lymphocytes 0.58 L Absolute Monocytes 0.76 Absolute Eosinophils 0.13 Absolute Basophils 0.03 VBG Lactate 0.8 Sodium 132 L Potassium 3.9 Chloride 99 Carbon Dioxide 25.5 Anion Gap 7.5 BUN 14 Creatinine 0.7 Estimated GFR/1.73 m2 >= 60.00 Glucose 106 Calcium 8.3 L Magnesium Total Bilirubin Conjugated Bilirubin AST ALT Alkaline Phosphatase Total Protein Albumin 11/30/20 12/01/20 12/01/20 17:14 06:33 06:33 WBC 7.27 RBC 3.29 L Hgb 10.5 L Hct 32.8 L MCV 99.7 H MCH 31.9 MCHC 32.0 RDW 13.9 Plt Count 372 MPV 9.5 Immature Gran % 0.6 Neutrophils % 79.1 Lymphocytes % 9.5 Monocytes % 7.8 Eosinophils % 2.6 Basophils % 0.4 Nucleated RBC % 0 Absolute Neutrophils 5.75 Absolute Lymphocytes 0.69 L Absolute Monocytes 0.57 Absolute Eosinophils 0.19 Absolute Basophils 0.03 VBG Lactate Sodium 133 L Potassium 3.8 Chloride 99 Carbon Dioxide 25.7 Anion Gap 8.3 BUN 8 D Creatinine 0.7 Estimated GFR/1.73 m2 >= 60.00 Glucose 124 H Calcium 8.4 L Magnesium 1.9 Total Bilirubin 0.4 Conjugated Bilirubin 0.1 AST 17 ALT 17 Alkaline Phosphatase 103 Total Protein 6.2 L Albumin 2.5 L
[2020-12-01] MEDS: Protein Nutritional Supplement 16 GM 1 OUNCE PACKET JT ×3 (08:29→17:39)
[2020-12-01] MEDS: Acetaminophen 325 MG TAB 650 MG PO ×2 (08:29→17:38)
[2020-12-01] MEDS: Enoxaparin 40 MG/0.4 ML SYR SC (08:29)
[2020-12-01] MEDS: Thiamine 100 MG TAB UD (08:31)
[2020-12-01] MEDS: Zinc Sulfate 220 MG TAB UD (08:31)
[2020-12-01] MEDS: Folic Acid 1 MG TAB UD (08:31)
[2020-12-01] MEDS: Multivitamin TAB 1 TAB UD (08:31)
[2020-12-01] MEDS: Vitamin E 400 UNITS CAP UD (08:32)
[2020-12-01] MEDS: Gabapentin 400 MG CAP UD ×3 (08:32→20:43)
[2020-12-01] MEDS: Nystatin POWDER 60 GM JAR TP ×2 (08:34→20:44)
[2020-12-01 08:36] VITALS: BP 133/82; PULSE 94
[2020-12-01 08:55] VITALS: RESP 20; TEMP 36.5
--- NOTE | 2020-12-01 12:07 | NUR.NOTE ---
patient walked 2 loops on med surg did well spo2 98-99 % after walking. was coughing slightly not coughing any sputum up respiratory came and gave neb to patient.Nursing Note:
[2020-12-01 18:12] VITALS: BP 135/96; PULSE 101
[2020-12-01 18:15] VITALS: RESP 24; TEMP 36.4; O2SAT 99
[2020-12-02] MEDS: Sucralfate 1 GM TAB UD ×3 (00:13→11:38)
[2020-12-02 01:08] VITALS: BP 112/82; PULSE 89; O2SAT 98
[2020-12-02 01:10] VITALS: BP 112/82; PULSE 87; RESP 22; TEMP 36.5; O2SAT 97
[2020-12-02] MEDS: Acetaminophen 325 MG TAB 650 MG PO ×2 (01:15→06:47)
[2020-12-02 05:50] VITALS: BP 136/92; PULSE 90; RESP 14; TEMP 36.7; O2SAT 97
[2020-12-02 06:38] LABS: Abs Immature Grans 0.03 10^3/uL (0.0-0.06); Absolute Basophil Count 0.05 10^3/uL (0.0-0.2); Absolute Eosinophil Count 0.18 10^3/uL (0.0-0.7); Absolute Lymphocyte Count 0.77 10^3/uL (1.2-3.4); Absolute Monocyte Count 0.64 10^3/uL (0.1-0.8); Absolute Neutrophil Count 4.17 10^3/uL (1.2-6.7); Basophils % 0.9; Eosinophils % 3.1; HCT 32.2 % (40.0-50.0); HGB 10.8 g/dL (13.5-17.5); Immature Grans % 0.5; Lymphocytes % 13.2; MCH 32.3 pg (27.0-33.0); MCHC 33.5 % (32.0-36.0); MCV 96.4 fL (80-95); MPV 9.3 fL (8.0-11.0); Neutrophils % 71.3; Nucleated RBC 0 %; Platelet Count 368 10^3/uL (130-400); RBC 3.34 10^6/uL (4.36-5.78); RDW-SD 49.7 fL; WBC 5.84 10^3/uL (4.4-10.8)
[2020-12-02] MEDS: Levothyroxine 50 MCG TAB UD (06:47)
[2020-12-02] MEDS: Normal Saline Flush 10 ML SYR IVP (06:48)
[2020-12-02 06:51] LABS: Anion Gap 8.3 mmol/L (3-11); BUN 9 mg/dL (7-18); CO2 25.7 mmol/L (21.0-32.0); CREATININE 0.7 mg/dL (0.70-1.30); Chloride 99 mmol/L (98-107); Glucose 106 mg/dL (74-106); Potassium 4.2 mmol/L (3.5-5.1); Sodium 133 mmol/L (136-145)
[2020-12-02] MEDS: Folic Acid 1 MG TAB UD (07:45)
[2020-12-02] MEDS: Zinc Sulfate 220 MG TAB UD (07:45)
[2020-12-02] MEDS: Gabapentin 400 MG CAP UD (07:45)
[2020-12-02] MEDS: Enoxaparin 40 MG/0.4 ML SYR SC (07:45)
[2020-12-02] MEDS: Multivitamin TAB 1 TAB UD (07:45)
[2020-12-02] MEDS: Thiamine 100 MG TAB UD (07:46)
[2020-12-02] MEDS: Protein Nutritional Supplement 16 GM 1 OUNCE PACKET JT ×2 (07:46→11:37)
[2020-12-02] MEDS: Nystatin POWDER 60 GM JAR TP (07:50)
--- NOTE | 2020-12-02 08:44 | OT.INIE ---
Occupational Therapy Notes Inpatient Occupational Therapy Evaluation Date: 12/02/20 Referring Doctor:Alan Broussard MD PATIENT PROFILE/ADMITTING DIAGNOSIS: Pt is a 60 year old male who was admitted through the ED with the following dx of candidiasis, hyponatremia, hypokalemia, adult failure to thrive, abdominal wall cellulitis, alcohol abuse, B12 Deficiency, alcohol withdrawal. Patient was recently discharged from the hospital to independent living at home with services. Patient has been admitted for further services due to failure to thrive at home. Past Medical History: Anxiety Aspiration pneumonia Caries COPD (chronic obstructive pulmonary disease) Cough with hemoptysis Dysphagia, oral phase 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 cervical lymphadenectomy, tracheostomy, excision benign thyroid lesion, exploration carotid artery S/P reconstruction procedure (08/18/20) Pediculed pec flap, L hemiglossectomy and mandibulectomy ([place]) S/P tooth extraction (~2013) Status post glossectomy (08/11/20) w/ multiple other procedures Social History/Home Situation: pt lives at home alone he states that he does not feel that he will go home and is going to SNF. Equipment owned/DME: Unable to assess SUBJECTIVE: Pt was sitting in bed when OT arrived. He states that he is agreeable to OT session and notes that he needs (A) with bathing. OBJECTIVE: General Observation: Pleasant and writes his responses on a white board. Peg tube and IV connected. Mental Status: A&Ox3 Pain: no c/o pain ROM: RUE AROM WFL L UE AROM WFL STRENGTH: RUE 4-/5 throughout LUE 4-/5 throughout FUNCTIONAL MOBILITY/ADLS: Dressing- sitting in bed pt is able to perform UE dressing (I) although notes that LE dressing is difficult at times. LE dressing he is able to perform although notes that he struggles with this at times. OT educates and trains pt in adaptive equipment including aerospace quality engineer, dressing stick, sock aid and provides pt with training and mid vc throughout. Functionally pt will utilize these as needed. Bathing- Not performed at todays session although pt notes that he needs (A) With this due to set up. He has AROM WFL in order to perform but the set up portion seems to be the most limiting factor at this time. EATING N/A for pt BALANCE: Static sitting Normal Dynamic Sitting Normal SPECIAL TESTS: Daily Activity Limitations Standardized Measure [facility] AM -PAC ?6 clicks? Daily Activity Inpatient Short Form: Raw score: 18 INFORMED CONSENT/EDUCATION: Pt instructed in purpose of OT Consult and plan of care. ASSESSMENT: Patient is a 60-year-old male referred to occupational therapy services with diagnosis of candidiasis, hyponatremia, hypokalemia, adult failure to thrive, abdominal wall cellulitis, alcohol abuse, B12 Deficiency, alcohol withdrawal. Patient presents with clinical signs and symptoms consistent with dx, as demonstrated by the following impairment level findings/ functional limitations: Pt demonstrates increased fatigue and decreased strength, decreased LE dressing and bathing. Patient is assessed as a Low 23279 complexity based on the following: History: see above Examination: see functional activities as noted above Presentation: evolving Decision Making: low complexity GOALS 1 week 1. Pt will be able to perform bathing (I) at sink without (A) 2. Sitting in chair pt will be able to (I) don and doff LE clothing PLAN OF CARE/TREATMENT PLAN: 1x/day, 5 days/ week x 1week Initiate Occupational Therapy Services for bathing, dressing, grooming, toileting, eating, transfer training. DISCHARGE RECOMMENDATIONS SNF when medically cleared per MD. TREATMENT TIME/MINUTES/CODES 10707, 31950 20 minutes (08:20) VERENICE [facility]
--- NOTE | 2020-12-02 11:09 | NUR.NOTE ---
Patient requested to delay scheduled feeding and Vitamin E to after 12p.
[2020-12-02] MEDS: Vitamin E 400 UNITS CAP UD (11:37)
[2020-12-02] MEDS: Ibuprofen 600 MG TAB UD (11:37)
[2020-12-02 12:20] LABS: Source Nasal/Nares
[2020-12-02 13:15] LABS: COVID-19 PCR Negative (Negative)
--- NOTE | 2020-12-02 13:51 | W.PM.DS.N ---
Date of service: 12/02/20 Time of Service: 13:51 DS: Diagnosis Discharge Diagnosis (1) Adult failure to thrive: Status: Acute (2) Alcohol abuse: Status: Chronic (3) Candidiasis: Status: Acute (4) Hyponatremia: Status: Acute (5) Carcinoma of oral cavity: Status: Acute (6) COVID-19 ruled out by laboratory testing: Status: Ruled-out Discharge Plan Disposition Patient Disposition: SNF (LEVEL 1) [facility] Condition: Good Discharge Details Reason For Visit: Abdominal Wall Cellulitis,Adult Failure to Thrive Admit Date/Time: 11/25/20 19:13 Admit Provider: Chito Parker Attending Provider: Chito Parker Primary Care Provider: Maisha Deleon Hospital Course Hospital Course: Mr Santiago is a 60 year old male with PMHx of stage Annalisa squamous cell carcinoma of the tongue s/p partial glossectomy and radiation, s/p trach/gastrostomy, on tube feeding, as well as h/o non-oxygen dependent COPD, alcohol abuse, hypothyroidism, who was admitted to [facility] hospitalist service on 11/25/20 for failure to thrive, having been consuming alcohol via his gastrostomy tube. He was hyponatremic with sodium of 117, likely beer potomania. He was treated with IV fluids, tube feeding, topical antifungals for his fungal dermatitis of the pannus and groin. His hyponatremia resolved. He did not have an infectious process on this admission. He did not have any symptoms of alcohol withdrawal on this admission. He is medically stable for discharge to [facility] today for ongoing nursing and PT care. His tube feeding is: Neutro 1.5 250 cc 5x daily (0600, 0900, 1200, 1500, 1800) with free water flushes of 250 cc Q6 hrs. It is ok to substitute this with Jevity 1.5 or another formula (Neutro does not have fiber) of similar caloric composition until Neutro arrives at [facility]. He communicates by writing on a clip board. He should follow up with [facility] [place]2 [place]. Care for patient as well as completion of this discharge summary on day of discharge took 45 minutes. Home Meds and New Rx's Prescriptions: New ipratropium-albuterol 0.5 mg-3 mg(2.5 mg base)/3 mL Solution For Nebulization 3 ml UPD Q4H PRN PRNQty: 0 RF: 0 zinc oxide 20 % Ointment 60 g topical TID Qty: 0 RF: 0 clotrimazole 1 % Cream 60 g topical TID Qty: 0 RF: 0 esomeprazole magnesium [Nexium Packet] [address] For Susp In Packet 40 mg NG BID@0730,2000 Qty: 0 RF: 0 vits A and D-white pet-lanolin Ointment 60 g topical TID Qty: 0 RF: 0 loperamide 2 mg Capsule 2 mg UD QLOOSE PRNQty: 0 RF: 0 Phlexy-Vits Packet 1 oz J-tube TID@0800,1200,1800 Qty: 0 RF: 0 Continued famotidine 20 mg tablet 20 mg feeding tube BID Qty: 60 RF: 3 (DME) Toothette Swab See Rx Instructions .ROUTE .MEDSUPPLY Qty: 500 RF: 6 folic acid 400 mcg tablet 0.4 mg PO DAILY RF: 0 docusate sodium 50 mg/5 mL liquid 100 mg feeding tube BID PRN (Reason: constipation) Qty: 473 RF: 3 chlorhexidine gluconate [Peridex] 0.12 % mouthwash 15 ml mucous membrane TID RF: 0 ibuprofen 600 mg tablet 600 mg feeding tube Q6H PRNRF: 0 levothyroxine 50 mcg tablet 50 mcg feeding tube DAILY RF: 0 food supplemt, lactose-reduced Liquid See Rx Instructions feeding tube .COMPLEX RF: 0 multivitamin Tablet 1 tab feeding tube DAILY RF: 0 thiamine HCl (vitamin B1) 100 mg tablet 100 mg feeding tube DAILY RF: 0 vitamin E (dl, acetate) 400 unit capsule 400 unit feeding tube DAILY RF: 0 gabapentin 300 mg/6 mL (6 mL) solution 400 mg feeding tube TID RF: 0 sucralfate 1 gram Tablet 1 g UD Q6H Qty: 120 RF: 0 zinc sulfate [Zinc-220] 50 mg zinc (220 mg) Capsule 220 mg UD DAILY Qty: 30 RF: 0 Discharge Instructions Instructions: Hyponatremia (DC), Skin Yeast Infection (ED) Additional Instructions: Return to the hospital with any fever, bleeding, chest pain, or shortness of breath. Follow up with [facility] [place] 1-2 weeks. Referrals: Maisha Deleon NP [Primary Care Provider] - Activity:: Activity as Tolerated Equipment/Supplies:: No Equipment Needed Diet:: Neutro 1.5 250 cc 5x daily Discharge Orders Discharge Orders: Discharge Order (Routine); Ordered 12/02/20 Ordered By: Perri Dumas DS: Summary Time Spent with Patient providing and/or coordinating discharge services: Greater than 30 minutes Status at Discharge Functional status at discharge: independent ambulation Overall status at discharge: patient is progressing back to baseline Mental Status: mental status grossly normal Speech and Movement: speech and movement normal Mood: congruent mood Affect: normal affect Exam Narrative Exam Narrative: General: pleasant middle-aged male, A&Ox3, looks more comfortable than yesterday HEENT: trach, L neck mass, EOMI, MMM Heart: RRR, no m/r/g Lungs: CTAB Abdomen: soft, tender in epigastric area; RLQ wound completely healed; some erythema remains. Gastrostomy tube Extremities: no edema BLE's Psych Mental Status: mental status grossly normal Speech and Movement: speech and movement normal Mood: congruent mood Affect: normal affect DS: Data Vitals/I&O Vitals and I&O: Vital Signs Temperature 36.7 C 12/02/20 05:50 Temperature Source Tympanic 12/02/20 05:50 Pulse 90 12/02/20 05:50 Pulse Rhythm Regular 12/02/20 05:40 Pulse 95 H 11/28/20 09:18 Respiratory Rate 14 12/02/20 05:50 Respiratory Effort Non-Labored 12/02/20 05:40 Respiratory Depth Normal 12/02/20 05:40 Respiratory Pattern Normal 12/02/20 05:40 Blood Pressure 136/92 H 12/02/20 05:50 Blood Pressure Mean 89 12/02/20 01:08 Blood Pressure Position Supine 11/26/20 00:01 Pulse Oximetry 97 12/02/20 05:50 Oxygen Delivery Method Room Air 12/02/20 09:48 Oxygen Flow Rate 0 12/02/20 09:48 Pain Level 2 12/02/20 11:37 Comment 12/01/20 18:15 Intake & Output 12/01/20 12/02/20 12/02/20 23:59 11:59 23:59 Intake Total 250 / 2710 250 / 340 90 / 340 Output Total 950 / 2575 150 / 150 Balance -700 / 135 100 / 190 90 / 190 Weight 69.9 kg Intake: Oral 90 / 90 Intake, Tube Feeding Amount 250 / 970 250 / 250 Output: Urine 950 / 2575 150 / 150 Other: Urine Color Yellow Yellow Urine Appearance Clear Clear Urine Odor None None Comment pT stated they voided in toilet Stool Size Moderate Stool Characteristics Liquid Brown Voiding Methods Toilet Data Completed and Pending Completed studies during hospitalization [Text1]: CXR: No acute pulmonary findings. XR L foot: There is no fracture or diastasis at the Lisfranc joint. There is soft tissue swelling over the metatarsals. No metatarsal fractures identified. Small typical exostoses is noted off the proximal medial aspect of the distal phalanx of the great toe, common finding at this location. On the opposite side of the base of the distal phalanx there is slight irregularity of the cortex which possibly an avulsion injury. Correlation with site of tenderness is recommended. There is no radiopaque foreign body. XR abdomen 11/30/20: 1. Nonobstructive bowel gas pattern. 2. No radiopaque calculi. Labs on day of discharge: Labs from last 24 hours 12/02/20 12/02/20 12/02/20 12:10 06:21 06:21 WBC 5.84 RBC 3.34 L Hgb 10.8 L Hct 32.2 L MCV 96.4 H D MCH 32.3 MCHC 33.5 RDW 14.0 Plt Count 368 MPV 9.3 Immature Gran % 0.5 Neutrophils % 71.3 Lymphocytes % 13.2 Monocytes % 11.0 Eosinophils % 3.1 Basophils % 0.9 Nucleated RBC % 0 Absolute Neutrophils 4.17 Absolute Lymphocytes 0.77 L Absolute Monocytes 0.64 Absolute Eosinophils 0.18 Absolute Basophils 0.05 Sodium 133 L Potassium 4.2 Chloride 99 Carbon Dioxide 25.7 Anion Gap 8.3 BUN 9 Creatinine 0.7 Estimated GFR/1.73 m2 >= 60.00 Glucose 106 Calcium 9.0 Magnesium 2.0 COVID-19 Source Nasal/Nares SARS-CoV-2 (PCR) Negative [facility] Medical History (Updated 12/02/20 @ 13:52 by Perri Dumas MD) Anxiety Aspiration pneumonia Caries COPD (chronic obstructive pulmonary disease) Cough with hemoptysis DVT prophylaxis Dysphagia, oral phase 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 cervical lymphadenectomy, tracheostomy, excision benign thyroid lesion, exploration carotid artery S/P reconstruction procedure (08/18/20) Pediculed pec flap, L hemiglossectomy and mandibulectomy ([place]) S/P tooth extraction (~2013) Status post glossectomy (08/11/20) w/ multiple other procedures Family History Mother Hypertension Hyperlipidemia Breast cancer Asthma Father Asthma Brother Hyperlipidemia Social History Smoking/Tobacco Use Status: Current every day Tobacco: How many years used: 29 Smoking risk assessment performed?: Yes Alcohol Intake: current Alcohol Intake frequency: 3 or more drinks per day Alcohol type: beer Details: 6 beer a day Drug use: Rarely Substance use type: marijuana Details: No IV Drug Use Adopted: No Caregiver/Support person: No Foster care: No Household members: none Housing: house Number of Children: 1 Communication Needs: Corrective Lenses Education Level: high school Do you need help understanding health information?: Often Sexually active: No Do you think of yourself as: straight/heterosexual Current gender identity: male What type of physical activity do you participate in: none Special leeroy needs: No Seatbelt use: always Do you feel safe at home: Yes Do you feel safe in your relationship?: Yes
--- NOTE | 2020-12-02 19:42 | CMDISCH_ITS ---
- If Service Date Differs Date of service: 12/02/20 Time of Service: 19:42 LACE Index Scoring Tool - Questions: Length of Stay (in days): 7 - 13 Acuity (Admit via E.D.?): Yes Comorbidities: Chronic Pulmonary Disease, Any Tumor E.D. Visits: 4 - Answers: Total Score: 17 Risk of Readmission: High Risk Care Management Discharge Reason for Hospitalization: Abdominal wall cellulitis Discharge Plan: Chito will go to [facility] for short term rehab prior to returning home. He will transport via facility w/c van, coordinated by CM. He will follow up with his PCP and discharge plan of care. RT created a binder to direct his trach care at the facility. He is happy to be going home, and stated that he hopes that they are as nice as we are at [facility]. Patient/Family Education Needs: Review discharge instructions regarding expectations for rehab, discussion of self care needs and goals of care. Services Needed at Discharge: Group Home Facility ( [facility]), Transportation (facility w/c van)
== END 2020-12-02 14:50 | disposition skilled nursing facility (03) | DRG 641 ==
LOC: ER 21:34 → ICU 22:00 → MS 12-02 05:56
PROVIDERS: Family Medicine; Internal Medicine; Admitting Provider Family Medicine; Emergency Provider Physician Assistant; PCP Nurse Practitioner; Visit Provider Family Medicine
DX: E87.1 Hypo-osmolality and hyponatremia (principal); R62.7 Adult failure to thrive; F10.10 Alcohol abuse, uncomplicated; E87.6 Hypokalemia; Z93.0 Tracheostomy status; C02.8 Malignant neoplasm of overlapping sites of tongue; F41.9 Anxiety disorder, unspecified; J44.9 Chronic obstructive pulmonary disease, unspecified; R13.11 Dysphagia, oral phase; I10 Essential (primary) hypertension; E03.9 Hypothyroidism, unspecified; K02.9 Dental caries, unspecified; F17.210 Nicotine dependence, cigarettes, uncomplicated; Z20.822 Contact with and (suspected) exposure to COVID-19; B37.2 Candidiasis of skin and nail; R19.7 Diarrhea, unspecified; Z66 Do not resuscitate; Z93.1 Gastrostomy status; S31.105A Unspecified open wound of abdominal wall, periumbilic region without penetration into peritoneal cavity, initial encounter
CPT/HCPCS: 36415; 80048; 80053; 80076; 87040; 87493; 87635; 96361; 96365; 96366; 96367; 96368; 96375; 97162; 97165; 97535; 99285; J1650; 71046; 73630; 74018; 80320; 81003; 83605; 83735; 84100; 85025; 99223; 99232; 99233; 99239; J3480

== ENCOUNTER 2021-01-17 13:16 | Emergency (ER) | payer MEDICARE, MEDICAID, SELFPAY ==
[2021-01-17] VITALS (32 sets, daily range): BP systolic 108–153; BP diastolic 84–104; PULSE 96–139; RESP 13–25; TEMP 36.8; O2SAT 95–100
--- NOTE | 2021-01-17 13:15 | RT.EKG_ITS ---
APPROVED REPORT Exam: Resting ECG Reason for Exam: SOB Patient Location: E HR:114 bpm ECG Measurements Heart Rate 114 AXIS [place] 178 P 62 QRSd 84 QRS -4 QT 316 T 59 QTc 435 Conclusion Sinus tachycardia No stemi. unchanged
--- NOTE | 2021-01-17 13:30 | DI.RAD_ITS ---
Exam(s) XR PORTABLE CHEST AP EXAM: XR PORTABLE CHEST AP CLINICAL HISTORY: sob, cough. TECHNIQUE: 2D digital imaging was performed. COMPARISON: CR,XR XR CHEST 2V PA LATERAL from 11/25/2020 FINDINGS: Heart size is normal. The mediastinum is not widened. Lungs are clear. No infiltrates nor obvious pleural effusions. Tracheostomy tube appears remain satisfactory position. IMPRESSION: No acute pulmonary findings on this single AP portable view of the chest. DATA REPOSITORY: RADIATION DOSE DELIVERED: All CT scans at this facility use at least one of these dose optimization techniques: automated exposure control; mA and/or kV adjustment per patient size (includes targeted e xams where dose is matched to clinical indication); or iterative reconstruction.
[2021-01-17 13:58] LABS: BE (Venous) -2 mmol/L (-2-3); HCO3 (Venous) 22 mmol/L (23-28); O2 Sat (Venous) 96 %; TCO2 (Venous) 19 mmol/L (24-29); pCO2 (Venous) 32 mmHg (41-51); pH (Venous) 7.45 (7.31-7.41); pO2 (Venous) 77 mmHg
[2021-01-17 14:00] LABS: Abs Immature Grans 0.02 10^3/uL (0.0-0.06); Absolute Basophil Count 0.04 10^3/uL (0.0-0.2); Absolute Eosinophil Count 0.16 10^3/uL (0.0-0.7); Absolute Lymphocyte Count 1.25 10^3/uL (1.2-3.4); Absolute Monocyte Count 0.53 10^3/uL (0.1-0.8); Absolute Neutrophil Count 4.43 10^3/uL (1.2-6.7); Basophils % 0.6; Eosinophils % 2.5; HGB 13.5 g/dL (13.5-17.5); Immature Grans % 0.3; Lactate 2.1 mmol/L (0.6-1.4); Lymphocytes % 19.4; MCH 31.2 pg (27.0-33.0); MCHC 34.6 % (32.0-36.0); MCV 90.1 fL (80-95); MPV 9.2 fL (8.0-11.0); Monocytes % 8.2; Nucleated RBC 0 %; Platelet Count 320 10^3/uL (130-400); RBC 4.33 10^6/uL (4.36-5.78); RDW 13.2 % (11.8-14.1); RDW-SD 43.8 fL; WBC 6.43 10^3/uL (4.4-10.8)
--- NOTE | 2021-01-17 14:03 | W.ED.GENAD ---
Discharge Plan Disposition Patient Disposition: HOME Condition: Good Discharge Details Clinical Impression: Acute dehydration, Tracheostomy care Primary Care Provider: Maisha Deleon ED Provider: Umer Mendoza Home Meds and New Rx's Prescriptions: Continued acetaminophen 325 mg tablet 650 mg feeding tube Q6H PRN (Reason: fever or pain) Qty: 90 RF: 0 (DME) [place] Swab See Rx Instructions .ROUTE .MEDSUPPLY Qty: 500 RF: 6 folic acid 400 mcg tablet 0.4 mg PO DAILY RF: 0 chlorhexidine gluconate [Peridex] 0.12 % mouthwash 15 ml mucous membrane TID RF: 0 ibuprofen 600 mg tablet 600 mg feeding tube Q6H PRNRF: 0 levothyroxine 50 mcg tablet 50 mcg feeding tube DAILY RF: 0 food supplemt, lactose-reduced Liquid See Rx Instructions feeding tube .COMPLEX RF: 0 multivitamin Tablet 1 tab feeding tube DAILY RF: 0 thiamine HCl (vitamin B1) 100 mg tablet 100 mg feeding tube DAILY RF: 0 vitamin E (dl, acetate) 400 unit capsule 400 unit feeding tube DAILY RF: 0 gabapentin 300 mg/6 mL (6 mL) solution 400 mg feeding tube TID RF: 0 ipratropium-albuterol 0.5 mg-3 mg(2.5 mg base)/3 mL Solution For Nebulization 3 ml UPD Q4H PRN PRNQty: 0 RF: 0 Phlexy-Vits Packet 1 oz J-tube TID@0800,1200,1800 Qty: 0 RF: 0 Discharge Instructions Instructions: Dehydration (ED) Additional Instructions: At this time your chest x-ray shows no evidence of pneumonia, your laboratory work-up is very reassuring. I do suspect that dehydration with a component of your symptoms. Please drink plenty of fluids at home, follow-up closely with your primary care provider. If you notice any worsening of your symptoms, or any new symptoms such as vomiting, diarrhea, fever, chills, shortness of breath, chest pain, numbness, weakness, or fainting , please return immediately to the emergency department for reevaluation. Please follow up with your primary care provider as soon as possible for reassessment and reevaluation. As always, it was a pleasure participating in your medical care today. 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 Patient states that over the last 3 days he has been experiencing mild increased cough and shortness of breath. He denies any fever or chills. He has been suctioning his trach without complication. He does not have any nebulizers or albuterol at home. He denies any chest pain, or chest heaviness. He denies any abdominal pain or vomiting. He does admit to a few loose stools over the last 2 days. He denies any recent antibiotics, recent antibiotics or other sick contacts. He did receive his Covid vaccine. No other complaints at this time. No other modifying factors Physical exam demonstrates crackles in the left lower lung de [place] rosa, diminished breath sounds throughout, no wheezes or rhonchi. Tracheostomy with suction, notable sputum removed however patient states this is not change his shortness of breath. Differential at this time is highest for pneumonia. Will monitor closely evaluate for infectious etiology and potential life-threatening etiologies. We will get a proBNP to evaluate for evidence of CHF as a component of his shortness of breath. 5:30 PM Patient's laboratory work-up has returned relatively unremarkable. No white count, bandemia or left shift. VBG is stable, sodium is slightly low at 125, however this is somewhat normal for the patient. Troponin unremarkable, proBNP unremarkable suggesting no signs of fluid overload or heart strain. TSH high but free T4 normal. Urinalysis negative. Covid and C. difficile are both negative. Pending the rest of the patient's stool studies. Initial lactate was elevated at 2.1, repeat lactate after fluid bolus is normal at 1.4. Chest x-ray negative for acute process per virtual radiology. On reassessment after rehydration patient feels well, he has been assessed by respiratory therapy and they have no additional recommendations. Patient's oxygenation remains excellent, no evidence of acute life-threatening etiology at this time. Patient is somewhat hypertensive however the patient states that he otherwise feels well and would like to go home now. Patient will be discharged home. Discussed red flags for which to return. I have extensively reviewed the treatment plan and discharge instructions with the patient. I have addressed all patient concerns at this time. The patient was made aware of what symptoms to monitor for that would warrant a return to the emergency department. Discussed the plan with the patient, they demonstrate verbal understanding and agreement with our assessment and plan at this time. The documentation in this chart was dictated using [employer] dictation software. Please excuse any dictation errors. FINDINGS: Tubes, catheters and devices: Tracheostomy tube again seen. Lungs: Unremarkable. No consolidation. Pleural spaces: Unremarkable. No pleural effusion. No pneumothorax. Heart/Mediastinum: Unremarkable. No cardiomegaly. Bones/joints: Unremarkable. IMPRESSION: No evidence for acute abnormality in the chest. Thank you for allowing us to participate in the care of your patient. Dictated and Authenticated by: Eileen Espino MD 01/17/2021 3:24 PM Eastern Time ([place] & [place]) HPI General Date/Time Provider Initiated Documentation: 01/17/21 13:19. 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 Patient states that over the last 3 days he has been experiencing mild increased cough and shortness of breath. He denies any fever or chills. He has been suctioning his trach without complication. He does not have any nebulizers or albuterol at home. He denies any chest pain, or chest heaviness. He denies any abdominal pain or vomiting. He does admit to a few loose stools over the last 2 days. He denies any recent antibiotics, recent antibiotics or other sick contacts. He did receive his Covid vaccine. No other complaints at this time. No other modifying factors Related Data Home Medications Medication Instructions Recorded Confirmed folic acid 400 mcg tablet 0.4 mg PO DAILY 08/06/19 01/17/21 swab #500 ea 07/28/20 01/17/21 chlorhexidine gluconate 0.12 % 15 ml MUCOUS MEMBRANE TID ml 09/01/20 01/17/21 mouthwash food supplemt, lactose-reduced See Rx Instructions FEEDING TUBE 09/01/20 01/17/21 .COMPLEX ibuprofen 600 mg tablet 600 mg FEEDING TUBE Q6H PRN 09/01/20 01/17/21 levothyroxine 50 mcg tablet 50 mcg FEEDING TUBE DAILY 09/01/20 01/17/21 multivitamin 1 tab FEEDING TUBE DAILY 09/01/20 01/17/21 thiamine HCl (vitamin B1) 100 mg 100 mg FEEDING TUBE DAILY 09/01/20 01/17/21 tablet vitamin E (dl, acetate) 180 mg 400 unit FEEDING TUBE DAILY 09/01/20 01/17/21 (400 unit) capsule gabapentin 300 mg/6 mL (6 mL) oral 400 mg FEEDING TUBE TID ml 09/10/20 01/17/21 solution Phlexy-Vits 1 oz J-TUBE TID@0800,1200,1800 #0 12/02/20 01/17/21 ea ipratropium-albuterol 3 ml UPD Q4H PRN PRN #0 ml 12/02/20 01/17/21 acetaminophen 325 mg tablet 650 mg FEEDING TUBE Q6H PRN #90 tab 12/24/20 01/17/21 Previous Rx's Medication Instructions Recorded swab #500 ea 07/28/20 Phlexy-Vits 1 oz J-TUBE TID@0800,1200,1800 #0 12/02/20 ea ipratropium-albuterol 3 ml UPD Q4H PRN PRN #0 ml 12/02/20 acetaminophen 325 mg tablet 650 mg FEEDING TUBE Q6H PRN #90 tab 12/24/20 Allergies Allergy/AdvReac Type Severity Reaction Status Date / Time No Known Allergies Allergy Verified 11/02/20 08:32 General Stated Complaint: SOB CHRIST: 3 Review of Systems All systems reviewed & are unremarkable except as noted in HPI and below PFSH Medical History Acute hypokalemia Acute hyponatremia Anxiety Aspiration pneumonia Caries Closed head injury with loss of consciousness of unknown duration COPD (chronic obstructive pulmonary disease) Cough with hemoptysis DVT prophylaxis Dysphagia, oral phase Facial laceration Floor of mouth squamous cell carcinoma (06/26/20) Hypertension Hypokalemia Hyponatremia Hypothyroidism Lives alone Marijuana smoker Mouth cancer Mute due to extensive oral surgery and h/o radiation Oral pain controlled with ibuprofen Pre-op evaluation Recurrent squamous cell carcinoma Tobacco use disorder >25 pack years Uses feeding tube 5 cans of Nutren 1.5 per day with 1 scoop protein supplement each feed of Flattr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 cervical lymphadenectomy, tracheostomy, excision benign thyroid lesion, exploration carotid artery S/P reconstruction procedure (08/18/20) Pediculed pec flap, L hemiglossectomy and mandibulectomy ([place]) S/P tooth extraction (~2013) Status post glossectomy (08/11/20) w/ multiple other procedures Family History Mother , about age 70 Hypertension Hyperlipidemia Breast cancer Asthma Smoker Lung cancer Father , about age 70 from lung cancer Asthma Lung cancer Smoker Brother Hyperlipidemia Son No problems noted. Grandson No problems noted. Social History Smoking/Tobacco Use Status: Former Tobacco Use Tobacco: How many years used: 31 Quit status: considering quitting Counseling given: provider counseling and counseling >3 minutes Smoking risk assessment performed?: Yes Alcohol Intake: current Alcohol Intake frequency: 3 or more drinks per day Alcohol type: beer Counseling provided: reduce to 2 or less/day Details: 3 beer a day (? accuracy? 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 Pets and animals: No Sexually active: No Do you think of yourself as: straight/heterosexual Current gender identity: male What is your relationship status?: How often do you talk on the phone with friends or family?: never How often do you get together with friends or relatives?: once per week Panel score (0-1 are the most socially isolated patients): 0 What type of physical activity do you participate in: none and sedentary lifestyle Frequency: does not exercise Special leeroy needs: No Agree to transfusion: Yes Seatbelt use: always Working smoke detector in home: Yes Fire extinguisher in home: Yes Do you feel safe at home: Yes Do you feel safe in your relationship?: Yes Additional Social history: Lives alone in a trailer his parents bought in 1975. He went to in [place]. Soon after, he enlisted in [employer] x 4 years. Not a [facility] patient yet; needs to establish [facility]. He is still friends with his ex-. He has no vehicle. Cannot talk on phone. Listens to his messages. Asked me to call in his feeding tube supplies--done. Trache is permanent, as if feeding tube. Has gained weight since hospitalization. No computer. No way to communicate easily. Writes down his answers and questions. Would benefit from getting help in regularly to take him shopping, make phone calls for him, etc. Exam Narrative Exam Narrative: 1.Const: Well-nourished, Well-developed, appearing stated age 2.Eyes: PERRL, no conjunctival injection, and symmetrical lids. 3.ENT:large mass on the left side of the patient's neck, no stridor, tracheostomy is in place, the area was suctioned and a notable amount of sputum was removed, but patient states this is not changed his symptoms. 4.CVS: +S1/S2, No murmurs or gallops. Peripheral pulses 2+ and equal in all extremities. Brisk capillary refill in all extremities. 5.RESP: Unlabored respiratory effort. Crackles in the left lower lung de la rosa. No wheezes. Diminished breath sounds throughout 6.GI: Soft, Nontender/Nondistended, No hepatosplenomegaly. No guarding or rebound. Feeding tube is in place. 7.MSK: Normocephalic/Atraumatic, Extremities w/o deformity or ttp No cyanosis or clubbing, Normal movement of all extremities 8.Skin: Warm, Dry. No rashes or lesions. 9.Neuro: form grader II-XII grossly intact. Sensation grossly intact, no focal neurologic deficits. 10.Psych: (AAO) x3. Appropriate mood and affect Course Vital Signs Vital signs: Vital Signs Temperature 36.8 C 01/17/21 13:26 Pulse 113 H 01/17/21 13:26 Respiratory Rate 22 01/17/21 13:26 Blood Pressure 117/99 H 01/17/21 13:26 Pulse Oximetry 99 01/17/21 13:26 Temperature 36.8 C 01/17/21 13:26 Temperature Source Skin 01/17/21 13:26 Pulse 113 H 01/17/21 13:26 Respiratory Rate 22 01/17/21 13:26 Blood Pressure 117/99 H 01/17/21 13:26 Blood Pressure Position Sitting 01/17/21 13:26 Pulse Oximetry 99 01/17/21 13:26 Oxygen Delivery Method Room Air 01/17/21 13:26 Oxygen Flow Rate 0 01/17/21 13:26 Lab/Test Results Lab/Test Results: 01/17/21 13:52 Blood Blood Culture - Pending 01/17/21 13:40 Blood Blood Culture - Pending Laboratory Tests Range/Units 01/17/21 01/17/21 01/17/21 13:40 13:52 13:52 VBG pH (7.31-7.41) 7.45 H VBG pCO2 (41-51) mmHg 32 L VBG pO2 mmHg 77 VBG HCO3 (23-28) mmol/L 22 L VBG Total CO2 (24-29) mmol/L 19 L VBG O2 Saturation % 96 VBG Base Excess (-2-3) mmol/L -2 VBG Lactate (0.6-1.4) mmol/L 2.1 H COVID-19 Source NASOPHARYX
[2021-01-17] MEDS: Albuterol/Ipratropium 3 ML UPD VIAL 6 ML UPD (14:20)
[2021-01-17 14:24] LABS: ALT 20 U/L (16-63); AST 16 U/L (15-37); Albumin 3.5 g/dL (3.4-5.0); Alkaline Phosphatase 95 U/L (46-116); Anion Gap 11.7 mmol/L (3-11); BUN 10 mg/dL (7-18); Bilirubin, Total 0.3 mg/dL (0.2-1.0); CO2 23.3 mmol/L (21.0-32.0); CREATININE 0.7 mg/dL (0.70-1.30); Calcium 8.8 mg/dL (8.5-10.1); ETHANOL BLOOD 18.2 mg/dL (<3); Glucose 118 mg/dL (74-106); NT-proBNP 107 pg/mL (<300); Potassium 3.5 mmol/L (3.5-5.1); TSH (W/Ref FT4) 15.75 uIU/mL (0.36-3.74); Total Protein 7.5 g/dL (6.4-8.2); Troponin I < 0.05 ng/mL (<0.06)
[2021-01-17 14:25] LABS: Chloride 90 mmol/L (98-107); Sodium 125 mmol/L (136-145)
[2021-01-17 14:44] LABS: COVID-19 PCR Negative (Negative)
[2021-01-17 15:16] LABS: Bilirubin Negative (Negative); Blood Negative (Negative); Clarity Clear (Clear); Glucose Negative (Negative); Ketones Trace mg/dL (Negative); Leukocyte Esterase Negative (Negative); Nitrite Negative (Negative); Specific Gravity 1.015 (1.005-1.025); Urobilinogen 0.2 EU/dL (Up TO 0.2); pH 6.5 (5-8)
--- NOTE | 2021-01-17 15:24 | DI.VRAD_ITS ---
PROCEDURE INFORMATION: Exam: XR Chest Exam date and time: 01/17/2021 1:42 PM Age: 60 years old Clinical indication: Cough TECHNIQUE: Imaging protocol: XR of the chest. Views: 1 view. Other technique: Portable exam. COMPARISON: CR XR CHEST 2V PA LATERAL 11/25/2020 7:26 PM FINDINGS: Tubes, catheters and devices: Tracheostomy tube again seen. Lungs: Unremarkable. No consolidation. Pleural spaces: Unremarkable. No pleural effusion. No pneumothorax. Heart/Mediastinum: Unremarkable. No cardiomegaly. Bones/joints: Unremarkable. IMPRESSION: No evidence for acute abnormality in the chest. Dictated and Authenticated by: Eileen Espino MD. Ordering:MOHINI Owusu MD
[2021-01-17 16:03] LABS: C Diff PCR Negative (Negative)
[2021-01-17] MEDS: Normal Saline 500 ML IV (16:11)
[2021-01-17 17:02] LABS: Lactate 1.4 mmol/L (0.6-1.4)
[2021-01-18 20:19] LABS: Legionella Ag Detection Urine Negative (Negative)
[2021-01-18 22:18] LABS: Campylobacter PCR Negative (Negative); Salmonella PCR Negative (Negative); Shiga Toxin PCR Negative (Negative); Shigella/Enteroinvasive Ecoli Negative (Negative)
== END 2021-01-17 17:27 | disposition home or self-care (01) ==
PROVIDERS: Emergency Provider Student in an Organized Health Care Education/Training Program; PCP Nurse Practitioner
DX: E86.0 Dehydration (principal); R06.02 Shortness of breath; Z93.0 Tracheostomy status; I10 Essential (primary) hypertension
CPT/HCPCS: 36415; 80053; 82805; 87040; 87329; 87449; 87493; 87505; 87635; 93005; 94640; 96360; 99284; 71045; 80320; 81003; 83605; 83880; 84439; 84443; 84484; 85025; 93010; J7620

== ENCOUNTER 2021-01-19 02:26 | Emergency (ER) | payer OTHER, SELFPAY ==
[2021-01-19 02:34] VITALS: BP 145/116; PULSE 116; RESP 24; TEMP 36.6; O2SAT 98
--- NOTE | 2021-01-19 02:45 | W.ED.GENAD ---
Discharge Plan Disposition Patient Disposition: HOME Condition: Stable Discharge Details Clinical Impression: Attention to tracheostomy tube Primary Care Provider: Maisha Deleon ED Provider: Cristobal Liz Home Meds and New Rx's Prescriptions: Continued acetaminophen 325 mg tablet 650 mg feeding tube Q6H PRN (Reason: fever or pain) Qty: 90 RF: 0 (DME) [place] Swab See Rx Instructions .ROUTE .MEDSUPPLY Qty: 500 RF: 6 folic acid 400 mcg tablet 0.4 mg PO DAILY RF: 0 chlorhexidine gluconate [Peridex] 0.12 % mouthwash 15 ml mucous membrane TID RF: 0 ibuprofen 600 mg tablet 600 mg feeding tube Q6H PRNRF: 0 levothyroxine 50 mcg tablet 50 mcg feeding tube DAILY RF: 0 food supplemt, lactose-reduced Liquid See Rx Instructions feeding tube .COMPLEX RF: 0 multivitamin Tablet 1 tab feeding tube DAILY RF: 0 thiamine HCl (vitamin B1) 100 mg tablet 100 mg feeding tube DAILY RF: 0 vitamin E (dl, acetate) 400 unit capsule 400 unit feeding tube DAILY RF: 0 gabapentin 300 mg/6 mL (6 mL) solution 400 mg feeding tube TID RF: 0 ipratropium-albuterol 0.5 mg-3 mg(2.5 mg base)/3 mL Solution For Nebulization 3 ml UPD Q4H PRN PRNQty: 0 RF: 0 Phlexy-Vits Packet 1 oz J-tube TID@0800,1200,1800 Qty: 0 RF: 0 Discharge Instructions Additional Instructions: your tracheostomy tube was in place and no other findings were seen on the xray follow up with your ENT specialist if you feel more ill or feel you are having worsening shortness of breath Medical Decision Making 60 yo male with hx of throat cancer s/p resection and trach placement earlier this year, who comes in with chief complaint of his trach not being in the right spot. He states he changes it every day and it felt like it was out. On visual inspection he has a large left sided neck mass that he states is chronic and unchanged, no stridor. The trach is in the stoma site and appears well positioned and when I tightened it he says it now feels better. Will have RT evaluate and suction as needed. He has no fever or cough and normal oxygenation so doubt pneumonia and do not feel cxr indicated as he states it felt like his trachea was misplaced earlier. Obtained an xray and appears in position in the trachea, normal saturations, and is able to place suction catheter down fully through without issues. Given it is in position now and he is stable do not feel further workup indicated, he will f/u with his ENT and return precautions given Differential Diagnosis Differential Diagnosis: trach malfunction Medical Records Medical records reviewed: Yes I reviewed the patient's medical records. Imaging Data Radiologic Study: Attestation: I personally reviewed and interpreted this imaging study as follows: Imaging: X-Ray Radiologist's impression: no acute findings HPI General Mode of arrival: ambulatory. Date/Time Provider Initiated Documentation: 01/19/21 02:27. Limitations to Documentation: no limitations. Information obtained by: patient. History of Present Illness 60 year old M presents to the emergency department with the chief complaint of doesn't think trach is in place, and it has been constant. No relieving factors improve symptom(s), No exacerbating factors reported . Patient notes no other symptoms.. Patient did receive the following treatments prior to arrival, none Related Data Home Medications Medication Instructions Recorded Confirmed folic acid 400 mcg tablet 0.4 mg PO DAILY 08/06/19 01/19/21 swab #500 ea 07/28/20 01/17/21 chlorhexidine gluconate 0.12 % 15 ml MUCOUS MEMBRANE TID ml 09/01/20 01/19/21 mouthwash food supplemt, lactose-reduced See Rx Instructions FEEDING TUBE 09/01/20 01/19/21 .COMPLEX ibuprofen 600 mg tablet 600 mg FEEDING TUBE Q6H PRN 09/01/20 01/19/21 levothyroxine 50 mcg tablet 50 mcg FEEDING TUBE DAILY 09/01/20 01/19/21 multivitamin 1 tab FEEDING TUBE DAILY 09/01/20 01/19/21 thiamine HCl (vitamin B1) 100 mg 100 mg FEEDING TUBE DAILY 09/01/20 01/19/21 tablet vitamin E (dl, acetate) 180 mg 400 unit FEEDING TUBE DAILY 09/01/20 01/19/21 (400 unit) capsule gabapentin 300 mg/6 mL (6 mL) oral 400 mg FEEDING TUBE TID ml 09/10/20 01/19/21 solution Phlexy-Vits 1 oz J-TUBE TID@0800,1200,1800 #0 12/02/20 01/19/21 ea ipratropium-albuterol 3 ml UPD Q4H PRN PRN #0 ml 12/02/20 01/19/21 acetaminophen 325 mg tablet 650 mg FEEDING TUBE Q6H PRN #90 tab 12/24/20 01/19/21 Previous Rx's Medication Instructions Recorded swab #500 ea 07/28/20 Phlexy-Vits 1 oz J-TUBE TID@0800,1200,1800 #0 12/02/20 ea ipratropium-albuterol 3 ml UPD Q4H PRN PRN #0 ml 12/02/20 acetaminophen 325 mg tablet 650 mg FEEDING TUBE Q6H PRN #90 tab 12/24/20 Allergies Allergy/AdvReac Type Severity Reaction Status Date / Time No Known Allergies Allergy Verified 01/19/21 02:40 General Stated Complaint: RespSymp CHRIST: 2 Review of Systems All systems reviewed & are unremarkable except as noted in HPI and below Constitutional Constitutional: Denies chills, Denies fever(s) and Denies weakness Cardiovascular Cardiovascular: Denies chest pain and Denies dyspnea Respiratory Respiratory: Denies cough and Denies dyspnea Gastrointestinal Gastrointestinal: Denies abdominal pain, Denies nausea and Denies vomiting Musculoskeletal Musculoskeletal: Denies joint swelling Neurologic Neurologic: Denies weakness PFSH Medical History Acute hypokalemia Acute hyponatremia Anxiety Aspiration pneumonia Caries Closed head injury with loss of consciousness of unknown duration COPD (chronic obstructive pulmonary disease) Cough with hemoptysis DVT prophylaxis Dysphagia, oral phase Facial laceration Floor of mouth squamous cell carcinoma (06/26/20) Hypertension Hypokalemia Hyponatremia Hypothyroidism Lives alone Marijuana smoker 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 cervical lymphadenectomy, tracheostomy, excision benign thyroid lesion, exploration carotid artery S/P reconstruction procedure (08/18/20) Pediculed pec flap, L hemiglossectomy and mandibulectomy ([place]) S/P tooth extraction (~2013) Status post glossectomy (08/11/20) w/ multiple other procedures Family History Mother , about age 70 Hypertension Hyperlipidemia Breast cancer Asthma Smoker Lung cancer Father , about age 70 from lung cancer Asthma Lung cancer Smoker Brother Hyperlipidemia Son No problems noted. Grandson No problems noted. Social History Smoking/Tobacco Use Status: Former Tobacco Use Tobacco: How many years used: 31 Quit status: considering quitting Counseling given: provider counseling and counseling >3 minutes Smoking risk assessment performed?: Yes Alcohol Intake: current Alcohol Intake frequency: 3 or more drinks per day Alcohol type: beer Counseling provided: reduce to 2 or less/day Details: 3 beer a day (? accuracy? 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 Pets and animals: No Sexually active: No Do you think of yourself as: straight/heterosexual Current gender identity: male What is your relationship status?: How often do you talk on the phone with friends or family?: never How often do you get together with friends or relatives?: once per week Panel score (0-1 are the most socially isolated patients): 0 What type of physical activity do you participate in: none and sedentary lifestyle Frequency: does not exercise Special leeroy needs: No Agree to transfusion: Yes Seatbelt use: always Working smoke detector in home: Yes Fire extinguisher in home: Yes Do you feel safe at home: Yes Do you feel safe in your relationship?: Yes Additional Social history: Lives alone in a trailer his parents bought in 1975. He went to in [place]. 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 Not a [facility] patient yet; needs to establish care at [facility]. He is still friends with his ex-. He has no vehicle. Cannot talk on phone. Listens to his messages. Asked me to call in his feeding tube supplies--done. Trache is permanent, as if feeding tube. Has gained weight since hospitalization. No computer. No way to communicate easily. Writes down his answers and questions. Would benefit from getting help in regularly to take him shopping, make phone calls for him, etc. Exam Const General: no acute distress Orientation: alert HENMT Head: normal to inspection Ears: external ears normal General nose exam: external nose normal Mouth: moist mucous membranes Eyes General: appearance normal, both eyes and all related structures Neck Neck: no JVD Resp Effort & Inspection: normal respiratory effort and able to speak in complete sentences Cardio Rate: regular rate Skin General skin exam: no rashes or lesions noted Neuro General: patient alert and patient oriented x3 Extrem General: normal to inspection Psych Mental Status: mental status grossly normal Course Vital Signs Vital signs: Vital Signs Temperature 36.6 C 01/19/21 02:34 Pulse 116 H 01/19/21 02:34 Respiratory Rate 24 01/19/21 02:34 Blood Pressure 145/116 H 01/19/21 02:34 Pulse Oximetry 98 01/19/21 02:34 Temperature 36.6 C 01/19/21 02:34 Temperature Source Temporal Artery Scan 01/19/21 02:34 Pulse 116 H 01/19/21 02:34 Respiratory Rate 24 01/19/21 02:34 Respiratory Effort Non-Labored 01/19/21 02:43 Respiratory Depth Normal 01/19/21 02:43 Blood Pressure 145/116 H 01/19/21 02:34 Blood Pressure Position Sitting 01/19/21 02:34 Pulse Oximetry 98 01/19/21 02:34 Oxygen Delivery Method Room Air 01/19/21 02:34 Oxygen Flow Rate 0 01/19/21 02:34
--- NOTE | 2021-01-19 02:51 | NUR.NOTE ---
Nursing Note: Respiratory Therapist at bedside.
--- NOTE | 2021-01-19 03:00 | DI.RAD_ITS ---
Exam(s) XR SOFT TISSUE NECK EXAM: XR SOFT TISSUE NECK CLINICAL HISTORY: ?trach placement. TECHNIQUE: 2D digital imaging was performed. COMPARISON: No exams were available for comparison FINDINGS: The position of the tracheostomy tube appears satisfactory. No prevertebral soft tissue swelling. M ultilevel chronic degenerative disc disease noted. No pneumothorax. Multiple clips both sides the n marie IMPRESSION: Position of the tracheostomy tube is satisfactory DATA REPOSITORY: RADIATION DOSE DELIVERED:
[2021-01-19 03:03] VITALS: BP 138/92; PULSE 104; RESP 24; O2SAT 98
--- NOTE | 2021-01-19 03:42 | DI.VRAD_ITS ---
PROCEDURE INFORMATION: Exam: XR Soft Tissue Neck Exam date and time: 01/19/2021 3:08 AM Age: 60 years old Clinical indication: Device placement; ? Trach placement; Prior surgery; Surgery date: 1-6 months; Surgery type: Pediculed pec flap, L hemiglossectomy and mandibulectomy TECHNIQUE: Imaging protocol: XR of the soft tissues of the neck. COMPARISON: CT NECK WITH CONTRAST 08/24/2016 2:08 PM FINDINGS: Tubes, catheters and devices: Tracheostomy tube noted. Airway: Normal. No abnormal narrowing. Soft tissues: Surgical clips of bilateral cervical soft tissue. Bones/joints: Degenerative change of the spine. IMPRESSION: No acute finding. Dictated and Authenticated by: Cristobal Villarreal MD. Ordering:LELAND Jain MD
[2021-01-19 04:00] VITALS: BP 138/92; PULSE 106; RESP 22; O2SAT 98
--- NOTE | 2021-01-19 13:43 | NUR.NOTE ---
Nursing Note: Access pt record to view worklist for training. Mercedes Varner
== END 2021-01-19 04:00 | disposition home or self-care (01) ==
LOC: ER 03:56
PROVIDERS: Emergency Provider Emergency Medicine; PCP Nurse Practitioner
DX: Z43.0 Encounter for attention to tracheostomy (principal)
CPT/HCPCS: 99283; 70360

== ENCOUNTER 2021-01-21 04:56 | Emergency (ER) | payer OTHER, SELFPAY ==
[2021-01-21 05:05] VITALS: BP 128/89; PULSE 115; RESP 20; TEMP 36; O2SAT 99
--- NOTE | 2021-01-21 05:15 | DI.CT_ITS ---
Exam(s) CT ABDOMEN PELVIS WO EXAM: CT ABDOMEN PELVIS WO CLINICAL HISTORY: diarrhea, abdominal cramping. TECHNIQUE: Imaging Protocol: Axial computed tomography images with coronal and sagittal reformatted images were created and reviewed CONTRAST MATERIAL: Intravenous: none Oral: None COMPARISON: No exams were available for comparison FINDINGS: VISUALIZED LUNG BASES: No nodules nor pleural effusions evident. However, there is a 12 x 11 millimeter nodule in the immediate retroareolar region of the right breas t. Right breast imaging recommended. ABDOMEN: There is no ascites. LIVER: There are no obvious focal hepatic lesions evident of this noninfused study. GALLBLADDER/BILIARY: Gallstones are noted on the dependent wall of the gallbladder. Gallbladder wall appears slightly thickened but this may be related to the motion artifact here. CBD is not dilated. PANCREAS: No evidence of pancreatic mass nor dilatation of the pancreatic duct. SPLEEN: Spleen is not enlarged. No obvious intrasplenic lesions. ADRENALS: There are no significant adrenal masses. KIDNEYS:No cysts evident. No solid renal masses. No calculi nor hydronephrosis. . ABDOMINAL AORTA: Abdominal aorta is not enlarged. LYMPH NODES: There is no retroperitoneal nor paraaortic adenopathy. ABDOMINAL WALL: There is a PEG/gastrostomy tube. Balloon diameter is 1.5 cm. No abnormal surroundin g free air nor fluid collection. Balloon appears slightly deflated when compared to the prior study. GI: There is no evidence of bowel obstruction, free air, nor abscess. PELVIS: LYMPH NODES: There is no intrapelvic nor inguinal adenopathy. GI: No evidence of appendicitis.No evidence of sigmoid diverticulitis. URINARY BLADDER: No calculi nor obvious masses evident REPRODUCTIVE: Prostate gland is not enlarged. OSSEOUS: No significant osseous lesions. IMPRESSION: 1. Cholelithiasis noted. Gallbladder wall appears slightly thickened but this is possibly related to respiratory motion artifact. If clinically indicated follow-up ultrasound could be performed. The CBD is not dilated 2. There is a gastrostomy tube-PEG. The balloon appears slightly deflated. However, it is not dislo dged from the stomach and there is no surrounding air nor abnormal fluid collection. 3. There is a 12 millimeter nodule incidentally noted in the sub areolar region of the right breast. Recommend further dedicated breast imaging. RADIATION DOSE DELIVERED: 753.55mGy.cm Total DLP DATA REPOSITORY: All CT scans at this facility are submitted to the National Radiology Data Registry (NRDR) Dose Index Registry (DIR) with the [employer] (ACR). RADIATION OPTIMIZATION: All CT scans at this facility use at least one of these dose optimization te chniques: automated exposure control; mA and/or kV adjustment per patient size (includes targeted exa ms where dose is matched to clinical indication); or iterative reconstruction.
--- NOTE | 2021-01-21 05:27 | ED.GENADUL_ITS ---
Discharge Plan Disposition Patient Disposition: HOME Condition: Good Discharge Details Clinical Impression: Diarrhea, Malaise Primary Care Provider: Maisha Deleon ED Provider: Umer Mendoza Home Meds and New Rx's Prescriptions: New diphenoxylate-atropine [Lomotil] 2.5-0.025 mg tablet 1 tab PO DAILY 4 Days Qty: 4 RF: 0 ciprofloxacin 500 mg/5 mL suspension,microcapsule recon 500 mg PO Q12H 10 Days Qty: 100 RF: 0 Continued (DME) [place] Swab See Rx Instructions .ROUTE .MEDSUPPLY Qty: 500 RF: 6 folic acid 400 mcg tablet 0.4 mg PO DAILY RF: 0 chlorhexidine gluconate [Peridex] 0.12 % mouthwash 15 ml mucous membrane TID RF: 0 ibuprofen 600 mg tablet 600 mg feeding tube Q6H PRNRF: 0 levothyroxine 50 mcg tablet 50 mcg feeding tube DAILY RF: 0 food supplemt, lactose-reduced Liquid See Rx Instructions feeding tube .COMPLEX RF: 0 multivitamin Tablet 1 tab feeding tube DAILY RF: 0 thiamine HCl (vitamin B1) 100 mg tablet 100 mg feeding tube DAILY RF: 0 vitamin E (dl, acetate) 400 unit capsule 400 unit feeding tube DAILY RF: 0 gabapentin 300 mg/6 mL (6 mL) solution 400 mg feeding tube TID RF: 0 Discharge Instructions Instructions: Acute Diarrhea (ED) Additional Instructions: At this time your stool studies have returned negative for the concerning infectious etiologies. Please take the antibiotic Cipro as directed. It is been sent to your pharmacy for pickup. They sent you home with a prescription for Lomotil which can slow down diarrhea. Take this if your diarrhea does not significantly improve over the next 24 to 48 hours. Drink plenty of fluids. If you notice any worsening of your symptoms, or any new symptoms such as vomiting, diarrhea, fever, chills, shortness of breath, chest pain, numbness, weakness, or fainting , please return immediately to the emergency department for reevaluation. Please follow up with your primary care provider as soon as possible for reassessment and reevaluation. As always, it was a pleasure participating in your medical care today. 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 Patient states he is not felt well for the last 3 to 4 days. Patient was seen here in the emergency department on 01/17, chest x-ray at that time was negative, stool studies at that time were negative, including Legionella, C. difficile, infectious stool studies, stool culture. Stool had no blood in it and continues to have no blood. He was seen again 2 days ago for tracheostomy evaluation, evaluation was unremarkable at that time. Patient states that he has continued to have mild diarrhea as well as mild nausea without vomiting. He denies any fever. He has had his Covid vaccine. He denies any other complaints. He admits to mild stomach cramping but denies abdominal pain. No other complaints at this time. Physical exam is unremarkable, no significant abnormalities. No evidence of an acute surgical abdomen. Patient states he still is eating and drinking through his gastrotomy tube. We will get a CT scan of his abdomen to rule out colitis although I feel this to be unlikely based on exam and history. Patient otherwise appears stable. 6:58 AM Patient remained stable here in the ED. no vomiting. No episodes of diarrhea here. Patient remains afebrile on recheck. CT scan has returned, gallbladder is mildly distended per read, questionable mild thickening. Does have evidence of liquid contents in the ascending colon concerning for diarrhea. No other acute process. I did go back and reassess the patient's abdomen again, he has no pain whatsoever in the right upper quadrant, negative Stiles sign. And for that matter no pain throughout the rest of his abdomen. Symptoms are inconsistent with acute cholecystitis. Bilirubin normal. Transaminases normal. Patient does appears frustrated with this scenario. I pointedly asked him what his primary goal in therapy is today, he states that he just wants the diarrhea better. Stool studies otherwise unremarkable I do feel antibacterial treatment with Cipro and Lomotil is reasonable at this stage. We will give her prescription for liquid Cipro, and he has been given a prescription for Lomotil if needed. Blood pressure stable, no signs of hemodynamic compromise. Patient will be discharged home. Discussed red flags which to return. I have extensively reviewed the treatment plan and discharge instructions with the patient. I have addressed all patient concerns at this time. The patient was made aware of what symptoms to monitor for that would warrant a return to the emergency department. Discussed the plan with the patient, they demonstrate verbal understanding and agreement with our assessment and plan at this time. The documentation in this chart was dictated using [employer] dictation software. Please excuse any dictation errors. FINDINGS: Limitations: Lack of intravenous contrast limits assessment solid viscera. Tubes, catheters and devices: Gastrostomy tube is noted. The tip is in the gastric lumen. The retention balloon appears small in size and probably partially deflated. The retention mushroom does not approximate the skin surface. Liver: No acute pathology or concerning masses. Gallbladder and bile ducts: Gallbladder is mildly distended. Suggestion of mild wall thickening. Cholelithiasis is noted. Pancreas: No acute inflammation. Spleen: No concerning lesions. Adrenal glands: No mass. Kidneys and ureters: No concerning lesions. No hydronephrosis. Stomach and bowel: Liquid contents in the ascending colon suggests diarrheal illness. No bowel obstruction. No significant colonic or small bowel wall thickening. See above for gastrostomy tube. Appendix: No evidence of appendicitis Intraperitoneal space: No free air. No significant fluid collection. Vasculature: Moderate aortic and branch vessel atherosclerotic disease. Lymph nodes: No pathologically enlarged lymphadenopathy. Urinary bladder: Unremarkable as visualized. Reproductive: Unremarkable as visualized. Bones/joints: No aggressive osseous lesions. Multilevel spondylosis. Moderate canal narrowing at L4-L5 related to disc osteophyte complex. Soft tissues: 1.3 cm subareolar right breast nodule (series 2, image 1) is incidentally noted, stable since October 2020 study. Small bilateral fat containing inguinal hernias. Small fat containing umbilical hernias. IMPRESSION: 1. Gallbladder is mildly distended. Suggestion of mild wall thickening. Cholelithiasis is noted. Recommend obtaining a right upper quadrant ultrasound to assess for the possibil ity of cholecystitis. 2. Gastrostomy tube is noted. The tip is in the gastric lumen. The retention balloon appears small in size and probably partially deflated. The retention mushroom does not approx imate the skin surface. Consider tube adjustment to prevent dislodgement. 3. Liquid contents in the ascending colon suggests diarrheal illness. 4. 1.3 cm subareolar right breast nodule (series 2, image 1) is incidentally noted, stable since October 2020 study. Consider further evaluation with dedicated imaging such as targeted ultrasound and/or mammography. Thank you for allowing us to participate in the care of your patient. Dictated and Authenticated by: Merrill Danielson MD 01/21/2021 6:32 AM Eastern Time ([place] & [place]) HPI General Date/Time Provider Initiated Documentation: 01/21/21 05:18 . 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 Patient states he is not felt well for the last 3 to 4 days. Patient was seen here in the emergency department on 01/17, chest x-ray at that time was negative, stool studies at that time were negative, including Legionella, C. difficile, infectious stool studies, stool culture. Stool had no blood in it and continues to have no blood. He was seen again 2 days ago for tracheostomy evaluation, evaluation was unremarkable at that time. Patient states that he has continued to have mild diarrhea as well as mild nausea without vomiting. He denies any fever. He has had his Covid vaccine. He denies any other complaints. He admits to mild stomach cramping but denies abdominal pain. No other complaints at this time. Related Data Home Medications Medication Instructions Recorded Confirmed folic acid 400 mcg tablet 0.4 mg PO DAILY 08/06/19 01/21/21 swab #500 ea 07/28/20 01/17/21 chlorhexidine gluconate 0.12 % 15 ml MUCOUS MEMBRANE TID ml 09/01/20 01/21/21 mouthwash food supplemt, lactose-reduced See Rx Instructions FEEDING TUBE 09/01/20 01/21/21 .COMPLEX ibuprofen 600 mg tablet 600 mg FEEDING TUBE Q6H PRN 09/01/20 01/21/21 levothyroxine 50 mcg tablet 50 mcg FEEDING TUBE DAILY 09/01/20 01/21/21 multivitamin 1 tab FEEDING TUBE DAILY 09/01/20 01/21/21 thiamine HCl (vitamin B1) 100 mg 100 mg FEEDING TUBE DAILY 09/01/20 01/21/21 tablet vitamin E (dl, acetate) 180 mg 400 unit FEEDING TUBE DAILY 09/01/20 01/21/21 (400 unit) capsule gabapentin 300 mg/6 mL (6 mL) oral 400 mg FEEDING TUBE TID ml 09/10/20 01/21/21 solution ciprofloxacin 500 mg PO Q12H 10 Days #100 ml 01/21/21 diphenoxylate-atropine [Lomotil] 1 tab PO DAILY 4 Days #4 tab 01/21/21 Previous Rx's Medication Instructions Recorded swab #500 ea 07/28/20 ciprofloxacin 500 mg PO Q12H 10 Days #100 ml 01/21/21 diphenoxylate-atropine [Lomotil] 1 tab PO DAILY 4 Days #4 tab 01/21/21 Allergies Allergy/AdvReac Type Severity Reaction Status Date / Time No Known Allergies Allergy Verified 01/21/21 05:11 General Stated Complaint: Nausea/Vomit/Diar CHRIST: 3 Review of Systems All systems reviewed & are unremarkable except as noted in HPI and below PFSH Medical History Acute hypokalemia Acute hyponatremia Anxiety Aspiration pneumonia Caries Closed head injury with loss of consciousness of unknown duration COPD (chronic obstructive pulmonary disease) Cough with hemoptysis DVT prophylaxis Dysphagia, oral phase Facial laceration Floor of mouth squamous cell carcinoma (06/26/20) Hypertension Hypokalemia Hyponatremia Hypothyroidism Lives alone Marijuana smoker Mouth cancer Mute due to extensive oral surgery and h/o radiation Oral pain controlled with ibuprofen Pre-op evaluation Recurrent squamous cell carcinoma Tobacco use disorder >25 pack years Uses feeding tube 5 cans of Nutren 1.5 per day with 1 scoop protein supplement each feed of armed [employer]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 cervical lymphadenectomy, tracheostomy, excision benign thyroid lesion, exploration carotid artery S/P reconstruction procedure (08/18/20) Pediculed pec flap, L hemiglossectomy and mandibulectomy ([place]) S/P tooth extraction (~2013) Status post glossectomy (08/11/20) w/ multiple other procedures Family History Mother , about age 70 Hypertension Hyperlipidemia Breast cancer Asthma Smoker Lung cancer Father , about age 70 from lung cancer Asthma Lung cancer Smoker Brother Hyperlipidemia Son No problems noted. Grandson No problems noted. Social History Smoking/Tobacco Use Status: Former Tobacco Use Tobacco: How many years used: 31 Quit status: considering quitting Counseling given: provider counseling and counseling >3 minutes Smoking risk assessment performed?: Yes Alcohol Intake: current Alcohol Intake frequency: 3 or more drinks per day Alcohol type: beer Counseling provided: reduce to 2 or less/day Details: 3 beer a day (? accuracy? 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 Pets and animals: No Sexually active: No Do you think of yourself as: straight/heterosexual Current gender identity: male What is your relationship status?: How often do you talk on the phone with friends or family?: never How often do you get together with friends or relatives?: once per week Panel score (0-1 are the most socially isolated patients): 0 What type of physical activity do you participate in: none and sedentary lifestyle Frequency: does not exercise Special leeroy needs: No Agree to transfusion: Yes Seatbelt use: always Working smoke detector in home: Yes Fire extinguisher in home: Yes Do you feel safe at home: Yes Do you feel safe in your relationship?: Yes Additional Social history: Lives alone in a trailer his parents bought in 1975. He went to in [place]. 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 Not a [facility] patient yet; needs to establish care at [facility]. He is still friends with his ex-. He has no vehicle. Cannot talk on phone. Listens to his messages. Asked me to call in his feeding tube supplies--done. Trache is permanent, as if feeding tube. Has gained weight since hospitalization. No computer. No way to communicate easily. Writes down his answers and questions. Would benefit from getting help in regularly to take him shopping, make phone calls for him, etc. Exam Narrative Exam Narrative: 1.Const: Well-nourished, Well-developed, appearing stated age 2.Eyes: PERRL, no conjunctival injection, and symmetrical lids. 3.ENT:large mass on the left side of the patient's neck, no stridor, tracheostomy is in place, 4.CVS: +S1/S2, No murmurs or gallops. Peripheral pulses 2+ and equal in all extremities. Brisk capillary refill in all extremities. 5.RESP: Unlabored respiratory effort. No rales or rhonchi 6.GI: Soft, Nontender/Nondistended, No hepatosplenomegaly. No guarding or rebound. Feeding tube is in place. No evidence of an acute surgical abdomen 7.MSK: Normocephalic/Atraumatic, Extremities w/o deformity or ttp No cyanosis or clubbing, Normal movement of all extremities 8.Skin: Warm, Dry. No rashes or lesions. 9.Neuro: statistical engineer II-XII grossly intact. Sensation grossly intact, no focal neurologic deficits. 10.Psych: (AAO) x3. Appropriate mood and affect Course Vital Signs Vital signs: Vital Signs Temperature 36.0 C L 01/21/21 05:05 Pulse 115 H 01/21/21 05:05 Respiratory Rate 20 01/21/21 05:05 Blood Pressure 128/89 01/21/21 05:05 Pulse Oximetry 99 01/21/21 05:05 Temperature 36.0 C L 01/21/21 05:05 Temperature Source Skin 01/21/21 05:05 Pulse 115 H 01/21/21 05:05 Respiratory Rate 20 01/21/21 05:05 Respiratory Effort Non-Labored 01/21/21 05:13 Blood Pressure 128/89 01/21/21 05:05 Blood Pressure Position Sitting 01/21/21 05:05 Pulse Oximetry 99 01/21/21 05:05 Oxygen Delivery Method Room Air 01/21/21 05:05 Oxygen Flow Rate 0 01/21/21 05:05 Pain Level 0 01/21/21 05:05
--- NOTE | 2021-01-21 06:34 | DI.VRAD_ITS ---
PROCEDURE INFORMATION: Exam: CT Abdomen And Pelvis Without Contrast Exam date and time: 01/21/2021 5:26 AM Age: 60 years old Clinical indication: Other: Diarrhea, abdominal cramping; Prior surgery; Surgery date: 6+ months; Surgery type: Feeding tube TECHNIQUE: Imaging protocol: Computed tomography of the abdomen and pelvis without contrast. Radiation optimization: All CT scans at this facility use at least one of these dose optimization techniques: automated exposure control; mA and/or kV adjustment per patient size (includes targeted exams where dose is matched to clinical indication); or iterative reconstruction. COMPARISON: CT ABDOMEN PELVIS W 11/14/2020 11:29 AM FINDINGS: Limitations: Lack of intravenous contrast limits assessment solid viscera. Tubes, catheters and devices: Gastrostomy tube is noted. The tip is in the gastric lumen. The retention balloon appears small in size and probably partially deflated. The retention mushroom does not approximate the skin surface. Liver: No acute pathology or concerning masses. Gallbladder and bile ducts: Gallbladder is mildly distended. Suggestion of mild wall thickening. Cholelithiasis is noted. Pancreas: No acute inflammation. Spleen: No concerning lesions. Adrenal glands: No mass. Kidneys and ureters: No concerning lesions. No hydronephrosis. Stomach and bowel: Liquid contents in the ascending colon suggests diarrheal illness. No bowel obstruction. No significant colonic or small bowel wall thickening. See above for gastrostomy tube. Appendix: No evidence of appendicitis. Intraperitoneal space: No free air. No significant fluid collection. Vasculature: Moderate aortic and branch vessel atherosclerotic disease. Lymph nodes: No pathologically enlarged lymphadenopathy. Urinary bladder: Unremarkable as visualized. Reproductive: Unremarkable as visualized. Bones/joints: No aggressive osseous lesions. Multilevel spondylosis. Moderate canal narrowing at L4-L5 related to disc osteophyte complex. Soft tissues: 1.3 cm subareolar right breast nodule (series 2, image 1) is incidentally noted, stable since October 2020 study. Small bilateral fat containing inguinal hernias. Small fat containing umbilical hernias. IMPRESSION: 1. Gallbladder is mildly distended. Suggestion of mild wall thickening. Cholelithiasis is noted. Recommend obtaining a right upper quadrant ultrasound to assess for the possibility of cholecystitis. 2. Gastrostomy tube is noted. The tip is in the gastric lumen. The retention balloon appears small in size and probably partially deflated. The retention mushroom does not approximate the skin surface. Consider tube adjustment to prevent dislodgement. 3. Liquid contents in the ascending colon suggests diarrheal illness. 4. 1.3 cm subareolar right breast nodule (series 2, image 1) is incidentally noted, stable since October 2020 study. Consider further evaluation with dedicated imaging such as targeted ultrasound and/or mammography. Dictated and Authenticated by: Merrill Danielson MD. Ordering:MOHINI Owusu MD
== END 2021-01-21 07:20 | disposition home or self-care (01) ==
PROVIDERS: Emergency Provider Student in an Organized Health Care Education/Training Program; PCP Nurse Practitioner
DX: R19.7 Diarrhea, unspecified (principal); R53.81 Other malaise; R11.0 Nausea; R93.2 Abnormal findings on diagnostic imaging of liver and biliary tract; Z93.1 Gastrostomy status
CPT/HCPCS: 99284; 74176; 99285

== ENCOUNTER 2021-01-28 09:40 | Inpatient (IN) | payer OTHER, SELFPAY ==
[2021-01-28] VITALS (65 sets, daily range): BP systolic 93–131; BP diastolic 61–102; PULSE 61–147; RESP 14–35; TEMP 36.4–37; O2SAT 89–97
--- NOTE | 2021-01-28 09:45 | DI.RAD_ITS ---
Exam(s) XR CHEST 2V PA LATERAL EXAM: XR CHEST 2V PA LATERAL CLINICAL HISTORY: general weakness, failure to thrive TECHNIQUE: 2D digital imaging was performed. AP and lateral views. COMPARISON: CR,XR XR CHEST 2V PA LATERAL from 11/25/2020 FINDINGS: MEDIASTINUM: Normal. HEART: Normal. PULMONARY VASCULATURE: Normal. LUNGS: Clear. PLEURAL SPACE: No pleural effusion or pneumothorax. BONE:Within normal limits for the patient's age. There is a large osteophyte at the T8-T9 level. OTHER FINDINGS:There is a tracheostomy tube in good position. IMPRESSION: No acute pulmonary findings. DATA REPOSITORY: RADIATION DOSE DELIVERED:
--- NOTE | 2021-01-28 09:45 | RT.EKG_ITS ---
APPROVED REPORT Exam: Resting ECG Reason for Exam: general weakness Patient Location: E HR:138 bpm ECG Measurements Heart Rate [address] 140 P 73 QRSd 77 QRS 3 QT 291 T 75 QTc 441 Conclusion Sinus tachycardia.Rate 138, no st elev
--- NOTE | 2021-01-28 09:53 | W.ED.GENAD ---
Discharge Plan Disposition Patient Disposition: [facility] INPATIENT Condition: Stable Discharge Details Chief Complaint: GenMedical Clinical Impression: Alcohol use, Tobacco use disorder, Adult failure to thrive, Alcohol abuse Admit Date/Time: 01/28/21 12:54 Admit Provider: Perri Dumas Attending Provider: Perri Dumas Primary Care Provider: Maisha Deleon ED Provider: Dalton Kumar Discharge Data Discharge Date/Time-TO BE ENTERED AT DEPARTURE: 01/28/21 14:27 Medical Decision Making This is a 60-year-old male alcoholic who is referred by palliative care today. He is a history of cholecystectomy and large surgical excision of squamous cell carcinoma of the oropharynx, is mute, has long-term tracheostomy tube that cannot be removed as well as G-tube. During home health visit today he was found to be living in [facility], unable to care for himself, with failure to thrive, and EMS was called for transport to the ED. Patient most recent admitted in November and placed to local rehabilitation facility where he is reports her state approximately 2 weeks. Patient arrives to the ER dehydrated in appearance and tachycardic. He is generally poorly kempt. He complains of pain in his butt. He was undressed, examined, and IV access was established. With nursing, the patient's sacrum was evaluated with large areas of skin breakdown, and he notes he often sits in urine soaked clothes, there were no deep ulcerations presents and the area was dressed with barrier lotion. Patient given 1 L normal saline fluid bolus and banana bag ordered. With respiratory therapy we took down the crusted gauze around the patient's tracheostomy site and placed Mepilex on the areas of skin breakdown with replacement of the drain pad. Screening x-rays of chest obtained: no acute pulmonary findings. Laboratories are reveal a white blood cell count of 14, hematocrit 45, platelet 255. Sodium 132, potassium 4.2, chloride 94, bicarb 24, BUN 11, creatinine 0.9. Glucose 243. AST 84, ALT 50, troponin negative. Alcohol level negative. Urinalysis pending. Patient has a component of alcohol withdrawal, dehydration, numerous areas of skin breakdown on his dependent sacral areas and surrounding his trach, failure to thrive. Initially his pulse was rising to 150 with movement in the bed and had slightly low blood pressures, these have improved a blood pressure 121/85 and pulse approximately 120. He was seen by care management and tentatively may have a ultimate disposition of returning to the local rehabilitation facility. He will require an inpatient stay at this time. HPI General Mode of arrival: EMS. Date/Time Provider Initiated Documentation: 01/28/21 10:07. Limitations to Documentation: other (mutism). Information obtained by: patient and EMS. History of Present Illness 60 year old M presents to the emergency department with the chief complaint of Generalized weakness and failure to thrive. Pt complains of sore bottom, described as moderate and similar to prior episodes, Patient started experiencing this day(s) and it has been constant. No relieving factors improve symptom(s), No exacerbating factors reported . Patient notes malaise; denies headaches and syncope. Patient did receive the following treatments prior to arrival, none Related Data Home Medications Medication Instructions Recorded Confirmed folic acid 400 mcg tablet 0.4 mg PO DAILY 08/06/19 01/28/21 swab #500 ea 07/28/20 01/17/21 chlorhexidine gluconate 0.12 % 15 ml MUCOUS MEMBRANE TID ml 09/01/20 01/28/21 mouthwash food supplemt, lactose-reduced See Rx Instructions FEEDING TUBE 09/01/20 01/28/21 .COMPLEX ibuprofen 600 mg tablet 600 mg FEEDING TUBE Q6H PRN 09/01/20 01/28/21 levothyroxine 50 mcg tablet 50 mcg FEEDING TUBE DAILY 09/01/20 01/28/21 multivitamin 1 tab FEEDING TUBE DAILY 09/01/20 01/28/21 thiamine HCl (vitamin B1) 100 mg 100 mg FEEDING TUBE DAILY 09/01/20 01/28/21 tablet vitamin E (dl, acetate) 180 mg 400 unit FEEDING TUBE DAILY 09/01/20 01/28/21 (400 unit) capsule gabapentin 300 mg/6 mL (6 mL) oral 400 mg FEEDING TUBE TID ml 09/10/20 01/28/21 solution Previous Rx's Medication Instructions Recorded swab #500 ea 07/28/20 Allergies Allergy/AdvReac Type Severity Reaction Status Date / Time No Known Allergies Allergy Verified 01/28/21 12:55 General Stated Complaint: GenMedical CHRIST: 3 Review of Systems Narrative: Patient reports poor p.o. intake, generalized weakness, pain in bottom. Continues to smoke and use alcohol. Has trach which cannot be removed due to radiation and surgical changes. 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 cervical lymphadenectomy, tracheostomy, excision benign thyroid lesion, exploration carotid artery S/P reconstruction procedure (08/18/20) Pediculed pec flap, L hemiglossectomy and mandibulectomy ([facility]) S/P tooth extraction (~2013) Status post glossectomy (08/11/20) w/ multiple other procedures Family History Mother , about age 70 Hypertension Hyperlipidemia Breast cancer Asthma Smoker Lung cancer Father , about age 70 from lung cancer Asthma Lung cancer Smoker Brother Hyperlipidemia Son No problems noted. Grandson No problems noted. Social History Smoking/Tobacco Use Status: Former Tobacco Use Tobacco: How many years used: 31 Quit status: considering quitting Counseling given: provider counseling and counseling >3 minutes Smoking risk assessment performed?: Yes Alcohol Intake: current Alcohol Intake frequency: 3 or more drinks per day Alcohol type: beer Counseling provided: reduce to 2 or less/day Details: 3 beer a day (? accuracy? No empties seen in his LR or DR.) Drug use: Daily Substance use type: marijuana Details: 12 am 01/28/21 last etoh intake. 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 Pets and animals: No Sexually active: No Do you think of yourself as: straight/heterosexual Current gender identity: male What is your relationship status?: How often do you talk on the phone with friends or family?: never How often do you get together with friends or relatives?: once per week Panel score (0-1 are the most socially isolated patients): 0 What type of physical activity do you participate in: none and sedentary lifestyle Frequency: does not exercise Special leeroy needs: No Agree to transfusion: Yes Seatbelt use: always Working smoke detector in home: Yes Fire extinguisher in home: Yes Do you feel safe at home: Yes Do you feel safe in your relationship?: Yes Additional Social history: Lives alone in a trailer his parents bought in 1975. He went to in [place]. 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 Not a [facility] patient yet; needs to establish care at [facility]. He is still friends with his ex-. He has no vehicle. Cannot talk on phone. Listens to his messages. Asked me to call in his feeding tube supplies--done. Trache is permanent, as if feeding tube. Has gained weight since hospitalization. No computer. No way to communicate easily. Writes down his answers and questions. Would benefit from getting help in regularly to take him shopping, make phone calls for him, etc. Exam Narrative Exam Narrative: GEN: awake, alert, oriented 3. Pleasant, well groomed, interactive. HEAD: Normocephalic, atraumatic ENT: Mucous membranes dry, patient is status post glossectomy and surgical excision of hypopharynx EYES: PERRL, EOMI NECK: Full ROM, no KENYA, no menigismus, crusted secretions around tracheostomy CHEST/RESP: Distant breath sounds, nontender, no wheeze or rhonchi appreciated, healed left surgical incision anterior chest CARDIOVASCULAR: Distant, regular and tachycardic, no murmur, rub anabel. 2+ Rad pulse bilateral ABDOMEN: Soft, nontender, no mass. +Bowel sounds EXT: Full ROM, no edema, no rash Neuro: Grossly normal neurologic exam, communicates through writing Psych: Speech absent, affect flat Course Vital Signs Vital signs: Vital Signs Temperature 37.0 C 01/28/21 09:41 Pulse 137 H 01/28/21 09:41 Respiratory Rate 22 01/28/21 09:41 Blood Pressure 98/80 L 01/28/21 09:41 Pulse Oximetry 97 01/28/21 09:41 Temperature 37.0 C 01/28/21 09:41 Temperature Source Temporal Artery Scan 01/28/21 09:41 Pulse 137 H 01/28/21 09:41 Respiratory Rate 22 01/28/21 09:41 Blood Pressure 98/80 L 01/28/21 09:41 Blood Pressure Position Sitting 01/28/21 09:41 Pulse Oximetry 97 01/28/21 09:41 Oxygen Delivery Method Room Air 01/28/21 09:41 Oxygen Flow Rate 0 01/28/21 09:41 Pain Level 8 01/28/21 09:41
[2021-01-28 10:38] LABS: Abs Immature Grans 0.07 10^3/uL (0.0-0.06); Absolute Lymphocyte Count 0.21 10^3/uL (1.2-3.4); Basophils % 0.1; HCT 45.5 % (40.0-50.0); HGB 15.7 g/dL (13.5-17.5); Immature Grans % 0.5; Lymphocytes % 1.4; MCH 30.8 pg (27.0-33.0); MCHC 34.5 % (32.0-36.0); MCV 89.2 fL (80-95); MPV 9.1 fL (8.0-11.0); Monocytes % 3.3; Neutrophils % 94.7; Nucleated RBC 0 %; Platelet Count 255 10^3/uL (130-400); RDW 13.4 % (11.8-14.1); RDW-SD 43.9 fL; WBC 14.95 10^3/uL (4.4-10.8)
[2021-01-28 10:39] LABS: Absolute Basophil Count 0.01 10^3/uL (0.0-0.2); Absolute Monocyte Count 0.49 10^3/uL (0.1-0.8); Absolute Neutrophil Count 14.16 10^3/uL (1.2-6.7)
[2021-01-28] MEDS: Normal Saline Flush 10 ML SYR IVP ×2 (10:39→21:06)
[2021-01-28] MEDS: HYDROmorphone 2 MG/ML VIAL 1 MG IVP (10:39)
[2021-01-28] MEDS: LORazepam 2 MG/ML VIAL 1 MG IVP (10:39)
[2021-01-28] MEDS: Normal Saline 1,000 ML 1000 ML IV (10:40)
[2021-01-28 10:49] LABS: Magnesium 2.1 mg/dL (1.8-2.4)
[2021-01-28 10:57] LABS: ALT 56 U/L (16-63); AST 84 U/L (15-37); Albumin 3.5 g/dL (3.4-5.0); Alkaline Phosphatase 105 U/L (46-116); Anion Gap 13.6 mmol/L (3-11); BUN 11 mg/dL (7-18); Bilirubin, Total 1.1 mg/dL (0.2-1.0); CO2 24.4 mmol/L (21.0-32.0); CREATININE 0.9 mg/dL (0.70-1.30); Calcium 9.5 mg/dL (8.5-10.1); Chloride 94 mmol/L (98-107); Glucose 243 mg/dL (74-106); Potassium 4.2 mmol/L (3.5-5.1); Sodium 132 mmol/L (136-145); Total Protein 8.1 g/dL (6.4-8.2)
[2021-01-28 10:58] LABS: ETHANOL BLOOD < 3.0 mg/dL (<3); Troponin I < 0.05 ng/mL (<0.06)
[2021-01-28 11:12] LABS: Source Nasal/Nares
[2021-01-28] MEDS: HYDROmorphone 2 MG/ML VIAL 0.5 MG IVP (12:43)
[2021-01-28] MEDS: MAGNESIUM SULFATE 8.12 MEQ, MULTIVITAMIN 10 ML, THIAMINE 100 MG, FOLIC ACID 1 MG in Nor... 168.867 MG IV (12:44)
[2021-01-28 13:24] LABS: COVID-19 PCR Negative (Negative)
--- NOTE | 2021-01-28 14:13 | INITIAL_ITS ---
- If Service Date Differs Date of service: 01/28/21 Time of Service: 14:13 Care Management Initial Assess PAST MEDICAL HISTORY/PAST SURGICAL HISTORY:: Medical History: Acute hypokalemia, Acute hyponatremia, Anxiety,. Aspiration pneumonia, Caries, Closed head injury with loss of consciousness of unknown duration, COPD (chronic obstructive pulmonary disease), Cough with hemoptysis, DVT prophylaxis, Dysphagia, oral phase, Facial laceration, Floor of mouth squamous cell carcinoma (06/26/20),. Hypertension, Hypokalemia, Hyponatremia, Hypothyroidism, Lives alone,. 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 Recurrent squamous cell carcinoma, Tobacco use disorder >25 pack years,. 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 Surgical History: S/P glossectomy (10/24/13) - w/ resection of floor of mouth, w/ suprahyoid neck dissection. cervical lymphadenectomy, tracheostomy, excision benign thyroid lesion, exploration carotid artery. S/P reconstruction procedure (08/18/20), Pediculed pec flap, L hemiglossectomy and mandibulectomy (), S/P tooth extraction (~2013), and Status post glossectomy (08/11/20) w/ multiple other procedures. PREVIOUS FUNCTIONAL STATUS/SOCIAL/FAMILY SUPPORTS:: Chito is a 60 year old male who lives independently in [facility]. He is an [employer] [place]. Chito had a surgical excision of squamous cell carcinoma of the oropharynx and now has a long-term tracheostomy tube. He is mute but communicates by writing on a whiteboard. His brother, Peewee, lives locally and is a source of support for Chito. CURRENT FUNCTIONAL STATUS:: Chito is sitting up in bed when CM comes to meet with him. When CM asks if he wishes to return to [facility], he writes that he doesn't but that his family wants him to go back to the Rehab. CM asks if living alone has been a struggle for him and he shakes his head no. CM will continue to follow. ADVANCE DIRECTIVES:: On file; his brother, Peewee Santiago, is appointed as Health Care Agent. Has patient been provided with info about the portal/API?: Yes Did the patient sign up for the portal?: No CODE STATUS:: DNR/DNI INSURANCE COVERAGE / FINANCIAL ISSUES:: Medicare/[facility] Family has applied for Medicaid on his behalf and the application is currently being processed. The family has also been given a Home Office Claim Specialist Medicaid application to complete. CURRENT HOME/COMMUNITY SERVICES/EQUIPMENT:: Chito has Palliative Care services. He formerly had services through Home Health but Chito states he cancelled them because he felt they cost too much money. [employer] is assisting Chito with Medicaid. PRIMARY CARE PHYSICIAN:: Maisha Deleon NP. POTENTIAL DISCHARGE NEEDS:: Potential SNF placement, follow up with PCP and plan of care. PATIENT/FAMILY EDUCATION NEEDS:: Review of discharge instructions, medications, limitations, and follow up plan, including Ask Me Three. ANTICIPATED BARRIERS TO DISCHARGE:: Chito's inability to care for himself in the community. He likely will require a SNF placement. TRANSPORTATION:: Undetermined at this time as it depends on disposition. PLAN:: Anticipate Chito will require a SNF placement when medically cleared by provider. He will follow up with his PCP and discharge plan of care as directed. Transportation will be determined by disposition. CM will continue to follow.
[2021-01-28 14:25] LABS: Bilirubin Small (Negative); Blood Trace-lysed (Negative); Clarity Clear (Clear); Glucose 100 mg/dL (Negative); Ketones 80 mg/dL (Negative); Leukocyte Esterase Negative (Negative); Nitrite Negative (Negative); Specific Gravity 1.025 (1.005-1.025); Urobilinogen 0.2 EU/dL (Up TO 0.2)
[2021-01-28 14:35] LABS: Bacteria Rare HPF (Negative); C & S Indicated? No; Casts Negative LPF (Negative); Crystals Negative HPF (Negative); Epithelial Cells Rare HPF (Negative); Mucus Trace (Negative); Other Cells Rare Renal (Negative); RBC 0-2 HPF (0-2)
[2021-01-28 14:49] LABS: *AMPHETAMINES SCREEN URINE Negative (Negative); *BARBITURATES SCREEN URINE Negative (Negative); *BENZODIAZEPINES SCREEN URINE Negative (Negative); Cannabinoids THC Positive (Negative); Cocaine Screen,Urine Negative (Negative); METHADONE URINE SCREEN Negative (Negative); OPIATES URINE SCREEN Positive (Negative)
[2021-01-28 14:52] LABS: Tricyclic Antidepressants Negative (Negative)
[2021-01-28] MEDS: Enoxaparin 40 MG/0.4 ML SYR SC (15:22)
--- NOTE | 2021-01-28 15:58 | W.PM.HP.N ---
Date of service: 01/28/21 Time of Service: 15:59 Assessment and Plan Assessment and plan (1) Acute bronchitis: Status: Acute Assessment and plan: Start on empiric doxy/ceftriaxone, prn albuterol. Await sputum c&s. Resp. therapy consult for trach care (2) Alcohol withdrawal: Status: Acute Assessment and plan: Mild. Monitor on CIWA. Receiving banana bag today. Will give vitamins per tube starting tomorrow. Denies h/o EtOH w/d seizures (3) Acute dehydration: Status: Acute Assessment and plan: Hydrate intravenously. We are clarifying TF recommendations with nutrition and will adjust free water (4) SIRS (systemic inflammatory response syndrome): Status: Acute Assessment and plan: Combination of alcohol withdrawal, acute bronchitis, dehydration. Await blood culture results. Treat with empiric abx, IVF as above (5) Alcohol abuse: Status: Chronic Assessment and plan: As above (6) Adult failure to thrive: Status: Acute Assessment and plan: Will likely require disposition to SNF yet again on this admission. (7) Carcinoma of oral cavity: Status: Chronic Assessment and plan: Followed by palliative care. Not yet on hospice, though his prognosis is unclear at this time. Consult palliative care. (8) DVT prophylaxis: Status: Acute Assessment and plan: SC enoxaparin (9) Discharge planning issues: Status: Acute Assessment and plan: DNR/DNI per my witnessed conversation with the patient in his room. C/s palliative care. Will monitor in ICU overnight as there is mention of EtOH w/d seizures in his chart, though patient denies this. History of Present Illness History of Present Illness Chief Complaint: Failure to thrive Narrative: Mr Santiago is a 60 year old male with PMHx of stage Annalisa sq cell ca of the tongue s/p partial glossectomy/xrt, with tracheostomy/gastrostomy in place, as well as h/o non-oxygen requiring COPD, alcohol abuse with h/o prior EtOH w/d (but no seizures) and hypothyroidim, who was referred to [facility] ED today after being found by Dr Byrne on a home palliative care visit to be sitting in his urine and looking unwell/unkempt. In the ED, he was found to by hypotensive and tachycardic. The patient admits to drinking 10-12 beers/daily, last drink being last night. He is putting them through the gastrostomy tube. He feels sick (chills/hot) and has felt like this for a week. He has had purulent sputum come up through the trach. He reports pain in his buttocks and requests pain medication. He would be willing to go to rehab for a short period of time at the end of his hospitalization. Review of Systems All systems reviewed & are unremarkable except as noted in HPI and below PFSH Medical History Acute hypokalemia Acute hyponatremia Anxiety Aspiration pneumonia Caries Closed head injury with loss of consciousness of unknown duration COPD (chronic obstructive pulmonary disease) Cough with hemoptysis DVT prophylaxis Dysphagia, oral phase Facial laceration Floor of mouth squamous cell carcinoma (06/26/20) Hypertension Hypokalemia Hyponatremia Hypothyroidism Lives alone Marijuana smoker Mouth cancer Mute due to extensive oral surgery and h/o radiation Oral pain controlled with ibuprofen Pre-op evaluation Recurrent squamous cell carcinoma Tobacco use disorder >25 pack years Uses feeding tube 5 cans of Nutren 1.5 per day with 1 scoop protein supplement each feed [place] [employer]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 cervical lymphadenectomy, tracheostomy, excision benign thyroid lesion, exploration carotid artery S/P reconstruction procedure (08/18/20) Pediculed pec flap, L hemiglossectomy and mandibulectomy ([facility]) S/P tooth extraction (~2013) Status post glossectomy (08/11/20) w/ multiple other procedures Family History Mother , about age 70 Hypertension Hyperlipidemia Breast cancer Asthma Smoker Lung cancer Father , about age 70 from lung cancer Asthma Lung cancer Smoker Brother Hyperlipidemia Son No problems noted. Grandson No problems noted. Social History Smoking/Tobacco Use Status: Former Tobacco Use Tobacco: How many years used: 31 Quit status: considering quitting Counseling given: provider counseling and counseling >3 minutes Smoking risk assessment performed?: Yes Alcohol Intake: current Alcohol Intake frequency: 3 or more drinks per day Alcohol type: beer Counseling provided: reduce to 2 or less/day Details: 3 beer a day (? accuracy? No empties seen in his LR or DR.) Drug use: Daily Substance use type: marijuana Details: 12 am 01/28/21 last etoh intake. Adopted: No Caregiver/Support person: No Foster care: No Household members: none Housing: house Number of Children: 1 number of grandchildren: 1 Communication Needs: Corrective Lenses and Language Barriers Education Level: high school Do you need help understanding health information?: Often current occupation: on disability; was in [employer] x 4 years, then [employer] Pets and animals: No Sexually active: No Do you think of yourself as: straight/heterosexual Current gender identity: male What is your relationship status?: How often do you talk on the phone with friends or family?: never How often do you get together with friends or relatives?: once per week Panel score (0-1 are the most socially isolated patients): 0 What type of physical activity do you participate in: none and sedentary lifestyle Frequency: does not exercise Special leeroy needs: No Agree to transfusion: Yes Seatbelt use: always Working smoke detector in home: Yes Fire extinguisher in home: Yes Do you feel safe at home: Yes Do you feel safe in your relationship?: Yes Additional Social history: Lives alone in a trailer his parents bought in 1975. He went to in [place]. 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 Not a [facility] patient yet; needs to establish care at [facility]. He is still friends with his ex-. He has no vehicle. Cannot talk on phone. Listens to his messages. Asked me to call in his feeding tube supplies--done. Trache is permanent, as if feeding tube. Has gained weight since hospitalization. No computer. No way to communicate easily. Writes down his answers and questions. Would benefit from getting help in regularly to take him shopping, make phone calls for him, etc. Meds Allergies and Home Medications Allergies Allergy/AdvReac Type Severity Reaction Status Date / Time No Known Allergies Allergy Verified 01/28/21 12:55 Home Medications Medication Instructions Recorded Confirmed Type folic acid 400 mcg tablet 0.4 mg PO DAILY 08/06/19 01/28/21 History swab #500 ea 07/28/20 01/17/21 Rx chlorhexidine gluconate 0.12 % 15 ml MUCOUS MEMBRANE TID ml 09/01/20 01/28/21 History mouthwash food supplemt, lactose-reduced See Rx Instructions FEEDING TUBE 09/01/20 01/28/21 History .COMPLEX ibuprofen 600 mg tablet 600 mg FEEDING TUBE Q6H PRN 09/01/20 01/28/21 History levothyroxine 50 mcg tablet 50 mcg FEEDING TUBE DAILY 09/01/20 01/28/21 History multivitamin 1 tab FEEDING TUBE DAILY 09/01/20 01/28/21 History thiamine HCl (vitamin B1) 100 mg 100 mg FEEDING TUBE DAILY 09/01/20 01/28/21 History tablet vitamin E (dl, acetate) 180 mg 400 unit FEEDING TUBE DAILY 09/01/20 01/28/21 History (400 unit) capsule gabapentin 300 mg/6 mL (6 mL) oral 400 mg FEEDING TUBE TID ml 09/10/20 01/28/21 History solution Exam Narrative Exam Narrative: General: Pleasant middle-aged male who is not tremulous but does not appear to be feeling well, A&Ox3, communicates via dry [email or web address] board Neurological: A&ox3, no focal deficits Psychiatric: As much as I am able to evaluate, appears to have appropriate speech pattern/content Skin: groin/kerry area erythema. Abdominal skin erosion completely healed. HEENT: Atraumatic, s/p partial glossectomy, L neck mass, trach in place, no goiter or obvious JVD Cardiovascular: RRR, tachycardic, no m/r/g Lungs: mildly rhonchorous Gastrointestinal: soft, nontender, nondistended, gastrostomy tube in place Genitourinary: erythematous kerry area Extremities: no edema BLEs, +1 pedal pulses B Results Imaging Additional studies: CXR: No acute pulmonary findings. Labs Result diagrams: 01/28/21 10:32 01/28/21 10:32 Labs: Laboratory Results - last 24 hr 01/28/21 01/28/21 01/28/21 10:32 10:32 10:32 WBC 14.95 H RBC 5.10 Hgb 15.7 Hct 45.5 MCV 89.2 MCH 30.8 MCHC 34.5 RDW 13.4 Plt Count 255 MPV 9.1 Immature Gran % 0.5 Neutrophils % 94.7 Lymphocytes % 1.4 Monocytes % 3.3 Eosinophils % 0.0 Basophils % 0.1 Nucleated RBC % 0 Absolute Neutrophils 14.16 H Absolute Lymphocytes 0.21 L Absolute Monocytes 0.49 Absolute Eosinophils 0.00 Absolute Basophils 0.01 Sodium 132 L Potassium 4.2 Chloride 94 L Carbon Dioxide 24.4 Anion Gap 13.6 H BUN 11 Creatinine 0.9 Estimated GFR/1.73 m2 >= 60.00 Glucose 243 H Calcium 9.5 Magnesium 2.1 Total Bilirubin 1.1 H AST 84 H ALT 56 Alkaline Phosphatase 105 Troponin I < 0.05 Total Protein 8.1 Albumin 3.5 Urine Color Urine Clarity Urine pH Ur Specific [place] Urine Protein Urine Ketones Urine Blood Urine Nitrite Urine Bilirubin Urine Urobilinogen Ur Leukocyte Esterase Urine RBC Urine WBC Ur Epithelial Cells Urine Crystals Urine Bacteria Urine Casts Urine Mucus Urine Other Ur Culture Indicated? Urine Glucose Urine Opiates Screen Urine Methadone Screen Ur Barbiturates Screen Ur Tricyclics Screen Ur Amphetamines Screen U Benzodiazepines Scrn Urine Cocaine Screen Ur THC Screen Ethyl Alcohol < 3.0 COVID-19 Source SARS-CoV-2 (PCR) 01/28/21 01/28/21 01/28/21 11:04 14:13 14:13 WBC RBC Hgb Hct MCV MCH MCHC RDW Plt Count MPV Immature Gran % Neutrophils % Lymphocytes % Monocytes % Eosinophils % Basophils % Nucleated RBC % Absolute Neutrophils Absolute Lymphocytes Absolute Monocytes Absolute Eosinophils Absolute Basophils Sodium Potassium Chloride Carbon Dioxide Anion Gap BUN Creatinine Estimated GFR/1.73 m2 Glucose Calcium Magnesium Total Bilirubin AST ALT Alkaline Phosphatase Troponin I Total Protein Albumin Urine Color Ritu Urine Clarity Clear Urine pH 6.0 Ur Specific [place] 1.025 Urine Protein 100 H Urine Ketones 80 H Urine Blood Trace-lysed H Urine Nitrite Negative Urine Bilirubin Small H Urine Urobilinogen 0.2 Ur Leukocyte Esterase Negative Urine RBC 0-2 Urine WBC 3-5 Ur Epithelial Cells Rare Urine Crystals Negative Urine Bacteria Rare Urine Casts Negative Urine Mucus Trace Urine Other Rare Renal Ur Culture Indicated? No Urine Glucose 100 Urine Opiates Screen Positive A Urine Methadone Screen Negative Ur Barbiturates Screen Negative Ur Tricyclics Screen Negative Ur Amphetamines Screen Negative U Benzodiazepines Scrn Negative Urine Cocaine Screen Negative Ur THC Screen Positive A Ethyl Alcohol COVID-19 Source Nasal/Nares SARS-CoV-2 (PCR) Negative Last Vital Signs Temp 37.0 C 01/28/21 09:41 Pulse 115 H 01/28/21 15:00 Resp 19 01/28/21 15:01 BP 101/75 01/28/21 15:00 Pulse Ox 93 01/28/21 15:01
--- NOTE | 2021-01-28 16:29 | NUR.NOTE ---
Meghan from nutrition called back, states to cont. home feedings and she will review pt's needs in the AM. Nursing Note:
[2021-01-28 16:31] LABS: Procalcitonin < 0.1 ng/mL
[2021-01-28] MEDS: cefTRIAXone 1 GM/50 ML BAG IVPB (17:03)
[2021-01-28] MEDS: DOXYCYCLINE 100 MG in Normal Saline 100 ML IVPB (17:55)
[2021-01-28] MEDS: Acetaminophen 325 MG TAB PO (21:05)
[2021-01-28] MEDS: Gabapentin 400 MG CAP NG (21:05)
[2021-01-28] MEDS: Normal Saline 1,000 ML 125 ML IV (23:24)
[2021-01-29] VITALS (36 sets, daily range): BP systolic 87–157; BP diastolic 66–116; PULSE 83–120; RESP 14–28; TEMP 36.3–37.1; O2SAT 94–97
[2021-01-29] MEDS: DOXYCYCLINE 100 MG in Normal Saline 100 ML IVPB ×2 (04:05→17:42)
[2021-01-29] MEDS: Acetaminophen 325 MG TAB PO ×2 (04:05→09:25)
[2021-01-29] MEDS: Levothyroxine 50 MCG TAB PO (06:08)
[2021-01-29 06:52] LABS: Abs Immature Grans 0.04 10^3/uL (0.0-0.06); Absolute Basophil Count 0.02 10^3/uL (0.0-0.2); Absolute Eosinophil Count 0.06 10^3/uL (0.0-0.7); Absolute Lymphocyte Count 0.63 10^3/uL (1.2-3.4); Absolute Monocyte Count 0.44 10^3/uL (0.1-0.8); Absolute Neutrophil Count 5.19 10^3/uL (1.2-6.7); Basophils % 0.3; Eosinophils % 0.9; HCT 38.6 % (40.0-50.0); Immature Grans % 0.6; Lymphocytes % 9.9; MCH 30.6 pg (27.0-33.0); MCHC 33.7 % (32.0-36.0); MCV 90.8 fL (80-95); MPV 9.7 fL (8.0-11.0); Monocytes % 6.9; Neutrophils % 81.4; Nucleated RBC 0 %; Platelet Count 188 10^3/uL (130-400); RBC 4.25 10^6/uL (4.36-5.78); RDW 13.8 % (11.8-14.1); RDW-SD 46.2 fL; WBC 6.37 10^3/uL (4.4-10.8)
[2021-01-29 07:25] LABS: Anion Gap 9.9 mmol/L (3-11); BUN 6 mg/dL (7-18); CO2 29.1 mmol/L (21.0-32.0); CREATININE 0.5 mg/dL (0.70-1.30); Calcium 8.7 mg/dL (8.5-10.1); Chloride 99 mmol/L (98-107); Glucose 114 mg/dL (74-106); Potassium 3.3 mmol/L (3.5-5.1); Sodium 138 mmol/L (136-145)
[2021-01-29] MEDS: Normal Saline 1,000 ML 125 ML IV (07:34)
--- NOTE | 2021-01-29 08:30 | PGE_ITS ---
Date of Service Date of service: 01/29/21 Time of Service: 12:39 Assessment and Plan Assessment and plan (1) Acute bronchitis: Status: Acute Assessment and plan: Continue empiric doxy/ceftriaxone, prn albuterol. Add mucinex Sputum c&s with mixed GP and GN dana. Await speciation. No change to abx today. WBC better. Continue trach care (2) Abdominal pain: Status: Acute Assessment and plan: I suspect alcoholic gastritis. For this reason, continue BID PPI and carafate and d/c ibuprofen. Continue dilaudid. Consider increasing gabapentin. I think it is the pain that is driving tachycardia. (3) Alcohol withdrawal: Status: Acute Assessment and plan: Mild. Ok to transfer out of ICU. Continue PO vitamins Denies h/o EtOH w/d seizures (4) Acute dehydration: Status: Resolved Assessment and plan: D/c IVF. If needed, will provide free water with TFs. (5) SIRS (systemic inflammatory response syndrome): Status: Resolved Assessment and plan: Combination of alcohol withdrawal, acute bronchitis, dehydration. Await blood culture results. Continue empiric doxy/ceftriaxone. 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 Not yet on hospice, though his prognosis is unclear at this time. Palliative care is on board on this admission. (9) DVT prophylaxis: Status: Acute Assessment and plan: SC enoxaparin (10) Discharge planning issues: Status: Acute Assessment and plan: DNR/DNI per my witnessed conversation with the patient in his room. Xfer out of ICU to [facility] with tele Subjective Subjective Interval history since last seen: MR Santiago feels a little bit better than yesterday. He does not think that his respiratory secretions are getting any better. Reports ongoing pain on his buttocks. Requests that dilaudid be q3h prn. Denies dizziness, headache, chest pain. Reports some nausea. Declines antiemetics. Continues to report abdominal pain - thinks it's muscular. Normally takes ibuprofen. 900 cc of timothy urine made overnight. Exam Narrative Exam Narrative: General: Pleasant middle-aged male who is not tremulous, looks a little better than yesterday, communicating via Perkle board HEENT: s/p partial glossectomy, L neck mass, trach in place with thick yellowish secretions, no goiter or obvious JVD Cardiovascular: RRR, less tachycardic, no m/r/g Lungs: mildly rhonchorous, some rales also heard today Gastrointestinal: soft, tender around gastrostomy tube, nondistended, gastrostomy tube in place Extremities: no edema BLEs, +1 pedal pulses B Objective Last Vital Signs Temp 36.5 C 01/29/21 03:30 Pulse 113 H 01/29/21 06:01 Resp 16 01/29/21 06:01 BP 113/87 01/29/21 06:01 Pulse Ox 96 01/28/21 17:01 Laboratory Results - last 24 hr 01/28/21 01/28/21 01/28/21 10:32 10:32 10:32 WBC 14.95 H RBC 5.10 Hgb 15.7 Hct 45.5 MCV 89.2 MCH 30.8 MCHC 34.5 RDW 13.4 Plt Count 255 MPV 9.1 Immature Gran % 0.5 Neutrophils % 94.7 Lymphocytes % 1.4 Monocytes % 3.3 Eosinophils % 0.0 Basophils % 0.1 Nucleated RBC % 0 Absolute Neutrophils 14.16 H Absolute Lymphocytes 0.21 L Absolute Monocytes 0.49 Absolute Eosinophils 0.00 Absolute Basophils 0.01 Sodium 132 L Potassium 4.2 Chloride 94 L Carbon Dioxide 24.4 Anion Gap 13.6 H BUN 11 Creatinine 0.9 Estimated GFR/1.73 m2 >= 60.00 Glucose 243 H Hemoglobin A1c Calcium 9.5 Magnesium 2.1 Total Bilirubin 1.1 H AST 84 H ALT 56 Alkaline Phosphatase 105 Troponin I < 0.05 Total Protein 8.1 Albumin 3.5 Procalcitonin Urine Color Urine Clarity Urine pH Ur Specific [place] Urine Protein Urine Ketones Urine Blood Urine Nitrite Urine Bilirubin Urine Urobilinogen Ur Leukocyte Esterase Urine RBC Urine WBC Ur Epithelial Cells Urine Crystals Urine Bacteria Urine Casts Urine Mucus Urine Other Ur Culture Indicated? Urine Glucose Urine Opiates Screen Urine Methadone Screen Ur Barbiturates Screen Ur Tricyclics Screen Ur Amphetamines Screen U Benzodiazepines Scrn Urine Cocaine Screen Ur THC Screen Ethyl Alcohol < 3.0 COVID-19 Source SARS-CoV-2 (PCR) 01/28/21 01/28/21 01/28/21 11:04 14:13 14:13 WBC RBC Hgb Hct MCV MCH MCHC RDW Plt Count MPV Immature Gran % Neutrophils % Lymphocytes % Monocytes % Eosinophils % Basophils % Nucleated RBC % Absolute Neutrophils Absolute Lymphocytes Absolute Monocytes Absolute Eosinophils Absolute Basophils Sodium Potassium Chloride Carbon Dioxide Anion Gap BUN Creatinine Estimated GFR/1.73 m2 Glucose Hemoglobin A1c Calcium Magnesium Total Bilirubin AST ALT Alkaline Phosphatase Troponin I Total Protein Albumin Procalcitonin Urine Color [place] Urine Clarity Clear Urine pH 6.0 Ur Specific [place] 1.025 Urine Protein 100 H Urine Ketones 80 H Urine Blood Trace-lysed H Urine Nitrite Negative Urine Bilirubin Small H Urine Urobilinogen 0.2 Ur Leukocyte Esterase Negative Urine RBC 0-2 Urine WBC 3-5 Ur Epithelial Cells Rare Urine Crystals Negative Urine Bacteria Rare Urine Casts Negative Urine Mucus Trace Urine Other Rare Renal Ur Culture Indicated? No Urine Glucose 100 Urine Opiates Screen Positive A Urine Methadone Screen Negative Ur Barbiturates Screen Negative Ur Tricyclics Screen Negative Ur Amphetamines Screen Negative U Benzodiazepines Scrn Negative Urine Cocaine Screen Negative Ur THC Screen Positive A Ethyl Alcohol COVID-19 Source Nasal/Nares SARS-CoV-2 (PCR) Negative 01/28/21 01/29/21 01/29/21 15:13 06:20 06:20 WBC RBC Hgb Hct MCV MCH MCHC RDW Plt Count MPV Immature Gran % Neutrophils % Lymphocytes % Monocytes % Eosinophils % Basophils % Nucleated RBC % Absolute Neutrophils Absolute Lymphocytes Absolute Monocytes Absolute Eosinophils Absolute Basophils Sodium 138 Potassium 3.3 L Chloride 99 Carbon Dioxide 29.1 Anion Gap 9.9 BUN 6 L Creatinine 0.5 L D Estimated GFR/1.73 m2 >= 60.00 Glucose 114 H D Hemoglobin A1c 5.0 Calcium 8.7 Magnesium Total Bilirubin AST ALT Alkaline Phosphatase Troponin I Total Protein Albumin Procalcitonin < 0.1 Urine Color Urine Clarity Urine pH Ur Specific [place] Urine Protein Urine Ketones Urine Blood Urine Nitrite Urine Bilirubin Urine Urobilinogen Ur Leukocyte Esterase Urine RBC Urine WBC Ur Epithelial Cells Urine Crystals Urine Bacteria Urine Casts Urine Mucus Urine Other Ur Culture Indicated? Urine Glucose Urine Opiates Screen Urine Methadone Screen Ur Barbiturates Screen Ur Tricyclics Screen Ur Amphetamines Screen U Benzodiazepines Scrn Urine Cocaine Screen Ur THC Screen Ethyl Alcohol COVID-19 Source SARS-CoV-2 (PCR) 01/29/21 01/29/21 06:20 06:20 WBC 6.37 D RBC 4.25 L Hgb 13.0 L D Hct 38.6 L MCV 90.8 MCH 30.6 MCHC 33.7 RDW 13.8 Plt Count 188 MPV 9.7 Immature Gran % 0.6 Neutrophils % 81.4 Lymphocytes % 9.9 Monocytes % 6.9 Eosinophils % 0.9 Basophils % 0.3 Nucleated RBC % 0 Absolute Neutrophils 5.19 Absolute Lymphocytes 0.63 L Absolute Monocytes 0.44 Absolute Eosinophils 0.06 Absolute Basophils 0.02 Sodium Potassium Chloride Carbon Dioxide Anion Gap BUN Creatinine Estimated GFR/1.73 m2 Glucose Hemoglobin A1c Calcium Magnesium 2.0 Total Bilirubin AST ALT Alkaline Phosphatase Troponin I Total Protein Albumin Procalcitonin Urine Color Urine Clarity Urine pH Ur Specific [place] Urine Protein Urine Ketones Urine Blood Urine Nitrite Urine Bilirubin Urine Urobilinogen Ur Leukocyte Esterase Urine RBC Urine WBC Ur Epithelial Cells Urine Crystals Urine Bacteria Urine Casts Urine Mucus Urine Other Ur Culture Indicated? Urine Glucose Urine Opiates Screen Urine Methadone Screen Ur Barbiturates Screen Ur Tricyclics Screen Ur Amphetamines Screen U Benzodiazepines Scrn Urine Cocaine Screen Ur THC Screen Ethyl Alcohol COVID-19 Source SARS-CoV-2 (PCR)
--- NOTE | 2021-01-29 08:37 | NS.NUTBLAN_ITS ---
Tube Feeding Assessment/Consult Assessment: Mr. 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 He is s/p partial glossectomy with a trach and gastrostomy tube. He has oral phase dysphagia and gets Nutren 1.5, 5 cans daily with 1 scoop of protein powder. He is 168 cm and 70 kg. His BMI is 24.9kg/m2 which is WNL. Per Dr. Dumas's note, he has gained some weight since his last admission. I have not visited with him yet, but I will. Estimated energy needs are [id number] kcal/day (REE x 1.2 x 1.1) Estimated protein needs are 84 g to 91 g/day (1.2-1.3 g/kg/day) Estimated fluid needs are 2100 ml/day (30 ml/kcal/day) His current tube feed regimen provides 1875 kcal and 81 g protein daily, which is about 100% of his estimated needs. It provides 975 ml of free water so he may need an additional liter or so of free fluid to meet his hydration needs. 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 There is no fiber in Nutren 1.5. Nutrition Diagnosis: Inability to take oral foods and fluids r/t above. Intervention: Mr. Santiago's current feeding regimen theoretically is meeting his nutritional needs. If his bowel regimen is inadequate or altered, we can look at sources of fiber for him. I do wonder how much of his weight gain or maintenance is related to the caloric intake from 10 to 12 beers daily. We may have to increase his feeding if the beer is stopped. Monitoring and Evaluation: Will continue to monitor his progress along with you. Will monitor weight, tube feed intake, and other parameters that will help us assess the adequacy of his nutritional intake. Will evaluate his nutrition care plan ongoing and adjust as needed. Thank you for the consult.
[2021-01-29] MEDS: Gabapentin 400 MG CAP NG ×3 (09:24→19:31)
[2021-01-29] MEDS: Potassium Chloride Liquid 20 MEQ PKT 40 MEQ UD (09:24)
[2021-01-29] MEDS: Vitamin E 400 UNITS CAP PO (09:24)
[2021-01-29] MEDS: Thiamine 100 MG TAB NG (09:25)
[2021-01-29] MEDS: Folic Acid 1 MG TAB NG (09:25)
[2021-01-29] MEDS: Pantoprazole 40 MG VIAL IVP ×2 (09:25→19:31)
[2021-01-29] MEDS: Multivitamin TAB 1 TAB PO (09:25)
[2021-01-29] MEDS: HYDROmorphone 2 MG/ML VIAL 0.5 MG IVP ×2 (09:28→12:40)
[2021-01-29] MEDS: Normal Saline Flush 10 ML SYR IVP ×4 (09:44→22:52)
--- NOTE | 2021-01-29 10:57 | W.NUTRFU ---
Date of service: 01/29/21 Time of Service: 10:57 Nutritional Follow up NOTE: Met with Chito and nursing in ICU today. Chito reports taking 3-5 cartons of Nutren 1.5 daily as tolerated. He reports fullness at times that limits intake. Spoke to Thanh Chito's brother who will bring in a case of Nutren 1.5 as we do not have on hand. If extended stay expected, will order for future delivery. Tube Feeding Regime: 4-5 cartons(237 bolus) of Nutren 1.5 daily as tolerated, no beneprotein needed at this time as may increase gastric emptying time and contribute to early fullness. Recommend spacing feedings q 4-6 hours with flushes in between as needed. Will need additional 1000 ml fluid with meds/flushes to meet 100% nutrient/fluid needs. Time Spent in Nutritional Counseling and Treatment: 20 min
--- NOTE | 2021-01-29 11:41 | PDOC.CMPRO ---
- If Service Date Differs Date of service: 01/29/21 Time of Service: 11:41 Care Management Progress Note S/O: Chito is sitting up in bed when CM comes to meet with him. He reports that he did not sleep all that well last evening and is not feeling great today. He met with a filter tip inspector this morning for a consultation. He remains on CIWA protocol but is reported by nursing staff to be doing well. CM will continue to follow. A: Chito is a 60 year old male admitted to [facility] for SIRS and alcohol withdrawal. P: Anticipate Chito will require a SNF placement when medically cleared by provider. In November of this year, Chito spent a [facility] where he states they took good care of him. CM will continue to support Chito and discharge planning needs.
[2021-01-29] MEDS: Enoxaparin 40 MG/0.4 ML SYR SC (13:34)
[2021-01-29] MEDS: Sucralfate 1 GM TAB UD ×3 (13:35→22:00)
--- NOTE | 2021-01-29 14:54 | W.PALLCONSUL ---
Date of service: 01/29/21 Time of Service: 10:54 History of Present Illness History of Present Illness Chief Complaint: SIRS, inability to care for self, trache, etohism Narrative: I saw Chito the morning of his admission to [facility]. He was acutely ill, febrile, too weak to get out of his recliner, incontinent of urine and feces. He was having rigors at the time of my visit. I asked his ysehty-dz-qca, Em, to call EMS while I spoke to the ER staff about my assessment and to tell them I was sending him in.. Chito is a severe alcoholic. He had been drinking about 20-30 beers per day, per his [id number] (based on the number of emtpy cans she cleaned up). He has a friend who buys his beer for him. He had a pile of empties around his recliner when I saw him in his trailer. He lives in a trailer that his parents owned. His brother Peewee (Em's ) owns this trailer now. Chito has been in dire straits multiple times in the past. They have had to pull up the rug around his recliner and replace his recliner in the past due to both being soiled irremediably by feces and urine. Thanh had replaced Chito's recliner when he came home from Rehab about 6 weeks ago. I saw Chito in his home at the end of November and was impressed by how well he was doing. Unfortunately, in the interim, he started drinking more heavily again. He has been to rehab many times and has tried to stop on his own even more times. He has been drinking since he was a teenager and has never been able to get on top of this disease for any length of time. He was seriously ill when I assessed him prior to this admission. He was admitted to the ICU with SIRS, with a pulmonary source likely. Consults Consult date: 01/29/21 Requesting physician: Perri Dumas Assessment and Plan Assessment and plan (1) SIRS (systemic inflammatory response syndrome): Status: Resolved Assessment and plan: Feeling much better, thanks to care from hospitalist. continue abx (2) Discharge planning issues: Status: Acute Assessment and plan: Has agreed to acute rehab. Will need help getting [place] Medicaid or VA coverage for long-term care costs. (3) Acute bronchitis: Status: Acute Assessment and plan: Did cough during my visit. Feeling better though. (4) Acute dehydration: Status: Resolved Assessment and plan: Getting IVF. Was not using his feeding tube for about 48 hrs prior to admission. Cannot drink by mouth. (5) Tracheostomy care: Status: Acute Assessment and plan: Very dirty and bloody looking at home. All cleaned up since admission. ? source of infection? Not able to care for himself. Complicated care between trache and feeding tube. (6) Lives alone: Status: Acute Assessment and plan: Not safe alone. Advised Chito and his sarijz-mo-hog that I thought he was no longer safe to live alone. (7) Tracheostomy in place: Status: Chronic (8) Adult failure to thrive: Status: Acute Assessment and plan: I do not know how long Chito was able to care safely for himself. He looked as if he was handling all his duties well at the end of November. Nyznxk-nn-bym thought it was maybe a week or two at most. (9) Chronic alcoholism: Status: Acute Assessment and plan: Chito has been an alcoholic since he was an adult. This is clearly a disease process for Chito. He knows that drinking threatens his life, his home, his human connections, yet he persists. He needs help and support and reminders that he still deserves care despite this illness. (10) Fever: Status: Acute Assessment and plan: Resolved. (11) Carcinoma of oral cavity: Status: Chronic Assessment and plan: Dr Dumas mentioned that Chito is now considered a Stage IV patient, since his recurrence. He could qualify for hospice, if he wished, but he has no payor source for a SNF. Cannot come on hospice due to financial reasons, unfortunately. He has tried to apply for [facility] in the past. Unsure of his status at this time. (12) Recurrent squamous cell carcinoma: Status: Acute Assessment and plan: This disease, along with his alcoholism, will likely be the cause of his . Review of Systems Constitutional Constitutional: Reports body ache(s), Reports chills, Reports fatigue, Reports fever(s), Reports frequent falls, Reports lethargy, Reports poor appetite, Reports weakness and Reports weight loss Comments: He is feeling better today, one day after admission, due to the care he has received. Eyes Eyes: Reports dry eyes and Reports requires corrective lenses Comments: Crying on and off through my visit in the ICU today. ENT Ears, Nose, Mouth, and Throat: Reports change in voice (cannot speak due to trache), Reports dry mouth, Reports hoarseness, Reports disequilibrium, Reports throat swelling and Reports tongue swelling Cardiovascular Cardiovascular: Reports dyspnea, Reports dyspnea on exertion and Reports orthopnea Respiratory Respiratory: Reports change in phlegm color, Reports chest congestion, Reports cough, Reports hemoptysis, Reports excessive phlegm production, Reports dyspnea and Reports dyspnea on exertion Gastrointestinal Gastrointestinal: Reports early satiety, Reports dyspepsia and Reports fecal incontinence Genitourinary Genitourinary: Reports difficulty urinating and Reports urinary incontinence Musculoskeletal Musculoskeletal: Reports abnormal gait, Reports atrophy and Reports muscle weakness Integumentary/Breasts Skin/Breast: Reports dry skin and Reports sores (says his bottom is very sore; I did not examine that area) Neurologic Neurologic: Reports abnormal speech, Reports abnormal gait, Reports behavioral changes, Reports dizziness, Reports frequent falls, Reports lack of coordination, Reports memory loss, Reports disequilibrium and Reports weakness Psychiatric Psychiatric: Reports abnormal sleep pattern, Reports anxiety, Reports behavioral changes, Reports change in appetite, Reports depression, Reports difficulty concentrating, Reports hopelessness, Reports irritability, Reports anhedonia and Reports memory loss Endocrine Endocrine: Reports fatigue Allergic/Immunologic Allergic/Immunologic: Reports throat swelling and Reports tongue swelling PFSH Medical History Acute hypokalemia Acute hyponatremia Anxiety Aspiration pneumonia Caries Chronic alcoholism Closed head injury with loss of consciousness of unknown duration COPD (chronic obstructive pulmonary disease) Cough with hemoptysis DVT prophylaxis Dysphagia, oral phase Facial laceration Fecal incontinence Fever Floor of mouth squamous cell carcinoma (06/26/20) Hypertension Hypokalemia Hyponatremia Hypothyroidism Lives alone Marijuana smoker Mouth cancer Mute due to extensive oral surgery and h/o radiation Oral pain controlled with ibuprofen Pre-op evaluation Recurrent squamous cell carcinoma Tobacco use disorder >25 pack years Unable to walk Urinary incontinence Uses feeding tube 5 cans of Nutren 1.5 per day with 1 scoop protein supplement each feed [employer]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 cervical lymphadenectomy, tracheostomy, excision benign thyroid lesion, exploration carotid artery S/P reconstruction procedure (08/18/20) Pediculed pec flap, L hemiglossectomy and mandibulectomy ([facility]) S/P tooth extraction (~2013) Status post glossectomy (08/11/20) w/ multiple other procedures Family History Mother , about age 70 Hypertension Hyperlipidemia Breast cancer Asthma Smoker Lung cancer Father , about age 70 from lung cancer Asthma Lung cancer Smoker Brother Hyperlipidemia Son No problems noted. Grandson No problems noted. Social History Smoking/Tobacco Use Status: Current every day Tobacco: How many years used: 31 Quit status: considering quitting Counseling given: provider counseling and counseling >3 minutes Smoking risk assessment performed?: Yes Alcohol Intake: current Alcohol Intake frequency: 3 or more drinks per day Alcohol type: beer Previous attempts at quittin Counseling given: Yes Counseling provided: reduce to 2 or less/day Details: [id number]-[id number], who was with me, estimated 30 beers/day Drug use: Daily Substance use type: marijuana Details: 12 am 01/28/21 last etoh intake. 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 Pets and animals: No Sexually active: No Do you think of yourself as: straight/heterosexual Current gender identity: male What is your relationship status?: How often do you talk on the phone with friends or family?: never How often do you get together with friends or relatives?: once per week Panel score (0-1 are the most socially isolated patients): 0 What type of physical activity do you participate in: none and sedentary lifestyle Frequency: does not exercise Special leeroy needs: No Agree to transfusion: Yes Seatbelt use: always Working smoke detector in home: Yes Fire extinguisher in home: Yes Do you feel safe at home: Yes Do you feel safe in your relationship?: Yes Additional Social history: Lives alone in a trailer his parents bought in 1975. He went to in [place]. 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 Not a VA patient yet; needs to establish care at [facility]. He is still friends with his ex-. He has no vehicle. Cannot talk on phone. Listens to his messages. Asked me to call in his feeding tube supplies--done. Trache is permanent, as if feeding tube. Has gained weight since hospitalization. No computer. No way to communicate easily. Writes down his answers and questions. Would benefit from getting help in regularly to take him shopping, make phone calls for him, etc. Exam Narrative Exam Narrative: GEN: awake, alert, oriented 3. Pleasant, well groomed, interactive. HEAD: Normocephalic, atraumatic ENT: Mucous membranes dry, patient is status post glossectomy and surgical excision of hypopharynx EYES: PERRL, EOMI NECK: Full ROM, no KENYA, no menigismus, crusted secretions around tracheostomy CHEST/RESP: Distant breath sounds, nontender, no wheeze or rhonchi appreciated, healed left surgical incision anterior chest CARDIOVASCULAR: Distant, regular and tachycardic, no murmur, rub anabel. 2+ Rad pulse bilateral ABDOMEN: Soft, nontender, no mass. +Bowel sounds EXT: Full ROM, no edema, no rash Neuro: Grossly normal neurologic exam, communicates through writing Psych: Speech absent, affect flat Results Last Vital Signs Temp 97.7 F 01/29/21 03:30 Pulse 90 01/29/21 13:00 Resp 28 H 01/29/21 14:00 BP 111/82 01/29/21 13:00 Pulse Ox 96 01/28/21 17:01 Labs Result diagrams: 01/29/21 06:20 01/29/21 06:20 Labs: Laboratory Results - last 24 hr 01/28/21 01/29/21 01/29/21 15:13 06:20 06:20 WBC RBC Hgb Hct MCV MCH MCHC RDW Plt Count MPV Immature Gran % Neutrophils % Lymphocytes % Monocytes % Eosinophils % Basophils % Nucleated RBC % Absolute Neutrophils Absolute Lymphocytes Absolute Monocytes Absolute Eosinophils Absolute Basophils Sodium 138 Potassium 3.3 L Chloride 99 Carbon Dioxide 29.1 Anion Gap 9.9 BUN 6 L Creatinine 0.5 L D Estimated GFR/1.73 m2 >= 60.00 Glucose 114 H D Hemoglobin A1c 5.0 Calcium 8.7 Magnesium Procalcitonin < 0.1 01/29/21 01/29/21 06:20 06:20 WBC 6.37 D RBC 4.25 L Hgb 13.0 L D Hct 38.6 L MCV 90.8 MCH 30.6 MCHC 33.7 RDW 13.8 Plt Count 188 MPV 9.7 Immature Gran % 0.6 Neutrophils % 81.4 Lymphocytes % 9.9 Monocytes % 6.9 Eosinophils % 0.9 Basophils % 0.3 Nucleated RBC % 0 Absolute Neutrophils 5.19 Absolute Lymphocytes 0.63 L Absolute Monocytes 0.44 Absolute Eosinophils 0.06 Absolute Basophils 0.02 Sodium Potassium Chloride Carbon Dioxide Anion Gap BUN Creatinine Estimated GFR/1.73 m2 Glucose Hemoglobin A1c Calcium Magnesium 2.0 Procalcitonin
[2021-01-29] MEDS: cefTRIAXone 1 GM/50 ML BAG IVPB (15:37)
[2021-01-29] MEDS: HYDROmorphone 2 MG/ML VIAL IVP ×3 (15:38→22:51)
--- NOTE | 2021-01-29 16:13 | CHAPLAIN ---
I've met Chito previously as a palliative care patient and have visited him at home. He has had surgery because of tongue cancer and now has a trach. He communicates by writing. I visited him yesterday when he was in the ED. Dr. Byrne had visited him at home yesterday, and said he was not safe there alone and was not able to care of himself, so he was transferred to the ED, then admitted. He complained of pain, especially on his bottom, where he had been sitting in urine, according to Dr. Byrne. Dr. Byrne suggested he go to [facility], where he was for a couple of weeks in November. She said the staff and other patients there like Chito and interact well with him. When I visited Chito this morning, he said he's agreed to go to [facility] for 20 days, but that he stills wants to go home. He is worried that his home will be sold. It's a trailer that his brother, Peewee, owns and Chito rents it from him. 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 He said he still has some pain, but it's better. He did not sleep well last night, he said. Chito has been pouring beer in his feeding tube, according to ED notes, 10 to 12 beers a day. I will continue to visit.
[2021-01-29] MEDS: Acetaminophen 500 MG TAB 1000 MG UD (22:01)
[2021-01-30] VITALS (8 sets, daily range): BP systolic 99–130; BP diastolic 72–85; PULSE 80–100; RESP 18–20; TEMP 36.3–36.9; O2SAT 96–98
[2021-01-30] MEDS: HYDROmorphone 2 MG/ML VIAL IVP ×6 (02:10→20:34)
[2021-01-30] MEDS: Normal Saline Flush 10 ML SYR IVP ×3 (02:11→20:35)
[2021-01-30] MEDS: Levothyroxine 50 MCG TAB PO (05:06)
[2021-01-30] MEDS: Acetaminophen 500 MG TAB 1000 MG UD ×3 (05:06→22:56)
[2021-01-30] MEDS: DOXYCYCLINE 100 MG in Normal Saline 100 ML IVPB ×2 (05:07→16:20)
[2021-01-30 07:24] LABS: BUN 9 mg/dL (7-18); CREATININE 0.8 mg/dL (0.70-1.30); Chloride 100 mmol/L (98-107); Glucose 153 mg/dL (74-106); Potassium 3.6 mmol/L (3.5-5.1); Sodium 138 mmol/L (136-145)
[2021-01-30] MEDS: Vitamin E 400 UNITS CAP PO (07:54)
[2021-01-30] MEDS: Folic Acid 1 MG TAB NG (07:54)
[2021-01-30] MEDS: Sucralfate 1 GM TAB UD ×4 (07:54→22:57)
[2021-01-30] MEDS: Thiamine 100 MG TAB NG (07:54)
[2021-01-30] MEDS: Gabapentin 400 MG CAP NG ×3 (07:55→20:35)
[2021-01-30] MEDS: Multivitamin TAB 1 TAB PO (07:55)
[2021-01-30] MEDS: Pantoprazole 40 MG VIAL IVP ×2 (07:55→20:34)
--- NOTE | 2021-01-30 08:27 | PT.INIE ---
Date of service: 01/30/21 Time of Service: 08:27 PT Notes Visit Reasons: SIRS,Alcohol Withdrawal Physical Therapy Inpatient Initial Evaluation Date: 01/30/2021 Referring Doctor: Perri Dumas MD PT Orders: PT CONSULT: Limited ability Precautions: Fall. Standard. Activity as tolerated. Tracheostomy in place. 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 PMHX: Medical History Acute hypokalemia Acute hyponatremia Anxiety Aspiration pneumonia Caries Closed head injury with loss of consciousness of unknown duration COPD (chronic obstructive pulmonary disease) Cough with hemoptysis DVT prophylaxis Dysphagia, oral phase Facial laceration Floor of mouth squamous cell carcinoma (06/26/20) Hypertension Hypokalemia Hyponatremia Hypothyroidism Lives alone Marijuana smoker Mouth cancer Mute due to extensive oral surgery and h/o radiation Oral pain controlled with ibuprofen Pre-op evaluation Recurrent squamous cell carcinoma Tobacco use disorder >25 pack years Uses feeding tube 5 cans of Nutren 1.5 per day with 1 scoop protein supplement each feed of [employer]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 cervical lymphadenectomy, tracheostomy, excision benign thyroid lesion, exploration carotid artery S/P reconstruction procedure (08/18/20) Pediculed pec flap, L hemiglossectomy and mandibulectomy ([facility]) S/P tooth extraction (~2013) Status post glossectomy (08/11/20) w/ multiple other procedures Social History/Home Situation: Patient lives alone in a private home with 4 steps to enter with a post to grab onto. He has been independent with PEG tube feeding since July 2020. Expresses that he has a FWW that he uses at home. Equipment Owned/DME: FWW Subjective: Appeared mildly upset over his need to get his medications. Nurse Yamila states that he has been given all his medications except for the Dilaudid which he was given right after today's session. Anxious about going to a SNF writing that he was forced to go there on his white board. He does agree that he cannot take care of himself at home and that he was very shaky when he transferred onto the chair from his bed during the mobility assessment. He also agreed to doing strengthening exercises here in the hopes that if he gets his independence back, he can hopefully go home alone. Objective: General Observation: Telemetry monitoring in place. Tracheostomy in place. PEG tube in situ. IV access in L UE. Mental Status: Alert and oriented as to person, place, time, and purpose. Able to pay attention, focus, and respond appropriately. Mute, mainly uses a white board for communication. Can minimally subvocalize if his tracheostomy tube is covered. Pain: None reported ROM: Right Upper Extremity: Shoulder Flexion WFL. Shoulder abduction WFL. Shoulder ER/IR WFL. Elbow flexion WFL. Forearm pronation/supination WFL. Wrist flexion WFL. Opening and closing of hand WFL. Left Upper Extremity: Shoulder Flexion WFL. Shoulder abduction WFL. Shoulder ER/IR WFL. Elbow flexion WFL. Forearm pronation/supination WFL. Wrist flexion WFL. Opening and closing of hand WFL. Right Lower Extremity: Hip flexion WFL. Hip abduction WFL. Hip ER/IR WFL. Knee flexion WFL. Knee extension. Ankle dorsiflexion/eversion WFL. Ankle plantarflexion/inversion WFL. Left Lower Extremity: Hip flexion WFL. Hip abduction WFL. Hip ER/IR WFL. Knee flexion WFL. Knee extension. Ankle dorsiflexion WFL. Ankle plantarflexion WFL. Strength: Right Upper Extremity: Shoulder flexors 4/5. Shoulder abductors 4/5. Shoulder ER 4/5. Shoulder IR 4/5. Forearm pronators 4/5. Forearm supinators 4/5. Elbow flexors 4/5. Elbow extensors 4/5. Supervisor [employer] strong. Left Upper Extremity: Shoulder flexors 4/5. Shoulder abductors 4/5. Shoulder ER 4/5. Shoulder IR 4/5. Forearm pronators 4/5. Forearm supinators 4/5. Elbow flexors 4/5. Elbow extensors 4/5. Supervisor [employer] strong. Right Lower Extremity: Hip flexors 4/5. Hip abductors 4/5. Hip external rotators 4/5. Hip internal rotators 4/5. Knee flexors 4/5. Knee extensors 4/5. Ankle dorsiflexors/evertors 4/5. Ankle plantarflexors/invertors 4/5. Left Lower Extremity: Hip flexors 4/5. Hip abductors 4/5. Hip external rotators 4/5. Hip internal rotators 4/5. Knee flexors 4/5. Knee extensors 4/5. Ankle dorsiflexors/evertors 4/5. Ankle plantarflexors/invertors 4/5. Bed Mobility/Transfers: Supine to sit supervision Sit to stand standby assist Stand to sit standby assist Bed to chair standby assist Gait: Distance of 250 feet requiring standby assist with front wheeled walker. Full weightbearing in BUE/LE. Appeared shaky and unstable but no LOB. Mild SOB after activity. Reported minimal abdominal pain after activity. Trunk anteroflexed. Balance: Static Sitting: Normal Dynamic Sitting: Normal Static Standing: Fair Dynamic Standing: Fair Special Tests: Mobility Limitations Standardized Measure [facility] AM-PAC 6 clicks Basic Mobility Inpatient Short Form: Raw Score: 23 CMS Score: 11 % deficit Informed Consent/Education: Patient was instructed in purpose of PT consult and plan of care. Agreeable to proceed with established PT POC to achieve personal goals. Assessment: Chito demonstrates functional mobility decline requiring the use of front wheeled walker for all mobility ADL performance, impaired static and dynamic balance, generalized weakness, and increased risk for falls. Patient presents with clinical signs and symptoms consistent with current/admitting diagnoses that have resulted to mobility limitations, gait instability, generalized weakness, and overall ADL decline as demonstrated by the following impairment level findings: 1. Decreased strength to B UE/LE major muscle groups 2. Impaired standing balance 3. Impaired activity tolerance 4. Shortness of breath Impairments are contributing to the following functional limitations: 1. Difficulty with ambulation without assistive device 2. Increased completion time for mobility ADL performance 3. Increased risk for falls 4. Difficulty with managing steps alone safely Patient is assessed as a 92691 moderate complexity based on the following: History: 60-year-old male with past medical history as indicated above Examination: Demonstrable impairment in strength, balance, and mobility level with underlying impairments and functional limitations as exhibited above as well as deficit score of 11% utilizing the [facility] Mobility Inpatient Short Form Presentation: Evolving Decision Makin moderate complexity Goals: Goals X1 week 1. Supine-Sit independent 2. Sit-Supine independent 3. Sit-Stand independent 4. Stand-Sit independent 5. Bed-Chair independent 6. Chair-Bed independent 7. Independent gait on level surface with use of front wheel walker for at least 300 feet without report of pain nor dyspnea 8. Good static and dynamic standing balance/tolerance Plan of Care/Treatment Plan: 1-2x/day, 7 days/week x 1 week. Plan of care has been reviewed with the MANAGER OF GLOBAL providing the service under Physical Therapy direction. Initiate Physical Therapy intervention for pain management as needed, strengthening, bed mobility, transfers, gait, stairs, balance training, and use of assistive device. DISCHARGE RECOMMENDATIONS: Patient will benefit from longterm facility placement for continued skilled physical therapy services in order to progress mobility level, strength, and balance in preparation for a safe discharge to home. TREATMENT CODE/TIME: 81671 x 20 minutes, 9753 0 x 16 minutes beginning 8:27 AM. Thank you for the opportunity to participate in the care of this patient. Leah Palencia PT, DPT, CLT [facility] [place], [place]
--- NOTE | 2021-01-30 10:34 | PDOC.CMPRO ---
- If Service Date Differs Date of service: 01/30/21 Time of Service: 10:34 Care Management Progress Note S/O: Chito was sitting up in bed when CM met with him. He was writing out his bills in his checkbook, reporting that he wishes to remain independent. He stated that he is agreeable to returning to SNF, but doesn't want to take the option away of going home at some point. He stated that if he is home, nobody can bug him. CM asked about his drinking, as he had planned to cut back after his last discharge. He reported not wanting support at this time to help him stop drinking. CM sent a referral to [facility], as requested by the facility, and stated that he would likely be accepted for Tuesday, as this is a long holiday weekend. CM will continue to follow. A: Chito is a 60 year old male admitted to [facility] for SIRS and alcohol withdrawal. P: Anticipate Chito will require a SNF placement when medically cleared by provider. In November of this year, Chito spent a couple of weeks at [facility] where he states they took good care of him. CM will continue to support Chito and discharge planning needs.
[2021-01-30] MEDS: Enoxaparin 40 MG/0.4 ML SYR SC (14:20)
[2021-01-30] MEDS: LORazepam 2 MG/ML VIAL IVP (14:21)
[2021-01-30] MEDS: cefTRIAXone 1 GM/50 ML BAG IVPB (16:20)
--- NOTE | 2021-01-30 16:52 | CHAPLAIN ---
Chito asked to see me this morning, and gave me a written list of items he wanted from his home and asked me to call his brother Alan and ask him to bring Chito's belongings here. I left a message for Peewee, he returned my call later in the afternoon and said he would be up within the hour with Chito's things. I let Chito know this.
--- NOTE | 2021-01-30 19:10 | W.PM.PROGNOT ---
Date of Service Date of service: 01/30/21 Time of Service: 16:30 Assessment and Plan Assessment and plan (1) Acute bronchitis: Status: Acute Assessment and plan: Continue empiric doxy/ceftriaxone, prn albuterol. Continue mucinex Sputum c&s with normal dana Continue trach care (2) Abdominal pain: Status: Acute Assessment and plan: I suspect alcoholic gastritis. For this reason, continue BID PPI and carafate abstain from ibuprofen. Continue dilaudid prn Consider increasing gabapentin. I think it is the pain driving tachycardia. (3) Alcohol withdrawal: Status: Resolved Assessment and plan: Mild if there was every truly alcohol withdrawal. Continue PO vitamins Denies h/o EtOH w/d seizures (4) Acute dehydration: Status: Resolved Assessment and plan: If needed, will provide more free water with TFs. (5) SIRS (systemic inflammatory response syndrome): Status: Resolved Assessment and plan: Combination of alcohol withdrawal, acute bronchitis, dehydration. Blood cultures negative. Continue empiric doxy/ceftriaxone. 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 Not yet on hospice, though his prognosis is unclear at this time. Palliative care is on board on this admission. (9) DVT prophylaxis: Status: Acute Assessment and plan: SC enoxaparin (10) Discharge planning issues: Status: Acute Assessment and plan: DNR/DNI per my witnessed conversation with the patient in his room. [facility]. Subjective Subjective Interval history since last seen: Mr Santiago was asleep when I came to see him. I chose not to wake him up as he appears to be sleeping very soundly. Exam Narrative Exam Narrative: General: Pleasant middle-aged male who is asleep in bed, comfortable HEENT: L neck mass, trach in place with no obvious secretions today, no goiter or obvious JVD Cardiovascular: RRR, no m/r/g Lungs: Diminished breath sounds B Gastrointestinal: soft, nondistended, gastrostomy tube in place Extremities: no edema BLEs, +1 pedal pulses B Objective Last Vital Signs Temp 36.3 C L 01/30/21 15:46 Pulse 100 H 01/30/21 15:46 Resp 19 01/30/21 15:46 BP 113/80 01/30/21 15:46 Pulse Ox 98 01/30/21 15:46 Laboratory Results - last 24 hr 01/30/21 06:45 Sodium 138 Potassium 3.6 Chloride 100 Carbon Dioxide 28.0 Anion Gap 10.0 BUN 9 Creatinine 0.8 Estimated GFR/1.73 m2 >= 60.00 Glucose 153 H Calcium 9.0
[2021-01-31] MEDS: HYDROmorphone 2 MG/ML VIAL IVP ×4 (00:16→09:53)
[2021-01-31] MEDS: Normal Saline Flush 10 ML SYR IVP ×6 (00:17→19:31)
[2021-01-31] MEDS: DOXYCYCLINE 100 MG in Normal Saline 100 ML IVPB (03:37)
[2021-01-31 04:08] VITALS: BP 136/93; PULSE 82; RESP 18; TEMP 36.5; O2SAT 96
[2021-01-31] MEDS: Sucralfate 1 GM TAB UD ×4 (07:07→22:51)
[2021-01-31] MEDS: Acetaminophen 500 MG TAB 1000 MG UD ×3 (07:08→22:51)
[2021-01-31] MEDS: Levothyroxine 50 MCG TAB PO (07:10)
[2021-01-31] MEDS: Pantoprazole 40 MG VIAL IVP (09:31)
[2021-01-31] MEDS: Multivitamin TAB 1 TAB PO (09:33)
[2021-01-31] MEDS: Thiamine 100 MG TAB NG (09:33)
[2021-01-31] MEDS: Gabapentin 400 MG CAP NG ×3 (09:33→19:30)
[2021-01-31] MEDS: Folic Acid 1 MG TAB NG (09:33)
[2021-01-31] MEDS: Vitamin E 400 UNITS CAP PO (09:33)
--- NOTE | 2021-01-31 10:31 | PT.INTREAT ---
Date of service: 01/31/21 Time of Service: 08:50 PT Notes Visit Reasons: SIRS,Alcohol Withdrawal Inpatient Physical Therapy Treatment Note [facility] Date: 01/31/2021 PRECAUTIONS: Fall, activity as tolerated SUBJECTIVE: Chito states that he has been busy this morning. He reports that he feels a little better than he did yesterday. He is agreeable to participating in PT. OBJECTIVE: PAIN: No c/o pain BED MOBILITY/TRANSFERS Supine-sit: I Sit-supine: I Sit-stand: S Stand-sit: S GAIT Assistive Device: FWW No AD Weight bearing: Full Assist: I with FWW CGA-SBA without AD Distance: 15 minutes with FWW 100' without AD TOILETING: Patient toileted independently ASSESSMENT: Patient tolerated session well, demonstrating independence with ambulation with FWW. He requires assist with ambulation without use of assitive device, which is his baseline, as he remains slightly unsteady. PLAN: Continue with gait training without use of assistive device for continued progression toward baseline level of function. TREATMENT CODE/TIME: 23 minutes; 05357 (08:50)
[2021-01-31 11:18] VITALS: BP 119/83; PULSE 90; RESP 14; TEMP 35.2; O2SAT 95
[2021-01-31] MEDS: Enoxaparin 40 MG/0.4 ML SYR SC (14:13)
--- NOTE | 2021-01-31 14:22 | W.PM.PROGNOT ---
Date of Service Date of service: 01/31/21 Time of Service: 14:22 Assessment and Plan Assessment and plan (1) Acute bronchitis: Status: Acute Assessment and plan: agree w/ empiric treatment w/ ceftriaxone but switch to azithromycin from doxycycline. cont. mucinex and prn albuterol. Has not required any supplemental oxygen. CXR did not show pneumonia although I did POCUS of his lungs and he has some left basilar B lines although no consolidations nor effusions. If he continues to improve, then can switch to oral Omnicef tomorrow and [facility] on [facility] or Tuesday whenever they can receive him Qualifiers: Bronchitis organism: unspecified organism Qualified Code(s): J20.9 - Acute bronchitis, unspecified (2) Abdominal pain: Status: Acute Assessment and plan: dc dilaudid; continue carafate and nexium Qualifiers: Abdominal location: generalized Qualified Code(s): R10.84 - Generalized abdominal pain (3) Alcohol withdrawal: Status: Resolved Assessment and plan: Mild if there was every truly alcohol withdrawal. Never really scored high on CIWA (max of 4; no longer being scored) Continue enteral vitamins via g tube Denies h/o EtOH w/d seizures Qualifiers: Complication of substance-induced condition: uncomplicated Qualified Code(s): F10.230 - Alcohol dependence with withdrawal, uncomplicated (4) Alcohol abuse: Status: Chronic Assessment and plan: As above (5) Adult failure to thrive: Status: Deleted Assessment and plan: Agrees to SNF on discharge (6) Carcinoma of oral cavity: Status: Chronic Assessment and plan: Followed by palliative care. Not yet on hospice, though his prognosis is unclear at this time. Palliative care is on board on this admission. (7) DVT prophylaxis: Status: Acute Assessment and plan: SC enoxaparin (8) Discharge planning issues: Status: Acute Assessment and plan: DNR/DNI per Dr. Dumas's discussion w/ the patient and as documented in her notes. [facility] next [facility]. Subjective Subjective Interval history since last seen: He states that he is not dyspneic. cough is sometimes productive of mucous. He is afebrile. He remains on Ceftriaxone 1 gm daily and has been on doxycycline although I have switched him to azithromycin (d/t his severe gastritis, doxycycyline would not be tolerated via his PEG). I have dc'ed his dilaudid, no need for this for abdominal pains which actually have improved since being off alcohol and on carafate and protonix (which I have changed to nexium d/t being available as a liquid). He has tolerated enteral feedings and per his nurse, patient has been doing his own trach and peg care. Exam Narrative Exam Narrative: Alert/oriented person/place/circumstances (did not ask him date/time); no respiratory distress Lungs: prolonged expiratory phase but otherwise clear Heart: regular, rate/rhythm Abdomen: nondistended, soft/nontender Extremities: w/out edema; left forearm w/ slightly tender superficial vein (site of prior venipuncture; does not appear reddened nor indurated) Objective Last Vital Signs Temp 35.2 C L 01/31/21 11:18 Pulse 90 01/31/21 11:18 Resp 14 01/31/21 11:18 BP 119/83 01/31/21 11:18 Pulse Ox 95 01/31/21 11:18
[2021-01-31] MEDS: cefTRIAXone 1 GM/50 ML BAG IVPB (16:52)
[2021-01-31 19:17] VITALS: BP 133/93; PULSE 89; RESP 20; TEMP 36.6; O2SAT 96
[2021-01-31 23:29] VITALS: BP 130/87; PULSE 87; RESP 19; TEMP 36.3; O2SAT 96
[2021-02-01 03:25] VITALS: BP 126/90; PULSE 96; RESP 20; TEMP 36.7; O2SAT 96
[2021-02-01] MEDS: Mylanta Suspension 30 ML CUP PO (04:12)
[2021-02-01] MEDS: Sucralfate 1 GM TAB UD ×4 (06:51→21:45)
[2021-02-01] MEDS: Levothyroxine 50 MCG TAB PO (06:51)
[2021-02-01 07:37] LABS: HCT 39.4 % (40.0-50.0); MCV 93.8 fL (80-95); MPV 10.3 fL (8.0-11.0); Platelet Count 171 10^3/uL (130-400); RDW 14.2 % (11.8-14.1); RDW-SD 48.9 fL; WBC 6.65 10^3/uL (4.4-10.8)
[2021-02-01 08:00] VITALS: BP 157/113; PULSE 99; RESP 17; TEMP 36.8; O2SAT 97
[2021-02-01 08:10] VITALS: BP 152/102
[2021-02-01] MEDS: Folic Acid 1 MG TAB NG (09:54)
[2021-02-01] MEDS: Thiamine 100 MG TAB NG (09:54)
[2021-02-01] MEDS: Multivitamin TAB 1 TAB PO (09:54)
[2021-02-01] MEDS: Gabapentin 400 MG CAP NG ×3 (09:54→19:27)
[2021-02-01] MEDS: Vitamin E 400 UNITS CAP PO (09:54)
[2021-02-01 11:54] VITALS: BP 115/82; PULSE 110; RESP 17; TEMP 37.4; O2SAT 98
--- NOTE | 2021-02-01 12:31 | PT.INTREAT ---
Date of service: 02/01/21 Time of Service: 09:20 PT Notes Visit Reasons: SIRS,Alcohol Withdrawal Inpatient Physical Therapy Treatment Note [facility] Date: 02/01/2021 PRECAUTIONS: Fall, activity as tolerated SUBJECTIVE: Chito reports that he is feeling sad and upset today. He is agreeable to participating in PT. OBJECTIVE: PAIN: No c/o pain BED MOBILITY/TRANSFERS Supine-sit: I Sit-supine: I Sit-stand: S Stand-sit: S GAIT Assistive Device: FWW No AD Weight bearing: Full Assist: I with FWW CGA-SBA without AD Distance: 400' with FWW ~800 without AD Deviation: Several standing rests; shaky, Min SOB ASSESSMENT: Patient tolerated session well, demonstrating independence with ambulation with FWW. He requires assist with ambulation without use of assitive device, which is his baseline, as he remains slightly unsteady. PLAN: Continue with gait training without use of assistive device for continued progression toward baseline level of function. TREATMENT CODE/TIME: 28 minutes; 26206 x2 (09:20)
[2021-02-01] MEDS: Enoxaparin 40 MG/0.4 ML SYR SC (15:34)
[2021-02-01 16:11] VITALS: BP 126/81; PULSE 116; RESP 18; TEMP 37; O2SAT 96
--- NOTE | 2021-02-01 17:34 | W.PM.PROGNOT ---
Date of Service Date of service: 02/01/21 Time of Service: 17:34 Assessment and Plan Assessment and plan (1) Acute bronchitis: Status: Acute Assessment and plan: agree w/ empiric treatment w/ ceftriaxone but switch to azithromycin from doxycycline. cont. mucinex and prn albuterol. Has not required any supplemental oxygen. CXR did not show pneumonia although I did POCUS of his lungs and he has some left basilar B lines although no consolidations nor effusions. If he continues to improve, then can switch to oral Omnicef tomorrow and dc to [facility] on Tuesday or Tuesday whenever they can receive him Qualifiers: Bronchitis organism: unspecified organism Qualified Code(s): J20.9 - Acute bronchitis, unspecified (2) Abdominal pain: Status: Acute Assessment and plan: dilaudid was discontinued yesterday and is not clinically indicated. continue carafate and nexium for presumptive alcoholic gastritris Qualifiers: Abdominal location: generalized Qualified Code(s): R10.84 - Generalized abdominal pain (3) Alcohol withdrawal: Status: Resolved Assessment and plan: Mild if there was every truly alcohol withdrawal. Never really scored high on CIWA (max of 4; no longer being scored) Continue enteral vitamins via g tube Denies h/o EtOH w/d seizures Qualifiers: Complication of substance-induced condition: uncomplicated Qualified Code(s): F10.230 - Alcohol dependence with withdrawal, uncomplicated (4) Alcohol abuse: Status: Chronic Assessment and plan: As above (5) Adult failure to thrive: Status: Deleted Assessment and plan: Agrees to SNF on discharge (6) Carcinoma of oral cavity: Status: Chronic Assessment and plan: Followed by palliative care. Not yet on hospice, though his prognosis is unclear at this time. Palliative care is on board on this admission. (7) DVT prophylaxis: Status: Acute Assessment and plan: SC enoxaparin (8) Discharge planning issues: Status: Acute Assessment and plan: DNR/DNI per Dr. Dumas's discussion w/ the patient and as documented in her notes. Anticip[facility] next [facility]. Subjective Subjective Interval history since last seen: Chito overall feels that his breathing is improving. Not dyspneic. No abdominal pain. Tolerating tube feedings and he has been managing his own trach/peg care. I have now switched him totally to oral antibiotics (azithromycin and omnicef) for his acute purulent bronchitis. Exam Narrative Exam Narrative: Middle age redheaded male sitting up in bed watching TV having just finished his dinner Lungs: scattered expiratory wheezes; no rales Heart: RRR Abdomen: nontender Objective Last Vital Signs Temp 37.0 C 02/01/21 16:11 Pulse 116 H 02/01/21 16:11 Resp 18 02/01/21 16:11 BP 126/81 02/01/21 16:11 Pulse Ox 96 02/01/21 16:11 Laboratory Results - last 24 hr 02/01/21 07:10 WBC 6.65 RBC 4.20 L Hgb 13.0 L Hct 39.4 L MCV 93.8 MCH 31.0 MCHC 33.0 RDW 14.2 H Plt Count 171 MPV 10.3
[2021-02-01 19:05] VITALS: BP 135/89; PULSE 108; RESP 18; TEMP 36.1; O2SAT 97
[2021-02-01] MEDS: Acetaminophen 500 MG TAB 1000 MG UD (21:45)
[2021-02-01] MEDS: Normal Saline Flush 10 ML SYR IVP (21:45)
[2021-02-02] VITALS (10 sets, daily range): BP systolic 112–144; BP diastolic 79–100; PULSE 81–113; RESP 1–18; TEMP 36.1–37.3; O2SAT 94–98
[2021-02-02] MEDS: Levothyroxine 50 MCG TAB PO (06:37)
[2021-02-02] MEDS: Acetaminophen 500 MG TAB 1000 MG UD ×3 (06:37→22:20)
[2021-02-02] MEDS: Sucralfate 1 GM TAB UD ×4 (08:45→22:20)
[2021-02-02] MEDS: Gabapentin 400 MG CAP NG ×3 (08:45→20:11)
[2021-02-02] MEDS: Vitamin E 400 UNITS CAP PO (08:45)
[2021-02-02] MEDS: Multivitamin TAB 1 TAB PO (08:46)
[2021-02-02] MEDS: Folic Acid 1 MG TAB NG (08:46)
[2021-02-02] MEDS: Thiamine 100 MG TAB NG (08:46)
[2021-02-02] MEDS: predniSONE 20 MG TAB 40 MG UD (08:46)
--- NOTE | 2021-02-02 10:35 | PT.INTREAT ---
PT Notes Visit Reasons: SIRS,Alcohol Withdrawal Inpatient Physical Therapy Treatment Note [facility] Date: 02/02/21 OBJECTIVE: Sit-stand: I Stand-sit: I GAIT Assistive Device: No assist device Weight bearing: Full Assist: SBA Distance: approx 800ft total with short standing rests. STAIRS:Pt utilized 1 rail and 1x up and down clinic stairs. ASSESSMENT: Pt was very motivated and in good spirits during his session today. PLAN: Cont as per PT POC. TREATMENT CODE/TIME: 8:55-9:10 (15) TA
--- NOTE | 2021-02-02 11:40 | PHA.REVIEW ---
Pharmacy Admission Review - Admission Clinical Review (Last Updated 01/29/21 @ 18:13 by Melia Byrne MD) Chronic alcoholism (Acute) Fever (Acute) Abdominal pain (Acute) Discharge planning issues (Acute) DVT prophylaxis (Acute) Acute bronchitis (Acute) Tracheostomy care (Acute) Lives alone (Acute) Adult failure to thrive (Acute) Recurrent squamous cell carcinoma (Acute) Alcohol use (Acute) Tobacco use disorder (Acute) No Known Allergies Allergy (Verified 01/28/21 12:55) Resuscitation Status DNR/DNI Height 5 ft 6 in Weight 48.1 kg - Renal Dosing Renal Dosing: BUN 9 mg/dL (7-18) 01/30/21 06:45 Creatinine 0.8 mg/dL (0.70-1.30) 01/30/21 06:45 Medications needing adjustments: Reviewed (Crcl ~66 mL/min current meds okay) - Anticoagulation Anticoagulation: Hgb 13.0 g/dL (13.5-17.5) L 02/01/21 07:10 Hct 39.4 % (40.0-50.0) L 02/01/21 07:10 Plt Count 171 10^3/uL (130-400) 02/01/21 07:10 Creatinine 0.8 mg/dL (0.70-1.30) 01/30/21 06:45 DVT Prophylaxis: Reviewed Medications: Enoxaparin Therapeutic Anticoagulation: N/A - Opiate Usage Evaluate Pain Scale/Pains Meds: N/A - Relevant Labs Sodium 138 mmol/L (136-145) 01/30/21 06:45 Potassium 3.6 mmol/L (3.5-5.1) 01/30/21 06:45 Chloride 100 mmol/L (98-107) 01/30/21 06:45 Magnesium 2.0 mg/dL (1.8-2.4) 01/29/21 06:20 Electrolytes, C-Reactive P, ESR: Reviewed - DM Control DM Control: Glucose 153 mg/dL (74-106) H 01/30/21 06:45 Hemoglobin A1c 5.0 % (<5.7) 01/29/21 06:20 Insulin Dosing: N/A - Heart Failure/NV Heart Failure/NV: Troponin I < 0.05 ng/mL (<0.06) 01/28/21 10:32 EF%, CANDE's, B-Blockers, Diuretics: Reviewed - BP Control BP Control: Blood Pressure 112/79 Blood Pressure 144/100 Blood Pressure 130/88 Blood Pressure 132/90 If elevated: Reviewed (Has been elevaed some but within normal limits most of the past few days.) - Qtc Review If Elevated: N/A (Qtc 441 on admission) - IV to PO Switch IV Medications: N/A - Home Meds Home Med List reviewed: Reviewed (chlorhexidine mouthwash and ibuprofen (PRN)) - Current meds Current Medication Order Review: Reviewed - Comments Comments/Follow Ups: Watch BP, labs and for med changes (possible renal dose adjustments). Antibiotic Activity - Pharmacy Antibiotic Review Pharmacy Antibiotic Activity: Reviewed, no change (PO cefdinir and azithromycin for bronchitis.)
--- NOTE | 2021-02-02 13:01 | W.PM.PROGNOT ---
Date of Service Date of service: 02/02/21 Time of Service: 13:01 Assessment and Plan Assessment and plan (1) Acute bronchitis: Status: Acute Assessment and plan: Overall improving. Mobilizing his sputum but I am concerned that he is more wheezy. I will put him on scheduled DuoNeb rather than relying on prn treatment. He remains on prednisone 40 mg daily along w/ Omnicef 300 mg bid and azithromycin 250 mg daily. His CXR on admission did not show pneumonic consolidation. He still does not require oxygen supplementation. Hopefuly w/ scheduled bronchodilators along w/ the prednisone his bronchospasm will improve Qualifiers: Bronchitis organism: unspecified organism Qualified Code(s): J20.9 - Acute bronchitis, unspecified (2) Diarrhea: Status: Acute Assessment and plan: possibly d/t antibiotic use, need to r/o C diff. Will treat w/ probiotics and metamucil to thicken stools. Qualifiers: Diarrhea type: unspecified type Qualified Code(s): R19.7 - Diarrhea, unspecified (3) Abdominal pain: Status: Acute Assessment and plan: improved. Probably d/t alcoholic gastritis. remains on carafate and nexium per g tube. He is tolerating his tube feedings other than some diarrhea Qualifiers: Abdominal location: generalized Qualified Code(s): R10.84 - Generalized abdominal pain (4) Alcohol withdrawal: Status: Resolved Assessment and plan: never really went through acute withdrawal. CIWA scores were only as high at 4. Qualifiers: Complication of substance-induced condition: uncomplicated Qualified Code(s): F10.230 - Alcohol dependence with withdrawal, uncomplicated (5) Alcohol abuse: Status: Chronic Assessment and plan: patient was not caring for himself at home and not getting adequate nutrition but rather was giving himself beer per his g tube. He remains on vitamin supplements along w/ his tube feedings and is doing well. (6) Adult failure to thrive: Status: Deleted Assessment and plan: Agrees to SNF on discharge (7) Carcinoma of oral cavity: Status: Chronic Assessment and plan: Followed by palliative care. Not yet on hospice, though his prognosis is unclear at this time. Palliative care is on board on this admission. (8) DVT prophylaxis: Status: Acute Assessment and plan: SC enoxaparin (9) Discharge planning issues: Status: Acute Assessment and plan: DNR/DNI per Dr. Dumas's discussion w/ the patient and as documented in her notes. [facility]. Subjective Subjective Interval history since last seen: Patient says breathing continues to improve. He is coughing up some purulent sputum. However, he also is complaining of loose BM, watery about 3 to 5 stools per day. I will check stool for C. diff. I will also put him on probiotics and metamucil. He remains on Cefdinir and azithromycin for acute bronchitis. Exam Narrative Exam Narrative: Elderly white male who is sitting up watching TV. He is in no respiratory discomfort. Not requiring supplemental oxygen. He was able to cap his trach to speak w/ me. Lungs w/ scattered bilateral wheezing; more focal over right lung base Heart: RRR Abdomen: soft and nontender Extremities: no edema Objective Last Vital Signs Temp 37.3 C 02/02/21 11:29 Pulse 90 02/02/21 11:29 Resp 18 02/02/21 11:29 BP 112/79 02/02/21 11:29 Pulse Ox 95 02/02/21 11:29
[2021-02-02] MEDS: Enoxaparin 40 MG/0.4 ML SYR SC (14:02)
[2021-02-02] MEDS: Albuterol/Ipratropium 3 ML UPD VIAL UPD ×2 (17:51→20:11)
[2021-02-02] MEDS: Psyllium PKT 1 EACH UD (20:11)
[2021-02-02 22:15] LABS: C Diff PCR Negative (Negative)
[2021-02-03 02:11] VITALS: BP 124/94; PULSE 93; RESP 18; TEMP 36.5; O2SAT 97
[2021-02-03] MEDS: Levothyroxine 50 MCG TAB PO (05:47)
[2021-02-03] MEDS: Acetaminophen 500 MG TAB 1000 MG UD ×2 (05:48→13:36)
[2021-02-03 07:57] VITALS: BP 134/89; PULSE 95; RESP 18; TEMP 36.7; O2SAT 98
[2021-02-03] MEDS: Multivitamin TAB 1 TAB PO (08:07)
[2021-02-03] MEDS: Thiamine 100 MG TAB NG (08:07)
[2021-02-03] MEDS: Vitamin E 400 UNITS CAP PO (08:07)
[2021-02-03] MEDS: Folic Acid 1 MG TAB NG (08:08)
[2021-02-03] MEDS: Psyllium PKT 1 EACH UD (08:08)
[2021-02-03] MEDS: Gabapentin 400 MG CAP NG ×2 (08:08→13:37)
[2021-02-03] MEDS: predniSONE 20 MG TAB 40 MG UD (08:08)
[2021-02-03] MEDS: Sucralfate 1 GM TAB UD ×2 (08:08→11:27)
[2021-02-03 08:58] VITALS: PULSE 90; RESP 1; RESP 18; O2SAT 97
[2021-02-03] MEDS: Albuterol/Ipratropium 3 ML UPD VIAL UPD ×2 (08:58→12:00)
[2021-02-03 08:59] VITALS: PULSE 96; RESP 1; RESP 17; O2SAT 99
[2021-02-03 10:32] LABS: Source Nasal/Nares
[2021-02-03 11:26] LABS: COVID-19 PCR Negative (Negative)
[2021-02-03 12:00] VITALS: PULSE 88; RESP 1; RESP 17; O2SAT 97
[2021-02-03 12:01] VITALS: PULSE 93; RESP 1; RESP 17; O2SAT 99
--- NOTE | 2021-02-03 12:28 | PT.INTREAT ---
Date of service: 02/03/21 Time of Service: 11:15 PT Notes Visit Reasons: SIRS,Alcohol Withdrawal Inpatient Physical Therapy Treatment Note [facility] Date: 02/03/2021 PRECAUTIONS: Activity as tolerated SUBJECTIVE: Chito is pleasant and agreeable to participating in PT. He states that he has been walking with nursing over the weekend and that he is feeling much better today. OBJECTIVE: PAIN: No c/o pain BED MOBILITY/TRANSFERS Supine-sit: I Sit-supine: I Sit-stand: I Stand-sit: I Bed-Chair: I Chair-bed: I GAIT Assistive Device: No AD Weight bearing: Full Assist: S - I Distance: ~x15 minutes Deviation: No SOB/LOB ASSESSMENT: Patient tolerated session without complaint. He tolerates gait training with no AD without SOB nor LOB. He demonstrates independence with bed mobility and transfers, as well as short-distance gait without assistive device. PLAN: Patient to discharge to SNF, per provider. TREATMENT CODE/TIME: 30 minutes; 71309 x2 (11:15)
[2021-02-03] MEDS: Enoxaparin 40 MG/0.4 ML SYR SC (13:38)
--- NOTE | 2021-02-03 14:19 | W.PM.DS.N ---
Date of service: 02/03/21 Time of Service: 14:20 DS: Diagnosis Discharge Diagnosis (1) Acute bronchitis: Status: Acute (2) Diarrhea: Status: Acute (3) Abdominal pain: Status: Acute (4) Alcohol withdrawal: Status: Resolved (5) Alcohol abuse: Status: Chronic (6) Adult failure to thrive: Status: Deleted (7) Carcinoma of oral cavity: Status: Chronic Discharge Plan Disposition Patient Disposition: SNF (LEVEL 1) [facility] Condition: Stable Discharge Details Reason For Visit: SIRS,Alcohol Withdrawal Admit Date/Time: 01/28/21 12:54 Admit Provider: Perri Dumas Attending Provider: Perri Dumas Primary Care Provider: Maisha Deleon Hospital Course Hospital Course: This is a 60 year old male, well known to the hospitalist services, with PMHx of 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 In the ED, he was found to by hypotensive and tachycardic. The patient admits to drinking 10-12 beers/daily, last drink the night prior to arrival. He is putting them through the gastrostomy tube. He reports purulent sputum through the trach. He reports pain in his buttocks and requests pain medication. He would be willing to go to rehab for a short period of time at the end of his hospitalization. He was admitted to hospitalist services for further management. He was treated for his bronchitis with a cephalosporin, azithromycin and steroids with improvement in his symptoms. His sputum culture grew normal respiratory dana. his blood cultures remained negative. His CXR did not show pneumonic consolidation. He has completed 7 days of antibiotics so will not require any further at discharge. He will be placed on a steroid taper. He was started on carafate for c/o abdominal pain thought d/t alcoholic gastritis. His pain improved with this treatment. He did not experience any signs of alcohol withdrawal while hospitalized. His hospital course was complicated by diarrhea, most likely d/t antibiotic use. treated w/ probiotics and metamucil to thicken stools. cdiff was negative. He is followed by palliative care, not yet on hospice. case management has been following and d/t his failure to thrive at home and inability to care for himself, referrals have been placed and he has been accepted at [facility] and rehab. He is being discharged there for further rehabilitation. discharge discussed with Dr Griffith Home Meds and New Rx's Prescriptions: New sucralfate 1 gram Tablet 1 g UD AC & HS Qty: 120 RF: 0 prednisone 10 mg tablet 10 mg PO DAILY Qty: 30 RF: 0 Continued (DME) T[place]hette Swab See Rx Instructions .ROUTE .MEDSUPPLY Qty: 500 RF: 6 folic acid 400 mcg tablet 0.4 mg PO DAILY RF: 0 chlorhexidine gluconate [Peridex] 0.12 % mouthwash 15 ml mucous membrane TID RF: 0 ibuprofen 600 mg tablet 600 mg feeding tube Q6H PRNRF: 0 levothyroxine 50 mcg tablet 50 mcg feeding tube DAILY RF: 0 food supplemt, lactose-reduced Liquid See Rx Instructions feeding tube .COMPLEX RF: 0 multivitamin Tablet 1 tab feeding tube DAILY RF: 0 thiamine HCl (vitamin B1) 100 mg tablet 100 mg feeding tube DAILY RF: 0 vitamin E (dl, acetate) 400 unit capsule 400 unit feeding tube DAILY RF: 0 gabapentin 300 mg/6 mL (6 mL) solution 400 mg feeding tube TID RF: 0 Discharge Instructions Instructions: Acute Bronchitis (ED) Additional Instructions: taper prednisone as follows: 40 mg daily for 3 days, 30 mg daily for 3 days, 20 mg daily for 3 days, 10 mg daily for 3 days, 5 mg daily for 3 days then stop you have completed 7 days of antibiotics and do not need any more at discharge resume the rest of your medication as directed by your outpatient team. avoid alcohol routine trach care are previously directed. primary care provider follow up per rehab routine. Activity:: Activity as Tolerated Equipment/Supplies:: No Equipment Needed Diet:: As Tolerated Discharge Orders Discharge Orders: Discharge Order (Routine); Ordered 02/03/21 Ordered By: Fernanda Gill DS: Summary Time Spent with Patient providing and/or coordinating discharge services: Greater than 30 minutes Status at Discharge Functional status at discharge: independent ambulation Overall status at discharge: patient is progressing back to baseline Mental Status: mental status grossly normal Speech and Movement: mute Mood: congruent mood Affect: normal affect Exam Narrative Exam Narrative: chronically ill appearing, older than stated age. head atraumatic. neck with large mass on left, trach intact midline. no acute distress, resting comfortably. respirations are even and unlabored, scattered coarse breath sound, cv: well perfused, regular rate and rhythm ext: without edema abd Benign skin no rashes. Psych Mental Status: mental status grossly normal Speech and Movement: mute Mood: congruent mood Affect: normal affect DS: Data Vitals/I&O Vitals and I&O: Vital Signs Temperature 36.7 C 02/03/21 07:57 Temperature Source Skin 02/03/21 07:57 Pulse 93 H 02/03/21 12:01 Pulse Rhythm Regular 02/03/21 09:10 Pulse 96 H 01/29/21 16:02 Respiratory Rate 17 02/03/21 12:01 Respiratory Effort Non-Labored 02/03/21 09:10 Respiratory Depth Normal 02/03/21 09:10 Respiratory Pattern Normal 02/03/21 09:10 Blood Pressure 134/89 02/03/21 07:57 Blood Pressure Mean 82 01/29/21 16:01 Blood Pressure Position Sitting 01/29/21 15:30 Pulse Oximetry 99 02/03/21 12:01 Oxygen Delivery Method Room Air 02/03/21 12:00 Oxygen Flow Rate 0 02/03/21 12:00 Pain Level 0 02/03/21 07:57 Comment 01/29/21 20:46 Intake & Output 02/02/21 02/03/21 02/03/21 23:59 11:59 23:59 Intake Total 810 / 1320 817 / 817 Balance 810 / 1320 817 / 817 Intake: IV Intake, Tube Feeding Amount 810 / 1310 797 / 797 Other: Urine Color Yellow Urine Appearance Clear Clear Urine Odor Normal Comment Patient urinating independently in toliet Per pt. report, void x1 in the toilet. Stool Size Small Stool Characteristics Liquid Brown Voiding Methods Toilet Toilet Data Completed and Pending Labs on day of discharge: Labs from last 24 hours 02/03/21 02/02/21 10:10 21:20 Stl C.difficile Tox PCR Negative COVID-19 Source Nasal/Nares SARS-CoV-2 (PCR) Negative PFSH Medical History Acute hypokalemia Acute hyponatremia Anxiety Aspiration pneumonia Caries Chronic alcoholism Closed head injury with loss of consciousness of unknown duration COPD (chronic obstructive pulmonary disease) Cough with hemoptysis DVT prophylaxis Dysphagia, oral phase Facial laceration Fecal incontinence Fever Floor of mouth squamous cell carcinoma (06/26/20) Hypertension Hypokalemia Hyponatremia Hypothyroidism Lives alone Marijuana smoker Mouth cancer Mute due to extensive oral surgery and h/o radiation Oral pain controlled with ibuprofen Pre-op evaluation Recurrent squamous cell carcinoma Tobacco use disorder >25 pack years Unable to walk Urinary incontinence Uses feeding tube 5 cans of Nutren 1.5 per day with 1 scoop protein supplement each feed [place] [employer] [place] [employer]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 cervical lymphadenectomy, tracheostomy, excision benign thyroid lesion, exploration carotid artery S/P reconstruction procedure (08/18/20) Pediculed pec flap, L hemiglossectomy and mandibulectomy ([facility]) S/P tooth extraction (~2013) Status post glossectomy (08/11/20) w/ multiple other procedures Family History Mother , about age 70 Hypertension Hyperlipidemia Breast cancer Asthma Smoker Lung cancer Father , about age 70 from lung cancer Asthma Lung cancer Smoker Brother Hyperlipidemia Son No problems noted. Grandson No problems noted. Social History Smoking/Tobacco Use Status: Current every day Tobacco: How many years used: 31 Quit status: considering quitting Counseling given: provider counseling and counseling >3 minutes Smoking risk assessment performed?: Yes Alcohol Intake: current Alcohol Intake frequency: 3 or more drinks per day Alcohol type: beer Previous attempts at quittin Counseling given: Yes Counseling provided: reduce to 2 or less/day Details: [id number], who was with me, estimated 30 beers/day Drug use: Daily Substance use type: marijuana Details: 12 am 01/28/21 last etoh intake. 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 Pets and animals: No Sexually active: No Do you think of yourself as: straight/heterosexual Current gender identity: male What is your relationship status?: How often do you talk on the phone with friends or family?: never How often do you get together with friends or relatives?: once per week Panel score (0-1 are the most socially isolated patients): 0 What type of physical activity do you participate in: none and sedentary lifestyle Frequency: does not exercise Special leeroy needs: No Agree to transfusion: Yes Seatbelt use: always Working smoke detector in home: Yes Fire extinguisher in home: Yes Do you feel safe at home: Yes Do you feel safe in your relationship?: Yes Additional Social history: Lives alone in a trailer his parents bought in 1975. He went to in [place]. 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 Not a [facility] patient yet; needs to establish care at [facility]. He is still friends with his ex-. He has no vehicle. Cannot talk on phone. Listens to his messages. Asked me to call in his feeding tube supplies--done. Trache is permanent, as if feeding tube. Has gained weight since hospitalization. No computer. No way to communicate easily. Writes down his answers and questions. Would benefit from getting help in regularly to take him shopping, make phone calls for him, etc.
--- NOTE | 2021-02-03 16:10 | NUR.NOTE ---
Nursing Note: At 1517 on 02/03/21, [facility] to nurse report. Phone just kept ringing and ringing. At 1528 on 02/03/21, this RN again attempted to call to give a nurse to nurse report. This time phone rang through to the stenographer secretary, who attempted to connect this RN to the receiving nurse. [facility] eventually came back on the phone and stated that the receiving nurse was tied up dealing with an emergency. This RN stated that they would call again later. At 1605 on 02/03/21, this RN again attempted to call to give a nurse to nurse report. This time phone rang through to the stenographer secretary and then to the receiving nurse. Report was given to DILLAN Freedman at 1605 on 02/03/21. RN will reassess as necessary.
--- NOTE | 2021-02-03 17:12 | PDOC.CMDIS ---
- If Service Date Differs Date of service: 02/03/21 Time of Service: 17:12 LACE Index Scoring Tool - Questions: Length of Stay (in days): 4 - 6 Acuity (Admit via E.D.?): Yes Comorbidities: Chronic Pulmonary Disease, Any Tumor E.D. Visits: 8 - Answers: Total Score: 16 Risk of Readmission: High Risk Care Management Discharge Reason for Hospitalization: SIRS, Alcohol withdrawal Discharge Plan: Chito will go to [facility] today for short term rehab. CM assisted Chito in completing a joint terminal attack controller [facility] application today prior to his transfer. CM coordinated [facility] transportation via w/c van. He will follow up with his PCP and discharge plan of care. He is happy to be going back to [facility], as he had a pleasant experience last time. Patient/Family Education Needs: Review discharge instructions regarding activity levels and medications, discussion of self care needs including ask me three and goals of care. Services Needed at Discharge: [facility] Facility ([facility]), Transportation ([facility] w/c van)
--- NOTE | 2021-02-06 18:50 | INDS_ITS ---
Date of service: 02/06/21 PT Notes Visit Reasons: SIRS,Alcohol Withdrawal Physical Therapy Inpatient Discharge Summary Date: 02/06/2021 Dates of Service: 01/30/2021 through 02/03/2021 This is a clinical summary of care provided for the duration of dates listed above. No charge was made in the completion of this documentation. Referring Doctor: Perri Dumas MD PT Orders: PT CONSULT: Limited ability Precautions: Fall. Standard. Activity as tolerated. Tracheostomy in place. 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 PMHX: Medical History Acute hypokalemia Acute hyponatremia Anxiety Aspiration pneumonia Caries Closed head injury with loss of consciousness of unknown duration COPD (chronic obstructive pulmonary disease) Cough with hemoptysis DVT prophylaxis Dysphagia, oral phase Facial laceration Floor of mouth squamous cell carcinoma (06/26/20) Hypertension Hypokalemia Hyponatremia Hypothyroidism Lives alone Marijuana smoker Mouth cancer Mute due to extensive oral surgery and h/o radiation Oral pain controlled with ibuprofen Pre-op evaluation Recurrent squamous cell carcinoma Tobacco use disorder >25 pack years Uses feeding tube 5 cans of Nutren 1.5 per day with 1 scoop protein supplement each feed of [employer]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 cervical lymphadenectomy, tracheostomy, excision benign thyroid lesion, exploration carotid artery S/P reconstruction procedure (08/18/20) Pediculed pec flap, L hemiglossectomy and mandibulectomy ([facility]) S/P tooth extraction (~2013) Status post glossectomy (08/11/20) w/ multiple other procedures Social History/Home Situation: Patient lives alone in a private home with 4 steps to enter with a post to grab onto. He has been independent with PEG tube feeding since July 2020. Expresses that he has a FWW that he uses at home. Equipment Owned/DME: FWW Subjective: NT. See most recent REAL ESTATE ECONOMIST notes. Objective: General Observation: NT. See most recent REAL ESTATE ECONOMIST notes. Mental Status: NT. See most recent REAL ESTATE ECONOMIST notes. Pain: NT. See most recent REAL ESTATE ECONOMIST notes. None reported ROM: Right Upper Extremity: Shoulder Flexion WFL. Shoulder abduction WFL. Shoulder ER/IR WFL. Elbow flexion WFL. Forearm pronation/supination WFL. Wrist flexion WFL. Opening and closing of hand WFL. Left Upper Extremity: Shoulder Flexion WFL. Shoulder abduction WFL. Shoulder ER/IR WFL. Elbow flexion WFL. Forearm pronation/supination WFL. Wrist flexion WFL. Opening and closing of hand WFL. Right Lower Extremity: Hip flexion WFL. Hip abduction WFL. Hip ER/IR WFL. Knee flexion WFL. Knee extension. Ankle dorsiflexion/eversion WFL. Ankle plantarflexion/inversion WFL. Left Lower Extremity: Hip flexion WFL. Hip abduction WFL. Hip ER/IR WFL. Knee flexion WFL. Knee extension. Ankle dorsiflexion WFL. Ankle plantarflexion WFL. Strength: Right Upper Extremity: Shoulder flexors 4/5. Shoulder abductors 4/5. Shoulder ER 4/5. Shoulder IR 4/5. Forearm pronators 4/5. Forearm supinators 4/5. Elbow flexors 4/5. Elbow extensors 4/5. Workers Compensation Claims Supervisor strong. Left Upper Extremity: Shoulder flexors 4/5. Shoulder abductors 4/5. Shoulder ER 4/5. Shoulder IR 4/5. Forearm pronators 4/5. Forearm supinators 4/5. Elbow flexors 4/5. Elbow extensors 4/5. Workers Compensation Claims Supervisor strong. Right Lower Extremity: Hip flexors 4/5. Hip abductors 4/5. Hip external rotators 4/5. Hip internal rotators 4/5. Knee flexors 4/5. Knee extensors 4/5. Ankle dorsiflexors/evertors 4/5. Ankle plantarflexors/invertors 4/5. Left Lower Extremity: Hip flexors 4/5. Hip abductors 4/5. Hip external rotators 4/5. Hip internal rotators 4/5. Knee flexors 4/5. Knee extensors 4/5. Ankle dorsiflexors/evertors 4/5. Ankle plantarflexors/invertors 4/5. Bed Mobility/Transfers: Supine to sit independent Sit to stand independent Stand to sit independent Bed to chair independent Gait: Able to tolerate level surface ambulation without an appliance independently for up to 15 minutes without any gait abnormality. Balance: Static Sitting: Normal Dynamic Sitting: Normal Static Standing: Fair Dynamic Standing: Fair Assessment: Chito has met all goals listed below and is discontinued from services at highest functional mobility level with no assistive device. Goals: Goals X1 week 1. Supine-Sit independent MET 2. Sit-Supine independent MET 3. Sit-Stand independent MET 4. Stand-Sit independent MET 5. Bed-Chair independent MET 6. Chair-Bed independent MET 7. Independent gait on level surface with use of front wheel walker for at least 300 feet without report of pain nor dyspnea MET 8. Good static and dynamic standing balance/tolerance MET DISCHARGE RECOMMENDATIONS: Patient will benefit from fdc facility placement for continued skilled physical therapy services in order to progress mobility level, strength, and balance in preparation for a safe discharge to home. TREATMENT CODE/TIME: MD Thank you for the opportunity to participate in the care of this patient. Leah Palencia PT, DPT, CLT [facility] [place], [place]
== END 2021-02-03 15:01 | disposition skilled nursing facility (03) | DRG 202 ==
LOC: ER 13:30 → ICU 14:18 → MS 01-29 17:17
PROVIDERS: Internal Medicine; Admitting Provider Internal Medicine; Emergency Provider Emergency Medicine; PCP Nurse Practitioner; Visit Provider Internal Medicine
DX: J20.9 Acute bronchitis, unspecified (principal); J44.0 Chronic obstructive pulmonary disease with (acute) lower respiratory infection; Z68.1 Body mass index [BMI] 19.9 or less, adult; F10.139 Alcohol abuse with withdrawal, unspecified; E87.1 Hypo-osmolality and hyponatremia; R65.10 Systemic inflammatory response syndrome (SIRS) of non-infectious origin without acute organ dysfunction; E86.0 Dehydration; C06.9 Malignant neoplasm of mouth, unspecified; Z93.0 Tracheostomy status; Z20.822 Contact with and (suspected) exposure to COVID-19; Z66 Do not resuscitate; E03.9 Hypothyroidism, unspecified; Z93.1 Gastrostomy status; R62.7 Adult failure to thrive; F41.9 Anxiety disorder, unspecified; K02.9 Dental caries, unspecified; R13.11 Dysphagia, oral phase; I10 Essential (primary) hypertension; E87.6 Hypokalemia; F12.90 Cannabis use, unspecified, uncomplicated; Z87.891 Personal history of nicotine dependence; K29.20 Alcoholic gastritis without bleeding; R00.0 Tachycardia, unspecified; R19.7 Diarrhea, unspecified
CPT/HCPCS: 36415; 80048; 80053; 80307; 84145; 85027; 87040; 87493; 87635; 93005; 96361; 96365; 96375; 96376; 97162; 97530; 99285; J1650; 71046; 80320; 81003; 81015; 83036; 83630; 83735; 84484; 85025; 87070; 87205; 93010; 94640; 99223; 99231; 99232; 99239; J0696; J2060; J7512; J7620

== ENCOUNTER 2021-02-03 22:43 | Outpatient (REF) | payer OTHER, SELFPAY ==
[2021-02-05 16:47] LABS: COVID-19 RT-PCR Result Not Detected ((See Note))
== END 2021-02-03 22:44 | disposition home or self-care (01) ==
LOC: LBN 22:43
PROVIDERS: PCP Nurse Practitioner; Visit Provider Family Medicine
DX: Z20.822 Contact with and (suspected) exposure to COVID-19 (principal)
CPT/HCPCS: U0003

== ENCOUNTER 2021-02-07 10:54 | Emergency (ER) | payer MEDICARE, OTHER, SELFPAY ==
[2021-02-07 11:03] VITALS: BP 146/119; PULSE 106; RESP 18; TEMP 36.7; O2SAT 99
--- NOTE | 2021-02-07 11:46 | W.ED.GENAD ---
Discharge Plan Disposition Patient Disposition: HOME Condition: Good Discharge Details Clinical Impression: Gastrojejunostomy tube dislodgement Primary Care Provider: Maisha Deleon ED Provider: Jerilyn Mooney Home Meds and New Rx's Prescriptions: Continued (DME) [place] Swab See Rx Instructions .ROUTE .MEDSUPPLY Qty: 500 RF: 6 folic acid 400 mcg tablet 0.4 mg PO DAILY RF: 0 chlorhexidine gluconate [Peridex] 0.12 % mouthwash 15 ml mucous membrane TID RF: 0 ibuprofen 600 mg tablet 600 mg feeding tube Q6H PRNRF: 0 levothyroxine 50 mcg tablet 50 mcg feeding tube DAILY RF: 0 food supplemt, lactose-reduced Liquid See Rx Instructions feeding tube .COMPLEX RF: 0 multivitamin Tablet 1 tab feeding tube DAILY RF: 0 thiamine HCl (vitamin B1) 100 mg tablet 100 mg feeding tube DAILY RF: 0 vitamin E (dl, acetate) 400 unit capsule 400 unit feeding tube DAILY RF: 0 gabapentin 300 mg/6 mL (6 mL) solution 400 mg feeding tube TID RF: 0 sucralfate 1 gram Tablet 1 g UD AC & HS Qty: 120 RF: 0 prednisone 10 mg tablet 10 mg PO DAILY Qty: 30 RF: 0 Discharge Instructions Additional Instructions: G-tube was replaced. Is currently an [address] This was verified with imaging. May use as you typically would. Please follow-up with general surgery at [facility] for any continued care of your G-tube. If you develop any new or worsening symptoms Referrals: Maisha Deleon, [facility] [Primary Care Provider] - Discharge Data Discharge Date/Time-TO BE ENTERED AT DEPARTURE: 02/07/21 14:42 Medical Decision Making Patient is a 60-year-old male, well-known to myself in the department, presents today with chief complaint of displaced G-tube. This actually became dislodged while [facility]. Became dislodged approximately half hour ago. He denies any pain. Has not had any bleeding or discharge. [facility] notes reviewed. Dona had this placed initially 08/18/20. Replaced on 10/16/20. Size 16Fr tube. telephone instrument supervisor rahul appropriiate tube. The only G-tube we have available at this time to 18 Jamaican. As I am concerned with the length of time is been out for potential closure, will replace with an 18-gauge. Patient I discussed her/benefits of infection procedural steps. He consents all technique, G-tube was replaced inside an 18 Jamaican. This was performed by Dr. Kumar and myself. Was able to easily feel the balloon without any tension. Contents consistent with gastric contents was visible. Will obtain x-ray to ensure placement. FINDINGS: Tubes, catheters and devices: There appears to be a gastrostomy tube in place. Contrast has been injected. There is a faint gastric outline due to relatively low-density the contrast material. No evidence to suggest extravasation. Gastrointestinal tract: See Tubes, catheters and devices finding. Bones/joints: Unremarkable. IMPRESSION: Gastrostomy tube in place. No evidence for extravasation. Discussed findigns with the patient. Patient will be transferred back to [facility]. I advised that they should follow-up again with his surgical team to discuss potentially replacing with a 18 Jamaican when appropriate. However, in the interim this should suffice to allow for medication and caloric delivery in the meantime. Return precautions were discussed. All other questions or concerns were addressed in agreement this plan. HPI General Mode of arrival: EMS. Date/Time Provider Initiated Documentation: 02/07/21 11:31. Limitations to Documentation: no limitations. Information obtained by: patient and RN notes reviewed. History of Present Illness 60 year old M presents to the emergency department with the chief complaint of displaced G-tube, with intensity rated at 1 (patient denies any pain with this). and is localized to the abdomen. Patient reports no radiation. Patient started experiencing this minute(s) and it has been constant. No relieving factors improve symptom(s), No exacerbating factors reported . Patient notes no other symptoms.. Patient did receive the following treatments prior to arrival, none Related Data Home Medications Medication Instructions Recorded Confirmed folic acid 400 mcg tablet 0.4 mg PO DAILY 08/06/19 02/07/21 swab #500 ea 07/28/20 01/29/21 chlorhexidine gluconate 0.12 % 15 ml MUCOUS MEMBRANE TID ml 09/01/20 02/07/21 mouthwash food supplemt, lactose-reduced See Rx Instructions FEEDING TUBE 09/01/20 02/07/21 .COMPLEX ibuprofen 600 mg tablet 600 mg FEEDING TUBE Q6H PRN 09/01/20 02/07/21 levothyroxine 50 mcg tablet 50 mcg FEEDING TUBE DAILY 09/01/20 02/07/21 multivitamin 1 tab FEEDING TUBE DAILY 09/01/20 02/07/21 thiamine HCl (vitamin B1) 100 mg 100 mg FEEDING TUBE DAILY 09/01/20 02/07/21 tablet vitamin E (dl, acetate) 180 mg 400 unit FEEDING TUBE DAILY 09/01/20 02/07/21 (400 unit) capsule gabapentin 300 mg/6 mL (6 mL) oral 400 mg FEEDING TUBE TID ml 09/10/20 02/07/21 solution prednisone 10 mg PO DAILY #30 tab 02/03/21 02/07/21 sucralfate 1 g UD AC & HS #120 tab 02/03/21 02/07/21 Previous Rx's Medication Instructions Recorded swab #500 ea 07/28/20 prednisone 10 mg PO DAILY #30 tab 02/03/21 sucralfate 1 g UD AC & HS #120 tab 02/03/21 Allergies Allergy/AdvReac Type Severity Reaction Status Date / Time No Known Allergies Allergy Verified 02/07/21 11:06 General Stated Complaint: Abd Prob CHRIST: 3 Review of Systems Constitutional Constitutional: Reports as per HPI Cardiovascular Cardiovascular: Reports as per HPI Respiratory Respiratory: Reports as per HPI and Denies cough Genitourinary Genitourinary: Reports as per HPI PFSH Medical History Acute hypokalemia Acute hyponatremia Anxiety Aspiration pneumonia Caries Chronic alcoholism Closed head injury with loss of consciousness of unknown duration COPD (chronic obstructive pulmonary disease) Cough with hemoptysis DVT prophylaxis Dysphagia, oral phase Facial laceration Fecal incontinence Fever Floor of mouth squamous cell carcinoma (06/26/20) Hypertension Hypokalemia Hyponatremia Hypothyroidism Lives alone Marijuana smoker Mouth cancer Mute due to extensive oral surgery and h/o radiation Oral pain controlled with ibuprofen Pre-op evaluation Recurrent squamous cell carcinoma Tobacco use disorder >25 pack years Unable to walk Urinary incontinence Uses feeding tube 5 cans of Nutren 1.5 per day with 1 scoop protein supplement each feed [facility] labs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 cervical lymphadenectomy, tracheostomy, excision benign thyroid lesion, exploration carotid artery S/P reconstruction procedure (08/18/20) Pediculed pec flap, L hemiglossectomy and mandibulectomy ([facility]) S/P tooth extraction (~2013) Status post glossectomy (08/11/20) w/ multiple other procedures Family History Mother , about age 70 Hypertension Hyperlipidemia Breast cancer Asthma Smoker Lung cancer Father , about age 70 from lung cancer Asthma Lung cancer Smoker Brother Hyperlipidemia Son No problems noted. Grandson No problems noted. Social History Smoking/Tobacco Use Status: Former Tobacco Use Tobacco: How many years used: 31 Quit status: considering quitting Counseling given: provider counseling and counseling >3 minutes Smoking risk assessment performed?: Yes Alcohol Intake: former Previous attempts at quittin Counseling given: Yes Counseling provided: reduce to 2 or less/day Details: [id number], who was with me, estimated 30 beers/day Drug use: Current Sobriety Substance use type: marijuana Details: 12 am 01/28/21 last etoh intake. 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 Pets and animals: No Sexually active: No Do you think of yourself as: straight/heterosexual Current gender identity: male What is your relationship status?: How often do you talk on the phone with friends or family?: never How often do you get together with friends or relatives?: once per week Panel score (0-1 are the most socially isolated patients): 0 What type of physical activity do you participate in: none and sedentary lifestyle Frequency: does not exercise Special leeroy needs: No Agree to transfusion: Yes Seatbelt use: always Working smoke detector in home: Yes Fire extinguisher in home: Yes Do you feel safe at home: Yes Do you feel safe in your relationship?: Yes Additional Social history: Lives alone in a trailer his parents bought in 1975. He went to in [place]. 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 Not a [facility] patient yet; needs to establish care at [facility]. He is still friends with his ex-. He has no vehicle. Cannot talk on phone. Listens to his messages. Asked me to call in his feeding tube supplies--done. Trache is permanent, as if feeding tube. Has gained weight since hospitalization. No computer. No way to communicate easily. Writes down his answers and questions. Would benefit from getting help in regularly to take him shopping, make phone calls for him, etc. Exam Const General: cooperative, comfortable, no acute distress and ill appearing chronically Nutritional Appearance: average body habitus and well nourished Orientation: alert and awake Resp Effort & Inspection: normal respiratory effort, able to speak in complete sentences and no respiratory distress Cardio Rate: regular rate Rhythm: regular rhythm GI Inspection: normal to inspection (g-tube site healthy, no pain, no drainage, no erythema) Palpation: soft and nontender Auscultation: normal bowel sounds Skin General skin exam: no rashes or lesions noted Neuro General: patient alert and patient awake Cognition: normal cognition Speech: speech normal Gait: normal gait Psych Appearance: grossly normal and well kempt Mental Status: mental status grossly normal Speech and Movement: speech and movement normal Course Vital Signs Vital signs: Vital Signs Temperature 36.7 C 02/07/21 11:03 Pulse 106 H 02/07/21 11:03 Respiratory Rate 18 02/07/21 11:03 Blood Pressure 146/119 H 02/07/21 11:03 Pulse Oximetry 99 02/07/21 11:03 Temperature 36.7 C 02/07/21 11:03 Temperature Source Skin 02/07/21 11:03 Pulse 106 H 02/07/21 11:03 Respiratory Rate 18 02/07/21 11:03 Respiratory Effort Non-Labored 02/07/21 11:07 Blood Pressure 146/119 H 02/07/21 11:03 Blood Pressure Position Supine 02/07/21 11:03 Pulse Oximetry 99 02/07/21 11:03 Oxygen Delivery Method Room Air 02/07/21 11:03 Oxygen Flow Rate 0 02/07/21 11:03 Pain Level 0 02/07/21 11:03
[2021-02-07 12:42] VITALS: BP 170/119; PULSE 97; RESP 18; O2SAT 99
--- NOTE | 2021-02-07 12:45 | DI.RAD_ITS ---
Exam(s) XR ABDOMEN FLAT PLATE EXAM: 2D digital imaging was performed. CLINICAL HISTORY: g-tube placement. COMPARISON: CR,XR XR ABDOMEN FLAT PLATE from 11/30/2020 TECHNIQUE: Supine views of the abdomen performed. FINDINGS: 30 mL of an iodinated contrast/saline mix was injected via the patient's gastrostomy tube. BOWEL GAS PATTERN: Nondistended. Lung bases: Clear CALCIFICATIONS: No radiopaque calcifications. Atherosclerosis. OSSEOUS STRUCTURES: Normal for age. Old healed left rib fractures. OTHER FINDINGS: The contrast is seen within the stomach. No evidence to suggest extravasation. IMPRESSION: 1. Nonobstructive bowel gas pattern. 2. Gastrostomy tube appears to be in place without evidence of extravasation. DATA REPOSITORY: RADIATION DOSE DELIVERED:
--- NOTE | 2021-02-07 14:12 | DI.VRAD_ITS ---
PROCEDURE INFORMATION: Exam: XR Abdomen Exam date and time: 02/07/2021 12:24 PM Age: 60 years old Clinical indication: Device placement; Gi device; Gastrostomy, other; Prior surgery; Patient HX: G-tube placement; Additional info: 30ml [id number] TECHNIQUE: Imaging protocol: XR of the abdomen. Views: Frontal supine view of the abdomen. 1 View. COMPARISON: CT ABDOMEN PELVIS WO 01/21/2021 5:39 AM FINDINGS: Tubes, catheters and devices: There appears to be a gastrostomy tube in place. Contrast has been injected. There is a faint gastric outline due to relatively low-density the contrast material. No evidence to suggest extravasation. Gastrointestinal tract: See Tubes, catheters and devices finding. Bones/joints: Unremarkable. IMPRESSION: Gastrostomy tube in place. No evidence for extravasation. Dictated and Authenticated by: Eileen Espino MD. Ordering:LUIS Jean-Baptiste MD
== END 2021-02-07 14:42 | disposition home or self-care (01) ==
PROVIDERS: Emergency Provider Physician Assistant; PCP Nurse Practitioner
DX: Z43.1 Encounter for attention to gastrostomy (principal); T85.528A Displacement of other gastrointestinal prosthetic devices, implants and grafts, initial encounter
CPT/HCPCS: 99283; 74018

== ENCOUNTER 2021-02-11 12:49 | Outpatient (REF) | payer MEDICARE, SELFPAY ==
[2021-02-11 12:57] LABS: Abs Immature Grans 0.06 10^3/uL (0.0-0.06); Absolute Basophil Count 0.03 10^3/uL (0.0-0.2); Absolute Eosinophil Count 0.02 10^3/uL (0.0-0.7); Absolute Monocyte Count 0.25 10^3/uL (0.1-0.8); Absolute Neutrophil Count 10.12 10^3/uL (1.2-6.7); Basophils % 0.3; Eosinophils % 0.2; HCT 41.7 % (40.0-50.0); HGB 13.7 g/dL (13.5-17.5); Immature Grans % 0.5; Lymphocytes % 5.4; MCH 30.9 pg (27.0-33.0); MCHC 32.9 % (32.0-36.0); MCV 94.1 fL (80-95); Monocytes % 2.3; Neutrophils % 91.3; Nucleated RBC 0 %; Platelet Count 507 10^3/uL (130-400); RBC 4.43 10^6/uL (4.36-5.78); RDW 13.9 % (11.8-14.1); RDW-SD 48.5 fL; WBC 11.08 10^3/uL (4.4-10.8)
[2021-02-11 13:12] LABS: ALT 50 U/L (16-63); AST 22 U/L (15-37); Albumin 3.8 g/dL (3.4-5.0); Alkaline Phosphatase 115 U/L (46-116); BUN 20 mg/dL (7-18); Bilirubin, Total 0.3 mg/dL (0.2-1.0); CREATININE 0.8 mg/dL (0.70-1.30); Calcium 9.1 mg/dL (8.5-10.1); Chloride 100 mmol/L (98-107); Glucose 105 mg/dL (74-106); Potassium 4.4 mmol/L (3.5-5.1); Sodium 135 mmol/L (136-145); Total Protein 7.5 g/dL (6.4-8.2)
== END 2021-02-11 12:50 | disposition home or self-care (01) ==
LOC: LBN 12:49
PROVIDERS: PCP Nurse Practitioner; Visit Provider Family Medicine
DX: R62.7 Adult failure to thrive (principal); K29.20 Alcoholic gastritis without bleeding
CPT/HCPCS: 80053; 85025

== ENCOUNTER 2021-03-04 19:50 | Outpatient (REF) | payer MEDICARE, SELFPAY ==
[2021-03-04 22:20] LABS: CREATININE 0.8 mg/dL (0.70-1.30)
== END 2021-03-04 19:51 | disposition home or self-care (01) ==
LOC: LBN 19:50
PROVIDERS: PCP Nurse Practitioner; Visit Provider Family Medicine
DX: I10 Essential (primary) hypertension (principal)
CPT/HCPCS: 82565

== ENCOUNTER 2021-03-13 00:30 | Outpatient (CLI) | payer MEDICARE, MEDICAID, SELFPAY ==
--- NOTE | 2021-03-13 09:30 | DI.CT_ITS ---
Exam(s) CT NECK CHEST W EXAM: CT NECK CHEST W CLINICAL HISTORY: H/O SQUAMOUS CELL CA OF FLOOR OF MOUTH,C04.9,ASSESS FOR RESIDUAL DISEASE TECHNIQUE: Imaging Protocol: Axial computed tomography images with coronal and sagittal reformatted images were created and reviewed CONTRAST MATERIAL: Intravenous: Omnipaque 350 Contrast volume:100 ml Contrast route:IV - Oral: no COMPARISON: CT CT HEAD CERVICAL SPINE WO from 11/02/[address] CHEST/ABD/PEL W from 11/02/[address] CHEST/ABD/PEL W from 11/02/[address] ABDOMEN PELVIS WO from 01/21/2021 FINDINGS: Neck: Parotids: Unremarkable. Resection of submandibular glands. Thyroid unremarkable. Lymphadenopathy: No enlarged lymph nodes. Carotids/Jugular: Marked intimal thickening bilaterally of the common carotid arteries. Mixed calcifi ed and noncalcified plaque right common carotid bulb causing severe stenosis of approximately 90 perc ent of the proximal right ICA.. Mixed calcified and noncalcified plaque at the left common carotid bu lb causing moderate stenosis of approximately 50-60 percent of the left ICA... Soft tissues: Marked postsurgical deformity with multiple surgical clips in the submandibular region . Resection of the floor of the mouth and resection of portion of the left side of the mandible. Asym metric fat on the left side of the neck. No visible mass. Spine: Degenerative changes. Visualized portions of the brain and orbits: Unremarkable. Chest: Chest wall: Mild right gynecomastia. Apparent resection of the left pectoral muscle. Small bilateral axillary lymph nodes, within normal limits in size, largest 10 millimeters right axilla. Tracheobronchial tree: Tracheostomy tube. Mediastinum and Meka: No dominant adenopathy or fluid collection. Pulmonary parenchyma: No consolidation or dominant measurable mass. Scarring right upper lobe. Mild t o moderate emphysematous changes. Pleura: No effusion or pneumothorax. Heart/Aorta: Thoracic aorta non-dilated. Mild atherosclerotic changes. The heart is not dilated. Kiana re coronary artery calcifications are seen. Severe narrowing secondary to calcification at the origin of the right subclavian artery. Upper abdomen: Unremarkable. ABDOMEN: Stomach: Peg tube. Small bowel: Nondilated where visualized. No wall thickening. Colon: Pneumatosis ascending colon and hepatic flexure. New since the previous exam. Peritoneal cavity: Multiple small bubbles of free air seen beneath the diaphragm Liver: Normal density. No measurable mass. Gallbladder and biliary tract: Few small stones. No biliary dilation. No wall thickening. Pancreas: Normal density, no abnormal calcifications or inflammatory process. Spleen: Normal. Kidneys: Normal size, contour and axis. No radiodense stones or obstructive uropathy. No masses seen. Adrenal glands: No masses seen. Abdominal Aorta: Abdominal portion non-dilated. Atherosclerotic changes IMPRESSION: Neck: Postsurgical changes. No visible mass. Severe atherosclerotic changes of the carotid arteries w ith approximate 90 percent stenosis of right proximal ICA. Chest: No evidence of metastatic disease or other acute abnormality. Free air beneath the diaphragm. Pneumatosis associated with the ascending colon and hepatic flexure. RADIATION DOSE DELIVERED: 940.06mGy.cm Total DLP DATA REPOSITORY: All CT scans at this facility are submitted to the National Radiology Data Registry (NRDR) Dose Index Registry (DIR) with the [employer] (ACR). RADIATION OPTIMIZATION: All CT scans at this facility use at least one of these dose optimization te chniques: automated exposure control; mA and/or kV adjustment per patient size (includes targeted exa ms where dose is matched to clinical indication); or iterative reconstruction.
[2021-03-13] MEDS: Omnipaque 350 MG/ML 100 ML BTL IJ (09:34)
[2021-03-13] MEDS: Normal Saline - Diluent 50 ML VIAL IV (09:37)
== END 2021-03-13 00:50 ==
PROVIDERS: PCP Nurse Practitioner; Visit Provider Otolaryngology Otolaryngology/Facial Plastic Surgery
DX: R06.02 Shortness of breath (principal); F17.210 Nicotine dependence, cigarettes, uncomplicated; C04.9 Malignant neoplasm of floor of mouth, unspecified; K63.89 Other specified diseases of intestine; I65.23 Occlusion and stenosis of bilateral carotid arteries
CPT/HCPCS: 70491; 71260; J3490

== ENCOUNTER 2021-06-30 07:04 | Observation (INO) | payer MEDICARE, MEDICAID, SELFPAY ==
[2021-06-30] VITALS (27 sets, daily range): BP systolic 85–136; BP diastolic 63–101; PULSE 87–145; RESP 4–30; TEMP 36.2–37; O2SAT 96–100
--- NOTE | 2021-06-30 07:00 | DI.RAD_ITS ---
Exam(s) XR PORTABLE CHEST AP EXAM: XR PORTABLE CHEST AP CLINICAL HISTORY: trache, cough, SOB TECHNIQUE: 2D digital imaging was performed of the chest. One image was obtained. An AP view was ob tained. COMPARISON: CR,XR XR PORTABLE CHEST AP from 01/17/2021 FINDINGS: MEDIASTINUM: Normal. HEART: Normal. PULMONARY VASCULATURE: Normal. LUNGS: Clear. PLEURAL SPACE: No pleural effusion or pneumothorax. BONE:Within normal limits for the patient's age. OTHER FINDINGS:The patient has a tracheostomy tube. IMPRESSION: No acute pulmonary findings. DATA REPOSITORY: RADIATION DOSE DELIVERED:
--- NOTE | 2021-06-30 07:14 | ED.GENADUL_ITS ---
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 Patient lives at home, he has no significant assistance at home, he states that this is secondary to money issues. He states that over the last week he has felt weak, has not eaten much through his PEG tube. He admits to increased cough, but denies fever or chills. He states that he does have some soreness on his buttock, but denies any other focal complaints. He states that he feels like he cannot care for himself while at home at this stage, and is seeking temporary placement at [facility]. He denies any other complaints at this time. No other modifying factors. Exam demonstrates an place trach, neck mass is unchanged. PEG tube in place. Lungs are clear aside from minimal crackles in the bases. She does have tachycardia in the 120s, but he is afebrile. We will rehydrate, get blood work, chest x-ray, have case management evaluate potential placement options, monitor closely and reassess. Patient will be signed out to my colleague Dr. Avni Hutchins for reassessment after labs and imaging have returned. <Avni Hutchins MD - Last Filed: 07/01/21 22:12> Care signed out by Dr. Mendoza with plan to follow-up on chest x-ray and labs and admit patient for failing to thrive. Chest x-ray was reviewed and interpreted by me: No significant changes from prior. No consolidation. Radiologist notes no acute process. Labs reviewed: Covid negative. Patient is alkalotic with mild anion gap. Creatinine is increased from baseline. Concern for dehydration. Patient has received 500 mL bolus and will continue maintenance fluids. No urine output as yet? patient attempted to urinate and unable. Patient is failing to thrive at home. He is too weak and unable to care for himself. He is dehydrated and requires continued IV fluid. Patient cannot be safely discharged home at this time. I called care management and they will review case. I called hospitalist, Dr. Griffith, discussed ED presentation and course, he will admit patient for further treatment and likely [facility]. HPI <Umer Mendoza DO - Last Filed: 06/30/21 07:23> General Date/Time Provider Initiated Documentation: 06/30/21 07:11 . 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 Patient lives at home, he has no significant assistance at home, he states that this is secondary to money issues. He states that over the last week he has felt weak, has not eaten much through his PEG tube. He admits to increased cough, but denies fever or chills. He states that he does have some soreness on his buttock, but denies any other focal complaints. He states that he feels like he cannot care for himself while at home at this stage, and is seeking temporary placement at health and rehab. He denies any other complaints at this time. No other modifying factors. Related Data Home Medications Medication Instructions Recorded Confirmed folic acid 400 mcg tablet 0.4 mg PO DAILY 08/06/19 06/30/21 swab #500 ea 07/28/20 06/30/21 chlorhexidine gluconate 0.12 % 15 ml MUCOUS MEMBRANE TID ml 09/01/20 06/30/21 mouthwash food supplemt, lactose-reduced See Rx Instructions FEEDING TUBE 09/01/20 06/30/21 .COMPLEX ibuprofen 600 mg tablet 600 mg FEEDING TUBE Q6H PRN 09/01/20 06/30/21 levothyroxine 50 mcg tablet 50 mcg FEEDING TUBE DAILY 09/01/20 06/30/21 multivitamin 1 tab FEEDING TUBE DAILY 09/01/20 06/30/21 thiamine HCl (vitamin B1) 100 mg 100 mg FEEDING TUBE DAILY 09/01/20 06/30/21 tablet vitamin E (dl, acetate) 180 mg 400 unit FEEDING TUBE DAILY 09/01/20 06/30/21 (400 unit) capsule gabapentin 300 mg/6 mL (6 mL) oral 400 mg FEEDING TUBE TID ml 09/10/20 06/30/21 solution prednisone 10 mg PO DAILY #30 tab 02/03/21 06/30/21 sucralfate 1 g UD AC & HS #120 tab 02/03/21 06/30/21 oxycodone 5 mg PO Q6H PRN PRN 06/30/21 06/30/21 Previous Rx's Medication Instructions Recorded swab #500 ea 07/28/20 prednisone 10 mg PO DAILY #30 tab 02/03/21 sucralfate 1 g UD AC & HS #120 tab 02/03/21 Allergies Allergy/AdvReac Type Severity Reaction Status Date / Time No Known Allergies Allergy Verified 06/30/21 07:46 General CHRIST: 3 Review of Systems <Umer Mendoza DO - Last Filed: 06/30/21 07:23> All systems reviewed & are unremarkable except as noted in HPI and below PFSH <Umer Mendoza DO - Last Filed: 06/30/21 07:23> All Active Problems (Updated 06/30/21 @ 17:06 by Tanvir Griffith) Adult failure to thrive (Acute) Dehydration (Acute) Weakness generalized (Acute) DNR (do not resuscitate) (Chronic) Palliative care patient (Acute) Gastrojejunostomy tube dislodgement (Acute) Chronic alcoholism (Acute) Fever (Acute) Unable to walk (Acute) Urinary incontinence (Acute) Fecal incontinence (Acute) Abdominal pain (Acute) Discharge planning issues (Acute) DVT prophylaxis (Acute) Acute bronchitis (Acute) Tracheostomy care (Acute) Attention to tracheostomy tube (Acute) Diarrhea (Acute) Malaise (Acute) [place]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 Alcohol use (Acute) Dysphagia, oral phase (Acute) Caries (Acute) Mouth cancer (Acute) Tobacco use disorder (Acute) >25 pack years Hypertension (Chronic) COPD (chronic obstructive pulmonary disease) (Chronic) Medical History Acute hypokalemia Acute hyponatremia Anxiety Aspiration pneumonia Closed head injury with loss of consciousness of unknown duration Cough with hemoptysis DVT prophylaxis Facial laceration Hypokalemia Hyponatremia Pre-op evaluation Surgical History S/P glossectomy (10/24/13) w/ resection of floor of mouth, w/ suprahyoid neck dissection. cervical lymphadenectomy, tracheostomy, excision benign thyroid lesion, exploration carotid artery S/P reconstruction procedure (08/18/20) Pediculed pec flap, L hemiglossectomy and mandibulectomy ([place]) S/P tooth extraction (~2013) Status post glossectomy (08/11/20) w/ multiple other procedures Family History Mother , about age 70 Hypertension Hyperlipidemia Breast cancer Asthma Smoker Lung cancer Father , about age 70 from lung cancer Asthma Lung cancer Smoker Brother Hyperlipidemia Son No problems noted. Grandson No problems noted. Social History Smoking/Tobacco Use Status: Former Tobacco Use Tobacco: How many years used: 31 Quit status: considering quitting Counseling given: provider counseling and counseling >3 minutes Smoking risk assessment performed?: Yes Alcohol Intake: current Alcohol Intake frequency: 3 or more drinks per day Alcohol type: beer Previous attempts at quittin Counseling given: Yes Counseling provided: reduce to 2 or less/day Details: [id number], who was with me, estimated 30 beers/day Drug use: Occasionally Substance use type: marijuana Details: 06/30/21--states drinking 6 beers a day--last was Tuesday06/26/21. 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 Pets and animals: No Sexually active: No Do you think of yourself as: straight/heterosexual Current gender identity: male What is your relationship status?: How often do you talk on the phone with friends or family?: never How often do you get together with friends or relatives?: once per week Panel score (0-1 are the most socially isolated patients): 0 What type of physical activity do you participate in: none and sedentary lifestyle Frequency: does not exercise Special leeroy needs: No Agree to transfusion: Yes Seatbelt use: always Working smoke detector in home: Yes Fire extinguisher in home: Yes Do you feel safe at home: Yes Do you feel safe in your relationship?: Yes Additional Social history: Now at [facility]. Trying to convince him to be a permanent resident. Was living alone in a trailer his parents bought in 1975, now owned by Chito's brother Thanh. Chito went to in [place]. Soon after, he enlisted in [employer] x 4 years. Not a [employer] patient; did not serve long enough. He's with one son. [place] [facility]. Cannot talk on phone. Listens to his messages. Trache is permanent, as is feeding tube. Has gained weight since hospitalization. No computer. No way to communicate easily. Writes down his answers and questions. Had a friend who bought him groceries and alcohol. Family not happy with this. When Chito recently admitted to [facility], spoke to brother and s [id number], strongly encouraged them to have an intervention and not allow Chito to live in their home. Not safe. ----06/30/21 ER Currently at home. Exam <Umer Mendoza DO - Last Filed: 06/30/21 07:23> Narrative Exam Narrative: 1.Const: Well-nourished, Well-developed, appearing stated age 2.Eyes: PERRL, no conjunctival injection, and symmetrical lids. 3.ENT: Atraumatic external nose and ears. Notable mass on the left side of his neck and face is chronic.Patient does not have the tongue. 4.CVS: +S1/S2, No murmurs or gallops. Peripheral pulses 2+ and equal in all extremities. Brisk capillary refill in all extremities. 5.RESP: Unlabored respiratory effort. Minimal crackles in the bases. No wheezes or rhonchi. 6.GI: Soft, Nontender/Nondistended, No hepatosplenomegaly. No guarding or rebound. PEG tube is in place. 7.MSK: Normocephalic/Atraumatic, Extremities w/o deformity or ttp No cyanosis or clubbing, Normal movement of all extremities 8.Skin: Warm, Dry. No severe skin ulcers are noted. 9.Neuro: beater and pulper feeder II-XII grossly intact. Sensation grossly intact, no focal neurologic deficits. 10.Psych: (AAO) x3. Appropriate mood and affect Sign Out <Umer Mendoza DO - Last Filed: 06/30/21 07:23> Sign Out Data: Sign Out Comment: Failure to thrive at home, chronic trach and PEG tube. Reassess after labs and imaging return. Last updated by Umer Mendoza DO at 06/30/21 07:25
--- NOTE | 2021-06-30 07:15 | RT.EKG_ITS ---
APPROVED REPORT Exam: Resting ECG Reason for Exam: weakness Patient Location: E HR:120 bpm ECG Measurements Heart Rate 120 AXIS UT 149 P 38 QRSd 69 QRS 26 QT 306 T 58 QTc 433 Conclusion Sinus tachycardia...rate> 99 Probable left atrial enlargement...P >50mS, <-0.10mV V1 Physician: no stemi
[2021-06-30] MEDS: Normal Saline 500 ML IV (07:37)
[2021-06-30 07:40] LABS: Source Nasal/Nares
[2021-06-30 07:40] LABS: BE (Venous) 3 mmol/L (-2-3); HCO3 (Venous) 25 mmol/L (23-28); O2 Sat (Venous) 35 %; TCO2 (Venous) 22 mmol/L (24-29); pCO2 (Venous) 31 mmHg (41-51); pH (Venous) 7.52 (7.31-7.41); pO2 (Venous) 20 mmHg
[2021-06-30 07:45] LABS: Abs Immature Grans 0.03 10^3/uL (0.0-0.06); Absolute Basophil Count 0.05 10^3/uL (0.0-0.2); Absolute Eosinophil Count 0.02 10^3/uL (0.0-0.7); Absolute Lymphocyte Count 1.07 10^3/uL (1.2-3.4); Absolute Monocyte Count 0.86 10^3/uL (0.1-0.8); Absolute Neutrophil Count 8.63 10^3/uL (1.2-6.7); Basophils % 0.5; Eosinophils % 0.2; HCT 47.1 % (40.0-50.0); HGB 15.9 g/dL (13.5-17.5); Immature Grans % 0.3; MCH 30.8 pg (27.0-33.0); MCHC 33.8 % (32.0-36.0); MCV 91.1 fL (80-95); MPV 8.9 fL (8.0-11.0); Monocytes % 8.1; Neutrophils % 80.9; Nucleated RBC 0 %; Platelet Count 368 10^3/uL (130-400); RBC 5.17 10^6/uL (4.36-5.78); RDW 13.4 % (11.8-14.1); RDW-SD 45.4 fL; WBC 10.66 10^3/uL (4.4-10.8)
[2021-06-30 07:57] LABS: Magnesium 1.9 mg/dL (1.8-2.4)
[2021-06-30 08:11] LABS: ALT 19 U/L (16-63); AST 27 U/L (15-37); Albumin 3.9 g/dL (3.4-5.0); Alkaline Phosphatase 112 U/L (46-116); Anion Gap 16.3 mmol/L (3-11); BUN 11 mg/dL (7-18); Bilirubin, Total 0.8 mg/dL (0.2-1.0); CO2 24.7 mmol/L (21.0-32.0); CREATININE 1.1 mg/dL (0.70-1.30); Calcium 9.8 mg/dL (8.5-10.1); Chloride 91 mmol/L (98-107); Glucose 153 mg/dL (74-106); Potassium 3.7 mmol/L (3.5-5.1); Sodium 132 mmol/L (136-145); TSH (W/Ref FT4) 3.63 uIU/mL (0.36-3.74); Total Protein 8.5 g/dL (6.4-8.2); Troponin I < 50 ng/L (<or=60)
[2021-06-30 08:22] LABS: COVID-19 PCR Negative (Negative)
[2021-06-30] MEDS: Nystatin POWDER 15 GM JAR TP (08:40)
[2021-06-30 10:31] LABS: Bilirubin Negative (Negative); Blood Negative (Negative); Clarity Clear (Clear); Glucose Negative (Negative); Ketones 40 mg/dL (Negative); Leukocyte Esterase Negative (Negative); Nitrite Negative (Negative); Urobilinogen 0.2 EU/dL (Up TO 0.2); pH 8.5 (5-8)
[2021-06-30 10:37] LABS: Bacteria Rare HPF (Negative); Casts 5-10 Hyaline LPF (Negative); Crystals Negative HPF (Negative); Epithelial Cells Rare HPF (Negative); Mucus Moderate (Negative); RBC 0-2 HPF (0-2); WBC 0-2 HPF (0-5)
[2021-06-30 10:38] LABS: C & S Indicated? No
--- NOTE | 2021-06-30 10:42 | NUR.NOTE ---
1030 talked with sister,Alia, on phone who stated she thinks he has started drinking again and it may be 3 beers a day--When I confronted Chito about ETOH use he signed and wrote yes on his white boqard. Admited to drinking 6 beers a day with last intake on Tuesday. Also smokes pot a few times a week.Nursing Note:
--- NOTE | 2021-06-30 11:00 | NUR.NOTE ---
Nursing Note: 1100--talked with Nai at Palliative care--Tobias SHERIDAN has scheduled visit with Chito bravo--Most likely tommy see him in hosp.
--- NOTE | 2021-06-30 11:59 | HPE_ITS ---
Date of service: 06/30/21 Time of Service: 11:59 Assessment and Plan Assessment and plan (1) Adult failure to thrive: Status: Acute Assessment and plan: Case management has put in referrals to [facility] and is hopeful that they will accept the patient as he has been there before. In the interim we will request a nutritional consult and a physical therapy consult. I have reordered his tube feedings of Nutren 1.5 250 mL 45 times a day. I have also ordered additional 125 mL of water after each feeding. (2) Dehydration: Status: Acute Assessment and plan: Patient's BUN and creatinine were actually within normal limits. As long as he is tolerating enteral feedings we will go that route rather than IV fluids. If he becomes nauseated or having emesis then we will restart IV fluids (3) Weakness generalized: Status: Acute Assessment and plan: Request physical therapy to evaluate the patient. (4) DNR (do not resuscitate): Status: Chronic Assessment and plan: Patient remains DNR status (5) Chronic alcoholism: Status: Acute Assessment and plan: No evidence of acute alcohol withdrawal but I will order CIWA monitoring (6) COPD (chronic obstructive pulmonary disease): Status: Chronic Assessment and plan: As per month schedules DuoNeb treatments 4 times a day along with as needed albuterol. Currently not requiring any supplemental oxygen Qualifiers: COPD type: chronic bronchitis Chronic bronchitis type: simple Qualified Code(s): J41.0 - Simple chronic bronchitis (7) Hypertension: Status: Chronic Assessment and plan: Currently not on any antihypertensive medications at home and his blood pressure at the present time does not require treatment. Qualifiers: Hypertension type: primary hypertension Qualified Code(s): I10 - Essential (primary) hypertension (8) DVT prophylaxis: Status: Acute Assessment and plan: Provide Lovenox 40 mg subcutaneously daily (9) Discharge planning issues: Status: Acute Assessment and plan: Transfer to a SNF once a bed becomes available. 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 from January 28, 2021 through February 03, 2021 with acute peribronchitis and diarrhea and alcohol withdrawal. Patient was discharged to [facility]. Patient apparently was discharged from [facility] to home and has been living at home unable to care for himself properly. He has had generalized weakness and not getting much intake through his PEG tube. He is supposed to be taking 4-5 cartons of Nutren 1.5 to 140 mL per carton a day. He states his only been taking about 100 mL maybe 4 times a day or less the last few days. He has had no fever or chills. He does have some superficial ulceration on his buttocks which has been using nystatin cream. He had a work- up in the emergency department including nasal swab for SARS-CoV-2 PCR which was negative chest x-ray that showed no acute pulmonary changes. He was mildly dehydrated and given IV fluids in the emergency department. Because of his generalized weakness and inability to care for himself the ED physician recommended admission to the hospital for placement in longterm. I spoke with Dr. Hutchins asked that he refer the case to care management who upon reviewing the case recommend that we admit the patient as observation while they place referrals to [facility]. Review of Systems All systems reviewed & are unremarkable except as noted in HPI and below PFSH All Active Problems (Updated 06/30/21 @ 17:06 by Tanvir Griffith) Adult failure to thrive (Acute) Dehydration (Acute) Weakness generalized (Acute) DNR (do not resuscitate) (Chronic) Palliative care patient (Acute) Gastrojejunostomy tube dislodgement (Acute) Chronic alcoholism (Acute) Fever (Acute) Unable to walk (Acute) Urinary incontinence (Acute) Fecal incontinence (Acute) Abdominal pain (Acute) Discharge planning issues (Acute) DVT prophylaxis (Acute) Acute bronchitis (Acute) Tracheostomy care (Acute) Attention to tracheostomy tube (Acute) Diarrhea (Acute) Malaise (Acute) [place]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 Alcohol use (Acute) Dysphagia, oral phase (Acute) Caries (Acute) Mouth cancer (Acute) Tobacco use disorder (Acute) >25 pack years Hypertension (Chronic) COPD (chronic obstructive pulmonary disease) (Chronic) Medical History Acute hypokalemia Acute hyponatremia Anxiety Aspiration pneumonia Closed head injury with loss of consciousness of unknown duration Cough with hemoptysis DVT prophylaxis Facial laceration Hypokalemia Hyponatremia Pre-op evaluation Surgical History S/P glossectomy (10/24/13) w/ resection of floor of mouth, w/ suprahyoid neck dissection. cervical lymphadenectomy, tracheostomy, excision benign thyroid lesion, exploration carotid artery S/P reconstruction procedure (08/18/20) Pediculed pec flap, L hemiglossectomy and mandibulectomy (Minnie) S/P tooth extraction (~2013) Status post glossectomy (08/11/20) w/ multiple other procedures Family History Mother , about age 70 Hypertension Hyperlipidemia Breast cancer Asthma Smoker Lung cancer Father , about age 70 from lung cancer Asthma Lung cancer Smoker Brother Hyperlipidemia Son No problems noted. Grandson No problems noted. Social History Smoking/Tobacco Use Status: Former Tobacco Use Tobacco: How many years used: 31 Quit status: considering quitting Counseling given: provider counseling and counseling >3 minutes Smoking risk assessment performed?: Yes Alcohol Intake: current Alcohol Intake frequency: 3 or more drinks per day Alcohol type: beer Previous attempts at quittin Counseling given: Yes Counseling provided: reduce to 2 or less/day Details: [id number], who was with me, estimated 30 beers/day Drug use: Occasionally Substance use type: marijuana Details: 06/30/21--states drinking 6 beers a day--last was Tuesday06/26/21. Adopted: No Caregiver/Support person: No Foster care: No Household members: none Housing: house Number of Children: 1 number of grandchildren: 1 Communication Needs: Corrective Lenses and Language Barriers Education Level: high school Do you need help understanding health information?: Often current occupation: on disability; was in [employer] x 4 years, then [employer] Pets and animals: No Sexually active: No Do you think of yourself as: straight/heterosexual Current gender identity: male What is your relationship status?: How often do you talk on the phone with friends or family?: never How often do you get together with friends or relatives?: once per week Panel score (0-1 are the most socially isolated patients): 0 What type of physical activity do you participate in: none and sedentary life style Frequency: does not exercise Special leeroy needs: No Agree to transfusion: Yes Seatbelt use: always Working smoke detector in home: Yes Fire extinguisher in home: Yes Do you feel safe at home: Yes Do you feel safe in your relationship?: Yes Additional Social history: Now at [facility]. Trying to convince him to be a permanent resident. Was living alone in a trailer his parents bought in 1975, now owned by Chito's brother Thanh. Chito went to in [facility]. 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 Not a [employer] patient; did not serve long enough. He's with one son. [place] [facility] [place]. Cannot talk on phone. Listens to his messages. Trache is permanent, as is feeding tube. Has gained weight since hospitalization. No computer. No way to communicate easily. Writes down his answers and questions. Had a friend who bought him groceries and alcohol. Family not happy with this. When Chito recently admitted to [facility], spoke to brother and [id number], strongly encouraged them to have an intervention and not allow Chito to live in their home. Not safe. ----06/30/21 ER Currently at home. Meds Allergies and Home Medications Allergies Allergy/AdvReac Type Severity Reaction Status Date / Time No Known Allergies Allergy Verified 06/30/21 07:46 Home Medications Medication Instructions Recorded Confirmed Type folic acid 400 mcg tablet 0.4 mg PO DAILY 08/06/19 06/30/21 History swab #500 ea 07/28/20 06/30/21 Rx chlorhexidine gluconate 0.12 % 15 ml MUCOUS MEMBRANE TID ml 09/01/20 06/30/21 History mouthwash food supplemt, lactose-reduced See Rx Instructions FEEDING TUBE 09/01/20 06/30/21 History .COMPLEX ibuprofen 600 mg tablet 600 mg FEEDING TUBE Q6H PRN 09/01/20 06/30/21 History levothyroxine 50 mcg tablet 50 mcg FEEDING TUBE DAILY 09/01/20 06/30/21 History multivitamin 1 tab FEEDING TUBE DAILY 09/01/20 06/30/21 History thiamine HCl (vitamin B1) 100 mg 100 mg FEEDING TUBE DAILY 09/01/20 06/30/21 History tablet vitamin E (dl, acetate) 180 mg 400 unit FEEDING TUBE DAILY 09/01/20 06/30/21 History (400 unit) capsule gabapentin 300 mg/6 mL (6 mL) oral 400 mg FEEDING TUBE TID ml 09/10/20 06/30/21 History solution prednisone 10 mg PO DAILY #30 tab 02/03/21 06/30/21 Rx sucralfate 1 g UD AC & HS #120 tab 02/03/21 06/30/21 Rx oxycodone 5 mg PO Q6H PRN PRN 06/30/21 06/30/21 History Exam Narrative Exam Narrative: Late middle-aged white male who looks much older than his stated age of 60 years. He is alert and answers my questions appropriately by writing his answers on a white board or through hand gestures. He is in no acute distress. HEENT he has a georgette complexion very plethoric appearance. Oropharynx no exudate. He is edentulous. Neck he has a large mass along the left anterior cervical triangle extending from the jaw down to the lower neck. He has a tracheostomy but no purulent secretions from this Lungs are clear to auscultation no wheezes rales or rhonchi Heart is regular rate and rhythm without murmur rub or gallop Abdomen soft nondistended nontender normal bowel sounds no masses no bruits he has a PEG tube in place with no induration around the tube and no discharge Lower extremities he has dry skin over his feet and legs there is no peripheral edema he has normal pedal pulses. He has thick toenails Buttocks he has some superficial skin ulceration over the sacrum and gluteal fold with no purulent discharge Results Imaging Chest x-ray: report reviewed Labs Result diagrams: 06/30/21 07:33 06/30/21 07:33 Labs: Laboratory Results - last 24 hr 06/30/21 06/30/21 06/30/21 07:25 07:33 07:33 WBC RBC Hgb Hct MCV MCH MCHC RDW Plt Count MPV Immature Gran % Neutrophils % Lymphocytes % Monocytes % Eosinophils % Basophils % Nucleated RBC % Absolute Neutrophils Absolute Lymphocytes Absolute Monocytes Absolute Eosinophils Absolute Basophils VBG pH VBG pCO2 VBG pO2 VBG HCO3 VBG Total CO2 VBG O2 Saturation VBG Base Excess Sodium 132 L Potassium 3.7 Chloride 91 L Carbon Dioxide 24.7 Anion Gap 16.3 H BUN 11 Creatinine 1.1 Estimated GFR/1.73 m2 >= 60.00 Glucose 153 H Calcium 9.8 Magnesium 1.9 Total Bilirubin 0.8 AST 27 ALT 19 Alkaline Phosphatase 112 Troponin I < 50 Total Protein 8.5 H Albumin 3.9 TSH 3.63 Urine Color Urine Clarity Urine pH Ur Specific [place] Urine Protein Urine Ketones Urine Blood Urine Nitrite Urine Bilirubin Urine Urobilinogen Ur Leukocyte Esterase Urine RBC Urine WBC Ur Epithelial Cells Urine Crystals Urine Bacteria Urine Casts Urine Mucus Ur Culture Indicated? Urine Glucose COVID-19 Source Nasal/Nares SARS-CoV-2 (PCR) Negative 06/30/21 06/30/21 06/30/21 07:33 07:33 10:15 WBC 10.66 RBC 5.17 Hgb 15.9 Hct 47.1 MCV 91.1 MCH 30.8 MCHC 33.8 RDW 13.4 Plt Count 368 MPV 8.9 Immature Gran % 0.3 Neutrophils % 80.9 Lymphocytes % 10.0 Monocytes % 8.1 Eosinophils % 0.2 Basophils % 0.5 Nucleated RBC % 0 Absolute Neutrophils 8.63 H Absolute Lymphocytes 1.07 L Absolute Monocytes 0.86 H Absolute Eosinophils 0.02 Absolute Basophils 0.05 VBG pH 7.52 H VBG pCO2 31 L VBG pO2 20 VBG HCO3 25 VBG Total CO2 22 L VBG O2 Saturation 35 VBG Base Excess 3 Sodium Potassium Chloride Carbon Dioxide Anion Gap BUN Creatinine Estimated GFR/1.73 m2 Glucose Calcium Magnesium Total Bilirubin AST ALT Alkaline Phosphatase Troponin I Total Protein Albumin TSH Urine Color Yellow Urine Clarity Clear Urine pH 8.5 H Ur Specific [place] 1.020 Urine Protein 100 H Urine Ketones 40 H Urine Blood Negative Urine Nitrite Negative Urine Bilirubin Negative Urine Urobilinogen 0.2 Ur Leukocyte Esterase Negative Urine RBC 0-2 Urine WBC 0-2 Ur Epithelial Cells Rare Urine Crystals Negative Urine Bacteria Rare Urine Casts 5-10 Hyaline Urine Mucus Moderate Ur Culture Indicated? No Urine Glucose Negative COVID-19 Source SARS-CoV-2 (PCR) Last Vital Signs Temp 36.5 C 06/30/21 11:09 Pulse 115 H 06/30/21 11:09 Resp 18 06/30/21 11:09 BP 108/69 06/30/21 11:09 Pulse Ox 100 06/30/21 11:09 PAWSS Have you Been Recently Intoxicated or Drunk Within the Last 30 days?: Yes Have you Ever Experienced Previous Episodes of Alcohol Withdrawal?: Yes Have you ever Experienced Withdrawal Seizures?: Yes Have you ever Experienced Delirium Tremens(DT)s?: Yes Have you ever undergone Alcohol Rehabilitation Treatment (i.e, inpt ot outpatient treatment programs)?: Yes Have you ever Experienced Blackouts?: Yes Have you ever Combined Alcohol with other Downers within the last 90 days?: No Have you ever Combined Alcohol with any other Substance of Abuse during the last 90 days?: No Result: 6
[2021-06-30] MEDS: Albuterol/Ipratropium 3 ML UPD VIAL UPD ×2 (12:22→16:54)
--- NOTE | 2021-06-30 13:21 | W.NUTCONSULT ---
Date of service: 06/30/21 Time of Service: 13:21 Nutritional Consult ASSESSMENT: Mr. Santiago is admitted with adult FTT. At home he was ordered for 5 cans of Nutren 1.5 plus an additional scoop of protein powder (? 20 grams protein) through his PEG tube. He is 65 kg today. On 01/17/21 he was 73 kg which represents a 10% weight loss in six months which is considered significant. On exam he is noted to look well nourished. BMI is 23.1 kg/m2 which is WNL. He does not meet parameters for malnutrition as he has only had a significant weight loss but constitutionally looks well and has been consistently getting calories through his PEG tube. Estimated energy needs: 1625 kcals to 1950 kcal/day (25-30 kcal/kg/day) Estimated protein needs: 78g to 98 g/day (1.2 to 1.5 g/kg/day) Estimated fluid needs: 1950 ml/day (30 ml/kg/day) His tube feeding regimen at home which is noted above, provides 1778 kcals and 101 g of protein per day which theoretically meets 100% of his energy and protein needs. NUTRITIONAL DIAGNOSIS: Significant weight loss related to perhaps inadequate caloric intake and/or physiologic causes as evidenced by 10% weight loss in 6 months. INTERVENTION: We do not have Nutren 1.5 available to us. The following is the recommendation for tube feeding regimen while here at [facility]. Recommend give 5 cartons per day of Jevity 1.5 per PEG tube via the same method pt. does at home. This feeding provides 1778 kcals and 76 grams of protein per day. Would also recommend adding 1 oz. liquid protein per PEG, twice daily to provide an additional 30 grams of protein. This regimen provides approximately 900 ml of free water therefore he needs approximately another liter of free water daily per PEG. This feeding has 25 grams of dietary fiber. The tube feed regimen as I outlined theoretically meets Mr. Santiago's macronutrient and micronutrient needs. MONITORING AND EVALUATION: Will monitor tube feeding tolerance, weight, and overall nutritional status. Will evaluate nutrition care plan ongoing and adjust as needed. Time Spent in Nutritional Counseling and Treatment: 0
[2021-06-30] MEDS: Acetaminophen Solution 650 MG/20.3 ML CUP UD ×3 (13:30→22:30)
[2021-06-30] MEDS: Enoxaparin 40 MG/0.4 ML SYR SC (13:30)
[2021-06-30] MEDS: oxyCODONE 5 MG/5 ML CUP NG (14:44)
--- NOTE | 2021-06-30 16:37 | CHAPLAIN ---
I know Chito from a previous admission and a Palliative [facility] visit. He recognized me and remembered that he was give a comfort shawl that the said he likes and uses when he's sitting in his chair at home. Chito spoke some words, whispering, and and also wrote on the white board he had. He told me he left [facility] in March, (He'd gone there from here.), and that he wanted to leave. Chito lives in a trailer by himself. He can't speak on the phone, but listens to messages when people call him. According to his ED notes, he is not doing well at home. Chito told me that he has a Palliative Care appointment tomorrow with Dr. Byrne and asked me to let her know that she is here. I called the PC office and left a message with Maude. Chito also said/wrote that he wants to sleep. I told him I would tell Dr. Byrne that too. He also gave me permission to contact Karen Solomon, the chronic wound care specialist at [facility], and let her know he is admitted here.
[2021-06-30] MEDS: Sucralfate 1 GM TAB UD ×2 (17:12→22:24)
[2021-06-30] MEDS: Normal Saline Flush 10 ML SYR IVP (22:31)
[2021-07-01] MEDS: Acetaminophen Solution 650 MG/20.3 ML CUP UD ×5 (02:26→21:02)
[2021-07-01] MEDS: Albuterol/Ipratropium 3 ML UPD VIAL UPD (02:55)
[2021-07-01] MEDS: Levothyroxine 50 MCG TAB UD (06:37)
[2021-07-01 07:20] LABS: HCT 40.3 % (40.0-50.0); HGB 13.3 g/dL (13.5-17.5); MCH 30.8 pg (27.0-33.0); MCV 93.3 fL (80-95); MPV 9.3 fL (8.0-11.0); Platelet Count 274 10^3/uL (130-400); RBC 4.32 10^6/uL (4.36-5.78); RDW-SD 48.5 fL; WBC 5.83 10^3/uL (4.4-10.8)
[2021-07-01 07:26] VITALS: BP 102/81; PULSE 89; RESP 22; TEMP 36.3; O2SAT 97
[2021-07-01] MEDS: Vitamin E 400 UNITS CAP UD (08:14)
[2021-07-01] MEDS: Thiamine 100 MG TAB UD (08:15)
[2021-07-01] MEDS: Folic Acid 1 MG TAB 0.5 MG UD (08:15)
[2021-07-01] MEDS: Sucralfate 1 GM TAB UD ×4 (08:16→21:01)
[2021-07-01] MEDS: oxyCODONE 5 MG/5 ML CUP NG ×3 (08:24→21:02)
--- NOTE | 2021-07-01 09:36 | IN_ITS ---
Date of service: 07/01/21 Time of Service: 09:36 PT Notes Visit Reasons: Failure to Thrive Physical Therapy Inpatient Initial Evaluation Date: 07/01/2020 Referring Doctor: Tanvir Griffith MD PT Orders: PT CONSULT: Extended Stay Weakness Precautions: Fall. Standard. Activity as tolerated. Tracheostomy in place. Gastrotomy tube in place. 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 PMHX: All Active Problems (Updated 06/30/21 @ 17:06 by Tanvir Griffith) Adult failure to thrive (Acute) Dehydration (Acute) Weakness generalized (Acute) DNR (do not resuscitate) (Chronic) Palliative care patient (Acute) Gastrojejunostomy tube dislodgement (Acute) Chronic alcoholism (Acute) Fever (Acute) Unable to walk (Acute) Urinary incontinence (Acute) Fecal incontinence (Acute) Abdominal pain (Acute) Discharge planning issues (Acute) DVT prophylaxis (Acute) Acute bronchitis (Acute) Tracheostomy care (Acute) Attention to tracheostomy tube (Acute) Diarrhea (Acute) Malaise (Acute)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 Alcohol use (Acute) Dysphagia, oral phase (Acute) Caries (Acute) Mouth cancer (Acute) Tobacco use disorder (Acute) >25 pack years Hypertension (Chronic) COPD (chronic obstructive pulmonary disease) (Chronic) Medical History Acute hypokalemia Acute hyponatremia Anxiety Aspiration pneumonia Closed head injury with loss of consciousness of unknown duration Cough with hemoptysis DVT prophylaxis Facial laceration Hypokalemia Hyponatremia Pre-op evaluation Surgical History S/P glossectomy (10/24/13) w/ resection of floor of mouth, w/ suprahyoid neck dissection. cervical lymphadenectomy, tracheostomy, excision benign thyroid lesion, exploration carotid artery S/P reconstruction procedure (08/18/20) Pediculed pec flap, L hemiglossectomy and mandibulectomy ([facility]) S/P tooth extraction (~2013) Status post glossectomy (08/11/20) w/ multiple other procedures Social History/Home Situation: Patient lives alone in a private home with 2 steps to enter with a post to grab onto. He has been independent with PEG tube feeding since July 2020. Has been performing community ambulation using no ass istive device indoors and outdoors. Equipment Owned/DME: [facility] Subjective: Agreeable to PT consult. Reports chronic neck pain at 7/10. Nurse Ruma aware and has been managing. Objective: General Observation: Telemetry monitoring in place. Tracheostomy in place. Gastrotomy tube in place. IV access in L UE. Mental Status: Alert and oriented as to person, place, time, and purpose. Able to pay attention, focus, and respond appropriately. Mute, mainly uses a white board for communication. Can minimally subvocalize if his tracheostomy tube is covered. Pain: Chronic pain at 7/10 in neck area ROM: Right Upper Extremity: Shoulder Flexion WFL. Shoulder abduction WFL. Shoulder ER/IR WFL. Elbow flexion WFL. Forearm pronation/supination WFL. Wrist flexion WFL. Opening and closing of hand WFL. Left Upper Extremity: Shoulder Flexion WFL. Shoulder abduction WFL. Shoulder ER/IR WFL. Elbow flexion WFL. Forearm pronation/supination WFL. Wrist flexion WFL. Opening and closing of hand WFL. Right Lower Extremity: Hip flexion WFL. Hip abduction WFL. Hip ER/IR WFL. Knee flexion WFL. Knee extension. Ankle dorsiflexion/eversion WFL. Ankle plantarflexion/inversion WFL. Left Lower Extremity: Hip flexion WFL. Hip abduction WFL. Hip ER/IR WFL. Knee flexion WFL. Knee extension. Ankle dorsiflexion WFL. Ankle plantarflexion WFL. Strength: Right Upper Extremity: Shoulder flexors 4/5. Shoulder abductors 4/5. Shoulder ER 4/5. Shoulder IR 5/5. Forearm pronators 5/5. Forearm supinators 5/5. Elbow flexors 5/5. Elbow extensors 5/5. Business Services Representative strong. Left Upper Extremity: Shoulder flexors 4/5. Shoulder abductors 4/5. Shoulder ER 4/5. Shoulder IR 5/5. Forearm pronators 5/5. Forearm supinators 5/5. Elbow flexors 5/5. Elbow extensors 5/5. Business Services Representative strong. Right Lower Extremity: Hip flexors 5/5. Hip abductors 5/5. Hip external rotators 5/5. Hip internal rotators 5/5. Knee flexors 5/5. Knee extensors 5/5. Ankle dorsiflexors/evertors 4/5. Ankle plantarflexors/invertors 5/5. Left Lower Extremity: Hip flexors 5/5. Hip abductors 5/5. Hip external rotators 5/5. Hip internal rotators 5/5. Knee flexors 5/5. Knee extensors 5/5. Ankle dorsiflexors/evertors 4/5. Ankle plantarflexors/invertors 5/5. Bed Mobility/Transfers: Supine to sit independent Sit to stand independent Stand to sit independent Bed to chair independent Gait: Distance of 520 feet independently without an assistive device. Full weight bearing in B LE. No SOB nor LOB. Balance: Static Sitting: Normal Dynamic Sitting: Normal Static Standing: Good Dynamic Standing: Fair Special Tests: Mobility Limitations Standardized Measure [employer] AM-PAC 6 clicks Basic Mobility Inpatient Short Form: Raw Score: 24 CMS Score: 0 % deficit Informed Consent/Education: Patient was instructed in purpose of PT consult and plan of care. Agreeable to proceed with established PT POC to achieve personal goals. Assessment: Chito is independent with all mobility ADL performance without an assistive device and does not require skilled services at this time. Patient is assessed as a [id number] moderate complexity based on the following: History: 60-year-old male with past medical history as indicated above Examination: Was not able to do full tandem and one-legged stance during the 4- stage balance test but he states that this has been something he has had for many years now due to chronic effects of alcoholism and his other co-morbidities Presentation: Stable Decision Makin low complexity Goals: N/A PT evaluation only. Patient is now at highest mobility level without an assistive device. Plan of Care/Treatment Plan: N/A PT evaluation only. Patient is now at highest mobility level without an assistive device. DISCHARGE RECOMMENDATIONS: Home when medically cleared by hospitalist. No equipment needs at this time. TREATMENT CODE/TIME: 39199 x 29 minutes beginning 9:36 AM. Thank you for the opportunity to participate in the care of this patient. Leah Palencia PT, DPT, CLT [facility] [place], [place]
[2021-07-01] MEDS: Protein Nutritional Supplement 16 GM 1 OUNCE PACKET JT ×2 (10:34→20:59)
--- NOTE | 2021-07-01 10:38 | PDOC.CMIN ---
- If Service Date Differs Date of service: 07/01/21 Time of Service: 10:38 Care Management Initial Assess REASON FOR HOSPITALIZATION:: Failure to Thrive PAST MEDICAL HISTORY/PAST SURGICAL HISTORY:: All Active Problems. Adult failure to thrive (Acute). Dehydration (Acute). Weakness generalized (Acute). DNR (do not resuscitate) (Chronic). Palliative care patient (Acute). Gastrojejunostomy tube dislodgement (Acute). Chronic alcoholism (Acute). Fever (Acute). Unable to walk (Acute). Urinary incontinence (Acute). Fecal incontinence (Acute). Abdominal pain (Acute). Discharge planning issues (Acute). DVT prophylaxis (Acute). Acute bronchitis (Acute). Tracheostomy care (Acute). Attention to tracheostomy tube (Acute). Diarrhea (Acute). Malaise (Acute). of armed forces (Chronic). Mute (Chronic). due to extensive oral surgery and h/o radiation. Lives alone (Acute). Marijuana smoker (Acute). Uses feeding tube (Acute). 5 cans of Nutren 1.5 per day with 1 scoop protein supplement each feed. Tracheostomy in place (Chronic). Candidiasis (Acute). Hyponatremia (Acute). Hypokalemia (Acute). Adult failure to thrive (Acute). B12 deficiency (Acute). Alcohol abuse (Chronic). Abdominal pain (Acute). Alcohol withdrawal seizure (Acute). Gastrostomy tube in place (Chronic). Carcinoma of oral cavity (Chronic ~08/2020). 09/15/[address] Farzana Nunes Rad/Onc, ? of XRT. Recurrent squamous cell carcinoma (Acute). Oral pain (Chronic). controlled with ibuprofen. Floor of mouth squamous cell carcinoma (Acute 06/26/20). Oral thrush (Chronic). Hypothyroidism (Chronic). Encounter to establish care (Acute). 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 Alcohol use (Acute). Dysphagia, oral phase (Acute). Caries (Acute). Mouth cancer (Acute). Tobacco use disorder (Acute). >25 pack years. Hypertension (Chronic). COPD (chronic obstructive pulmonary disease) (Chronic). Medical History. Acute hypokalemia. Acute hyponatremia. Anxiety. Aspiration pneumonia. Closed head injury with loss of consciousness of unknown duration. Cough with hemoptysis. DVT prophylaxis. Facial laceration. Hypokalemia. Hyponatremia. Pre-op evaluation. Surgical History. S/P glossectomy (10/24/13). w/ resection of floor of mouth, w/ suprahyoid neck dissection. cervical lymphadenectomy, tracheostomy, excision benign thyroid lesion, exploration carotid artery. S/P reconstruction procedure (08/18/20). Pediculed pec flap, L hemiglossectomy and mandibulectomy ([facility]). S/P tooth extraction (~2013). Status post glossectomy (08/11/20). w/ multiple other procedures PREVIOUS FUNCTIONAL STATUS/SOCIAL/FAMILY SUPPORTS:: Chito is a 60 year old male who lives independently in [facility]. He is an [employer] . Chito had a surgical excision of squamous cell carcinoma of the oropharynx and now has a long-term tracheostomy tube. He is mute but communicates by writing on a whiteboard. His brother, Peewee, lives locally and is a source of support for Chito. CURRENT FUNCTIONAL STATUS:: Chito was sitting up when CM met with him. He was pleasant and engaged in conversation, whispering/mouthing answers, and writing them down at times. He reported that he did very well at [facility], but the discharge plan was flawed, as he didn't receive his medications, did not have home health, and his family was not notified of his discharge. He feels that he would benefit from another short term stay at [facility]. A referral was sent, awaiting a response. CM asked if he would like me to send the referral to another facility, which he declined. He also stated that he does not want to live in assisted living or lobsterman care. He reported that he has been drinking less, about 4 beers per day. He also stated that he gets lonely at home, which leads to his drinking, and he gets sick of his tube feedings. CM asked if he feels that he is depressed, which he stated that he does feel down at times, especially when he is alone at home. CM will continue to follow. ADVANCE DIRECTIVES:: On file, Alan listed as agent. Has patient been provided with info about the portal/API?: Yes Did the patient sign up for the portal?: No CODE STATUS:: DNR/DNI INSURANCE COVERAGE / FINANCIAL ISSUES:: MCR/ ROBERT CURRENT HOME/COMMUNITY SERVICES/EQUIPMENT:: Palliative Care PRIMARY CARE PHYSICIAN:: Maisha Deleon POTENTIAL DISCHARGE NEEDS:: Evaluations for further needs, follow up appointments. PATIENT/FAMILY EDUCATION NEEDS:: Review of discharge instructions, medications, limitations, and follow up plan, including Ask Me Three. ANTICIPATED BARRIERS TO DISCHARGE:: None identified at this time. TRANSPORTATION:: RCT w/c van vs private vehicle. PLAN:: Chito may require short term rehab prior to returning home vs return home with new services. He will be driven home via RCT w/c van vs private vehicle. He will follow up with his PCP and discharge plan of care. CM will continue to follow.
[2021-07-01] MEDS: Enoxaparin 40 MG/0.4 ML SYR SC (14:43)
[2021-07-01 15:08] VITALS: BP 95/73; PULSE 86; RESP 18; TEMP 36.1; O2SAT 96
--- NOTE | 2021-07-01 15:51 | W.PM.PROGNOT ---
Date of Service Date of service: 07/01/21 Time of Service: 15:51 Assessment and Plan Assessment and plan (1) Adult failure to thrive: Status: Acute Assessment and plan: Case management has put in referrals to [facility] and is hopeful that they will accept the patient as he has been there before. In the interim we will request a nutritional consult and a physical therapy consult. I have reordered his tube feedings of Nutren 1.5 250 mL 45 times a day. I have also ordered additional 125 mL of water after each feeding. (2) Dehydration: Status: Acute Assessment and plan: Patient's BUN and creatinine were actually within normal limits. As long as he is tolerating enteral feedings we will go that route rather than IV fluids. If he becomes nauseated or having emesis then we will restart IV fluids (3) Weakness generalized: Status: Acute Assessment and plan: Request physical therapy to evaluate the patient. (4) DNR (do not resuscitate): Status: Chronic Assessment and plan: Patient remains DNR status (5) Chronic alcoholism: Status: Acute Assessment and plan: No evidence of acute alcohol withdrawal but I will order CIWA monitoring (6) COPD (chronic obstructive pulmonary disease): Status: Chronic Assessment and plan: As per month schedules DuoNeb treatments 4 times a day along with as needed albuterol. Currently not requiring any supplemental oxygen Qualifiers: COPD type: chronic bronchitis Chronic bronchitis type: simple Qualified Code(s): J41.0 - Simple chronic bronchitis (7) Hypertension: Status: Chronic Assessment and plan: Currently not on any antihypertensive medications at home and his blood pressure at the present time does not require treatment. Qualifiers: Hypertension type: primary hypertension Qualified Code(s): I10 - Essential (primary) hypertension (8) DVT prophylaxis: Status: Acute Assessment and plan: Provide Lovenox 40 mg subcutaneously daily (9) Discharge planning issues: Status: Acute Assessment and plan: Transfer to a SNF once a bed becomes available vs home with services discussed with DR Griffith Subjective Subjective Patient reports: no new complaints, feels better, voiding w/o difficulty and afebrile; denies shortness of breath Exam Const General: cooperative, comfortable and no acute distress Nutritional Appearance: average body habitus Orientation: alert, awake and oriented x3 HENMT Head: normal to inspection, normocephalic and atraumatic Mouth: abnormal tongue (surgically removed) Neck Neck: not normal to visual inspection (large mass left side of neck, chronic) and tracheostomy present Resp Effort & Inspection: normal respiratory effort Auscultation: rhonchi (scattered coarse, no wheezing) Cardio Rate: regular rate Rhythm: regular rhythm GI Inspection: normal to inspection Palpation: soft Auscultation: normal bowel sounds Skin Rashes: no rashes Neuro General: patient alert, patient awake, patient oriented x3 and no focal motor deficits Extrem General: normal to inspection, full ROM and no pedal edema Objective Last Vital Signs Temp 36.1 C L 07/01/21 15:08 Pulse 86 07/01/21 15:08 Resp 18 07/01/21 15:08 BP 95/73 L 07/01/21 15:08 Pulse Ox 96 07/01/21 15:08 Laboratory Results - last 24 hr 07/01/21 06:28 WBC 5.83 D RBC 4.32 L Hgb 13.3 L D Hct 40.3 MCV 93.3 MCH 30.8 MCHC 33.0 RDW 14.0 Plt Count 274 MPV 9.3 PAWSS Have you Been Recently Intoxicated or Drunk Within the Last 30 days?: Yes Have you Ever Experienced Previous Episodes of Alcohol Withdrawal?: Yes Have you ever Experienced Withdrawal Seizures?: Yes Have you ever Experienced Delirium Tremens(DT)s?: Yes Have you ever undergone Alcohol Rehabilitation Treatment (i.e, inpt ot outpatient treatment programs)?: Yes Have you ever Experienced Blackouts?: Yes Have you ever Combined Alcohol with other Downers within the last 90 days?: No Have you ever Combined Alcohol with any other Substance of Abuse during the last 90 days?: No Result: 6
--- NOTE | 2021-07-01 17:44 | CHAPLAIN ---
Chito was sitting up in bed when I visited. He told me Dr. Byrne had been in to see him and showed me some of the notes he had written to her. Chito doesn't speak, he whispers and mouths some words and also used a white board. He said at this time he doesn't know where he'll be going to from here. He said the last time hew as at [facility], when they discharged him, they didn't give him the meds he needed, or let his PCP know he was going home. That seemed to really frustrate him. Chito seems comfortable being here. He asked if I could get him some Cola. I let his REPORT ANALYST know that he wanted some and she was going to check with his nurse.
--- NOTE | 2021-07-01 18:07 | PCNE_ITS ---
Date of service: 07/01/21 Time of Service: 13:08 History of Present Illness Narrative: I met with Chito in his hospital room. He looked better than he did last time he was admitted. I had spoken to his [id number] and to his PCP office prior to meeting with him. Last time I'd seen Chito, he was at the Rehab, doing well, interacting with staff, etc. He went home in March 2021. At that time, Rehab staff did not notify anyone of his discharge. His PCP office nor his family nor [facility] were aware he was sent home. Apparently, he did relatively well until this week, when he started drinking so much he could not care for himself. He was once again brought to [facility]. We talked frankly about his alcohol dependence and his inability to care for himself when drinking. HE cannot speak due to his trache, so all conversations take place using his white board. He is willing and WANTING to return to [facility] at this time, but he says he doesn't want to spend the rest of his life there. He gets lonely living in his trailer by himself and starts drinking to deal with his loneliness. A friend of his buys his alcohol for him. His brother and [id number] do not. Consults Consult date: 07/01/21 Requesting physician: Tanvir Griffith Assessment and Plan Assessment and plan (1) Palliative care patient: Status: Acute Assessment and plan: Will follow him when he goes to rehab. Willing and wanting to go, TEMPORARILY. Doesn't want to live there forever, but current situation is not ideal either. Social fellow. Needs company. (2) Urinary incontinence: Status: Acute Assessment and plan: Much of this is functional. When he is drinking, too weak or confused to use urinal properly. Family gets upset. Has ruined several rugs and several recliners. (3) Fecal incontinence: Status: Acute Assessment and plan: Also functional. Due to his alcoholism and binges. (4) Acute dehydration: Status: Resolved Assessment and plan: Came in very dry. Rehydrated and perks up. (5) Attention to tracheostomy tube: Status: Acute Assessment and plan: Needs help maintaining this properly. Cannot use services for any length of time as he is often inebriated at time of nurse or PT or [facility] visits. (6) Mute: Status: Chronic Assessment and plan: Has a white board. Takes time to talk to him due to his. ? whether a tablet or compute can be set up for him to faciliate communication. (7) Dysphagia, oral phase: Status: Acute Assessment and plan: Really cannot drink anything. Takes his beer through his FT. (8) Recurrent squamous cell carcinoma: Status: Acute Assessment and plan: Assume that with his current nutritional status and alcohol use patterns he is at higher risk for progression than most. He is unsure when his next oncology apt is. (9) Alcohol abuse: Status: Chronic Assessment and plan: More than 40 years of heavy drinking. Has never been able to stop for any prolonged period of time, unless he was living at Rehab or other site where alcohol is not allowed. (10) Adult failure to thrive: Status: Acute Assessment and plan: Didn't look as decrepit and cachectic as he did last admission. His report of only recently drinking to EXTREME excess coincides with his appearance. Review of Systems Constitutional Constitutional: Reports body ache(s), Reports chills, Reports fatigue, Reports fever(s), Reports frequent falls, Reports lethargy, Reports poor appetite, Reports weakness and Reports weight loss Comments: He is feeling better today, one day after admission, due to the care he has received. Eyes Eyes: Reports dry eyes and Reports requires corrective lenses Comments: Crying on and off through my visit in the ICU today. ENT Ears, Nose, Mouth, and Throat: Reports change in voice (cannot speak due to trache), Reports dry mouth, Reports hoarseness, Reports disequilibrium, Reports throat swelling and Reports tongue swelling Cardiovascular Cardiovascular: Reports dyspnea, Reports dyspnea on exertion and Reports orthopnea Respiratory Respiratory: Reports change in phlegm color, Reports chest congestion, Reports cough, Reports hemoptysis, Reports excessive phlegm production, Reports dyspnea and Reports dyspnea on exertion Gastrointestinal Gastrointestinal: Reports early satiety, Reports dyspepsia and Reports fecal incontinence Genitourinary Genitourinary: Reports difficulty urinating and Reports urinary incontinence Musculoskeletal Musculoskeletal: Reports abnormal gait, Reports atrophy and Reports muscle weakness Integumentary/Breasts Skin/Breast: Reports dry skin and Reports sores (says his bottom is very sore; I did not examine that area) Neurologic Neurologic: Reports abnormal speech, Reports abnormal gait, Reports behavioral changes, Reports dizziness, Reports frequent falls, Reports lack of coordination, Reports memory loss, Reports disequilibrium and Reports weakness Psychiatric Psychiatric: Reports abnormal sleep pattern, Reports anxiety, Reports behavioral changes, Reports change in appetite, Reports depression, Reports difficulty concentrating, Reports hopelessness, Reports irritability, Reports anhedonia and Reports memory loss Endocrine Endocrine: Reports fatigue Allergic/Immunologic Allergic/Immunologic: Reports throat swelling and Reports tongue swelling PFSH All Active Problems Palliative care patient (Acute) Gastrojejunostomy tube dislodgement (Acute) Fever (Acute) Unable to walk (Acute) Urinary incontinence (Acute) Fecal incontinence (Acute) Abdominal pain (Acute) Acute bronchitis (Acute) Tracheostomy care (Acute) Attention to tracheostomy tube (Acute) Diarrhea (Acute) Malaise (Acute)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 Alcohol use (Acute) Dysphagia, oral phase (Acute) Caries (Acute) Mouth cancer (Acute) Tobacco use disorder (Acute) >25 pack years Medical History Acute hypokalemia Acute hyponatremia Adult failure to thrive Anxiety Aspiration pneumonia Chronic alcoholism Closed head injury with loss of consciousness of unknown duration COPD (chronic obstructive pulmonary disease) Cough with hemoptysis DNR (do not resuscitate) DVT prophylaxis Facial laceration Hypertension Hypokalemia Hyponatremia Pre-op evaluation Surgical History S/P glossectomy (10/24/13) w/ resection of floor of mouth, w/ suprahyoid neck dissection. cervical lymphadenectomy, tracheostomy, excision benign thyroid lesion, exploration carotid artery S/P reconstruction procedure (08/18/20) Pediculed pec flap, L hemiglossectomy and mandibulectomy (Freed) S/P tooth extraction (~2013) Status post glossectomy (08/11/20) w/ multiple other procedures Family History Mother , about age 70 Hypertension Hyperlipidemia Breast cancer Asthma Smoker Lung cancer Father , about age 70 from lung cancer Asthma Lung cancer Smoker Brother Hyperlipidemia Son No problems noted. Grandson No problems noted. Social History (Updated 07/20/21 @ 10:27 by Melia Byrne MD) Smoking/Tobacco Use Status: Former Tobacco Use Tobacco: How many years used: 31 Counseling given: provider counseling Smoking risk assessment performed?: Yes Alcohol Intake: current Alcohol Intake frequency: 3 or more drinks per day Alcohol type: beer Previous attempts at quittin Counseling given: Yes Counseling provided: reduce to 2 or less/day Details: [id number], who was with me, estimated 30 beers/day Drug use: Occasionally Substance use type: marijuana Details: 06/30/21--states drinking 6 beers a day--last was Tuesday06/26/21. 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 Pets and animals: No Sexually active: No Do you think of yourself as: straight/heterosexual Current gender identity: male What is your relationship status?: How often do you talk on the phone with friends or family?: never How often do you get together with friends or relatives?: once per week Panel score (0-1 are the most socially isolated patients): 0 What type of physical activity do you participate in: none and sedentary lifestyle Frequency: does not exercise Special leeroy needs: No Agree to transfusion: Yes Seatbelt use: always Working smoke detector in home: Yes Fire extinguisher in home: Yes Do you feel safe at home: Yes Do you feel safe in your relationship?: Yes Additional Social history: Family and PCP office and I are encouraging Chito to be a permanent resident of [facility]. Usually is living alone in a jigna ler his parents bought in 1975, now owned by Chito's brother Thanh. Chito went to in [place]. Soon after, he enlisted in [employer] x 4 years. Not a VA patient; did not serve long enough. He's with one son. Had [place] [facility] [place]. Cannot talk on phone. Listens to his messages. Trache is permanent, as is feeding tube. No computer. No way to communicate easily. Writes down his answers and questions. Had a friend who bought him groceries and alcohol. Family not happy with this Exam Const General: cooperative, comfortable and no acute distress Nutritional Appearance: average body habitus Orientation: alert, awake and oriented x3 HENMT Head: normal to inspection, normocephalic and atraumatic Mouth: abnormal tongue (surgically removed) Neck Neck: not normal to visual inspection (large mass left side of neck, chronic) and tracheostomy present Resp Effort & Inspection: normal respiratory effort Auscultation: rhonchi (scattered coarse, no wheezing) Results Last Vital Signs Temp 97.0 F L 07/01/21 15:08 Pulse 86 07/01/21 15:08 Resp 18 07/01/21 15:08 BP 95/73 L 07/01/21 15:08 Pulse Ox 96 07/01/21 15:08 Labs Result diagrams: 07/01/21 06:28 06/30/21 07:33 Labs: Laboratory Results - last 24 hr 07/01/21 06:28 WBC 5.83 D RBC 4.32 L Hgb 13.3 L D Hct 40.3 MCV 93.3 MCH 30.8 MCHC 33.0 RDW 14.0 Plt Count 274 MPV 9.3
[2021-07-01] MEDS: Albuterol 2.5 MG/3 ML INH SOLN VIAL UPD (18:43)
[2021-07-01 23:31] VITALS: BP 102/73; PULSE 81; RESP 17; TEMP 36.3; O2SAT 96
[2021-07-02] MEDS: Albuterol 2.5 MG/3 ML INH SOLN VIAL UPD (02:46)
[2021-07-02] MEDS: oxyCODONE 5 MG/5 ML CUP NG ×2 (03:01→08:53)
[2021-07-02] MEDS: Acetaminophen Solution 650 MG/20.3 ML CUP UD ×2 (03:01→08:53)
[2021-07-02] MEDS: Levothyroxine 50 MCG TAB UD (05:59)
[2021-07-02] MEDS: Protein Nutritional Supplement 16 GM 1 OUNCE PACKET JT (08:53)
[2021-07-02] MEDS: Folic Acid 1 MG TAB 0.5 MG UD (08:54)
[2021-07-02] MEDS: Sucralfate 1 GM TAB UD ×2 (08:54→12:12)
[2021-07-02] MEDS: Thiamine 100 MG TAB UD (08:54)
[2021-07-02] MEDS: Vitamin E 400 UNITS CAP UD (08:54)
[2021-07-02 09:46] VITALS: BP 115/80; PULSE 75; RESP 16; TEMP 36; O2SAT 96
[2021-07-02] MEDS: Albuterol/Ipratropium 3 ML UPD VIAL UPD (09:49)
--- NOTE | 2021-07-02 12:43 | W.PM.DS.N ---
Date of service: 07/02/21 Time of Service: 12:43 DS: Diagnosis Discharge Diagnosis (1) Adult failure to thrive: Status: Acute (2) Dehydration: Status: Acute (3) Weakness generalized: Status: Acute (4) DNR (do not resuscitate): Status: Chronic (5) Chronic alcoholism: Status: Acute (6) COPD (chronic obstructive pulmonary disease): Status: Chronic (7) Hypertension: Status: Chronic Discharge Plan Disposition Patient Disposition: SNF (LEVEL 1) [facility] Condition: Stable Discharge Details Reason For Visit: Failure to Thrive Admit Date/Time: 06/30/21 09:40 Admit Provider: Tanvir Griffith Attending Provider: Tanvir Griffith Primary Care Provider: Maisha Deleon Hospital Course Hospital Course: This is a 60-year-old male past medical history of stage Annalisa squamous cell carcinoma tongue status post partial glossectomy, status post radiation treatment with tracheostomy and gastrostomy as well as nonoxygen requiring COPD, alcohol abuse with previous alcohol withdrawal episodes, hypothyroidism who was last admitted to [facility] from January 28, 2021 through February 03, 2021 with acute peribronchitis and diarrhea and alcohol withdrawal. Patient was discharged to [facility]. Patient apparently was discharged from [facility] [place] to home and has been living at home unable to care for himself properly. He has had generalized weakness and not getting much intake through his PEG tube. He is supposed to be taking 4-5 cartons of Nutren 1.5 to 140 mL per carton a day. He states his only been taking about 100 mL maybe 4 times a day or less the last few days. He has had no fever or chills. He does have some superficial ulceration on his buttocks which has been using nystatin cream. He had a work-up in the emergency department including nasal swab for SARS-CoV-2 PCR which was negative chest x-ray that showed no acute pulmonary changes. He was mildly dehydrated and given IV fluids in the emergency department. Because of his generalized weakness and inability to care for himself the ED physician recommended admission to the hospital for possible placement in [facility]. He was evaluated by PT and was ambulating well but definitely could benefit from ongoing nursing care for skin care, medication oversight and PT/OT for evaluation with recommendations. Referrals have been placed and he was accepted back at [facility]. he is being discharged there to meet full inpatient rehab goals, plan to discharge to home with [facility]. discharge discussed with Dr Griffith Home Meds and New Rx's Prescriptions: Continued (DME) Toothette Swab See Rx Instructions .ROUTE .MEDSUPPLY Qty: 500 RF: 6 folic acid 400 mcg tablet 0.4 mg PO DAILY RF: 0 chlorhexidine gluconate [Peridex] 0.12 % mouthwash 15 ml mucous membrane TID RF: 0 ibuprofen 600 mg tablet 600 mg feeding tube Q6H PRNRF: 0 levothyroxine 50 mcg tablet 50 mcg feeding tube DAILY RF: 0 food supplemt, lactose-reduced Liquid See Rx Instructions feeding tube .COMPLEX RF: 0 multivitamin Tablet 1 tab feeding tube DAILY RF: 0 thiamine HCl (vitamin B1) 100 mg tablet 100 mg feeding tube DAILY RF: 0 vitamin E (dl, acetate) 400 unit capsule 400 unit feeding tube DAILY RF: 0 gabapentin 300 mg/6 mL (6 mL) solution 400 mg feeding tube TID RF: 0 sucralfate 1 gram Tablet 1 g UD AC & HS Qty: 120 RF: 0 prednisone 10 mg tablet 10 mg PO DAILY Qty: 30 RF: 0 oxycodone 5 mg/5 mL Solution 5 mg PO Q6H PRN PRNRF: 0 Discharge Instructions Instructions: Failure to Thrive in Older Adults (DC) Referrals: Maisha Deleon DEPLOYMENT SPECIALIST [Primary Care Provider] - Activity:: Activity as Tolerated Equipment/Supplies:: No Equipment Needed Diet:: tube feeds and meds by tube Discharge Orders Discharge Orders: Discharge Order (Routine); Ordered 07/02/21 Ordered By: Fernanda Gill DS: Summary Time Spent with Patient providing and/or coordinating discharge services: Less than 30 minutes Status at Discharge Functional status at discharge: independent ambulation Overall status at discharge: patient is not back to baseline Mental Status: mental status grossly normal Speech and Movement: mute and other Mood: congruent mood Affect: normal affect Exam Const General: cooperative, comfortable and no acute distress Nutritional Appearance: average body habitus Orientation: alert, awake and oriented x3 HENMT Head: normal to inspection, normocephalic and atraumatic Mouth: abnormal tongue (surgically removed) Neck Neck: not normal to visual inspection (large mass left side of neck, chronic) and tracheostomy present Resp Effort & Inspection: normal respiratory effort Auscultation: rhonchi (scattered coarse, no wheezing) Cardio Rate: regular rate Rhythm: regular rhythm GI Inspection: normal to inspection Palpation: soft Auscultation: normal bowel sounds Skin Rashes: no rashes Neuro General: patient alert, patient awake, patient oriented x3 and no focal motor deficits Extrem General: normal to inspection, full ROM and no pedal edema Psych Mental Status: mental status grossly normal Mood: congruent mood Affect: normal affect DS: Data Vitals/I&O Vitals and I&O: Vital Signs Temperature 36.0 C L 07/02/21 09:46 Temperature Source Tympanic 07/02/21 09:46 Pulse 75 07/02/21 09:46 Pulse Rhythm Regular 07/02/21 07:27 Pulse 113 H 06/30/21 09:00 Respiratory Rate 16 07/02/21 09:46 Respiratory Effort 07/02/21 07:27 Respiratory Depth Normal 07/02/21 07:27 Respiratory Pattern Normal 07/02/21 07:27 Blood Pressure 115/80 07/02/21 09:46 Blood Pressure Mean 103 06/30/21 08:48 Blood Pressure Position Sitting 06/30/21 07:06 Pulse Oximetry 96 07/02/21 09:46 Oxygen Delivery Method Room Air 07/02/21 09:46 Oxygen Flow Rate 0 07/02/21 09:46 Fraction of Inspired Oxygen (FIO2) 21 06/30/21 16:54 Pain Level 6 07/02/21 09:46 Intake & Output 07/01/21 07/02/21 07/02/21 23:59 11:59 23:59 Intake Total 720 / 1450 720 / 720 Output Total 0 / 0 Balance 720 / 1450 720 / 720 Weight 63.2 kg Intake: Intake, Tube Feeding Amount 720 / 1440 720 / 720 Output: Output, Residual 0 / 0 Other: Urine Appearance Clear Clear Comment pt voiding independently Stool Size Moderate Stool Characteristics Liquid Brown Voiding Methods Toilet PFSH All Active Problems (Updated 06/30/21 @ 17:06 by Tanvir Griffith) Adult failure to thrive (Acute) Dehydration (Acute) Weakness generalized (Acute) DNR (do not resuscitate) (Chronic) Palliative care patient (Acute) Gastrojejunostomy tube dislodgement (Acute) Chronic alcoholism (Acute) Fever (Acute) Unable to walk (Acute) Urinary incontinence (Acute) Fecal incontinence (Acute) Abdominal pain (Acute) Discharge planning issues (Acute) DVT prophylaxis (Acute) Acute bronchitis (Acute) Tracheostomy care (Acute) Attention to tracheostomy tube (Acute) Diarrhea (Acute) Malaise (Acute) [place]ickery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 Alcohol use (Acute) Dysphagia, oral phase (Acute) Caries (Acute) Mouth cancer (Acute) Tobacco use disorder (Acute) >25 pack years Hypertension (Chronic) COPD (chronic obstructive pulmonary disease) (Chronic) Medical History Acute hypokalemia Acute hyponatremia Anxiety Aspiration pneumonia Closed head injury with loss of consciousness of unknown duration Cough with hemoptysis DVT prophylaxis Facial laceration Hypokalemia Hyponatremia Pre-op evaluation Surgical History S/P glossectomy (10/24/13) w/ resection of floor of mouth, w/ suprahyoid neck dissection. cervical lymphadenectomy, tracheostomy, excision benign thyroid lesion, exploration carotid artery S/P reconstruction procedure (08/18/20) Pediculed pec flap, L hemiglossectomy and mandibulectomy (Freed) S/P tooth extraction (~2013) Status post glossectomy (08/11/20) w/ multiple other procedures Family History Mother , about age 70 Hypertension Hyperlipidemia Breast cancer Asthma Smoker Lung cancer Father , about age 70 from lung cancer Asthma Lung cancer Smoker Brother Hyperlipidemia Son No problems noted. Grandson No problems noted. Social History Smoking/Tobacco Use Status: Former Tobacco Use Tobacco: How many years used: 31 Quit status: considering quitting Counseling given: provider counseling and counseling >3 minutes Smoking risk assessment performed?: Yes Alcohol Intake: current Alcohol Intake frequency: 3 or more drinks per day Alcohol type: beer Previous attempts at quittin Counseling given: Yes Counseling provided: reduce to 2 or less/day Details: [id number], who was with me, estimated 30 beers/day Drug use: Occasionally Substance use type: marijuana Details: 06/30/21--states drinking 6 beers a day--last was Tuesday06/26/21. 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 Pets and animals: No Sexually active: No Do you think of yourself as: straight/heterosexual Current gender identity: male What is your relationship status?: How often do you talk on the phone with friends or family?: never How often do you get together with friends or relatives?: once per week Panel score (0-1 are the most socially isolated patients): 0 What type of physical activity do you participate in: none and sedentary lifestyle Frequency: does not exercise Special leeroy needs: No Agree to transfusion: Yes Seatbelt use: always Working smoke detector in home: Yes Fire extinguisher in home: Yes Do you feel safe at home: Yes Do you feel safe in your relationship?: Yes Additional Social history: Now at [facility]. Trying to convince him to be a permanent resident. Was living alone in a trailer his parents bought in 1975, now owned by Chito's brother Thanh. Chito went to in [place]. 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 Not a VA patient; did not serve long enough. He's with one son. Had extensive head and neck surgery for cancer at [facility] in early 2020. Cannot talk on phone. Listens to his messages. Trache is permanent, as is feeding tube. Has gained weight since hospitalization. No computer. No way to communicate easily. Writes down his answers and questions. Had a friend who bought him groceries and alcohol. Family not happy with this. When Chito recently admitted to [facility], spoke to brother and [id number], strongly encouraged them to have an intervention and not allow Chito to live in their home. Not safe. ----06/30/21 ER Currently at home.
--- NOTE | 2021-07-02 15:45 | CMDISCH_ITS ---
- If Service Date Differs Date of service: 07/02/21 Time of Service: 15:45 LACE Index Scoring Tool - Questions: Length of Stay (in days): 2 Acuity (Admit via E.D.?): Yes Comorbidities: Chronic Pulmonary Disease, Any Tumor E.D. Visits: 10 - Answers: Total Score: 14 Risk of Readmission: High Risk Care Management Discharge Reason for Hospitalization: Failure to Thrive Discharge Plan: Chito transferred to [facility] today for short term rehab. He was transported via facility wheelchair van, coordinated by CHARLY. CHARLY called his brother to inform him of the plan, as requested by Chito, and to ask him to bring supplies to [facility] for Chito, which he was agreeable to. CHARLY discussed Chito's discharge plan with him, stating that he should have HH services upon discharge from his rehab stay, even for a short time, to assist with his transition home. He stated that he will ask for HH upon discharge from [facility]. He will follow up with his PCP and discharge plan of care. He is agreeable with his plan. Patient/Family Education Needs: Review discharge instructions and limitations, discussion of self care needs including ask me three.
== END 2021-07-02 13:59 | disposition skilled nursing facility (03) ==
LOC: ER 09:50 → MS 11:09
PROVIDERS: Student in an Organized Health Care Education/Training Program; Admitting Provider Internal Medicine; Emergency Provider Student in an Organized Health Care Education/Training Program; PCP Nurse Practitioner; Visit Provider Internal Medicine
DX: R62.7 Adult failure to thrive (principal); R53.1 Weakness; E86.0 Dehydration; Z66 Do not resuscitate; F10.20 Alcohol dependence, uncomplicated; J41.0 Simple chronic bronchitis; I10 Essential (primary) hypertension; Z93.1 Gastrostomy status; Z85.89 Personal history of malignant neoplasm of other organs and systems; Z93.0 Tracheostomy status; Z87.891 Personal history of nicotine dependence; Z20.822 Contact with and (suspected) exposure to COVID-19; L98.418 Non-pressure chronic ulcer of buttock with other specified severity
CPT/HCPCS: 36415; 80053; 82805; 85027; 87635; 93005; 96360; 96361; 97161; 97530; 99285; J1650; 71045; 81003; 81015; 83735; 84443; 84484; 85025; 93010; 94640; 99217; 99219; 99226; G0378; J3490; J7613; J7620

== ENCOUNTER 2021-07-05 14:46 | Outpatient (REF) | payer MEDICARE, MEDICAID, SELFPAY ==
[2021-07-05 17:51] LABS: Abs Immature Grans 0.02 10^3/uL (0.0-0.06); Absolute Basophil Count 0.03 10^3/uL (0.0-0.2); Absolute Eosinophil Count 0.05 10^3/uL (0.0-0.7); Absolute Lymphocyte Count 0.61 10^3/uL (1.2-3.4); Absolute Monocyte Count 0.39 10^3/uL (0.1-0.8); Absolute Neutrophil Count 5.19 10^3/uL (1.2-6.7); Basophils % 0.5; Eosinophils % 0.8; HCT 39.9 % (40.0-50.0); Immature Grans % 0.3; Lymphocytes % 9.7; MCH 31.3 pg (27.0-33.0); MCHC 32.6 % (32.0-36.0); MCV 95.9 fL (80-95); MPV 10.1 fL (8.0-11.0); Monocytes % 6.2; Neutrophils % 82.5; Nucleated RBC 0 %; Platelet Count 250 10^3/uL (130-400); RBC 4.16 10^6/uL (4.36-5.78); WBC 6.29 10^3/uL (4.4-10.8)
[2021-07-05 18:20] LABS: ALT 24 U/L (16-63); AST 21 U/L (15-37); Albumin 3.4 g/dL (3.4-5.0); Alkaline Phosphatase 126 U/L (46-116); Anion Gap 9.7 mmol/L (3-11); BUN 14 mg/dL (7-18); Bilirubin, Total 0.3 mg/dL (0.2-1.0); CO2 25.3 mmol/L (21.0-32.0); CREATININE 0.6 mg/dL (0.70-1.30); Calcium 8.8 mg/dL (8.5-10.1); Chloride 102 mmol/L (98-107); Glucose 94 mg/dL (74-106); Potassium 4.4 mmol/L (3.5-5.1); Sodium 137 mmol/L (136-145); TSH (W/Ref FT4) 4.46 uIU/mL (0.36-3.74); Total Protein 6.9 g/dL (6.4-8.2)
[2021-07-05 18:38] LABS: FREE T4 0.81 ng/dL (0.76-1.46)
== END 2021-07-05 14:47 | disposition home or self-care (01) ==
LOC: LBN 14:46
PROVIDERS: PCP Nurse Practitioner; Visit Provider Family Medicine
DX: R94.6 Abnormal results of thyroid function studies (principal); R68.89 Other general symptoms and signs; Z13.228 Encounter for screening for other metabolic disorders
CPT/HCPCS: 80053; 84439; 84443; 85025

== ENCOUNTER 2021-08-11 21:31 | Outpatient (REF) | payer MEDICARE, MEDICAID, SELFPAY ==
[2021-08-11 14:55] LABS: TSH 1.63 uIU/mL (0.36-3.74)
== END 2021-08-11 21:32 | disposition home or self-care (01) ==
LOC: LBN 21:31
PROVIDERS: PCP Nurse Practitioner; Visit Provider Family Medicine
DX: E03.9 Hypothyroidism, unspecified (principal)
CPT/HCPCS: 84443

== ENCOUNTER 2021-08-29 21:17 | Outpatient (REF) | payer MEDICARE, MEDICAID, SELFPAY ==
[2021-08-29 22:50] LABS: ALT 40 U/L (16-63); AST 36 U/L (15-37); Albumin 3.3 g/dL (3.4-5.0); Alkaline Phosphatase 96 U/L (46-116); Anion Gap 9.5 mmol/L (3-11); BUN 3 mg/dL (7-18); Bilirubin, Total 0.4 mg/dL (0.2-1.0); CO2 28.5 mmol/L (21.0-32.0); CREATININE 0.8 mg/dL (0.70-1.30); Calcium 8.8 mg/dL (8.5-10.1); Chloride 98 mmol/L (98-107); Glucose 108 mg/dL (74-106); Potassium 3.6 mmol/L (3.5-5.1); Sodium 136 mmol/L (136-145); Total Protein 6.6 g/dL (6.4-8.2)
== END 2021-08-29 21:18 | disposition home or self-care (01) ==
LOC: LBN 21:17
PROVIDERS: PCP Nurse Practitioner; Visit Provider Nurse Practitioner Family
DX: R62.7 Adult failure to thrive (principal); J44.9 Chronic obstructive pulmonary disease, unspecified
CPT/HCPCS: 80053

== ENCOUNTER 2021-09-02 01:02 | Outpatient (CLI) | payer MEDICARE, MEDICAID, SELFPAY ==
--- NOTE | 2021-09-02 08:41 | DI.CT_ITS ---
Exam(s) CT NECK W EXAM: CT NECK W CLINICAL HISTORY: S/P EXTENSIVE RESECTIONS ORAL CA, LT PECTORALIS MAJOR FLAP. TECHNIQUE: Imaging Protocol: Axial CT angiography was performed with multi-slice acquisition and mu lti-planar and/or 3D reconstructions. CONTRAST MATERIAL: Intravenous: Omnipaque 350 Contrast volume:100 mL COMPARISON: CT CT NECK CHEST W from 03/13/2021 FINDINGS: Again noted is evidence of extensive oral/neck dissection as well as resection the ramus of the left side of the mandible and there is a large left pectoralis flap at this level again noted. Tracheostom y tube is in satisfactory position. Nasopharynx: Unremarkable Oropharynx: Uvula midline. No tonsillar masses. Harsh dental: Large area of resection in the floor of the mouth including left side of the mandible. Po stsurgical changes appear stable at this level with no new mass evident nor new enlarged local lymph nodes. Hypopharynx: Uvula is present and not significantly thickened. No obvious abnormalities at the level of the valleculae. Retropharyngeal space: Symmetrical. No masses. Supraglottic and larynx symmetrical post treatment changes. No asymmetric mass. Salivary glands: Submandibular glands have been resected/not seen. Parotid glands appear unremarkable . Thyroid gland: Normal size. No obvious nodules. Lymph nodes: No significant adenopathy evident on either side of the neck nor in the supraclavicular region. Trachea: Tracheostomy appears to be in satisfactory position. Vascular: Significant atherosclerosis evident. IMPRESSION: 1. Again noted are extensive postsurgical changes in the neck including extensive oral cavity resecti on with large left pectoral flap, these findings appearing stable. 2. No new masses nor lymphadenopathy evident. 3. Tracheostomy appears to be in satisfactory position. RADIATION DOSE DELIVERED: 248.67mGy.cm Total DLP DATA REPOSITORY: All CT scans at this facility are submitted to the National Radiology Data Registry (NRDR) Dose Index Registry (DIR) with the [employer] ([employer]). RADIATION OPTIMIZATION: All CT scans at this facility use at least one of these dose optimization te chniques: automated exposure control; mA and/or kV adjustment per patient size (includes targeted exa ms where dose is matched to clinical indication); or iterative reconstruction.
[2021-09-02] MEDS: Omnipaque 350 MG/ML 100 ML BTL IJ (09:02)
--- NOTE | 2021-09-02 18:01 | DI.VRAD_ITS ---
PROCEDURE INFORMATION: Exam: CT Neck With Contrast Exam date and time: 09/02/2021 08:41 Age: 60 years old Clinical indication: Other: S/P extensive resections oral CA, lt pectoralis major flap, PT has known head and neck cancer TECHNIQUE: Imaging protocol: Computed tomography images of the neck with contrast. Radiation optimization: All CT scans at this facility use at least one of these dose optimization techniques: automated exposure control; mA and/or kV adjustment per patient size (includes targeted exams where dose is matched to clinical indication); or iterative reconstruction. Contrast material: OMNIPAQUE 350; Contrast volume: 100 ml; Contrast route: INTRAVENOUS (IV); COMPARISON: CT NECK CHEST W 03/13/2021 09:08 FINDINGS: Nasopharynx: Unremarkable. Oropharynx: No significant tonsillar enlargement. Hypopharynx: Unremarkable. Larynx: Postsurgical changes and or post treatment changes in the supraglottic region. There is some debris in the perform sinus is which are not completely effaced. Gaseous distention of the supraglottic space. The epiglottis is present and appears not thickened. Retropharyngeal space: Unremarkable. Submandibular/Parotid glands: Submandibular glands have presumably been resected and are not identified. Parotid glands are present and diminutive. Thyroid: No enlarged or calcified nodules. Lymph nodes: No significant adenopathy is appreciated. Trachea: Tracheostomy in satisfactory position. Lungs: Emphysema and presumed scarring in the right lung apex. Bones/joints: Postsurgical changes partially imaged include some resection of the mandible. Multilevel chronic degenerative changes throughout the cervical spine. No acute fracture or subluxation. Vasculature: Atherosclerosis. Soft tissues: Postsurgical changes throughout the anterior and lateral neck. A large muscular flap on the left appears grossly intact. Right sternocleidomastoid muscle appears either composed a granulated on the right. No abscess. IMPRESSION: 1. Tracheostomy in satisfactory position. 2. Extensive postsurgical changes in the neck. 3. Additional findings as described. Dictated and Authenticated by: Stacy Brito MD. Ordering:LISA Alvarado MD
== END 2021-09-02 01:22 ==
PROVIDERS: PCP Nurse Practitioner; Visit Provider Otolaryngology Otolaryngology/Facial Plastic Surgery
DX: Z85.89 Personal history of malignant neoplasm of other organs and systems (principal); Z93.0 Tracheostomy status; Z98.890 Other specified postprocedural states
CPT/HCPCS: 70491; J3490

== ENCOUNTER 2021-10-12 18:14 | Inpatient (IN) | payer MEDICARE, MEDICAID, SELFPAY ==
[2021-10-12] VITALS (45 sets, daily range): BP systolic 115–150; BP diastolic 83–119; PULSE 117–147; RESP 4–38; TEMP 36.7; O2SAT 92–100
--- NOTE | 2021-10-12 18:30 | DI.RAD_ITS ---
Exam(s) XR PORTABLE CHEST AP EXAM: XR PORTABLE CHEST AP CLINICAL HISTORY: cough, sob, increased secretions, trach patient. TECHNIQUE: 2D digital imaging was performed. COMPARISON: CR XR PORTABLE CHEST AP from 06/30/2021 FINDINGS: Single AP portable view. Tracheostomy tube remains in satisfactory position. Heart size is upper normal. The mediastinum is not widened. Lungs are clear. No infiltrates nor obvious pleural effusions. IMPRESSION: No acute pulmonary findings on this single AP portable view of the chest. DATA REPOSITORY: RADIATION DOSE DELIVERED: All CT scans at this facility use at least one of these dose optimization techniques: automated exposure control; mA and/or kV adjustment per patient size (includes targeted e xams where dose is matched to clinical indication); or iterative reconstruction.
--- NOTE | 2021-10-12 18:30 | RT.EKG_ITS ---
APPROVED REPORT Exam: Resting ECG Reason for Exam: chest pain Patient Location: E HR:124 bpm ECG Measurements Heart Rate 124 AXIS PA 164 P 61 QRSd 72 QRS 14 QT 295 T 59 QTc 424 Conclusion Sinus tachycardia...rate> 99 Probable left atrial enlargement...P >50mS, <-0.10mV V1 sinus tachycardia, normal acisa, normal intervals, non ischemic
[2021-10-12] MEDS: Dexamethasone 10 MG/ML VIAL IVP (18:50)
[2021-10-12] MEDS: Ipratropium 0.5 MG/2.5 ML UPD VIAL UPD (18:51)
[2021-10-12] MEDS: Levalbuterol 1.25 MG/3 ML UPD VIAL UPD (18:51)
[2021-10-12] MEDS: LORazepam 2 MG/ML VIAL 1 MG IVP (18:51)
[2021-10-12] MEDS: Normal Saline 1,000 ML 1000 ML IV (18:52)
[2021-10-12 18:55] LABS: Abs Immature Grans 0.06 10^3/uL (0.0-0.06); Absolute Basophil Count 0.03 10^3/uL (0.0-0.2); Absolute Lymphocyte Count 0.88 10^3/uL (1.2-3.4); Absolute Monocyte Count 0.79 10^3/uL (0.1-0.8); Absolute Neutrophil Count 9.07 10^3/uL (1.2-6.7); Basophils % 0.3; HGB 16.4 g/dL (13.5-17.5); Immature Grans % 0.6; Lymphocytes % 8.1; MCH 32.5 pg (27.0-33.0); MCHC 34.9 % (32.0-36.0); MCV 93 fL (80-95); MPV 9.3 fL (8.0-11.0); Monocytes % 7.3; Neutrophils % 83.7; Platelet Count 297 10^3/uL (130-400); RBC 5.05 10^6/uL (4.36-5.78); RDW 13.4 % (11.8-14.1); WBC 10.84 10^3/uL (4.4-10.8)
--- NOTE | 2021-10-12 18:56 | W.ED.GENAD ---
Discharge Plan Disposition Patient Disposition: [facility] INPATIENT Condition: Stable Discharge Details Chief Complaint: SOB Clinical Impression: COVID-19, Alcohol withdrawal, Cough Primary Care Provider: Maisha Deleon ED Provider: Alan Bonner Kersey Meds and New Rx's Prescriptions: No Action folic acid 400 mcg tablet 0.4 mg PO DAILY Qty: 90 3RF vitamin E (dl, acetate) 180 mg (400 unit) capsule 400 unit feeding tube DAILY Qty: 90 3RF nystatin 100,000 unit/gram cream 1 applic topical TID Qty: 30 3RF oxycodone 5 mg/5 mL solution 5 mg PO Q6H PRN MDD 20mg PRN (Reason: pain) Qty: 600 0RF Rx Instructions: VIA G-TUBE gabapentin 300 mg/6 mL (6 mL) solution 400 mg feeding tube TID Qty: 720 6RF Rx Instructions: 09/10/20-DOSE INCREASED-LH thiamine HCl (vitamin B1) 100 mg tablet 100 mg feeding tube DAILY Qty: 90 3RF (DME) Toothette Swab See Rx Instructions .ROUTE .MEDSUPPLY Qty: 500 6RF Rx Instructions: Use up to 15 times daily. Oral cancer. chlorhexidine gluconate [Peridex] 0.12 % mouthwash 15 ml mucous membrane TID food supplemt, lactose-reduced Liquid See Rx Instructions feeding tube .COMPLEX Rx Instructions: 236 ml (1 8 oz. bottle) feeding tube; multivitamin Tablet 1 tab feeding tube DAILY levothyroxine 75 mcg tablet 75 mcg PO DAILY Medical Decision Making 68-year-old male history of oral carcinoma status post resection and reconstruction, tracheostomy, alcohol abuse, presents with tachycardia tachypnea shortness of breath cough tracheostomy producing yellow-green white sputum, coarse lung sounds anteriorly, posteriorly, normoxic on room air however tachypneic, warm to the touch although afebrile on arrival, last drink approximately 24 hours ago drinks 10 beers per day, concern for viral versus bacterial pneumonia versus alcohol withdrawal versus dehydration versus electrolyte abnormality, unlikely ACS or PE. Will clean and her cannula suction provide humidified air and nebulizer treatment, steroids, NSAIDs fluid close reassessment admission likely 21: 27 patient feeling better from a respiratory standpoint, decreased secretions, decreased work of breathing, however persistently tachycardic likely related to alcohol withdrawal and underlying infection with COVID-19. Will be admitted for monitoring of respiratory status and control of withdrawal symptoms. HPI General Date/Time Provider Initiated Documentation: 10/12/21 18:25. HPI Narrative: 68-year-old male history of oral cancer status postresection, trach, presents with cough and increased secretions from trach, high heart rate, feels warm, took Tylenol earlier today. History of alcohol abuse endorses 10 beers per day, last drink last night Related Data Home Medications Medication Instructions Recorded Confirmed swab (Toothette swabs) #500 ea 07/28/20 10/12/21 chlorhexidine gluconate 0.12 % 15 ml mucous membrane TID 09/01/20 10/12/21 mouthwash (Peridex) food supplemt, lactose-reduced See Rx Instructions feeding tube 09/01/20 10/12/21 .COMPLEX multivitamin 1 tab feeding tube DAILY 09/01/20 10/12/21 levothyroxine 75 mcg tablet 75 mcg PO DAILY 09/16/21 10/12/21 folic acid 400 mcg tablet 0.4 mg PO DAILY #90 tabs 09/21/21 10/12/21 gabapentin 300 mg/6 mL (6 mL) oral 400 mg (8 mL) feeding tube TID 09/21/21 10/12/21 solution #720 mL nystatin 100,000 unit/gram topical 1 applic topical TID #30 grams 09/21/21 10/12/21 cream oxycodone 5 mg/5 mL oral solution 5 mg (5 mL) PO Q6H PRN PRN pain 09/21/21 10/12/21 #600 mL thiamine HCl (vitamin B1) 100 mg 100 mg feeding tube DAILY #90 tabs 09/21/21 10/12/21 tablet vitamin E (dl, acetate) 180 mg 400 unit feeding tube DAILY #90 09/21/21 10/12/21 (400 unit) capsule caps Previous Rx's Medication Instructions Recorded swab (Toothette swabs) #500 ea 07/28/20 folic acid 400 mcg tablet 0.4 mg PO DAILY #90 tabs 09/21/21 gabapentin 300 mg/6 mL (6 mL) oral 400 mg (8 mL) feeding tube TID 09/21/21 solution #720 mL nystatin 100,000 unit/gram topical 1 applic topical TID #30 grams 09/21/21 cream oxycodone 5 mg/5 mL oral solution 5 mg (5 mL) PO Q6H PRN PRN pain 09/21/21 #600 mL thiamine HCl (vitamin B1) 100 mg 100 mg feeding tube DAILY #90 tabs 09/21/21 tablet vitamin E (dl, acetate) 180 mg 400 unit feeding tube DAILY #90 09/21/21 (400 unit) capsule caps Allergies Allergy/AdvReac Type Severity Reaction Status Date / Time No Known Allergies Allergy Verified 10/12/21 18:30 General Stated Complaint: SOB CHRIST: 3 Review of Systems Narrative: Review of Systems Constitutional: negative Eyes: negative ENT: negative Cardiovascular: Fast heart rate Respiratory: Cough Gastrointestinal: negative : negative Musculoskeletal: negative Skin: negative Neurologic: negative Psych: negative PFSH All Active Problems (Updated 10/12/21 @ 21:30 by Alan Bonner MD) COVID-19 (Acute) Alcohol withdrawal (Acute) Cough (Acute) Palliative care patient (Acute) Tracheostomy care (Acute) 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 Alcohol use (Acute) Dysphagia, oral phase (Acute) Caries (Acute) Mouth cancer (Acute) Tobacco use disorder (Acute) >25 pack years Medical History (Updated 10/12/21 @ 21:30 by Alan Bonner MD) Acute dehydration Acute hypokalemia Acute hyponatremia Adult failure to thrive Alcohol withdrawal Anxiety Aspiration pneumonia Chronic alcoholism Closed head injury with loss of consciousness of unknown duration COPD (chronic obstructive pulmonary disease) Cough with hemoptysis DNR (do not resuscitate) DVT prophylaxis Facial laceration Hypertension Hypokalemia Hyponatremia Oral thrush Pre-op evaluation SIRS (systemic inflammatory response syndrome) Surgical History S/P glossectomy (10/24/13) w/ resection of floor of mouth, w/ suprahyoid neck dissection. cervical lymphadenectomy, tracheostomy, excision benign thyroid lesion, exploration carotid artery S/P reconstruction procedure (08/18/20) Pediculed pec flap, L hemiglossectomy and mandibulectomy ([facility]) S/P tooth extraction (~2013) Status post glossectomy (08/11/20) w/ multiple other procedures Family History Mother , about age 70 Hypertension Hyperlipidemia Breast cancer Asthma Smoker Lung cancer Father , about age 70 from lung cancer Asthma Lung cancer Smoker Brother Hyperlipidemia Son No problems noted. Grandson No problems noted. Social History Smoking/Tobacco Use Status: Former Tobacco Use Tobacco: How many years used: 31 Counseling given: provider counseling Smoking risk assessment performed?: Yes Alcohol Intake: current Alcohol Intake frequency: 3 or more drinks per day Alcohol type: beer Previous attempts at quittin Counseling given: Yes Counseling provided: reduce to 2 or less/day Details: [id number], who was with me, estimated 30 beers/day Drug use: Occasionally Substance use type: marijuana Details: 06/30/21--states drinking 6 beers a day--last was Tuesday06/26/21. 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 Pets and animals: No Sexually active: No Do you think of yourself as: straight/heterosexual Current gender identity: male What is your relationship status?: How often do you talk on the phone with friends or family?: never How often do you get together with friends or relatives?: once per week Panel score (0-1 are the most socially isolated patients): 0 What type of physical activity do you participate in: none and sedentary lifestyle Frequency: does not exercise Special leeroy needs: No Agree to transfusion: Yes Seatbelt use: always Working smoke detector in home: Yes Fire extinguisher in home: Yes Do you feel safe at home: Yes Do you feel safe in your relationship?: Yes Additional Social history: Family and PCP office and I are encouraging Chito to be a permanent resident of [facility]. Usually is living alone in a trailer his parents bought in 1975, now owned by Chito's brother Thanh. Chito went to in [place]. 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 Not a [facility] patient; did not serve long enough. He's with one son. Had extensive head and neck surgery for cancer at [facility] in early 2020. Cannot talk on phone. Listens to his messages. Trache is permanent, as is feeding tube. No computer. No way to communicate easily. Writes down his answers and questions. Had a friend who bought him groceries and alcohol. Family not happy with this Exam Narrative Exam Narrative: Physical Examination General: alert, awake, cooperative, moderately uncomfortable s HEENT: normocephalic, atraumatic; PERRL, EOM intact, conjunctiva normal; no nasal discharge; post reconstruction of left parotid and mandibular soft tissue, tracheostomy in place, yellow-green white mucus at stoma, inner cannula in place Neck: supple, trachea midline Chest: normal to inspection Respiratory: Tachypnea quiet lung de [place] posteriorly, slight possible wheezing/rhonchi anteriorly Cardiac: Tachycardia, regular rhythm, S1S2 intact, no murmurs rubs or gallops GI: abdomen soft, non-tender, non-distended; no palpable mass or hepatosplenomegaly; G-tube in place Skin: no lesions, rashes or trauma appreciated Neuro: AAOx3, normal speech, moving all extremities Psych: Appropriate mood and affect Course Vital Signs Vital signs: Vital Signs Temperature 36.7 C 10/12/21 18:20 Pulse 128 H 10/12/21 18:20 Respiratory Rate 23 10/12/21 18:20 Blood Pressure 115/83 10/12/21 18:20 Pulse Oximetry 98 10/12/21 18:20 Temperature 36.7 C 10/12/21 18:20 Temperature Source Temporal Artery Scan 10/12/21 18:20 Pulse 128 H 10/12/21 18:20 Respiratory Rate 23 10/12/21 18:24 Respiratory Effort Labored 10/12/21 18:24 Respiratory Depth Normal 10/12/21 18:24 Respiratory Pattern Normal 10/12/21 18:24 Blood Pressure 115/83 10/12/21 18:20 Blood Pressure Position Sitting 10/12/21 18:20 Pulse Oximetry 98 10/12/21 18:20 Pain Level 8 10/12/21 18:24 Lab/Test Results Lab/Test Results: Laboratory Tests Range/Units 10/12/21 18:30 WBC (4.4-10.8) 10^3/uL 10.84 H RBC (4.36-5.78) 10^6/uL 5.05 Hgb (13.5-17.5) g/dL 16.4 Hct (40.0-50.0) % 47.0 MCV (80-95) fL 93 MCH (27.0-33.0) pg 32.5 MCHC (32.0-36.0) % 34.9 RDW (11.8-14.1) % 13.4 Plt Count (130-400) 10^3/uL 297 MPV (8.0-11.0) fL 9.3 Immature Gran % 0.6 Neutrophils % 83.7 Lymphocytes % 8.1 Monocytes % 7.3 Eosinophils % 0.0 Basophils % 0.3 Nucleated RBC % (0.0-0.3) % 0.0 Absolute Neutrophils (1.2-6.7) 10^3/uL 9.07 H Absolute Lymphocytes (1.2-3.4) 10^3/uL 0.88 L Absolute Monocytes (0.1-0.8) 10^3/uL 0.79 Absolute Eosinophils (0.0-0.7) 10^3/uL 0.00 Absolute Basophils (0.0-0.2) 10^3/uL 0.03 PAWSS Have you Been Recently Intoxicated or Drunk Within the Last 30 days?: Yes Have you Ever Experienced Previous Episodes of Alcohol Withdrawal?: Yes Have you ever Experienced Withdrawal Seizures?: No Have you ever Experienced Delirium Tremens(DT)s?: No Have you ever undergone Alcohol Rehabilitation Treatment (i.e, inpt ot outpatient treatment programs)?: No Have you ever Experienced Blackouts?: Yes Have you ever Combined Alcohol with other Downers within the last 90 days?: No Have you ever Combined Alcohol with any other Substance of Abuse during the last 90 days?: No Positive Blood Alcohol level on Presentation? [PCS.BAL]: No Evidence of Increased Autonomic Activity (i.e. HR>120, tremor, sweating, agitation, nausea)?: No Result: 3
[2021-10-12 19:23] LABS: ALT 55 U/L (16-63); AST 76 U/L (15-37); Albumin 3.9 g/dL (3.4-5.0); Alkaline Phosphatase 145 U/L (46-116); Anion Gap 18.1 mmol/L (3-11); BUN 10 mg/dL (7-18); Bilirubin, Total 0.6 mg/dL (0.2-1.0); CO2 23.9 mmol/L (21.0-32.0); CREATININE 1.1 mg/dL (0.70-1.30); Calcium 9.4 mg/dL (8.5-10.1); Chloride 95 mmol/L (98-107); ETHANOL BLOOD < 3.0 mg/dL (<10); Glucose 128 mg/dL (74-106); Potassium 3.6 mmol/L (3.5-5.1); Sodium 137 mmol/L (136-145); Total Protein 8.2 g/dL (6.4-8.2); Troponin I < 50 ng/L (<or=60)
--- NOTE | 2021-10-12 20:29 | DI.VRAD_ITS ---
PROCEDURE INFORMATION: Exam: XR Chest Exam date and time: 10/12/2021 7:50 PM Age: 60 years old Clinical indication: Cough and shortness of breath; Patient HX: Cough, SOB, increased secretions, trach patient TECHNIQUE: Imaging protocol: XR of the chest. Views: 1 view. COMPARISON: CR XR PORTABLE CHEST AP 06/30/2021 7:57 AM FINDINGS: Tubes, catheters and devices: Again noted is a tracheostomy tube which appears unchanged. Lungs: The lungs are clear. There is no pulmonary vascular congestion. Pleural spaces: There are no pleural effusions present. There is no evidence of pneumothorax. Heart/Mediastinum: The cardiomediastinal silhouette is within normal limits. Bones/joints: Unremarkable. IMPRESSION: No active cardiopulmonary disease identified. Dictated and Authenticated by: Chito Thorpe MD. Ordering:CARLOS Phillips MD
[2021-10-12 21:13] LABS: Influenza A PCR Negative (Negative); Influenza B PCR Negative (Negative); RSV PCR Negative (Negative)
[2021-10-12 21:20] LABS: COVID-19 PCR Positive (Negative)
[2021-10-12] MEDS: LORazepam 2 MG/ML VIAL IVP (21:39)
--- NOTE | 2021-10-12 21:43 | W.PM.HP.N ---
Date of service: 10/12/21 Time of Service: 20:43 Assessment and Plan Assessment and plan (1) COPD exacerbation: Status: Acute Assessment and plan: Primarily COPD exacerbation with bronchitis. The COVID appears to be incidental, or at any rate is not manifesting with lower respiratory infection at this time. There is likely also element of alcohol withdrawal manifesting with hyperdynamic state. COPD: will add oral antibiotics and prn updrafts. I don't see need to continue steroids at present COVID: as above appears to be incidental, or at least no pneumonitis, and oxygenating well. High risk of progression, will give MAB Alcohol, probable early withdrawal. Will give banana bag, scheduled benzos and prn per CIWA. Will also give beta abida. Code status: per records remains DNR. 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 Here with several days of cough, SOB and generalized malaise. In ER initial findings of note for absence of fever; O2 sats mid-high 90s; rhonchorous lung sounds, with yellow sputum suctioned per trach; white count 10, clear CXR and COVID positive. Patient has received Dexamethasone 10 mg, updraft, and 1 mg Ativan (is receiving second dose at this time). States he feels somewhat more comfortable. I was asked to irma;megha for admission. Review of Systems Narrative: per HPI PFSH All Active Problems (Updated 10/12/21 @ 21:51 by Juvenal Quigley MD) COPD exacerbation (Acute) COVID-19 (Acute) Alcohol withdrawal (Acute) Cough (Acute) Palliative care patient (Acute) Tracheostomy care (Acute) 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 Alcohol use (Acute) Dysphagia, oral phase (Acute) Caries (Acute) Mouth cancer (Acute) Tobacco use disorder (Acute) >25 pack years Medical History Acute dehydration Acute hypokalemia Acute hyponatremia Adult failure to thrive Alcohol withdrawal Anxiety Aspiration pneumonia Chronic alcoholism Closed head injury with loss of consciousness of unknown duration COPD (chronic obstructive pulmonary disease) Cough with hemoptysis DNR (do not resuscitate) DVT prophylaxis Facial laceration Hypertension Hypokalemia Hyponatremia Oral thrush Pre-op evaluation SIRS (systemic inflammatory response syndrome) Surgical History S/P glossectomy (10/24/13) w/ resection of floor of mouth, w/ suprahyoid neck dissection. cervical lymphadenectomy, tracheostomy, excision benign thyroid lesion, exploration carotid artery S/P reconstruction procedure (08/18/20) Pediculed pec flap, L hemiglossectomy and mandibulectomy ([facility]) S/P tooth extraction (~2013) Status post glossectomy (08/11/20) w/ multiple other procedures Family History Mother , about age 70 Hypertension Hyperlipidemia Breast cancer Asthma Smoker Lung cancer Father , about age 70 from lung cancer Asthma Lung cancer Smoker Brother Hyperlipidemia Son No problems noted. Grandson No problems noted. Social History Smoking/Tobacco Use Status: Former Tobacco Use Tobacco: How many years used: 31 Counseling given: provider counseling Smoking risk assessment performed?: Yes Alcohol Intake: current Alcohol Intake frequency: 3 or more drinks per day Alcohol type: beer Previous attempts at quittin Counseling given: Yes Counseling provided: reduce to 2 or less/day Details: [id number], who was with me, estimated 30 beers/day Drug use: Occasionally Substance use type: marijuana Details: 06/30/21--states drinking 6 beers a day--last was Tuesday06/26/21. 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 Pets and animals: No Sexually active: No Do you think of yourself as: straight/heterosexual Current gender identity: male What is your relationship status?: How often do you talk on the phone with friends or family?: never How often do you get together with friends or relatives?: once per week Panel score (0-1 are the most socially isolated patients): 0 What type of physical activity do you participate in: none and sedentary lifestyle Frequency: does not exercise Special leeroy needs: No Agree to transfusion: Yes Seatbelt use: always Working smoke detector in home: Yes Fire extinguisher in home: Yes Do you feel safe at home: Yes Do you feel safe in your relationship?: Yes Additional Social history: Family and PCP office and I are encouraging Chito to be a permanent resident of [facility]. Usually is living alone in a trailer his parents bought in 1975, now owned by Chito's brother Thanh. Chito went to in [place]. Soon after, he enlisted in [employer] x 4 years. Not a [facility] patient; did not serve long enough. He's with one son. Had extensive head and neck surgery for cancer at [facility] in early 2020. Cannot talk on phone. Listens to his messages. Trache is permanent, as is feeding tube. No computer. No way to communicate easily. Writes down his answers and questions. Had a friend who bought him groceries and alcohol. Family not happy with this Meds Allergies and Home Medications Allergies Allergy/AdvReac Type Severity Reaction Status Date / Time No Known Allergies Allergy Verified 10/12/21 18:30 Home Medications Medication Instructions Recorded Confirmed Type swab (Toothette swabs) #500 ea 07/28/20 10/12/21 Rx chlorhexidine gluconate 0.12 % 15 ml mucous membrane TID 09/01/20 10/12/21 History mouthwash (Peridex) food supplemt, lactose-reduced See Rx Instructions feeding tube 09/01/20 10/12/21 History .COMPLEX multivitamin 1 tab feeding tube DAILY 09/01/20 10/12/21 History levothyroxine 75 mcg tablet 75 mcg PO DAILY 09/16/21 10/12/21 History folic acid 400 mcg tablet 0.4 mg PO DAILY #90 tabs 09/21/21 10/12/21 Rx gabapentin 300 mg/6 mL (6 mL) oral 400 mg (8 mL) feeding tube TID 09/21/21 10/12/21 Rx solution #720 mL nystatin 100,000 unit/gram topical 1 applic topical TID #30 grams 09/21/21 10/12/21 Rx cream oxycodone 5 mg/5 mL oral solution 5 mg (5 mL) PO Q6H PRN PRN pain 09/21/21 10/12/21 Rx #600 mL thiamine HCl (vitamin B1) 100 mg 100 mg feeding tube DAILY #90 tabs 09/21/21 10/12/21 Rx tablet vitamin E (dl, acetate) 180 mg 400 unit feeding tube DAILY #90 09/21/21 10/12/21 Rx (400 unit) capsule caps Exam Narrative Exam Narrative: 128/103, 135, 36.7, 17, 96% RA. HEENT s/p glossectomy and partial left jaw resection; lungs clear; heart tachy/regular; abdomen soft and NT; G-tube present; extremities w/o edema; neuro Ox3, lucid, moves all 4s Results Labs Result diagrams: 10/12/21 18:30 10/12/21 18:30 Labs: Laboratory Results - last 24 hr 10/12/21 10/12/21 10/12/21 18:30 18:30 20:20 WBC 10.84 H RBC 5.05 Hgb 16.4 Hct 47.0 MCV 93 MCH 32.5 MCHC 34.9 RDW 13.4 Plt Count 297 MPV 9.3 Immature Gran % 0.6 Neutrophils % 83.7 Lymphocytes % 8.1 Monocytes % 7.3 Eosinophils % 0.0 Basophils % 0.3 Nucleated RBC % 0.0 Absolute Neutrophils 9.07 H Absolute Lymphocytes 0.88 L Absolute Monocytes 0.79 Absolute Eosinophils 0.00 Absolute Basophils 0.03 Sodium 137 Potassium 3.6 Chloride 95 L Carbon Dioxide 23.9 Anion Gap 18.1 H BUN 10 Creatinine 1.1 Estimated GFR/1.73 m2 >= 60.00 Glucose 128 H Calcium 9.4 Total Bilirubin 0.6 AST 76 H ALT 55 Alkaline Phosphatase 145 H Troponin I < 50 Total Protein 8.2 Albumin 3.9 Ethyl Alcohol < 3.0 COVID-19 Source Not Applicable SARS-CoV-2 (PCR) Positive A Influenza Type A (PCR) Negative Influenza Type B (PCR) Negative RSV (PCR) Negative Last Vital Signs Temp 36.7 C 10/12/21 18:20 Pulse 135 H 10/12/21 21:02 Resp 17 10/12/21 21:02 BP 128/103 H 10/12/21 21:02 Pulse Ox 96 10/12/21 21:02 PAWSS Have you Been Recently Intoxicated or Drunk Within the Last 30 days?: Yes Have you Ever Experienced Previous Episodes of Alcohol Withdrawal?: Yes Have you ever Experienced Withdrawal Seizures?: No Have you ever Experienced Delirium Tremens(DT)s?: No Have you ever undergone Alcohol Rehabilitation Treatment (i.e, inpt ot outpatient treatment programs)?: No Have you ever Experienced Blackouts?: Yes Have you ever Combined Alcohol with other Downers within the last 90 days?: No Have you ever Combined Alcohol with any other Substance of Abuse during the last 90 days?: No Positive Blood Alcohol level on Presentation? [PCS.BAL]: No Evidence of Increased Autonomic Activity (i.e. HR>120, tremor, sweating, agitation, nausea)?: No Result: 3
[2021-10-12 22:00] LABS: Troponin I < 50 ng/L (<or=60)
[2021-10-12] MEDS: MAGNESIUM SULFATE 8.12 MEQ, MULTIVITAMIN 10 ML, THIAMINE 100 MG, FOLIC ACID 1 MG in Nor... 168.867 MG IV (23:15)
[2021-10-13] VITALS (7 sets, daily range): BP systolic 119–150; BP diastolic 85–100; PULSE 104–121; RESP 16–24; TEMP 36.3–37.2; O2SAT 93–98
[2021-10-13] MEDS: chlordiazePOXIDE 25 MG CAP UD ×4 (01:01→19:46)
[2021-10-13] MEDS: Metoprolol 25 MG TAB UD ×3 (01:02→19:47)
[2021-10-13] MEDS: Acetaminophen 325 MG TAB UD ×3 (01:02→17:10)
[2021-10-13] MEDS: Normal Saline Flush 10 ML SYR IVP ×2 (01:03→19:47)
[2021-10-13] MEDS: Sulfameth/Trimeth DS TAB 1 TAB UD ×3 (01:03→19:48)
[2021-10-13] MEDS: Levothyroxine 75 MCG TAB UD (04:52)
[2021-10-13] MEDS: oxyCODONE 5 MG/5 ML CUP NG ×2 (04:52→19:46)
[2021-10-13] MEDS: Gabapentin 400 MG CAP UD ×3 (08:30→19:46)
[2021-10-13] MEDS: Folic Acid 1 MG TAB 0.5 MG UD (08:30)
[2021-10-13] MEDS: Multivitamin TAB 1 TAB UD (08:30)
--- NOTE | 2021-10-13 08:46 | INITIAL_ITS ---
- If Service Date Differs Date of service: 10/13/21 Time of Service: 08:46 Care Management Initial Assess REASON FOR HOSPITALIZATION:: COPD exacerbation PAST MEDICAL HISTORY/PAST SURGICAL HISTORY:: All Active Problems (Updated 10/12/21 @ 21:51 by Juvenal Quigley MD). COPD exacerbation (Acute). COVID-19 (Acute). Alcohol withdrawal (Acute). Cough (Acute). Palliative care patient (Acute). Tracheostomy care (Acute). Attention to tracheostomy tube (Acute). of armed forces (Chronic). Lives alone (Acute). Marijuana smoker (Acute). Uses feeding tube (Acute). 5 cans of Nutren 1.5 per day with 1 scoop protein supplement each feed. Tracheostomy in place (Chronic). Hyponatremia (Acute). Hypokalemia (Acute). B12 deficiency (Acute). Alcohol abuse (Chronic). Gastrostomy tube in place (Chronic). Carcinoma of oral cavity (Chronic ~08/2020). 09/15/[address] Farzana Nunes Rad/Onc, ? of XRT. Recurrent squamous cell carcinoma (Acute). Oral pain (Chronic). controlled with ibuprofen. Floor of mouth squamous cell carcinoma (Acute 06/26/20). Hypothyroidism (Chronic). Encounter to establish care (Acute). 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 Alcohol use (Acute). Dysphagia, oral phase (Acute). Caries (Acute). Mouth cancer (Acute). Tobacco use disorder (Acute). >25 pack years. Medical History . Acute dehydration. Acute hypokalemia. Acute hyponatremia. Adult failure to thrive. Alcohol withdrawal. Anxiety. Aspiration pneumonia. Chronic alcoholism. Closed head injury with loss of consciousness of unknown duration. COPD (chronic obstructive pulmonary disease). Cough with hemoptysis. DNR (do not resuscitate). DVT prophylaxis. Facial laceration. Hypertension. Hypokalemia. Hyponatremia. Oral thrush. Pre-op evaluation. SIRS (systemic inflammatory response syndrome). Surgical History . S/P glossectomy (10/24/13). w/ resection of floor of mouth, w/ suprahyoid neck dissection. cervical lymphadenectomy, tracheostomy, excision benign thyroid lesion, exploration carotid artery. S/P reconstruction procedure (08/18/20). Pediculed pec flap, L hemiglossectomy and mandibulectomy ([facility]). S/P tooth extraction (~2013). Status post glossectomy (08/11/20). w/ multiple other procedures PREVIOUS FUNCTIONAL STATUS/SOCIAL/FAMILY SUPPORTS:: Chito is a 60 year old male who lives independently in [facility]. He is an [employer] . Chito had a surgical excision of squamous cell carcinoma of the oropharynx and now has a long-term tracheostomy tube. He is mute but communicates by writing on a whiteboard. His brother, Peewee, lives locally and is a source of support for Chito. CURRENT FUNCTIONAL STATUS:: CM was unable to meet with Chito as he is on Covid precautions. Information obtained from chart review and discussions with staff and providers. Chito is doing well clinically and will likely be discharged home tomorrow with no new services. Chito did give a note to one of the staff members caring for him that suggested that he might be having suicidal thoughts. A mental health crisis evaluation was requested and completed. Chito was cleared for discharge from the mental health perspective. Chito requested to go to [facility] prior to returning home, however he does not have a skilled neeed for rehab. ADVANCE DIRECTIVES:: On file, Alan listed as agent. Has patient been provided with info about the portal/API?: Yes Did the patient sign up for the portal?: No CODE STATUS:: DNR/DNI INSURANCE COVERAGE / FINANCIAL ISSUES:: Medicare. Medicaid CURRENT HOME/COMMUNITY SERVICES/EQUIPMENT:: none currently PRIMARY CARE PHYSICIAN:: Maisha Deleon POTENTIAL DISCHARGE NEEDS:: follow up with PCP and plan of care PATIENT/FAMILY EDUCATION NEEDS:: review of discharge instructions, limitations, medications, activity, follow up plan, Ask Me Three. TRANSPORTATION:: via private vehicle PLAN:: Chito willl likely be discharged home with no new services. He would prefer to go to rehab but does not have a skilled need to do so. He will follow up with his PCP and plan of care anfd transport with family.CM will continue to offer support to Chito and assess for discharge needs.
[2021-10-13] MEDS: Thiamine 100 MG TAB UD (09:54)
[2021-10-13] MEDS: predniSONE 20 MG TAB 40 MG PO (09:54)
[2021-10-13] MEDS: LORazepam 1 MG TAB PO/SL ×2 (09:55→17:11)
--- NOTE | 2021-10-13 10:26 | NS.NUTBLAN_ITS ---
Date of service: 10/13/21 Time of Service: 09:26 Nutritional Consult ASSESSMENT: 60 year old male admitted with COPD exacerbation with covid. PMH: extensive head/neck CA with resection 2020, now with PEG and Trach. Was admitted to [facility] 3 months ago, now with significant weight loss. Tube Feeding regime at home: 5 cans of Nutrin 1.5 with water flushes. Enteral Order: Nutrin 1.5 5 cartons daily with 1 scoop protein supplement each feeding Estimated Needs: 2988-3915 kcal, 78-98 g protein, 8195-8812 ml fluid NUTRITIONAL DIAGNOSIS: Significant weight loss in last 90 days INTERVENTION: Nutrin 2.0 available in house only. Recommend Nutrin 2.0 - 4 cartons daily, flush 250 ml q 4 hours provides total of 2000 kcal, 84 g protein, 2192 ml fluid. Does not need protein poweder supplement with Nutrin 2.0 as provides adequate protein MONITORING AND EVALUATION: enteral feeding tolerance, labs Time Spent in Nutritional Counseling and Treatment: 10
--- NOTE | 2021-10-13 12:09 | PDOC.MHCN ---
Date of service: 10/13/21 Time of Service: 11:09 Mental Health Crisis Note Presenting Issue How did you arrive at the ED and why did you come: Client arrived at [facility] for medical reasons. This morning client wrote a note to the nurse stating: I want to , i'm not tired just want to fall asleep. Precipitating Factors Client denies SI/HI, intent or plan. Disposition BEHAVIOR: Client is sitting up in hospital bed dressed in gown when this advertising copy writer arrives via zoom. Client is non-verbal due to trach, however he uses white board to write and nurse is at bedside to relay messages. EYE CONTACT: Client makes minimal eye contact. MOOD: Stressed AFFECT: normal APPETITE: Did not answer SLEEP(trouble falling/staying asleep: Good Plan Client is cleared by mental health as he denies SI/HI intent and plan. When this advertising copy writer asks client if he would be safe when he returned home, he stated: I'm not safe today, I am sick and they have me going over to health and rehab before I go home. Collateral contact with home care music therapist Glenna she states that client does not meet criteria to go to health and rehab and they will likely not accept him as he is currently co-vid positive. She reports that client has previously gone to [facility] rehab and enjoyed his stay there so he wants to go back. Signature Clinician's Name/Title: Lore Collins, [facility] Emergency Clinician
--- NOTE | 2021-10-13 13:49 | W.PM.PROGNOT ---
Date of Service Date of service: 10/13/21 Time of Service: 12:50 Assessment and Plan Assessment and plan (1) COPD exacerbation: Status: Acute Assessment and plan: stable, on steroid burst and antibiotics day 2/5 continue respiratory treatments (2) COVID-19: Status: Acute Assessment and plan: received monoclonal antibodies. no new oxygen requirements. (3) Gastrostomy tube in place: Status: Chronic Assessment and plan: continue tube feedings adjusted by nutrition recommendations. (4) Alcohol abuse: Status: Chronic Assessment and plan: no signs of withdrawal. continue librium, taper continue thiamine (5) Tracheostomy in place: Status: Chronic Assessment and plan: routine trach care has area of breakdown, will apply antibiotic ointment TID, consider wound care consult if not improving (6) Passive suicidal ideations: Status: Acute Assessment and plan: cleared by mental health after evaluation no new recommendations (7) Discharge planning issues: Status: Acute Assessment and plan: anticipate a discharge to home tomorrow. discussed with Dr Griffith Exam Const General: cooperative, comfortable, no acute distress and ill appearing chronically Nutritional Appearance: thin Orientation: alert, awake and oriented x3 HENMT Head: normal to inspection, normocephalic and atraumatic Neck Neck: not normal to visual inspection, tracheostomy present (1/2 c open lesion 7 oclock, no surrounding erythema) and other (large mass side of neck, chronic) Chest Chest: normal inspection of the chest Resp Effort & Inspection: normal respiratory effort Auscultation: rhonchi (faint scattered) Cardio Rate: regular rate Rhythm: regular rhythm GI Inspection: normal to inspection Palpation: soft and nontender Neuro General: patient alert, patient awake and patient oriented x3 Extrem General: normal to inspection, full ROM and no pedal edema Objective Last Vital Signs Temp 36.9 C 10/13/21 06:01 Pulse 109 H 10/13/21 06:01 Resp 22 10/13/21 06:01 BP 123/93 H 10/13/21 06:01 Pulse Ox 94 10/13/21 06:01 Laboratory Results - last 24 hr 10/12/21 10/12/21 10/12/21 18:30 18:30 20:20 WBC 10.84 H RBC 5.05 Hgb 16.4 Hct 47.0 MCV 93 MCH 32.5 MCHC 34.9 RDW 13.4 Plt Count 297 MPV 9.3 Immature Gran % 0.6 Neutrophils % 83.7 Lymphocytes % 8.1 Monocytes % 7.3 Eosinophils % 0.0 Basophils % 0.3 Nucleated RBC % 0.0 Absolute Neutrophils 9.07 H Absolute Lymphocytes 0.88 L Absolute Monocytes 0.79 Absolute Eosinophils 0.00 Absolute Basophils 0.03 Sodium 137 Potassium 3.6 Chloride 95 L Carbon Dioxide 23.9 Anion Gap 18.1 H BUN 10 Creatinine 1.1 Estimated GFR/1.73 m2 >= 60.00 Glucose 128 H Calcium 9.4 Total Bilirubin 0.6 AST 76 H ALT 55 Alkaline Phosphatase 145 H Troponin I < 50 Total Protein 8.2 Albumin 3.9 Ethyl Alcohol < 3.0 COVID-19 Source Not Applicable SARS-CoV-2 (PCR) Positive A Influenza Type A (PCR) Negative Influenza Type B (PCR) Negative RSV (PCR) Negative 10/12/21 21:34 WBC RBC Hgb Hct MCV MCH MCHC RDW Plt Count MPV Immature Gran % Neutrophils % Lymphocytes % Monocytes % Eosinophils % Basophils % Nucleated RBC % Absolute Neutrophils Absolute Lymphocytes Absolute Monocytes Absolute Eosinophils Absolute Basophils Sodium Potassium Chloride Carbon Dioxide Anion Gap BUN Creatinine Estimated GFR/1.73 m2 Glucose Calcium Total Bilirubin AST ALT Alkaline Phosphatase Troponin I < 50 Total Protein Albumin Ethyl Alcohol COVID-19 Source SARS-CoV-2 (PCR) Influenza Type A (PCR) Influenza Type B (PCR) RSV (PCR) PAWSS Have you Been Recently Intoxicated or Drunk Within the Last 30 days?: Yes Have you Ever Experienced Previous Episodes of Alcohol Withdrawal?: Yes Have you ever Experienced Withdrawal Seizures?: No Have you ever Experienced Delirium Tremens(DT)s?: No Have you ever undergone Alcohol Rehabilitation Treatment (i.e, inpt ot outpatient treatment programs)?: No Have you ever Experienced Blackouts?: Yes Have you ever Combined Alcohol with other Downers within the last 90 days?: No Have you ever Combined Alcohol with any other Substance of Abuse during the last 90 days?: No Positive Blood Alcohol level on Presentation? [PCS.BAL]: No Evidence of Increased Autonomic Activity (i.e. HR>120, tremor, sweating, agitation, nausea)?: No Result: 3
--- NOTE | 2021-10-13 15:31 | NUR.NOTE ---
RN spoke to Trang, fish house worker, who clarify the order to be one carton at BF, lunch, Dinner and HS to make total of 4 carton a day.
[2021-10-14] MEDS: oxyCODONE 5 MG/5 ML CUP NG ×2 (02:09→11:06)
[2021-10-14 02:11] VITALS: BP 114/83; PULSE 93; RESP 16; TEMP 36.5; O2SAT 95
[2021-10-14] MEDS: Levothyroxine 75 MCG TAB UD (06:15)
[2021-10-14] MEDS: LORazepam 1 MG TAB PO/SL (06:17)
[2021-10-14 06:41] LABS: Abs Immature Grans 0.02 10^3/uL (0.0-0.06); Absolute Basophil Count 0.01 10^3/uL (0.0-0.2); Absolute Eosinophil Count 0.01 10^3/uL (0.0-0.7); Absolute Lymphocyte Count 1.73 10^3/uL (1.2-3.4); Absolute Monocyte Count 0.57 10^3/uL (0.1-0.8); Absolute Neutrophil Count 5.18 10^3/uL (1.2-6.7); Basophils % 0.1; Eosinophils % 0.1; HCT 45.3 % (40.0-50.0); HGB 14.9 g/dL (13.5-17.5); Immature Grans % 0.3; MCH 32.5 pg (27.0-33.0); MCHC 32.9 % (32.0-36.0); MCV 99 fL (80-95); MPV 9.3 fL (8.0-11.0); Monocytes % 7.6; Neutrophils % 68.9; Platelet Count 220 10^3/uL (130-400); RBC 4.59 10^6/uL (4.36-5.78); RDW-SD 50.9 fL; WBC 7.52 10^3/uL (4.4-10.8)
[2021-10-14 06:59] LABS: Anion Gap 13.3 mmol/L (3-11); BUN 16 mg/dL (7-18); CO2 25.7 mmol/L (21.0-32.0); CREATININE 1.1 mg/dL (0.70-1.30); Calcium 8.7 mg/dL (8.5-10.1); Chloride 102 mmol/L (98-107); Glucose 112 mg/dL (74-106); Sodium 141 mmol/L (136-145)
[2021-10-14 07:04] LABS: Potassium 2.9 mmol/L (3.5-5.1)
[2021-10-14 08:57] LABS: Lab Add On Test DONE
[2021-10-14] MEDS: Multivitamin TAB 1 TAB UD (09:00)
[2021-10-14] MEDS: Gabapentin 400 MG CAP UD ×2 (09:00→13:37)
[2021-10-14] MEDS: Sulfameth/Trimeth DS TAB 1 TAB UD (09:01)
[2021-10-14] MEDS: Metoprolol 25 MG TAB UD (09:02)
[2021-10-14] MEDS: chlordiazePOXIDE 25 MG CAP UD ×2 (09:03→13:37)
[2021-10-14] MEDS: predniSONE 20 MG TAB 40 MG PO (09:04)
[2021-10-14 09:06] LABS: Magnesium 2.1 mg/dL (1.8-2.4)
[2021-10-14] MEDS: Folic Acid 1 MG TAB 0.5 MG UD (09:08)
[2021-10-14] MEDS: Thiamine 100 MG TAB UD (09:10)
[2021-10-14] MEDS: POTASSIUM CHLORIDE 10 MEQ/100 ML BAG 100 MEQ IVPB ×4 (09:47→13:44)
[2021-10-14 10:07] VITALS: RESP 22; TEMP 36.3; O2SAT 92
--- NOTE | 2021-10-14 11:40 | DSE_ITS ---
Date of service: 10/14/21 Time of Service: 10:40 DS: Diagnosis Discharge Diagnosis (1) COPD exacerbation: Status: Acute (2) COVID-19: Status: Acute (3) Gastrostomy tube in place: Status: Chronic (4) Alcohol abuse: Status: Chronic (5) Tracheostomy in place: Status: Chronic (6) Passive suicidal ideations: Status: Acute Discharge Plan Disposition Patient Disposition: HOME Condition: Stable Discharge Details Reason For Visit: COPD,COVID,Alcohol withdrawal Admit Date/Time: 10/12/21 21:56 Admit Provider: Juvenal Quigley Attending Provider: Juvenal Quigley Primary Care Provider: Maisha Deleon Hospital Course Hospital Course: This is a 60 year old male well known to [facility] who presented to the ED with cough, SOB and generalized malaise. In ER initial findings of note for absence of fever; O2 sats mid-high 90s; rhonchorous lung sounds, with yellow sputum suctioned per trach; white count 10, clear CXR and COVID positive. Patient has received Dexamethasone 10 mg, updraft, and 1 mg Ativan (is receiving second dose at this time). He also received monoclonal antibodies. He was admitted to med/surg under hospitalist services. he was placed on bactrim and prednisone burst to treat his copd exacerbation. He continued to have no oxygen requirements and was feeling at his baseline. he was up and independent in the room. tolerating tube feedings with no difficulty. He experienced no signs of alcohol withdrawal, taking scheduled librium here. he is being discharged to home to complete his prednisone and bactrim for a total of 5 days. he was also noted to have a potassium level of 2.9 and will be given daily potassium 20 meq after having 40 meq IVPB. He is to have his potassium level checked again on Tuesday with further recommendations. discharge discussed with DR Griffith [place] Meds and New Rx's Prescriptions: New prednisone 20 mg Tablet 40 mg PO DAILY Qty: 6 0RF sulfamethoxazole-trimethoprim 800-160 mg Tablet 1 tab UD 0800,1999 Qty: 6 0RF potassium chloride 20 mEq Packet 20 meq UD DAILY Qty: 30 0RF Continued folic acid 400 mcg tablet 0.4 mg PO DAILY Qty: 90 3RF vitamin E (dl, acetate) 180 mg (400 unit) capsule 400 unit feeding tube DAILY Qty: 90 3RF nystatin 100,000 unit/gram cream 1 applic topical TID Qty: 30 3RF oxycodone 5 mg/5 mL solution 5 mg PO Q6H PRN MDD 20mg PRN (Reason: pain) Qty: 600 0RF Rx Instructions: VIA G-TUBE gabapentin 300 mg/6 mL (6 mL) solution 400 mg feeding tube TID Qty: 720 6RF Rx Instructions: 09/10/20-DOSE INCREASED-LH thiamine HCl (vitamin B1) 100 mg tablet 100 mg feeding tube DAILY Qty: 90 3RF (DME) [place] Swab See Rx Instructions .ROUTE .MEDSUPPLY Qty: 500 6RF Rx Instructions: Use up to 15 times daily. Oral cancer. chlorhexidine gluconate [Peridex] 0.12 % mouthwash 15 ml mucous membrane TID food supplemt, lactose-reduced Liquid See Rx Instructions feeding tube .COMPLEX Rx Instructions: 236 ml (1 8 oz. bottle) feeding tube; multivitamin Tablet 1 tab feeding tube DAILY levothyroxine 75 mcg tablet 75 mcg PO DAILY Discharge Instructions Instructions: COPD (Chronic Obstructive Pulmonary Disease) (DC) Additional Instructions: continue steriods for 3 more days to complete a 5 day course continue antibiotics for 3 more days to complete a 5 day course do not drink alcohol Stand Alone Forms: Nursing Discharge Form Referrals: Maisha Deleon NP [Primary Care Provider] - 10/19/21 10:45 am Activity:: Activity as Tolerated Equipment/Supplies:: No Equipment Needed Diet:: As Tolerated Discharge Orders Discharge Orders: Discharge Order (Routine); Ordered 10/14/21 Ordered By: Fernanda Gill Other Ambulatory Orders: Basic Metabolic Panel (Routine) Timeframe: [id number] Location: None Selected Ordered By: Fernanda Gill Discharge Data Discharge Date/Time-TO BE ENTERED AT DEPARTURE: 10/14/21 15:13 DS: Summary Time Spent with Patient providing and/or coordinating discharge services: Less than 30 minutes Status at Discharge Functional status at discharge: independent ambulation Overall status at discharge: patient is back to baseline Mental Status: mental status grossly normal Speech and Movement: speech and movement normal Mood: congruent mood Affect: normal affect Exam Const General: cooperative, comfortable, no acute distress and ill appearing chronically Nutritional Appearance: thin Orientation: alert, awake and oriented x3 HENMT Head: normal to inspection, normocephalic and atraumatic Neck Neck: not normal to visual inspection, tracheostomy present (1/2 c open lesion 7 oclock, no surrounding erythema) and other (large mass side of neck, chronic) Chest Chest: normal inspection of the chest Resp Effort & Inspection: normal respiratory effort Auscultation: rhonchi (faint scattered) Cardio Rate: regular rate Rhythm: regular rhythm GI Inspection: normal to inspection Palpation: soft and nontender Neuro General: patient alert, patient awake and patient oriented x3 Extrem General: normal to inspection, full ROM and no pedal edema Psych Mental Status: mental status grossly normal Speech and Movement: speech and movement normal Mood: congruent mood Affect: normal affect DS: Data Vitals/I&O Vitals and I&O: Vital Signs Temperature 36.3 C L 10/14/21 10:07 Temperature Source Tympanic 10/14/21 10:07 Pulse 93 H 10/14/21 02:11 Pulse Rhythm Regular 10/14/21 10:07 Pulse 119 H 10/12/21 22:45 Respiratory Rate 22 10/14/21 10:07 Respiratory Effort 10/14/21 10:07 Respiratory Depth Normal 10/14/21 10:07 Respiratory Pattern Normal 10/14/21 10:07 Blood Pressure 114/83 10/14/21 02:11 Blood Pressure Mean 98 10/12/21 22:45 Blood Pressure Position Sitting 10/12/21 18:20 Pulse Oximetry 92 10/14/21 10:07 Oxygen Delivery Method Room Air 10/14/21 10:07 Oxygen Flow Rate 0 10/14/21 10:07 Pain Level 0 10/14/21 10:07 Intake & Output 10/13/21 10/13/21 10/14/21 11:59 23:59 11:59 Intake Total 1013.2 / 1023.2 3.2 100 / 100 Output Total 475 / 1075 600 / 1075 Balance 538.2 / -51.8 -590 / -51.8 100 / 100 Weight 59.5 kg Intake: IV 1013.2 / 1023.2 10 1023.2 100 / 100 Output: Urine 475 / 1075 600 / 1075 Other: Urine Color Yellow Yellow Straw Urine Appearance Clear Clear Clear Comment pT seen using urinal, another nursing staff member dumped urine. Stool Size Moderate Stool Characteristics Brown Gastric Occult Blood Abdomen Negative Voiding Methods Urinal Toilet Data Completed and Pending Labs on day of discharge: Labs from last 24 hours 10/14/21 10/14/21 10/14/21 06:15 06:15 06:15 WBC 7.52 RBC 4.59 Hgb 14.9 Hct 45.3 MCV 99 H D MCH 32.5 MCHC 32.9 D RDW 14.0 Plt Count 220 MPV 9.3 Immature Gran % 0.3 Neutrophils % 68.9 Lymphocytes % 23.0 Monocytes % 7.6 Eosinophils % 0.1 Basophils % 0.1 Nucleated RBC % 0.0 Absolute Neutrophils 5.18 Absolute Lymphocytes 1.73 Absolute Monocytes 0.57 Absolute Eosinophils 0.01 Absolute Basophils 0.01 Sodium Potassium Chloride Carbon Dioxide Anion Gap BUN Creatinine Estimated GFR/1.73 m2 Glucose Calcium Magnesium 2.1 Add-On Test Request DONE 10/14/21 06:15 WBC RBC Hgb Hct MCV MCH MCHC RDW Plt Count MPV Immature Gran % Neutrophils % Lymphocytes % Monocytes % Eosinophils % Basophils % Nucleated RBC % Absolute Neutrophils Absolute Lymphocytes Absolute Monocytes Absolute Eosinophils Absolute Basophils Sodium 141 Potassium 2.9 L Chloride 102 Carbon Dioxide 25.7 Anion Gap 13.3 H BUN 16 Creatinine 1.1 Estimated GFR/1.73 m2 >= 60.00 Glucose 112 H Calcium 8.7 Magnesium Add-On Test Request [facility] All Active Problems (Updated 10/13/21 @ 14:01 by Fernanda Gill NP) Discharge planning issues (Acute) Passive suicidal ideations (Acute) COPD exacerbation (Acute) COVID-19 (Acute) Alcohol withdrawal (Acute) Cough (Acute) Palliative care patient (Acute) Tracheostomy care (Acute) Attention to tracheostomy tube (Acute) [employer] (Chronic) Lives alone (Acute) Marijuana smoker (Acute) Uses feeding tube (Acute) 5 cans of Nutren 1.5 per day with 1 scoop protein supplement each feed Tracheostomy in place (Chronic) Hyponatremia (Acute) Hypokalemia (Acute) B12 deficiency (Acute) Alcohol abuse (Chronic) Gastrostomy tube in place (Chronic) Carcinoma of oral cavity (Chronic ~08/2020) 09/15/[address] Farzana Nunes Rad/Onc, ? 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 Alcohol use (Acute) Dysphagia, oral phase (Acute) Caries (Acute) Mouth cancer (Acute) Tobacco use disorder (Acute) >25 pack years Medical History Acute dehydration Acute hypokalemia Acute hyponatremia Adult failure to thrive Alcohol withdrawal Anxiety Aspiration pneumonia Chronic alcoholism Closed head injury with loss of consciousness of unknown duration COPD (chronic obstructive pulmonary disease) Cough with hemoptysis DNR (do not resuscitate) DVT prophylaxis Facial laceration Hypertension Hypokalemia Hyponatremia Oral thrush Pre-op evaluation SIRS (systemic inflammatory response syndrome) Surgical History S/P glossectomy (10/24/13) w/ resection of floor of mouth, w/ suprahyoid neck dissection. cervical lymphadenectomy, tracheostomy, excision benign thyroid lesion, exploration carotid artery S/P reconstruction procedure (08/18/20) Pediculed pec flap, L hemiglossectomy and mandibulectomy ([place]) S/P tooth extraction (~2013) Status post glossectomy (08/11/20) w/ multiple other procedures Family History Mother , about age 70 Hypertension Hyperlipidemia Breast cancer Asthma Smoker Lung cancer Father , about age 70 from lung cancer Asthma Lung cancer Smoker Brother Hyperlipidemia Son No problems noted. Grandson No problems noted. Social History Smoking/Tobacco Use Status: Former Tobacco Use Tobacco: How many years used: 31 Counseling given: provider counseling Smoking risk assessment performed?: Yes Alcohol Intake: current Alcohol Intake frequency: 3 or more drinks per day Alcohol type: beer Previous attempts at quittin Counseling given: Yes Counseling provided: reduce to 2 or less/day Details: [id number], who was with me, estimated 30 beers/day Drug use: Occasionally Substance use type: marijuana Details: 06/30/21--states drinking 6 beers a day--last was Tuesday06/26/21. 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 Pets and animals: No Sexually active: No Do you think of yourself as: straight/heterosexual Current gender identity: male What is your relationship status?: How often do you talk on the phone with friends or family?: never How often do you get together with friends or relatives?: once per week Panel score (0-1 are the most socially isolated patients): 0 What type of physical activity do you participate in: none and sedentary lifestyle Frequency: does not exercise Special leeroy needs: No Agree to transfusion: Yes Seatbelt use: always Working smoke detector in home: Yes Fire extinguisher in home: Yes Do you feel safe at home: Yes Do you feel safe in your relationship?: Yes Additional Social history: Family and PCP office and I are encouraging Chito to be a permanent [facility]. Usually is living alone in a trailer his parents bought in 1975, now owned by Chito's brother Thanh. Chito went to in [place]. 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 Not a [facility] patient; did not serve long enough. He's with one son. [place] [facility] [place] Cannot talk on phone. Listens to his messages. Trache is permanent, as is feeding tube. No computer. No way to communicate easily. Writes down his answers and questions. Had a friend who bought him groceries and alcohol. Family not happy with this
[2021-10-14] MEDS: Potassium Chloride Liquid 20 MEQ PKT UD (13:42)
--- NOTE | 2021-10-14 14:41 | CMDISCH_ITS ---
- If Service Date Differs Date of service: 10/14/21 Time of Service: 14:41 LACE Index Scoring Tool - Questions: Length of Stay (in days): 2 Acuity (Admit via E.D.?): Yes Comorbidities: Chronic Pulmonary Disease, Any Tumor E.D. Visits: 11 - Answers: Total Score: 14 Risk of Readmission: High Risk Care Management Discharge Reason for Hospitalization: COPD exacerbation Discharge Plan: Chito will return home today with no new services. LacieLIBBY, asked that Chito identify his community case management in order for services to begin, and Chito stated that he can't think about that now. He will transport via [employer], as he is Covid positive. He will follow up with his PCP and discharge plan of care. Patient/Family Education Needs: Review discharge instructions and limitations, discussion of self care needs including ask me three. Services Needed at Discharge: Transportation ([place])
== END 2021-10-14 15:13 | disposition home or self-care (01) | DRG 190 ==
LOC: ER 22:36 → MS 23:27
PROVIDERS: Nurse Practitioner Acute Care; Admitting Provider General Practice; Emergency Provider Emergency Medicine; PCP Nurse Practitioner; Visit Provider General Practice
DX: J44.1 Chronic obstructive pulmonary disease with (acute) exacerbation (principal); U07.1 COVID-19; F10.239 Alcohol dependence with withdrawal, unspecified; R45.851 Suicidal ideations; Z93.0 Tracheostomy status; Z66 Do not resuscitate; F12.90 Cannabis use, unspecified, uncomplicated; Z93.1 Gastrostomy status; C04.8 Malignant neoplasm of overlapping sites of floor of mouth; E03.9 Hypothyroidism, unspecified; R13.12 Dysphagia, oropharyngeal phase; F41.9 Anxiety disorder, unspecified; Z87.891 Personal history of nicotine dependence; K02.9 Dental caries, unspecified
CPT/HCPCS: 36415; 80048; 80053; 87637; 93005; 94640; 96361; 96374; 96375; 96376; 99285; Q0222; 71045; 80320; 83735; 84484; 85025; 93010; 94667; 99222; 99233; 99238; J1100; J2060; J3480; J7512; J7614; J7644

== ENCOUNTER 2021-10-19 11:52 | Outpatient (REF) | payer MEDICARE, MEDICAID, SELFPAY ==
[2021-10-19 16:07] LABS: Anion Gap 8.6 mmol/L (3-11); BUN 15 mg/dL (7-18); CO2 26.4 mmol/L (21.0-32.0); CREATININE 1.3 mg/dL (0.70-1.30); Calcium 9.4 mg/dL (8.5-10.1); Chloride 102 mmol/L (98-107); Estimated GFR 56.12 (mL/min/1.73m2); Glucose 117 mg/dL (74-106); Potassium 4.1 mmol/L (3.5-5.1); Sodium 137 mmol/L (136-145)
== END 2021-10-19 11:53 | disposition home or self-care (01) ==
LOC: LBN 11:52
PROVIDERS: PCP Nurse Practitioner; Visit Provider Nurse Practitioner
DX: E87.6 Hypokalemia (principal)
CPT/HCPCS: 80048

== ENCOUNTER → 2022-01-07 00:44 | Outpatient (CLI) | payer MEDICARE, MEDICAID, SELFPAY ==
[2022-01-07 13:19] LABS: CREATININE 0.8 mg/dL (0.70-1.30)
[2022-01-07 13:26] LABS: Calculated LDL 45 mg/dL (<100); Cholesterol 152 mg/dL (<200); HDL Cholesterol 77 mg/dL (40-60); Triglyceride 150 mg/dL (<150)
--- NOTE | 2022-01-07 13:41 | DI.CT_ITS ---
Exam(s) CT NECK W EXAM: CT NECK W CLINICAL HISTORY: H/O HEAD AND NECK CA,Z85.89,S/P RESECTION,? STATUS. TECHNIQUE: Imaging Protocol: Axial CT angiography was performed with multi-slice acquisition and mu lti-planar and/or 3D reconstructions. CONTRAST MATERIAL: Intravenous: Omnipaque 350 Contrast volume:100 cc COMPARISON: CT CT NECK W from 09/02/2021 FINDINGS: Again noted are extensive postsurgical changes including extensive oral cavity resection with large l eft pectoral flap again noted. There is also been resection of the ramus of the left side of the man dible. Tracheostomy tube remains in satisfactory position and there is no abnormal narrowing of the airway w ithin the field of view of this study. Scarring in the sub apical region of the right upper lobe is unchanged. No scarring seen in the sub apical/apical aspect of the left upper lobe. Visualized orbits: Unremarkable Visualized paranasal sinuses: Clear, including the frontal, sphenoid, maxillary and ethmoidal air diamond ls as well as mastoid air cells bilaterally. Medial petrous temporal bones are pneumatized and these are also well aerated. No skull base lesions seen. Multilevel degenerative changes in the cervical spine but no lytic osseous lesions in the cervical vertebrae evident. Nasopharynx: Unremarkable Oropharynx: Uvula midline. No tonsillar masses. Harsh dental: Larger of resection in the floor of the mouth including left side of the mandible. Posts urgical changes appear stable with no new mass evident and no enlarged lymph nodes evident. Retropharyngeal space: No masses. Hypopharynx: Epiglottis without new significant findings. Valleculae unremarkable. Supraglottic and larynx: No asymmetric masses. Subglottic airway: Unremarkable. Thyroid gland: Normal size. No nodules evident. Lymph nodes: No new lymphadenopathy in the neck and supraclavicular regions. Salivary glands: Submandibular glands are again noted to have been surgically removed. Parotid glands unremarkable. Vascular: Significant atherosclerotic disease again noted. Critical stenosis in the proximal right i nternal carotid artery in the neck. IMPRESSION: 1. Again noted is extensive postsurgical change in the neck including extensive oral cavity resection as described above as well as large left pectoral flap, these findings appearing stable and the trac heostomy appears to be in satisfactory position. 2. No new masses nor lymphadenopathy the evident. Paranasal sinuses remain clear. 3. Advanced atherosclerotic disease of the arteries in the neck including what appears to be a critic al stenosis in the proximal right internal carotid artery in the neck. If clinically indicated this could be further studied Doppler ultrasound for velocity measurements. RADIATION DOSE DELIVERED: 287.01mGy.cm Total DLP DATA REPOSITORY: All CT scans at this facility are submitted to the National Radiology Data Registry (NRDR) Dose Index Registry (DIR) with the [employer] (ACR). RADIATION OPTIMIZATION: All CT scans at this facility use at least one of these dose optimization te chniques: automated exposure control; mA and/or kV adjustment per patient size (includes targeted exa ms where dose is matched to clinical indication); or iterative reconstruction.
[2022-01-07] MEDS: Omnipaque 350 MG/ML 100 ML BTL IJ (13:55)
== END ==
PROVIDERS: PCP Nurse Practitioner; Visit Provider Otolaryngology Otolaryngology/Facial Plastic Surgery
DX: E03.9 Hypothyroidism, unspecified (principal); Z85.89 Personal history of malignant neoplasm of other organs and systems; I65.21 Occlusion and stenosis of right carotid artery
CPT/HCPCS: 70491; 80061; 82565; J3490

== ENCOUNTER 2022-01-21 11:56 | Emergency (ER) | payer MEDICARE, MEDICAID, SELFPAY ==
[2022-01-21] VITALS (10 sets, daily range): BP systolic 99–160; BP diastolic 81–96; PULSE 97–109; RESP 28; TEMP 37.3; O2SAT 98–100
--- NOTE | 2022-01-21 12:15 | DI.RAD_ITS ---
Exam(s) XR PORTABLE CHEST AP EXAM: XR PORTABLE CHEST AP CLINICAL HISTORY: sob TECHNIQUE: COMPARISON: CR,XR XR PORTABLE CHEST AP from 10/12/2021 FINDINGS: Portable upright chest at 1228 hours. There is tracheostomy tube in position. The heart is not enla rged. Lungs are clear and well expanded. No pleural effusion on this frontal film. IMPRESSION: No evidence of acute process. RADIATION DOSE DELIVERED: Total DLP
[2022-01-21] MEDS: Normal Saline 1,000 ML 1000 ML IV (12:30)
[2022-01-21 13:06] LABS: Abs Immature Grans 0.02 10^3/uL (0.0-0.06); Absolute Basophil Count 0.03 10^3/uL (0.0-0.2); Absolute Lymphocyte Count 0.57 10^3/uL (1.2-3.4); Absolute Monocyte Count 0.66 10^3/uL (0.1-0.8); Absolute Neutrophil Count 6.15 10^3/uL (1.2-6.7); Basophils % 0.4; HCT 41.3 % (40.0-50.0); HGB 14.8 g/dL (13.5-17.5); Immature Grans % 0.3; Lymphocytes % 7.7; MCH 34.9 pg (27.0-33.0); MCHC 35.8 % (32.0-36.0); MCV 97 fL (80-95); MPV 8.7 fL (8.0-11.0); Monocytes % 8.9; Neutrophils % 82.7; Platelet Count 261 10^3/uL (130-400); RBC 4.24 10^6/uL (4.36-5.78); RDW 11.8 % (11.8-14.1); RDW-SD 42.7 fL; WBC 7.43 10^3/uL (4.4-10.8)
[2022-01-21 13:10] LABS: Source Nasal/Nares
[2022-01-21 13:20] LABS: Lactate 5.7 mmol/L (0.9-1.7)
[2022-01-21 13:32] LABS: ALT 25 U/L (16-63); AST 38 U/L (15-37); Albumin 3.9 g/dL (3.4-5.0); Alkaline Phosphatase 88 U/L (46-116); Anion Gap 12.6 mmol/L (3-11); BUN 8 mg/dL (7-18); Bilirubin, Total 0.8 mg/dL (0.2-1.0); CO2 28.4 mmol/L (21.0-32.0); CREATININE 1.1 mg/dL (0.70-1.30); Chloride 95 mmol/L (98-107); Glucose 124 mg/dL (74-106); Potassium 3.4 mmol/L (3.5-5.1); Sodium 136 mmol/L (136-145); Total Protein 7.7 g/dL (6.4-8.2)
[2022-01-21 13:40] LABS: Troponin I < 50 ng/L (<or=60)
[2022-01-21 13:45] LABS: COVID-19 PCR Negative (Negative)
--- NOTE | 2022-01-21 14:20 | W.ED.GENAD ---
Discharge Plan Disposition Patient Disposition: HOME Condition: Stable Discharge Details Clinical Impression: COPD exacerbation, Bronchitis Primary Care Provider: Maisha Deleon ED Provider: Avni Hutchins Home Meds and New Rx's Prescriptions: New amoxicillin-pot clavulanate 875-125 mg tablet 1 tab PO BID Qty: 9 0RF No Action folic acid 400 mcg tablet 0.4 mg PO DAILY Qty: 90 3RF vitamin E (dl, acetate) 180 mg (400 unit) capsule 400 unit feeding tube DAILY Qty: 90 3RF gabapentin 300 mg/6 mL (6 mL) solution 400 mg feeding tube TID Qty: 720 6RF Rx Instructions: 09/10/20-DOSE INCREASED-LH thiamine HCl (vitamin B1) 100 mg tablet 100 mg feeding tube DAILY Qty: 90 3RF chlorhexidine gluconate [Peridex] 0.12 % mouthwash 15 ml mucous membrane TID Qty: 473 12RF (DME) Toothette Swab See Rx Instructions .ROUTE .MEDSUPPLY Qty: 500 6RF Rx Instructions: Use up to 15 times daily. Oral cancer. famotidine 40 mg/5 mL (8 mg/mL) suspension 20 mg PO DAILY Qty: 100 6RF sertraline 20 mg/mL concentrate 50 mg PO DAILY Qty: 100 6RF albuterol sulfate 2.5 mg /3 mL (0.083 %) solution for nebulization 2.5 mg inhalation Q6H PRN (Reason: bronchospasm) Qty: 180 6RF nystatin 100,000 unit/gram cream 1 applic topical TID Qty: 30 3RF oxycodone 5 mg/5 mL solution 5 mg PO Q6H PRN MDD 20mg PRN (Reason: pain) Qty: 600 0RF Rx Instructions: VIA G-TUBE food supplemt, lactose-reduced Liquid See Rx Instructions feeding tube .COMPLEX Rx Instructions: 236 ml (1 8 oz. bottle) feeding tube; multivitamin Tablet 1 tab feeding tube DAILY levothyroxine 75 mcg tablet 50 mcg PO DAILY potassium chloride 20 mEq Packet 20 meq UD DAILY Qty: 30 0RF Discharge Instructions Instructions: Acute Bronchitis (ED), COPD (Chronic Obstructive Pulmonary Disease) (ED) Additional Instructions: Medication reconciliation could not be performed today. Please continue to take your medications as prescribed. Be sure to use your albuterol inhaler or nebulizer every 4-6 hours over the next couple days. Please take antibiotic as prescribed. Be sure to complete the full course. Please contact your primary care physician to arrange follow-up. Return to the ER immediately for any worsening or new concerning symptoms. Referrals: Maisha Deleon NP [Primary Care Provider] - Discharge Data Discharge Date/Time-TO BE ENTERED AT DEPARTURE: 01/21/22 15:14 Medical Decision Making 61-year-old male with history of oral cancer status post tracheostomy, COPD, here with shortness of breath despite neb treatments at home. Patient is saturating well and in no respiratory distress. He does have some wheeze bilaterally. Concern for COPD exacerbation. Respiratory therapy was consulted and albuterol neb was provided. RT evaluated and suctioned trach. RT does note this patient well from prior visits and feels that he is in stable condition after neb. I considered pneumonia and obtain chest x-ray which was reviewed and interpreted by radiology: No evidence of acute process, tracheostomy in place. On my reassessment, wheezing had significantly improved. Patient is saturating well and in no respiratory distress. Given recent fever and cough I will treat for acute bronchitis with Augmentin. Initial dose was provided. Plan for discharge with outpatient follow-up. Patient and patient's family note that he feels uncomfortable at home alone and are requesting additional services. Patient is specifically worried about airway management and is requesting placement in rehab facility. Family has contacted [facility] and rehab for placement and apparently there may be availability early next week. Family requesting [facility] to [facility]. No admission criteria met at this time. I did ask ED care management, Fifi striving to participate in care and help arrange for home health services until patient is able to secure placement in rehab facility. I will place referral to home health services for assistance with medication management - patient has been noncompliant in past and now has new medication. Patient would also likely benefit from PT to improve strength and mobility. Patient is agreebale to services. HPI General Mode of arrival: EMS. Date/Time Provider Initiated Documentation: 01/21/22 12:00. Limitations to Documentation: no limitations. Information obtained by: patient. HPI Narrative: 61-year-old male with with history of COPD, carcinoma of the oral cavity, recurrent squamous cell carcinoma, status post tracheostomy, presents today with shortness of breath. Patient notes over the past 2 days he has had persistent shortness of breath. He does note he has been using albuterol nebs at home but continues to have symptoms. He has some associated low-grade fever and cough as well. He denies associated chest pain. Shortness of breath is currently moderate, constant, feels tight. Related Data Home Medications Medication Instructions Recorded Confirmed swab (Toothette swabs) #500 ea 07/28/20 12/30/21 food supplemt, lactose-reduced See Rx Instructions feeding tube 09/01/20 12/30/21 .COMPLEX multivitamin 1 tab feeding tube DAILY 09/01/20 12/30/21 folic acid 400 mcg tablet 0.4 mg PO DAILY #90 tabs 09/21/21 12/30/21 gabapentin 300 mg/6 mL (6 mL) oral 400 mg (8 mL) feeding tube TID 09/21/21 12/30/21 solution #720 mL thiamine HCl (vitamin B1) 100 mg 100 mg feeding tube DAILY #90 tabs 09/21/21 12/30/21 tablet vitamin E (dl, acetate) 180 mg 400 unit feeding tube DAILY #90 09/21/21 12/30/21 (400 unit) capsule caps potassium chloride 20 mEq oral 20 meq UD DAILY #30 ea 10/14/21 12/30/21 packet chlorhexidine gluconate 0.12 % 15 ml mucous membrane TID #473 mL 10/19/21 12/30/21 mouthwash (Peridex) levothyroxine 75 mcg tablet 50 mcg PO DAILY 10/29/21 12/30/21 famotidine 40 mg/5 mL (8 mg/mL) 20 mg (2.5 mL) PO DAILY #100 mL 11/09/21 12/30/21 oral suspension sertraline 20 mg/mL oral 50 mg (2.5 mL) PO DAILY #100 mL 11/09/21 12/30/21 concentrate albuterol sulfate 2.5 mg/3 mL 2.5 mg (3 mL) inhalation Q6H PRN 12/07/21 12/30/21 (0.083 %) solution for nebulization bronchospasm #180 mL nystatin 100,000 unit/gram topical 1 applic topical TID #30 grams 12/07/21 12/30/21 cream oxycodone 5 mg/5 mL oral solution 5 mg (5 mL) PO Q6H PRN PRN pain 12/07/21 12/30/21 #600 mL amoxicillin 875 mg-potassium 1 tab PO BID #9 tabs 01/21/22 clavulanate 125 mg tablet Previous Rx's Medication Instructions Recorded swab (Toothette swabs) #500 ea 07/28/20 folic acid 400 mcg tablet 0.4 mg PO DAILY #90 tabs 09/21/21 gabapentin 300 mg/6 mL (6 mL) oral 400 mg (8 mL) feeding tube TID 09/21/21 solution #720 mL thiamine HCl (vitamin B1) 100 mg 100 mg feeding tube DAILY #90 tabs 09/21/21 tablet vitamin E (dl, acetate) 180 mg 400 unit feeding tube DAILY #90 09/21/21 (400 unit) capsule caps potassium chloride 20 mEq oral 20 meq UD DAILY #30 ea 10/14/21 packet chlorhexidine gluconate 0.12 % 15 ml mucous membrane TID #473 mL 10/19/21 mouthwash (Peridex) famotidine 40 mg/5 mL (8 mg/mL) 20 mg (2.5 mL) PO DAILY #100 mL 11/09/21 oral suspension sertraline 20 mg/mL oral 50 mg (2.5 mL) PO DAILY #100 mL 11/09/21 concentrate albuterol sulfate 2.5 mg/3 mL 2.5 mg (3 mL) inhalation Q6H PRN 12/07/21 (0.083 %) solution for nebulization bronchospasm #180 mL nystatin 100,000 unit/gram topical 1 applic topical TID #30 grams 12/07/21 cream oxycodone 5 mg/5 mL oral solution 5 mg (5 mL) PO Q6H PRN PRN pain 12/07/21 #600 mL amoxicillin 875 mg-potassium 1 tab PO BID #9 tabs 01/21/22 clavulanate 125 mg tablet Allergies Allergy/AdvReac Type Severity Reaction Status Date / Time No Known Allergies Allergy Verified 01/21/22 12:12 General Stated Complaint: SOB CHRIST: 2 Review of Systems All systems reviewed & are unremarkable except as noted in HPI and below Constitutional Constitutional: Denies fever(s) Respiratory Respiratory: Reports cough Gastrointestinal Gastrointestinal: Denies abdominal pain PFSH All Active Problems COPD exacerbation (Acute) Bronchitis (Acute) COPD exacerbation (Acute) COVID-19 (Acute) Alcohol withdrawal (Acute) Palliative care patient (Acute) Tracheostomy care (Acute) Attention to tracheostomy tube (Acute) [employer] (Chronic) Lives alone (Acute) Marijuana smoker (Acute) Uses feeding tube (Acute) 5 cans of Nutren 1.5 per day with 1 scoop protein supplement each feed Tracheostomy in place (Chronic) Hyponatremia (Acute) Hypokalemia (Acute) B12 deficiency (Acute) Alcohol abuse (Chronic) Gastrostomy tube in place (Chronic) Carcinoma of oral cavity (Chronic ~08/2020) 09/15/[address] Farzana Nunes Rad/Onc, ? 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 Alcohol use (Acute) Dysphagia, oral phase (Acute) Caries (Acute) Mouth cancer (Acute) Tobacco use disorder (Acute) >25 pack years Medical History Acute dehydration Acute hypokalemia Acute hyponatremia Adult failure to thrive Alcohol withdrawal Anxiety Aspiration pneumonia Chronic alcoholism Closed head injury with loss of consciousness of unknown duration COPD (chronic obstructive pulmonary disease) Cough with hemoptysis DNR (do not resuscitate) DVT prophylaxis Facial laceration Hypertension Hypokalemia Hyponatremia Oral thrush Pre-op evaluation SIRS (systemic inflammatory response syndrome) Surgical History S/P glossectomy (10/24/13) w/ resection of floor of mouth, w/ suprahyoid neck dissection. cervical lymphadenectomy, tracheostomy, excision benign thyroid lesion, exploration carotid artery S/P reconstruction procedure (08/18/20) Pediculed pec flap, L hemiglossectomy and mandibulectomy ([facility]) S/P tooth extraction (~2013) Status post glossectomy (08/11/20) w/ multiple other procedures Family History Mother , about age 70 Hypertension Hyperlipidemia Breast cancer Asthma Smoker Lung cancer Father , about age 70 from lung cancer Asthma Lung cancer Smoker Brother Hyperlipidemia Son No problems noted. Grandson No problems noted. Social History Smoking/Tobacco Use Status: Former Tobacco Use Tobacco: How many years used: 31 Counseling given: provider counseling Smoking risk assessment performed?: Yes Alcohol Intake: current Alcohol Intake frequency: 3 or more drinks per day Alcohol type: beer Previous attempts at quittin Counseling given: Yes Counseling provided: reduce to 2 or less/day Details: [id number], who was with me, estimated 30 beers/day Drug use: Occasionally Substance use type: marijuana Details: 06/30/21--states drinking 6 beers a day--last was Tuesday06/26/21. Adopted: No Caregiver/Support person: No Foster care: No Household members: none Housing: house Number of Children: 1 number of grandchildren: 1 Communication Needs: Corrective Lenses and Language Barriers Education Level: high school Do you need help understanding health information?: Often current occupation: on disability; was in [employer] 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 Pets and animals: No Sexually active: No Do you think of yourself as: straight/heterosexual Current gender identity: male What is your relationship status?: How often do you talk on the phone with friends or family?: never How often do you get together with friends or relatives?: once per week Panel score (0-1 are the most socially isolated patients): 0 What type of physical activity do you participate in: none and sedentary lifestyle Frequency: does not exercise Special leeroy needs: No Agree to transfusion: Yes Seatbelt use: always Working smoke detector in home: Yes Fire extinguisher in home: Yes Do you feel safe at home: Yes Do you feel safe in your relationship?: Yes Additional Social history: Family and PCP office and I are encouraging Chito to be a permanent [facility] of [facility]. Usually is living alone in a trailer his parents bought in 1975, now owned by Chito's brother Thanh. Chito went to in [employer]. 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 Not a [facility] patient; did not serve long enough. He's with one son. [place] [facility] [place] Cannot talk on phone. Listens to his messages. Trache is permanent, as is feeding tube. No computer. No way to communicate easily. Writes down his answers and questions. Had a friend who bought him groceries and alcohol. Family not happy with this Exam Const General: cooperative and no acute distress Orientation: alert and awake [facility] Head: normocephalic Mouth: moist mucous membranes Eyes Conjunctivae: normal conjunctivae Sclera: normal sclerae Neck Other: Chronic swelling left neck, tracheostomy intact Resp Effort & Inspection: not labored Auscultation: no rales, no rhonchi and wheezes expiratory wheezes (Faint bilateral) Cardio Rate: regular rate and not tachycardic Rhythm: regular rhythm GI Palpation: soft, not firm, no guarding, no masses, not rigid and nontender Skin General skin exam: no rashes or lesions noted Neuro General: patient alert, patient awake, patient oriented x3 and tone normal Extrem General: no calf tenderness and no edema Psych Appearance: grossly normal Mental Status: mental status grossly normal Speech and Movement: speech and movement normal Course Vital Signs Vital signs: Vital Signs Temperature 37.3 C 01/21/22 12:05 Pulse 108 H 01/21/22 12:05 Respiratory Rate 28 H 01/21/22 12:05 Blood Pressure 99/81 L 01/21/22 12:05 Pulse Oximetry 100 01/21/22 12:05 Temperature 37.3 C 01/21/22 12:05 Temperature Source Temporal Artery Scan 01/21/22 12:05 Pulse 102 H 01/21/22 14:07 Respiratory Rate 28 H 01/21/22 12:05 Respiratory Effort Non-Labored 01/21/22 13:25 Respiratory Depth Normal 01/21/22 13:10 Respiratory Pattern Normal 01/21/22 13:10 Blood Pressure 127/96 H 01/21/22 14:07 Blood Pressure Mean 104 01/21/22 14:07 Blood Pressure Position Supine 01/21/22 12:05 Pulse Oximetry 100 01/21/22 14:07 Oxygen Delivery Method Trach Collar 01/21/22 12:45 Oxygen Flow Rate 10 01/21/22 12:05 Fraction of Inspired Oxygen (FIO2) 28 01/21/22 12:45 Pain Level 7 01/21/22 12:05 Lab/Test Results Lab/Test Results: 01/21/22 13:29 Blood Blood Culture - Pending 01/21/22 13:13 Blood Blood Culture - Pending Laboratory Tests Range/Units 01/21/22 01/21/22 01/21/22 12:57 12:57 12:57 WBC (4.4-10.8) 10^3/uL 7.43 RBC (4.36-5.78) 10^6/uL 4.24 L Hgb (13.5-17.5) g/dL 14.8 Hct (40.0-50.0) % 41.3 MCV (80-95) fL 97 H MCH (27.0-33.0) pg 34.9 H MCHC (32.0-36.0) % 35.8 RDW (11.8-14.1) % 11.8 Plt Count (130-400) 10^3/uL 261 MPV (8.0-11.0) fL 8.7 Immature Gran % 0.3 Neutrophils % 82.7 Lymphocytes % 7.7 Monocytes % 8.9 Eosinophils % 0.0 Basophils % 0.4 Nucleated RBC % (0.0-0.3) % 0.0 Absolute Neutrophils (1.2-6.7) 10^3/uL 6.15 Absolute Lymphocytes (1.2-3.4) 10^3/uL 0.57 L Absolute Monocytes (0.1-0.8) 10^3/uL 0.66 Absolute Eosinophils (0.0-0.7) 10^3/uL 0.00 Absolute Basophils (0.0-0.2) 10^3/uL 0.03 VBG Lactate (0.9-1.7) mmol/L Sodium (136-145) mmol/L 136 Potassium (3.5-5.1) mmol/L 3.4 L Chloride (98-107) mmol/L 95 L Carbon Dioxide (21.0-32.0) mmol/L 28.4 Anion Gap (3-11) mmol/L 12.6 H BUN (7-18) mg/dL 8 Creatinine (0.70-1.30) mg/dL 1.1 Estimated GFR/1.73 m2 (mL/min/1.73m2) >= 60.00 Glucose (74-106) mg/dL 124 H Calcium (8.5-10.1) mg/dL 10.0 Total Bilirubin (0.2-1.0) mg/dL 0.8 AST (15-37) U/L 38 H ALT (16-63) U/L 25 Alkaline Phosphatase (46-116) U/L 88 Troponin I (<or=60) ng/L Total Protein (6.4-8.2) g/dL 7.7 Albumin (3.4-5.0) g/dL 3.9 COVID-19 Source Nasal/Nares SARS-CoV-2 (PCR) (Negative) Negative Range/Units 01/21/22 01/21/22 12:57 12:57 WBC (4.4-10.8) 10^3/uL RBC (4.36-5.78) 10^6/uL Hgb (13.5-17.5) g/dL Hct (40.0-50.0) % MCV (80-95) fL MCH (27.0-33.0) pg MCHC (32.0-36.0) % RDW (11.8-14.1) % Plt Count (130-400) 10^3/uL MPV (8.0-11.0) fL Immature Gran % Neutrophils % Lymphocytes % Monocytes % Eosinophils % Basophils % Nucleated RBC % (0.0-0.3) % Absolute Neutrophils (1.2-6.7) 10^3/uL Absolute Lymphocytes (1.2-3.4) 10^3/uL Absolute Monocytes (0.1-0.8) 10^3/uL Absolute Eosinophils (0.0-0.7) 10^3/uL Absolute Basophils (0.0-0.2) 10^3/uL VBG Lactate (0.9-1.7) mmol/L 5.7 H* Sodium (136-145) mmol/L Potassium (3.5-5.1) mmol/L Chloride (98-107) mmol/L Carbon Dioxide (21.0-32.0) mmol/L Anion Gap (3-11) mmol/L BUN (7-18) mg/dL Creatinine (0.70-1.30) mg/dL Estimated GFR/1.73 m2 (mL/min/1.73m2) Glucose (74-106) mg/dL Calcium (8.5-10.1) mg/dL Total Bilirubin (0.2-1.0) mg/dL AST (15-37) U/L ALT (16-63) U/L Alkaline Phosphatase (46-116) U/L Troponin I (<or=60) ng/L < 50 Total Protein (6.4-8.2) g/dL Albumin (3.4-5.0) g/dL COVID-19 Source SARS-CoV-2 (PCR) (Negative)
[2022-01-21] MEDS: Amoxicillin 875/Clav. 125 TAB PO (14:55)
--- NOTE | 2022-01-21 16:41 | PDOC.ERCMPRO ---
- If Service Date Differs Date of service: 01/21/22 Time of Service: 16:41 Care Management Progress Note Chito presents in the ED for COPD exacerbation and bronchitis. ED provider discharges Chito home as he does not meet criteria for inpatient hospitalization at this time. Chito and his [id number] are uncomfortable with Chito returning home as he lives alone, so CM is asked to meet with them. They advise Chito is expected to be offered a bed at [facility] but not until Tuesday. The concern is that Chito is having difficulty walking, caring for himself, and is short of breath. CM offers to contact other local nursing homes to inquire about availability but Chito declines. also offers to make a referral to Home Health for support for Chito through the weekend. Chito is agreeable to this and does coordinate referral for new RN and PT services. Chito is advised to return to the ED if his symptoms worsen.
== END 2022-01-21 15:14 | disposition home or self-care (01) ==
LOC: ER 15:14
PROVIDERS: Emergency Provider Student in an Organized Health Care Education/Training Program; PCP Nurse Practitioner
DX: J44.1 Chronic obstructive pulmonary disease with (acute) exacerbation (principal); I10 Essential (primary) hypertension; Z87.891 Personal history of nicotine dependence; Z20.822 Contact with and (suspected) exposure to COVID-19
CPT/HCPCS: 80053; 87040; 87635; 96360; 99284; 71045; 83605; 84484; 85025

== ENCOUNTER 2022-02-06 11:02 | Emergency (ER) | payer MEDICARE, MEDICAID, SELFPAY ==
[2022-02-06 11:27] VITALS: BP 128/85; PULSE 72; TEMP 36.8; O2SAT 98
--- NOTE | 2022-02-06 11:27 | ED.GENADUL_ITS ---
Discharge Plan Disposition Patient Disposition: SNF (LEVEL 1) [facility] Condition: Improving Discharge Details Clinical Impression: Malfunction of gastrostomy tube Primary Care Provider: Maisha Deleon ED Provider: Dalton Kumar Home Meds and New Rx's Prescriptions: Continued folic acid 400 mcg tablet 0.4 mg PO DAILY Qty: 90 3RF vitamin E (dl, acetate) 180 mg (400 unit) capsule 400 unit feeding tube DAILY Qty: 90 3RF gabapentin 300 mg/6 mL (6 mL) solution 400 mg feeding tube TID Qty: 720 6RF Rx Instructions: 09/10/20-DOSE INCREASED-LH thiamine HCl (vitamin B1) 100 mg tablet 100 mg feeding tube DAILY Qty: 90 3RF chlorhexidine gluconate [Peridex] 0.12 % mouthwash 15 ml mucous membrane TID Qty: 473 12RF (DME) Toothette Swab See Rx Instructions .ROUTE .MEDSUPPLY Qty: 500 6RF Rx Instructions: Use up to 15 times daily. Oral cancer. famotidine 40 mg/5 mL (8 mg/mL) suspension 20 mg PO DAILY Qty: 100 6RF sertraline 20 mg/mL concentrate 50 mg PO DAILY Qty: 100 6RF albuterol sulfate 2.5 mg /3 mL (0.083 %) solution for nebulization 2.5 mg inhalation Q6H PRN (Reason: bronchospasm) Qty: 180 6RF nystatin 100,000 unit/gram cream 1 applic topical TID Qty: 30 3RF oxycodone 5 mg/5 mL solution 5 mg PO Q6H PRN MDD 20mg PRN (Reason: pain) Qty: 600 0RF Rx Instructions: VIA G-TUBE food supplemt, lactose-reduced Liquid See Rx Instructions feeding tube .COMPLEX Rx Instructions: 236 ml (1 8 oz. bottle) feeding tube; multivitamin Tablet 1 tab feeding tube DAILY levothyroxine 75 mcg tablet 50 mcg PO DAILY potassium chloride 20 mEq Packet 20 meq UD DAILY Qty: 30 0RF amoxicillin-pot clavulanate 875-125 mg tablet 1 tab PO BID Qty: 9 0RF Discharge Instructions Additional Instructions: Your G-J-tube was replaced with a 14-gauge Mitchell catheter and the general surgery clinic will order a replacement tube. The general surgery office will reach out to your rehabilitation facility on Tuesday to schedule replacement of the tube. You may resume liquid feeds and liquid medications. I recommend you flush the tube feeds with 5 to 10 cc of water or normal saline. Medical Decision Making 61-year-old male presents from local rehabilitation facility where he has been staying. His mature G-tube was dislodged this morning and was unable to be replaced. There is no other complaint. Possible stockroom does not have the exact gastrojejunostomy replacement tube. I was unable to successfully place a 14-gauge Mitchell after no appropriate tubes available. Checked with Gastrografin which shows contrast in the bowel. Case discussed with Dr. Mckeon. The surgery office will order a replacement tube and reach out to health and rehabilitation facility to schedule replacement of the GJ tube. He is stable and appropriate discharge may resume tube feeds and liquid medications. HPI General Mode of arrival: ambulatory . Date/Time Provider Initiated Documentation: 02/06/22 11:08 . Limitations to Documentation: no limitations . Information obtained by: patient . History of Present Illness 61 year old M presents to the emergency department with the chief complaint of Displacement of the GTube, described as similar to prior episodes, and is localized to the abdomen. Patient reports no radiation. Patient started experiencing this hour(s) No exacerbating factors reported . Patient notes no other symptoms.. Patient did receive the following treatments prior to arrival, none Related Data Home Medications Medication Instructions Recorded Confirmed swab (Toothette swabs) #500 ea 07/28/20 02/06/22 food supplemt, lactose-reduced See Rx Instructions feeding tube 09/01/20 02/06/22 .COMPLEX multivitamin 1 tab feeding tube DAILY 09/01/20 02/06/22 folic acid 400 mcg tablet 0.4 mg PO DAILY #90 tabs 09/21/21 02/06/22 gabapentin 300 mg/6 mL (6 mL) oral 400 mg (8 mL) feeding tube TID 09/21/21 02/06/22 solution #720 mL thiamine HCl (vitamin B1) 100 mg 100 mg feeding tube DAILY #90 tabs 09/21/21 02/06/22 tablet vitamin E (dl, acetate) 180 mg 400 unit feeding tube DAILY #90 09/21/21 02/06/22 (400 unit) capsule caps potassium chloride 20 mEq oral 20 meq UD DAILY #30 ea 10/14/21 02/06/22 packet chlorhexidine gluconate 0.12 % 15 ml mucous membrane TID #473 mL 10/19/21 02/06/22 mouthwash (Peridex) levothyroxine 75 mcg tablet 50 mcg PO DAILY 10/29/21 02/06/22 famotidine 40 mg/5 mL (8 mg/mL) 20 mg (2.5 mL) PO DAILY #100 mL 11/09/21 02/06/22 oral suspension sertraline 20 mg/mL oral 50 mg (2.5 mL) PO DAILY #100 mL 11/09/21 02/06/22 concentrate albuterol sulfate 2.5 mg/3 mL 2.5 mg (3 mL) inhalation Q6H PRN 12/07/21 02/06/22 (0.083 %) solution for nebulization bronchospasm #180 mL nystatin 100,000 unit/gram topical 1 applic topical TID #30 grams 12/07/21 02/06/22 cream oxycodone 5 mg/5 mL oral solution 5 mg (5 mL) PO Q6H PRN PRN pain 12/07/21 02/06/22 #600 mL amoxicillin 875 mg-potassium 1 tab PO BID #9 tabs 01/21/22 02/06/22 clavulanate 125 mg tablet Previous Rx's Medication Instructions Recorded swab (Toothette swabs) #500 ea 07/28/20 folic acid 400 mcg tablet 0.4 mg PO DAILY #90 tabs 09/21/21 gabapentin 300 mg/6 mL (6 mL) oral 400 mg (8 mL) feeding tube TID 09/21/21 solution #720 mL thiamine HCl (vitamin B1) 100 mg 100 mg feeding tube DAILY #90 tabs 09/21/21 tablet vitamin E (dl, acetate) 180 mg 400 unit feeding tube DAILY #90 09/21/21 (400 unit) capsule caps potassium chloride 20 mEq oral 20 meq UD DAILY #30 ea 10/14/21 packet chlorhexidine gluconate 0.12 % 15 ml mucous membrane TID #473 mL 10/19/21 mouthwash (Peridex) famotidine 40 mg/5 mL (8 mg/mL) 20 mg (2.5 mL) PO DAILY #100 mL 11/09/21 oral suspension sertraline 20 mg/mL oral 50 mg (2.5 mL) PO DAILY #100 mL 11/09/21 concentrate albuterol sulfate 2.5 mg/3 mL 2.5 mg (3 mL) inhalation Q6H PRN 12/07/21 (0.083 %) solution for nebulization bronchospasm #180 mL nystatin 100,000 unit/gram topical 1 applic topical TID #30 grams 12/07/21 cream oxycodone 5 mg/5 mL oral solution 5 mg (5 mL) PO Q6H PRN PRN pain 12/07/21 #600 mL amoxicillin 875 mg-potassium 1 tab PO BID #9 tabs 01/21/22 clavulanate 125 mg tablet Allergies Allergy/AdvReac Type Severity Reaction Status Date / Time No Known Allergies Allergy Verified 02/06/22 11:30 General CHRIST: 2 Review of Systems Narrative: Patient is otherwise well. He has no other complaints PFSH All Active Problems (Updated 02/06/22 @ 15:12 by Dalton Kumar MD) COPD exacerbation (Acute) Bronchitis (Acute) Malfunction of gastrostomy tube (Acute) COPD exacerbation (Acute) COVID-19 (Acute) Alcohol withdrawal (Acute) Palliative care patient (Acute) Tracheostomy care (Acute) Attention to tracheostomy tube (Acute) [place] [employer] (Chronic) Lives alone (Acute) Marijuana smoker (Acute) Uses feeding tube (Acute) 5 cans of Nutren 1.5 per day with 1 scoop protein supplement each feed Tracheostomy in place (Chronic) Hyponatremia (Acute) Hypokalemia (Acute) B12 deficiency (Acute) Alcohol abuse (Chronic) Gastrostomy tube in place (Chronic) Carcinoma of oral cavity (Chronic ~08/2020) 09/15/[address] Farzana Nunes Rad/Onc, ? 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 Alcohol use (Acute) Dysphagia, oral phase (Acute) Caries (Acute) Mouth cancer (Acute) Tobacco use disorder (Acute) >25 pack years Medical History Acute dehydration Acute hypokalemia Acute hyponatremia Adult failure to thrive Alcohol withdrawal Anxiety Aspiration pneumonia Chronic alcoholism Closed head injury with loss of consciousness of unknown duration COPD (chronic obstructive pulmonary disease) Cough with hemoptysis DNR (do not resuscitate) DVT prophylaxis Facial laceration Hypertension Hypokalemia Hyponatremia Oral thrush Pre-op evaluation SIRS (systemic inflammatory response syndrome) Surgical History S/P glossectomy (10/24/13) w/ resection of floor of mouth, w/ suprahyoid neck dissection. cervical lymphadenectomy, tracheostomy, excision benign thyroid lesion, exploration carotid artery S/P reconstruction procedure (08/18/20) Pediculed pec flap, L hemiglossectomy and mandibulectomy ([place]) S/P tooth extraction (~2013) Status post glossectomy (08/11/20) w/ multiple other procedures Family History Mother , about age 70 Hypertension Hyperlipidemia Breast cancer Asthma Smoker Lung cancer Father , about age 70 from lung cancer Asthma Lung cancer Smoker Brother Hyperlipidemia Son No problems noted. Grandson No problems noted. Social History Smoking/Tobacco Use Status: Former Tobacco Use Tobacco: How many years used: 31 Counseling given: provider counseling Smoking risk assessment performed?: Yes Alcohol Intake: current Alcohol Intake frequency: 3 or more drinks per day Alcohol type: beer Previous attempts at quittin Counseling given: Yes Counseling provided: reduce to 2 or less/day Details: [id number], who was with me, estimated 30 beers/day Drug use: Occasionally Substance use type: marijuana Adopted: No Caregiver/Support person: No Foster care: No Household members: none Housing: house Number of Children: 1 number of grandchildren: 1 Communication Needs: Corrective Lenses and Language Barriers Education Level: high school Do you need help understanding health information?: Often current occupation: on disability; was in [employer] x 4 years, 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 Pets and animals: No Sexually active: No Do you think of yourself as: straight/heterosexual Current gender identity: male What is your relationship status?: How often do you talk on the phone with friends or family?: never How often do you get together with friends or relatives?: once per week Panel score (0-1 are the most socially isolated patients): 0 What type of physical activity do you participate in: none and sedentary lifestyle Frequency: does not exercise Special leeroy needs: No Agree to transfusion: Yes Seatbelt use: always Working smoke detector in home: Yes Fire extinguisher in home: Yes Do you feel safe at home: Yes Do you feel safe in your relationship?: Yes Additional Social history: Family and PCP office and I are encouraging Chito to be a permanent resident of [facility]. Usually is living alone in a trailer his parents bought in 1975, now owned by Chito's brother Thanh. Chito went to in [place]. 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 Not a [employer]; did not serve long enough. He's with one son. Had extensive head and neck surgery for cancer at [facility] [place] in early 2020. Cannot talk on phone. Listens to his messages. Trache is permanent, as is feeding tube. No computer. No way to communicate easily. Writes down his answers and questions. Had a friend who bought him groceries and alcohol. Family not happy with this Exam Narrative Exam Narrative: GEN: awake, alert, well groomed, interactive. HEAD: Normocephalic, atraumatic CHEST/RESP: No respiratory ABDOMEN: Soft, nontender, no mass. +Bowel sounds. G-tube site clean dry and intact EXT: Full ROM, no edema, no rash Neuro: Grossly normal neurologic exam, conversant, interactive. Psych: Speech fluent, thoughts congruent, affect normal
[2022-02-06 13:02] VITALS: BP 132/93; TEMP 36.8; O2SAT 100
--- NOTE | 2022-02-06 13:45 | DI.RAD_ITS ---
Exam(s) XR ABDOMEN FLAT PLATE EXAM: XR ABDOMEN FLAT PLATE CLINICAL HISTORY: s/p tube replacement. TECHNIQUE: 2D digital imaging was performed. COMPARISON: CR,XR XR ABDOMEN FLAT PLATE from 02/07/2021 FINDINGS: Single view: Performed following injection of contrast through the PEG tube into the stomach. Study reveals contrast to be intraluminal the stomach and passing more distally into the duodenum and left upper quadrant jejunal loops. There is no extraluminal extravasation of contrast. IMPRESSION: DATA REPOSITORY: RADIATION DOSE DELIVERED:
--- NOTE | 2022-02-06 13:56 | NUR.NOTE ---
Nursing Note: Dr Kumar at pt's bedside, reviewed plan of care, pt in agreement, Dr Kumar attempted GT insertion; unsuccessful. Pt tolerated well, plan to notify surgery for consult. GT site with slight bloody oozing, xeroform placed.
[2022-02-06] MEDS: Gastrografin 120 ML BTL PO (14:05)
[2022-02-06 14:56] VITALS: PULSE 100; RESP 18; TEMP 37; O2SAT 97
[2022-02-06] MEDS: oxyCODONE 5 MG/5 ML CUP 10 MG PO (15:26)
[2022-02-06] MEDS: Acetaminophen Solution 650 MG/20.3 ML CUP PO (15:31)
--- NOTE | 2022-02-06 15:32 | DI.VRAD_ITS ---
PROCEDURE INFORMATION: Exam: XR Abdomen Exam date and time: 02/06/2022 2:39 PM Age: 61 years old Clinical indication: Device placement; Gi device; Other: G tube; Patient HX: S/P tube replacement TECHNIQUE: Imaging protocol: Radiologic exam of the abdomen. Views: Frontal supine view of the abdomen. 1 View. COMPARISON: CR XR ABDOMEN FLAT PLATE 02/07/2021 12:43 PM FINDINGS: Tubes, catheters and devices: Contrast injected through the PEG tube outlines the stomach and confirms intragastric placement of the tube. Gastrointestinal tract: Normal. No bowel dilation. Bones/joints: Unremarkable. IMPRESSION: Contrast injected through the PEG tube outlines the stomach and confirms intragastric placement of the tube. Dictated and Authenticated by: Kristina Vivar MD. Ordering:NATHANIEL Hoffman MD
[2022-02-06 16:02] VITALS: BP 140/101; PULSE 110; RESP 20; TEMP 36.7; O2SAT 96
== END 2022-02-06 16:27 | disposition skilled nursing facility (03) ==
PROVIDERS: Emergency Provider Emergency Medicine; PCP Nurse Practitioner
DX: K94.23 Gastrostomy malfunction (principal); J44.9 Chronic obstructive pulmonary disease, unspecified; I10 Essential (primary) hypertension; Z87.891 Personal history of nicotine dependence
CPT/HCPCS: 99283; 74018; 99284

== ENCOUNTER → 2022-03-04 13:12 | Outpatient (BNVA) | payer MEDICARE, SELFPAY | PROVIDERS: PCP Nurse Practitioner; Referring Provider Nurse Practitioner; Visit Provider Surgery | DX: K94.23 Gastrostomy malfunction (principal); F12.90 Cannabis use, unspecified, uncomplicated; C44.92 Squamous cell carcinoma of skin, unspecified; R13.11 Dysphagia, oral phase | CPT/HCPCS: 99212; 99213 ==

== ENCOUNTER 2022-09-07 18:27 | Outpatient (REF) | payer MEDICARE, MEDICAID, SELFPAY ==
[2022-09-07 19:31] LABS: Anion Gap 7.1 mmol/L (3-11); BUN 13 mg/dL (7-18); CO2 26.9 mmol/L (21.0-32.0); CREATININE 0.7 mg/dL (0.70-1.30); Calcium 9.4 mg/dL (8.5-10.1); Chloride 97 mmol/L (98-107); Estimated GFR 104.83 (mL/min/1.73m2); Glucose 91 mg/dL (74-106); Potassium 4.2 mmol/L (3.5-5.1); Sodium 131 mmol/L (136-145); TSH 2.08 uIU/mL (0.36-3.74)
== END 2022-09-07 18:28 | disposition home or self-care (01) ==
LOC: LBN 18:27
PROVIDERS: PCP Nurse Practitioner; Visit Provider Physician Assistant
DX: E03.9 Hypothyroidism, unspecified (principal)
CPT/HCPCS: 80048; 84443

== ENCOUNTER 2023-04-24 11:54 | Outpatient (REF) | payer MEDICARE, MEDICAID, SELFPAY ==
[2023-04-24 12:25] LABS: Abs Immature Grans 0.01 10^3/uL (0.0-0.06); Absolute Basophil Count 0.05 10^3/uL (0.0-0.2); Absolute Eosinophil Count 0.08 10^3/uL (0.0-0.7); Absolute Lymphocyte Count 1.27 10^3/uL (1.2-3.4); Basophils % 0.8; Eosinophils % 1.2; HCT 47.8 % (40.0-50.0); Immature Grans % 0.2; Lymphocytes % 19.8; MCH 33.3 pg (27.0-33.0); MCHC 33.5 % (32.0-36.0); MCV 100 fL (80-95); MPV 9.9 fL (8.0-11.0); Monocytes % 7.8; Neutrophils % 70.2; Platelet Count 220 10^3/uL (130-400); RDW 12.8 % (11.8-14.1); RDW-SD 47.3 fL; WBC 6.41 10^3/uL (4.4-10.8)
[2023-04-24 12:43] LABS: ALT 31 U/L (16-63); AST 32 U/L (15-37); Albumin 4.1 g/dL (3.4-5.0); Alkaline Phosphatase 93 U/L (46-116); Anion Gap 9.9 mmol/L (3-11); BUN 12 mg/dL (7-18); CO2 24.1 mmol/L (21.0-32.0); CREATININE 0.8 mg/dL (0.70-1.30); Calcium 9.6 mg/dL (8.5-10.1); Chloride 101 mmol/L (98-107); Estimated GFR 100.06 (mL/min/1.73m2); Glucose 107 mg/dL (74-106); Potassium 4.5 mmol/L (3.5-5.1); Sodium 135 mmol/L (136-145); TSH 0.84 uIU/mL (0.36-3.74); Total Protein 7.5 g/dL (6.4-8.2)
[2023-04-24 12:55] LABS: T4 8.7 ug/dL (4.7-13.3)
== END 2023-04-24 11:55 | disposition home or self-care (01) ==
LOC: LBO 11:54
PROVIDERS: PCP Nurse Practitioner; Visit Provider Family Medicine
DX: E03.9 Hypothyroidism, unspecified (principal); J44.1 Chronic obstructive pulmonary disease with (acute) exacerbation; R62.7 Adult failure to thrive
CPT/HCPCS: 80053; 84436; 84443; 85025

== ENCOUNTER → 2023-06-13 03:47 | Outpatient (CLI) | payer MEDICARE, MEDICAID, SELFPAY ==
--- NOTE | 2023-06-13 | DI.RAD_ITS ---
Exam(s) XR CHEST 2V PA LATERAL EXAM: XR CHEST 2V PA LATERAL CLINICAL HISTORY: INCREASED TRACH SECRETIONS. TECHNIQUE: 2D digital imaging was performed. COMPARISON: CR XR PORTABLE CHEST AP from 01/21/2022 FINDINGS: 2 views: Tracheostomy tube again noted which appears in satisfactory position. Heart size is normal. The mediastinum is not widened. Left lung is clear. Increased density over the right-side of the chest noted which is probably gynec omastia. No confluent infiltrate evident on the lateral view. There are no pleural effusions. No p ulmonary edema. IMPRESSION: No acute pulmonary findings.Tracheostomy tube in satisfactory position. DATA REPOSITORY: RADIATION DOSE DELIVERED:
== END ==
PROVIDERS: PCP Nurse Practitioner; Visit Provider Nurse Practitioner Adult Health
DX: J95.09 Other tracheostomy complication (principal)
CPT/HCPCS: 71046

== ENCOUNTER 2023-08-16 17:50 | Outpatient (REF) | payer MEDICARE, MEDICAID, SELFPAY ==
[2023-08-16 17:37] LABS: TSH (W/Ref FT4) 5.69 uIU/mL (0.36-3.74)
[2023-08-16 18:44] LABS: FREE T4 0.81 ng/dL (0.76-1.46)
== END 2023-08-16 17:51 | disposition home or self-care (01) ==
LOC: LBN 17:50
PROVIDERS: PCP Nurse Practitioner; Visit Provider Family Medicine
DX: E03.9 Hypothyroidism, unspecified (principal)
CPT/HCPCS: 84439; 84443

== ENCOUNTER → 2023-08-24 15:24 | Outpatient (BNVA) | payer MEDICARE, MEDICAID, SELFPAY | PROVIDERS: PCP Nurse Practitioner; Referring Provider Nurse Practitioner; Visit Provider Surgery | DX: K94.23 Gastrostomy malfunction (principal) | CPT/HCPCS: 43762 ==

== ENCOUNTER 2023-09-27 18:24 | Outpatient (REF) | payer MEDICARE, MEDICAID, SELFPAY ==
[2023-09-27 19:26] LABS: TSH 6.45 uIU/Ml (0.36-3.74)
== END 2023-09-27 18:25 | disposition home or self-care (01) ==
LOC: LBN 18:24
PROVIDERS: PCP Nurse Practitioner; Visit Provider Family Medicine
DX: E03.9 Hypothyroidism, unspecified (principal)
CPT/HCPCS: 84443

== ENCOUNTER 2023-11-01 15:46 | Outpatient (REF) | payer MEDICARE, MEDICAID, SELFPAY ==
[2023-11-01 17:14] LABS: TSH 2.65 uIU/Ml (0.36-3.74)
== END 2023-11-01 15:47 | disposition home or self-care (01) ==
LOC: LBN 15:46
PROVIDERS: PCP Nurse Practitioner; Visit Provider Family Medicine
DX: E03.9 Hypothyroidism, unspecified (principal)
CPT/HCPCS: 84443

== ENCOUNTER 2023-11-08 18:20 | Outpatient (REF) | payer MEDICARE, MEDICAID, SELFPAY ==
[2023-11-08 17:51] LABS: Abs Immature Grans 0.02 10^3/uL (0.0-0.06); Absolute Basophil Count 0.05 10^3/uL (0.0-0.2); Absolute Lymphocyte Count 1.33 10^3/uL (1.2-3.4); Absolute Monocyte Count 0.45 10^3/uL (0.1-0.8); Basophils % 0.8 %; Eosinophils % 1.6 %; HCT 44.1 % (40.0-50.0); HGB 15.4 g/dL (13.5-17.5); Immature Grans % 0.3 %; Lymphocytes % 21.3 %; MCH 34.1 pg (27.0-33.0); MCHC 34.9 % (32.0-36.0); MCV 98 fL (80-95); MPV 10.9 fL (8.0-11.0); Monocytes % 7.2 %; Neutrophils % 68.8 %; Platelet Count 204 10^3/uL (130-400); RBC 4.52 10^6/uL (4.36-5.78); RDW 13.1 % (11.8-14.1); RDW-SD 46.5 fL; WBC 6.25 10^3/uL (4.4-10.8)
[2023-11-08 18:09] LABS: ALT 37 U/L (16-63); AST 38 U/L (15-37); Albumin 3.8 g/dL (3.4-5.0); Alkaline Phosphatase 117 U/L (46-116); Anion Gap 10.7 mmol/L (3-11); BUN 12 mg/dL (7-18); Bilirubin, Total 0.3 mg/dL (0.2-1.0); CO2 24.3 mmol/L (21.0-32.0); CREATININE 0.6 mg/dL (0.70-1.30); Calcium 9.2 mg/dL (8.5-10.1); Chloride 100 mmol/L (98-107); Estimated GFR 108.47 (mL/min/1.73m2); Glucose 91 mg/dL (74-106); Potassium 4.7 mmol/L (3.5-5.1); Sodium 135 mmol/L (136-145); TSH (W/Ref FT4) 2.46 uIU/mL (0.36-3.74); Total Protein 6.8 g/dL (6.4-8.2)
[2023-11-08 18:19] LABS: Iron 91 ug/dL (65-175)
== END 2023-11-08 18:21 | disposition home or self-care (01) ==
LOC: LBN 18:20
PROVIDERS: PCP Nurse Practitioner; Visit Provider Nurse Practitioner Family
DX: E03.9 Hypothyroidism, unspecified (principal)
CPT/HCPCS: 80053; 83540; 84443; 85025

== ENCOUNTER → 2024-07-13 14:12 | Outpatient (BNVA) | payer MEDICARE, MEDICAID, SELFPAY | PROVIDERS: Visit Provider Surgery | DX: Z93.1 Gastrostomy status (principal) | CPT/HCPCS: 43762 ==

== ENCOUNTER 2024-11-16 14:57 | Outpatient (REF) | payer MEDICARE, MEDICAID, SELFPAY ==
[2024-11-16 13:51] LABS: Abs Immature Grans 0.01 10^3/uL (0.0-0.06); Absolute Basophil Count 0.05 10^3/uL (0.0-0.2); Absolute Eosinophil Count 0.23 10^3/uL (0.0-0.7); Absolute Lymphocyte Count 1.06 10^3/uL (1.2-3.4); Absolute Monocyte Count 0.49 10^3/uL (0.1-0.8); Absolute Neutrophil Count 4.41 10^3/uL (1.2-6.7); Basophils % 0.8 %; Eosinophils % 3.7 %; HCT 46.3 % (40.0-50.0); HGB 15.4 g/dL (13.5-17.5); Immature Grans % 0.2 %; MCH 33.1 pg (27.0-33.0); MCHC 33.3 % (32.0-36.0); MCV 100 fL (80-95); Monocytes % 7.8 %; Neutrophils % 70.5 %; Platelet Count 168 10^3/uL (130-400); RBC 4.65 10^6/uL (4.36-5.78); RDW 12.9 % (11.8-14.1); RDW-SD 47.7 fL; WBC 6.25 10^3/uL (4.4-10.8)
[2024-11-16 14:14] LABS: ALT 46 U/L (16-63); AST 47 U/L (15-37); Albumin 4.3 g/dL (3.4-5.0); Alkaline Phosphatase 115 U/L (46-116); Anion Gap 7.5 mmol/L (3-11); BUN 13 mg/dL (7-18); Bilirubin, Total 0.7 mg/dL (0.2-1.0); CO2 30.5 mmol/L (21.0-32.0); CREATININE 0.9 mg/dL (0.70-1.30); Calcium 9.6 mg/dL (8.5-10.1); Chloride 100 mmol/L (98-107); Estimated GFR 95.37 (mL/min/1.73m2); Glucose 105 mg/dL (74-106); Potassium 4.6 mmol/L (3.5-5.1); Sodium 138 mmol/L (136-145); TSH (W/Ref FT4) 1.38 uIU/mL (0.36-3.74); Total Protein 7.5 g/dL (6.4-8.2)
== END 2024-11-16 14:58 | disposition home or self-care (01) ==
LOC: LBN 14:57
PROVIDERS: PCP Family Medicine; Visit Provider Family Medicine
DX: E03.9 Hypothyroidism, unspecified (principal); I10 Essential (primary) hypertension
CPT/HCPCS: 80053; 84443; 85025

== ENCOUNTER → 2025-01-30 14:28 | Outpatient (BNVA) | payer MEDICARE, MEDICAID, SELFPAY | PROVIDERS: PCP Family Medicine; Referring Provider Family Medicine; Visit Provider Internal Medicine Pulmonary Disease | DX: J41.0 Simple chronic bronchitis (principal); J96.10 Chronic respiratory failure, unspecified whether with hypoxia or hypercapnia; Z98.890 Other specified postprocedural states | CPT/HCPCS: 99205 ==

== ENCOUNTER 2025-02-07 13:09 | Day surgery (SDC) | payer MEDICARE, MEDICAID, SELFPAY ==
[2025-02-07 13:21] VITALS: BP 98/75; PULSE 73; RESP 14; TEMP 36.8; O2SAT 99
[2025-02-07 14:49] VITALS: BP 121/95; PULSE 70; RESP 16; TEMP 36.9; O2SAT 94
--- NOTE | 2025-02-07 14:55 | W.PM.OP ---
Operative Note Operative Note PRE-OP DIAGNOSIS: Chronic respiratory failure POST-OP DIAGNOSIS: same PROCEDURE: Tracheostomy exchange SURGEON: Jerald Ramsey ESTIMATED BLOOD LOSS: 0 Procedure Description: #6 shiley tracheostomy was prepped. Obturator was inserted into the tracheostomy and the tip was lubricated. The old tracheostomy was removed without difficulty. The new tracheostomy was placed without difficulty and the obturator was removed. The inner cannula was placed. The tracheostomy was secured with the neck strap. Date of Procedure: 02/07/25
== END 2025-02-07 15:00 | disposition home or self-care (01) ==
PROVIDERS: PCP Family Medicine; Visit Provider Internal Medicine Pulmonary Disease
PROC: 0B21XFZ Change Tracheostomy Device in Trachea, External Approach (ICD-10-PCS; CPT 31502; principal; 2025-02-07 14:30)
DX: Z43.0 Encounter for attention to tracheostomy (principal); J96.10 Chronic respiratory failure, unspecified whether with hypoxia or hypercapnia
CPT/HCPCS: 31613; 00123

== ENCOUNTER 2025-02-25 16:16 | Outpatient (REF) | payer MEDICARE, MEDICAID, SELFPAY ==
[2025-02-25 16:36] LABS: Abs Immature Grans 0.02 10^3/uL (0.0-0.06); HCT 45.1 % (40.0-50.0); HGB 15.6 g/dL (13.5-17.5); Immature Grans % 0.2 %; MCH 34.8 pg (27.0-33.0); MCHC 34.6 % (32.0-36.0); MCV 101 fL (80-95); MPV 10.8 fL (8.0-11.0); Platelet Count 187 10^3/uL (130-400); RBC 4.48 10^6/uL (4.36-5.78); RDW 12.3 % (11.8-14.1); RDW-SD 46.5 fL; WBC 8.86 10^3/uL (4.4-10.8)
[2025-02-25 16:39] LABS: ESR 7 mm/hr (0-20)
[2025-02-25 16:54] LABS: ALT 38 U/L (16-63); AST 42 U/L (15-37); Albumin 4.5 g/dL (3.4-5.0); Alkaline Phosphatase 112 U/L (46-116); Anion Gap 9.0 mmol/L (3-11); BUN 8 mg/dL (7-18); Bilirubin, Total 0.7 mg/dL (0.2-1.0); CO2 28.0 mmol/L (21.0-32.0); Calcium 9.7 mg/dL (8.5-10.1); Chloride 98 mmol/L (98-107); Estimated GFR 102.89 (mL/min/1.73m2); Glucose 89 mg/dL (74-106); Potassium 4.5 mmol/L (3.5-5.1); Sodium 135 mmol/L (136-145); Total Protein 7.7 g/dL (6.4-8.2)
[2025-02-25 16:55] LABS: C-Reactive Protein < 0.50 mg/dL (<or=0.5)
== END 2025-02-25 16:17 | disposition home or self-care (01) ==
LOC: LBN 16:16
PROVIDERS: PCP Family Medicine; Visit Provider Nurse Practitioner Adult Health
DX: R62.7 Adult failure to thrive (principal)
CPT/HCPCS: 80053; 85652; 85025; 86140

== ENCOUNTER → 2025-04-29 08:32 | Outpatient (BNVA) | payer MEDICARE, MEDICAID, SELFPAY | PROVIDERS: PCP Family Medicine; Referring Provider Family Medicine; Visit Provider Surgery | DX: Z93.1 Gastrostomy status (principal) | CPT/HCPCS: 43762 ==